=== PATIENT | female | born 1990 | race Hispanic/Latino ===

== ENCOUNTER 2017-03-22 14:03 | Inpatient (IN) | payer BC, MEDICAID ==
[2017-03-22 14:07] VITALS: BMI 23.8
[2017-03-22] MEDS ORDERED: Magnesium Sulfate 2 GM in Sodium Chloride 0.9% 100 ML IVPB ONE (14:12)
--- NOTE | 2017-03-22 14:17 | ED PDOC ---
Arrival/HPI - General Chief Complaint: Respiratory Distress Time Seen by Provider: 03/22/17 14:07 Historian: Patient - History of Present Illness Narrative History of Present Illness (Text): 03/22/17 14:13 A 26 year old female, whose past medical history includes asthma, presents to the emergency department complaining of asthma exacerbation and wheezing. Patient reports also experiencing mild cough and headache. Patient denies any fever or any other complaints at this time. PMD: Dr. Yumiko Suggs Past Medical History - Provider Review Nursing Documentation Reviewed: Yes - Infectious Disease Hx of Infectious Diseases: None - Tetanus Immunization Tetanus Immunization: Unknown - Cardiac Hx Cardiac Disorders: No - Pulmonary Hx Asthma: Yes (has home nebulizer machine) Hx Bronchitis: Yes Hx Pneumonia: Yes - Neurological Hx Neurological Disorder: No - HEENT Hx HEENT Disorder: No - Renal Hx Renal Disorder: No - Endocrine/Metabolic Hx Endocrine Disorders: No - Hematological/Oncological Hx Blood Disorders: No - Integumentary Hx Dermatological Disorder: No - Musculoskeletal/Rheumatological Hx Falls: No - Gastrointestinal Hx Gastrointestinal Disorders: No - Genitourinary/Gynecological Hx Genitourinary Disorders: No - Psychiatric Hx Depression: No Hx Emotional Abuse: No Hx Physical Abuse: No Hx Substance Use: No - Past Surgical History Past Surgical History: No Previous - Anesthesia Hx Anesthesia: No - Suicidal Assessment Feels Threatened In Home Enviroment: No Family/Social History - Physician Review Nursing Documentation Reviewed: Yes Family/Social History: No Known Family HX Smoking Status: Never Smoked Hx Alcohol Use: No Hx Substance Use: No Hx Substance Use Treatment: No Allergies/Home Meds Allergies/Adverse Reactions: Allergies No Known Allergies Allergy (Verified 03/22/17 14:12) Home Medications: Home Meds Medication Instructions Recorded Confirmed Albuterol Sulfate 3 ml IH Q12 PRN 03/23/17 03/23/17 Review of Systems - Physician Review All systems were reviewed & negative as marked: Yes - Review of Systems Constitutional: absent: Fevers Respiratory: Cough (mild), Wheezing Neurological: Headache Physical Exam Vital Signs Reviewed: Yes Vital Signs Temp Pulse Pulse Resp BP Pulse Ox 03/23/17 13:30 98 F 97 H 97 H 18 115/96 H 03/23/17 07:50 98 F 97 H 18 115/96 H 96 03/23/17 04:00 98.1 F 96 H 22 97/59 L 94 L 03/23/17 02:00 24 95 03/22/17 23:45 98.0 F 104 H 20 100/67 94 L 03/22/17 21:03 99 H 18 130/80 97 03/22/17 16:44 102 H 18 96 03/22/17 15:14 96 H 18 95 03/22/17 15:10 97 H 19 89 L 03/22/17 14:28 21 92 L 03/22/17 14:16 98.8 F 120 H 20 128/102 H 100 Appearance: Positive for: Well-Appearing Pain Distress: None Mental Status: Positive for: Alert and Oriented X 3 - Systems Exam Head: Present: Atraumatic, Normocephalic Pupils: Present: PERRL Extroacular Muscles: Present: EOMI Conjunctiva: Present: Normal Mouth: Present: Moist Mucous Membranes Neck: Present: Normal Range of Motion Respiratory/Chest: Present: Wheezes (diffused wheezing; patient speaking in 4-5 word sentences due to symptoms) Cardiovascular: Present: Regular Rate and Rhythm, Normal S1, S2. No: Murmurs Abdomen: Present: Normal Bowel Sounds. No: Tenderness, Distention, Peritoneal Signs Back: Present: Normal Inspection Upper Extremity: Present: Normal Inspection. No: Cyanosis, Edema Lower Extremity: Present: Normal Inspection. No: Edema Neurological: Present: GCS=15, CN II-XII Intact, Speech Normal Skin: Present: Warm, Dry, Normal Color. No: Rashes Psychiatric: Present: Alert, Oriented x 3, Normal Insight, Normal Concentration Medical Decision Making ED Course and Treatment: 03/22/17 14:15 Impression: 26 year old female with asthma exacerbation, wheezing, mild cough, and headache. Physical exam shows diffused wheezing and patient speaking in 4-5 word sentences due to symptoms. Plan: -- EKG -- Chest X-ray -- Labs -- Duoneb -- Magnesium Sulfate IV Fluids -- SOLU-Medrol -- Urinalysis -- Influenza A B test -- Reassess and disposition Prior Visits: Notes and results from previous visits were reviewed. Patient was last seen in the emergency department on 03/05/2017 for wheezing and difficulty breathing. Patient was admitted. Progress Notes: EKG: Ordered, reviewed, and independently interpreted the EKG. Rate : 115 BPM Rhythm : Sinus tachycardia Interpretation : No ST-segment elevations or depressions, no T-wave inversions, normal intervals. Comparison : No previous EKG for comparison. - Lab Interpretations Lab Results: 03/22/17 14:26 03/22/17 14:26 Lab Results 03/22/17 16:11: Urine Color Yellow, Urine Appearance Sl cloudy, Urine pH 6.0, Ur Specific [place] >= 1.030, Urine Protein Negative, Urine Glucose (UA) Negative, Urine Ketones Negative, Urine Blood Trace-intact H, Urine Nitrate Negative, Urine Bilirubin Negative, Urine Urobilinogen 0.2, Ur Leukocyte Esterase Moderate H, Urine RBC 1 - 3, Urine WBC 15 - 20, Ur Epithelial Cells 10 - 12, Urine Bacteria Mod, Urine HCG, Qual Negative 03/22/17 14:26: Procalcitonin 0.05 L 03/22/17 14:26: WBC 16.4 H, RBC 5.17, Hgb 14.5, Hct 45.4, MCV 87.8, MCH 28.0, MCHC 31.9, RDW 13.1, Plt Count 261, MPV 11.1 H, Gran % 56.3, Lymph % (Auto) 25.8 , [place] % (Auto) 7.7 H, Eos % (Auto) 9.7 H, Baso % (Auto) 0.5, Gran # 9.24 H, Lymph # (Auto) 4.2 H, [place] # (Auto) 1.3 H, Eos # (Auto) 1.6 H, Baso # (Auto) 0.08 03/22/17 14:26: Sodium 139, Potassium 4.5, Chloride 100, Carbon Dioxide 30, Anion Gap 14, BUN 12, Creatinine 0.7, Est GFR ( Amer) > 60, Est GFR (Non- Af Amer) > 60, Random Glucose 89, Calcium 9.0, Total Bilirubin 0.2, AST 30, ALT 41, Alkaline Phosphatase 71, Total Protein 6.5, Albumin 4.1, Globulin 2.4, Albumin/Globulin Ratio 1.7 03/22/17 14:26: PT 10.7, INR 0.94, APTT 25.4 - RAD Interpretation Radiology Orders: 03/22/17 14:12 CXR [CHEST PORTABLE] [RAD] Stat - Medication Orders Current Medication Orders: Discontinued Medications Acetaminophen (Tylenol 325mg Tab) 975 mg PO STAT STA Stop: 03/22/17 14:14 Last Admin: 03/22/17 14:26 Dose: 975 mg Acetaminophen (Tylenol 325mg Tab) 650 mg PO Q4H PRN PRN Reason: Fever >100.4 F Last Admin: 03/25/17 07:55 Dose: 650 mg [facility] Pain/Vitals Document 03/25/17 07:55 MJO (Rec: 03/25/17 07:55 MJO [id number]) Pain Reassessment Is This A Pain ReAssessment? No Sleep Is patient sleeping during reassessment? No Presence of Pain Presence of Pain Yes Pain Scale Used Pain Scale Used Numeric Location Left, Right or Bilateral Right Pain Location Body Site toothache Description Acute Intensity 6 Scale Used Numeric Pain Behavior Rubbing Site Facial Grimacing Alleviating Factors Medication Re-Assess: [facility] Pain/Vitals Document 03/25/17 08:55 MJO (Rec: 03/25/17 10:16 MJO [facility] [id number]) Pain Reassessment Is This A Pain ReAssessment? Yes Sleep Is patient sleeping during reassessment? No Presence of Pain Presence of Pain No Albuterol/Ipratropium (Duoneb 3 Mg/0.5 Mg (3 Ml) Ud) 3 ml IH Q15M CURTIS Stop: 03/22/17 14:46 Last Admin: 03/22/17 14:52 Dose: 3 ml Albuterol/Ipratropium (Duoneb 3 Mg/0.5 Mg (3 Ml) Ud) 3 ml IH STAT STA Stop: 03/22/17 17:04 Last Admin: 03/22/17 17:05 Dose: 3 ml Benzocaine/Menthol (Cepacol Sore Throat) 1 jere MT Q2H PRN PRN Reason: Sore Throat Last Admin: 03/23/17 17:56 Dose: 1 jere Guaifenesin/Dextromethorphan (Robitussin Dm) 5 ml PO Q4H PRN PRN Reason: Cough Last Admin: 03/23/17 21:03 Dose: 5 ml Guaifenesin/Dextromethorphan (Robitussin Dm) 5 ml PO QID CURTIS Last Admin: 03/25/17 10:50 Dose: 5 ml Magnesium Sulfate 2 gm/ Sodium (Chloride) 104 mls @ 102 mls/hr IVPB ONCE ONE Stop: 03/22/17 15:13 Last Admin: 03/22/17 14:46 Dose: 102 mls/hr eMAR Start Stop Document 03/22/17 14:46 SE (Rec: 03/22/17 14:46 SE [id number]) Intravenous Solution Start Date 03/22/17 Start Time 14:46 Levofloxacin/Dextrose (Levaquin 750mg) 750 mg in 150 mls @ 100 mls/hr IVPB STAT STA PRN Reason: Protocol Stop: 03/22/17 17:58 Last Admin: 03/22/17 16:38 Dose: 100 mls/hr eMAR Start Stop Document 03/22/17 16:38 SE (Rec: 03/22/17 16:39 SE [id number]) Intravenous Solution Start Date 03/22/17 Start Time 16:39 Levofloxacin/Dextrose (Levaquin 500mg) 500 mg in 100 mls @ 100 mls/hr IVPB DAILY CURTIS PRN Reason: Protocol Last Admin: 03/25/17 10:53 Dose: 100 mls/hr eMAR Start Stop Document 03/25/17 10:53 MJO (Rec: 03/25/17 10:54 MJO [facility] [id number]) Intravenous Solution Start Date 03/25/17 Start Time 10:54 End Date 03/25/17 End time 11:54 Total Infusion Time 60 Levalbuterol HCl (Xopenex) 0.63 mg IH [id number] PRN PRN Reason: Shortness of Breath Levalbuterol HCl (Xopenex) 1.25 mg IH [id number] PRN PRN Reason: Shortness of Breath Levalbuterol HCl (Xopenex) 0.63 mg IH [id number] CURTIS Last Admin: 03/25/17 07:33 Dose: 0.63 mg Methylprednisolone (Solu-Medrol) 125 mg IVP STAT STA Stop: 03/22/17 14:13 Last Admin: 03/22/17 14:26 Dose: 125 mg IVP Administration Document 03/22/17 14:26 SE (Rec: 03/22/17 14:26 SE [id number]) Charges for Administration # of IVP Administrations 1 Methylprednisolone (Solu-Medrol) 40 mg IVP Q12 CURTIS Last Admin: 03/24/17 09:47 Dose: 40 mg IVP Administration Document 03/24/17 09:47 [facility] (Rec: 03/24/17 09:47 [id number]) Charges for Administration # of IVP Administrations 1 Methylprednisolone (Solu-Medrol) 40 mg IVP DAILY [facility] Last Admin: 03/25/17 10:50 Dose: 40 mg IVP Administration Document 03/25/17 10:50 MJO (Rec: 03/25/17 10:50 MJO [facility] [id number]) Charges for Administration # of IVP Administrations 1 Ondansetron HCl (Zofran Inj) 2 mg IVP Q6H PRN PRN Reason: Nausea/Vomiting Pantoprazole Sodium (Protonix Inj) 40 mg IVP Q12 [facility] Pantoprazole Sodium (Protonix Inj) 40 mg IVP DAILY [facility] Last Admin: 03/24/17 09:47 Dose: 40 mg IVP Administration Document 03/24/17 09:47 [facility] [place] (Rec: 03/24/17 09:47 [id number]) Charges for Administration # of IVP Administrations 1 Pantoprazole Sodium (Protonix Ec Tab) 40 mg PO ACB [facility] Last Admin: 03/25/17 07:56 Dose: 40 mg Pneumococcal Polyvalent Vaccine (Pneumovax 23 Vaccine) 0.5 ml IM .ONCE ONE Stop: 03/23/17 13:41 - Scribe Statement The provider has reviewed the documentation as recorded by the Viraj Hernandez Provider Scribe Attestation: All medical record entries made by the Viraj were at my direction and personally dictated by me. I have reviewed the chart and agree that the record accurately reflects my personal performance of the history, physical exam, medical decision making, and the department course for this patient. I have also personally directed, reviewed, and agree with the discharge instructions and disposition. Disposition/Present on Arrival - Present on Arrival Any Indicators Present on Arrival: No History of DVT/PE: No History of Uncontrolled Diabetes: No Urinary Catheter: No History Surgical Site Infection Following: None - Disposition Have Diagnosis and Disposition been Completed?: Yes Diagnosis: Asthma Disposition: HOSPITALIZED Disposition Time: 03:00 Condition: STABLE
[2017-03-22] MEDS ORDERED: Albuterol-Ipratrop 3 mg / 0.5 (3 ml) UD ONE (14:19)
[2017-03-22] MEDS: Albuterol-Ipratrop 3 mg / 0.5 (3 ml) UD IH SCH ×3 (14:22→14:52)
[2017-03-22 14:37] LABS: BASO # 0.08 K/mm3 (0.0-2.0); BASO % 0.5 % (0.0-3.0); EOS # 1.6 (0.0-0.7); EOS % 9.7 % (1.5-5.0); GRAN # 9.24 (1.4-6.5); GRAN % 56.3 % (50.0-68.0); HEMOGLOBIN 14.5 g/dL (12.0-16.0); LYMPH # 4.2 (1.2-3.4); LYMPH % 25.8 % (22.0-35.0); MEAN CELL VOLUME 87.8 fl (80.0-105.0); MEAN CORPUSCULAR HGB CONC 31.9 g/dl (31.0-37.0); MEAN PLATELET VOLUME 11.1 fl (7.0-11.0); MONO # 1.3 (0.1-0.6); MONO % 7.7 % (1.0-6.0); RBC 5.17 10^6/uL (3.5-6.1); RED CELL DISTRIBUTION WIDTH 13.1 % (11.5-14.5); WHITE BLOOD COUNT 16.4 10^3/ul (4.5-11.0)
[2017-03-22 14:50] LABS: ALB/GLOB RATIO 1.7 (1.1-1.8); ALBUMIN 4.1 g/dL (3.0-4.8); ALT/SGPT 41 U/L (7-56); AST/SGOT 30 U/L (14-36); BLOOD UREA NITROGEN 12 mg/dL (7-21); GFR AFRICAN-AMERICAN > 60; GFR NON-AFRICAN AMERICAN > 60
[2017-03-22 14:58] LABS: INR 0.94 (0.93-1.08); PARTIAL THROMBOPLASTIN TIME 25.4 Seconds (25.1-36.5); PROTHROMBIN TIME 10.7 SECONDS (9.4-12.5)
[2017-03-22 16:19] LABS: URINE BILIRUBIN NEGATIVE (NEGATIVE); URINE BLOOD TRACE-INTACT (NEGATIVE); URINE GLUCOSE (UA) NEGATIVE (NEGATIVE); URINE LEUKOCYTE ESTERASE MODERATE Leu/uL (NEGATIVE); URINE NITRATE NEGATIVE (NEGATIVE); URINE PROTEIN NEGATIVE mg/dL (<30 mg/dL); URINE UROBILINOGEN 0.2 E.U./dL (<1 E.U./dL)
[2017-03-22 16:22] LABS: URINE APPEARANCE SL CLOUDY (CLEAR); URINE COLOR YELLOW (YELLOW)
[2017-03-22 16:28] LABS: HCG,QUALITATIVE URINE NEGATIVE (NEGATIVE); URINE BACTERIA MOD (NEG); URINE WBC 15 - 20 /hpf (0-6)
[2017-03-22] MEDS ORDERED: levoFLOXacin 750 mg in D5W 750 MG/150 ML BAG IVPB STA (16:29)
[2017-03-22] MEDS ORDERED: Albuterol-Ipratrop 3 mg / 0.5 (3 ml) UD IH STA (17:03)
[2017-03-22] MEDS ORDERED: Levalbuterol 0.63 MG/3 ML Inhal Soln UD IH PRN (17:58)
--- NOTE | 2017-03-22 18:15 | RAD ---
HISTORY: Asthma. COMPARISON: 03/05/2015 FINDINGS: LUNGS: Right lower lobe infiltrate a new finding compared to the prior study. PLEURA: No significant pleural effusion identified, no pneumothorax apparent. CARDIOVASCULAR: Normal. OSSEOUS STRUCTURES: No significant abnormalities. VISUALIZED UPPER ABDOMEN: Normal. OTHER FINDINGS: None. IMPRESSION: Right lower lobe infiltrate suspicious for acute pneumonia.
--- NOTE | 2017-03-22 18:37 | CP.PCM.HP ---
<Lizandro Mccloud - Last Filed: 03/23/17 04:14> History of Present Illness - History of Present Illness History of Present Illness: Chief Complaint: Chest tightness and wheezing HPI: Patient is a 26 year old female with a past medical history of asthma ( once intubated), and drug abuse who presents to [facility] ED with on 03/22/17 with complaints of unresolved wheezing and chest tightness which began on Tuesday morning. Patient states the night prior she was running around getting things ready for her son's green party then woke up Tuesday morning with severe chest tightness which prompted her [place] [facility] [place]. Patient states she received treatment for one day, felt better and signed out AMA on Tuesday. States she was feeling well until this morning when her chest tightness and wheezing developed once again. Patient endorses nausea and an episode of vomiting which occurred in ED after being administered duonebs. Also admits to headache. Patient denies abdominal pain, body aches, fevers, chills, recent sick contacts, recent viral infection. PMD: Dr. Randle [employer] Field Technician: Dr. Oleary Family history: denies Social history: denies tobacco, illicit drug, or alcohol use Allergies: denies Medications: non-compliant with nebulizer prescribed by Dr. Randle Present on Admission - Present on Admission Any Indicators Present on Admission: No Review of Systems - Constitutional Constitutional: absent: Chills, Fever, Headache - EENT Eyes: absent: Blurred Vision, Change in Vision Ears: absent: Dizziness Nose/Mouth/Throat: absent: Nasal Congestion - Cardiovascular Cardiovascular: Dyspnea, Palpitations. absent: Chest Pain - Respiratory Respiratory: Cough, Dyspnea, Excessive Mucous Production. absent: Chest Congestion - Gastrointestinal Gastrointestinal: absent: Diarrhea, Nausea, Vomiting - Genitourinary Genitourinary: absent: Difficulty Urinating, Dysuria - Musculoskeletal Musculoskeletal: absent: Back Pain, Neck Pain, Numbness, Tingling - Neurological Neurological: Headaches. absent: Dizziness, Numbness - Psychiatric Psychiatric: absent: Anxiety - Endocrine Endocrine: absent: Fatigue, Palpitations Past Patient History - Infectious Disease Hx of Infectious Diseases: None - Tetanus Immunizations Tetanus Immunization: Unknown - Past Social History Smoking Status: Never Smoked - CARDIAC Hx Cardiac Disorders: No - PULMONARY Hx Asthma: Yes (has home nebulizer machine) Hx Bronchitis: Yes Hx Pneumonia: Yes - NEUROLOGICAL Hx Neurological Disorder: No - HEENT Hx HEENT Problems: No - RENAL Hx Chronic Kidney Disease: No - ENDOCRINE/METABOLIC Hx Endocrine Disorders: No - HEMATOLOGICAL/ONCOLOGICAL Hx Blood Disorders: No - INTEGUMENTARY Hx Dermatological Problems: No - MUSCULOSKELETAL/RHEUMATOLOGICAL Hx Falls: No - GASTROINTESTINAL Hx Gastrointestinal Disorders: No - GENITOURINARY/GYNECOLOGICAL Hx Genitourinary Disorders: No - PSYCHIATRIC Hx Depression: No Hx Emotional Abuse: No Hx Physical Abuse: No Hx Substance Use: No - SURGICAL HISTORY Hx Surgeries: No - ANESTHESIA Hx Anesthesia: No Meds Allergies/Adverse Reactions: Allergies Allergy/AdvReac Type Severity Reaction Status Date / Time No Known Allergies Allergy Verified 03/22/17 14:12 Physical Exam - Constitutional Appears: Non-toxic, No Acute Distress - Head Exam Head Exam: ATRAUMATIC, NORMAL INSPECTION, NORMOCEPHALIC - Eye Exam Eye Exam: EOMI, Normal appearance - ENT Exam ENT Exam: Mucous Membranes Moist, Normal Exam - Neck Exam Neck exam: Positive for: Normal Inspection - Respiratory Exam Respiratory Exam: Wheezes. absent: Accessory Muscle Use, Clear to Auscultation Bilateral, Rales, Rhonchi, Respiratory Distress, Stridor, NORMAL BREATHING PATTERN - Cardiovascular Exam Cardiovascular Exam: REGULAR RHYTHM, +S1, +S2 - GI/Abdominal Exam GI & Abdominal Exam: Normal Bowel Sounds, Soft - Extremities Exam Extremities exam: Positive for: normal inspection - Neurological Exam Neurological exam: Alert, CN II-XII Intact, Oriented x3 - Psychiatric Exam Psychiatric exam: Normal Affect, Normal Mood - Skin Skin Exam: Intact, Warm Additional comments: excoriations, bruising diffusely through body Results - Vital Signs Recent Vital Signs: Last Vital Signs Temp 98.8 F 03/22/17 14:16 Pulse 102 H 03/22/17 16:44 Resp 18 03/22/17 16:44 BP 128/102 H 03/22/17 14:16 Pulse Ox 96 03/22/17 16:44 - Labs Result Diagrams: 03/22/17 14:26 03/22/17 14:26 Labs: Laboratory Results - last 24 hr 03/22/17 03/22/17 03/22/17 14:26 14:26 14:26 WBC 16.4 H RBC 5.17 Hgb 14.5 Hct 45.4 MCV 87.8 MCH 28.0 MCHC 31.9 RDW 13.1 Plt Count 261 MPV 11.1 H Gran % 56.3 Lymph % (Auto) 25.8 [place] % (Auto) 7.7 H Eos % (Auto) 9.7 H Baso % (Auto) 0.5 Gran # 9.24 H Lymph # (Auto) 4.2 H [place] # (Auto) 1.3 H Eos # (Auto) 1.6 H Baso # (Auto) 0.08 PT 10.7 INR 0.94 APTT 25.4 Sodium 139 Potassium 4.5 Chloride 100 Carbon Dioxide 30 Anion Gap 14 BUN 12 Creatinine 0.7 Est GFR ( Amer) > 60 Est GFR (Non-Af Amer) > 60 Random Glucose 89 Calcium 9.0 Total Bilirubin 0.2 AST 30 ALT 41 Alkaline Phosphatase 71 Total Protein 6.5 Albumin 4.1 Globulin 2.4 Albumin/Globulin Ratio 1.7 Urine Color Urine Appearance Urine pH Ur Specific [place] Urine Protein Urine Glucose (UA) Urine Ketones Urine Blood Urine Nitrate Urine Bilirubin Urine Urobilinogen Ur Leukocyte Esterase Urine RBC Urine WBC Ur Epithelial Cells Urine Bacteria Urine HCG, Qual 03/22/17 16:11 WBC RBC Hgb Hct MCV MCH MCHC RDW Plt Count MPV Gran % Lymph % (Auto) [place] % (Auto) Eos % (Auto) Baso % (Auto) Gran # Lymph # (Auto) [place] # (Auto) Eos # (Auto) Baso # (Auto) PT INR APTT Sodium Potassium Chloride Carbon Dioxide Anion Gap BUN Creatinine Est GFR ( Amer) Est GFR (Non-Af Amer) Random Glucose Calcium Total Bilirubin AST ALT Alkaline Phosphatase Total Protein Albumin Globulin Albumin/Globulin Ratio Urine Color Yellow Urine Appearance Sl cloudy Urine pH 6.0 Ur Specific [place] >= 1.030 Urine Protein Negative Urine Glucose (UA) Negative Urine Ketones Negative Urine Blood Trace-intact H Urine Nitrate Negative Urine Bilirubin Negative Urine Urobilinogen 0.2 Ur Leukocyte Esterase Moderate H Urine RBC 1 - 3 Urine WBC 15 - 20 Ur Epithelial Cells 10 - 12 Urine Bacteria Mod Urine HCG, Qual Negative Assessment & Plan - Assessment and Plan (Free Text) Assessment: Patient is a 26 year old female with a past medical history of asthma (once intubated), and drug abuse who presents to [facility] ED with on 03/22/17 with complaints of unresolved wheezing and chest tightness which began on Tuesday morning. Plan: Asthma exacerbation -Procalcitonin ordered; results pending -Sputum, blood, and urine cultures ordered; results pending -Follow up with CBC, BMP, ABG -Influenza AB ordered; patient refused -Will start xopenex instead of duonebs due to tachycardia -Continue Methylprednisolone -Pulse ox continuous -Heart healthy diet -Bedrest -Vital signs q6h -Zofran for nausea/vomiting Leukocytosis -Most likely secondary to steroid use when [place] [facility] vs possible UTI vs possible pneumonia -Urinalysis reveals positive leukocyte esterase, positive WBC however positive epithelial cells which is a sign for contamination; will monitor CBC and if leukocytosis does not resolve will order clean catch UA -CXR might show possible right sided infiltrates, will await official read -Continue levaquin Drug abuse history -Urine drug tox ordered -Discussed tobacco and illicit drug cessation with patient GI/DVT prophylaxis: Protonix, SCDs <Aristeo Martin - Last Filed: 03/23/17 06:52> Results - Vital Signs Recent Vital Signs: Last Vital Signs Temp 98.1 F 03/23/17 04:00 Pulse 96 H 03/23/17 04:00 Resp 22 03/23/17 04:00 BP 97/59 L 03/23/17 04:00 Pulse Ox 94 L 03/23/17 04:00 - Labs Result Diagrams: 03/23/17 04:30 03/23/17 04:30 Labs: Laboratory Results - last 24 hr 03/22/17 03/23/17 03/23/17 19:58 04:30 04:30 WBC 7.3 D RBC 4.88 Hgb 13.4 Hct 41.3 MCV 84.6 D MCH 27.5 MCHC 32.4 RDW 12.8 Plt Count 226 MPV 11.1 H Gran % 88.4 H Lymph % (Auto) 5.5 L [place] % (Auto) 6.0 Eos % (Auto) 0.0 L Baso % (Auto) 0.1 Gran # 6.48 Lymph # (Auto) 0.4 L [place] # (Auto) 0.4 Eos # (Auto) 0.0 Baso # (Auto) 0.01 Sodium 136 Potassium 4.2 Chloride 102 Carbon Dioxide 23 Anion Gap 15 BUN 11 Creatinine 0.6 L Est GFR ( Amer) > 60 Est GFR (Non-Af Amer) > 60 Random Glucose 114 H Calcium 9.2 Urine Opiates Screen Positive H Urine Methadone Screen Negative Ur Barbiturates Screen Negative Ur Phencyclidine Scrn Negative Ur Amphetamines Screen Negative U Benzodiazepines Scrn Negative U Oth Cocaine Metabols Negative U Cannabinoids Screen Negative Attending/Attestation - Attestation I have personally seen and examined this patient.: Yes I have fully participated in the care of the patient.: Yes I have reviewed all pertinent clinical information: Yes Notes (Text): 03/22/17 26 year old female with past medical history of asthma and substance abuse who presents with asthma exacerbation. CXR also shows RLL pneumonia. Continue with duonebs, iv steroids and iv antibiotics. +UA. UCx pending. Continue with levaquin for now. Patient was counselled on risks of continued substance abuse. Leukocytosis noted possibly secondary to reactive vs due to recent steroids vs pneumonia. Will continue to monitor. Aristeo Martin MD Hospitalist.
[2017-03-22] MEDS ORDERED: Levalbuterol 1.25 MG/3 ML Inhal Soln UD IH PRN (18:45)
[2017-03-22 20:56] LABS: BARBITURATES, UR NEGATIVE (NEGATIVE); BENZODIAZEPINES, UR NEGATIVE (NEGATIVE); OPIATES, UR POSITIVE (NEGATIVE); PHENCYCLIDINE, UR NEGATIVE (NEGATIVE)
[2017-03-22] MEDS: MethylPREDNISolone 40 mg Vial IVP SCH (22:42)
[2017-03-22] MEDS: Levalbuterol 0.63 MG/3 ML Inhal Soln UD IH SCH (22:46)
[2017-03-23] MEDS: Levalbuterol 0.63 MG/3 ML Inhal Soln UD IH SCH ×4 (02:01→21:05)
[2017-03-23 05:40] LABS: BASO # 0.01 K/mm3 (0.0-2.0); BASO % 0.1 % (0.0-3.0); GRAN # 6.48 (1.4-6.5); GRAN % 88.4 % (50.0-68.0); HEMOGLOBIN 13.4 g/dL (12.0-16.0); LYMPH # 0.4 (1.2-3.4); LYMPH % 5.5 % (22.0-35.0); MEAN CELL VOLUME 84.6 fl (80.0-105.0); MEAN CORPUSCULAR HEMOGLOBIN 27.5 pg (25.0-35.0); MEAN CORPUSCULAR HGB CONC 32.4 g/dl (31.0-37.0); MEAN PLATELET VOLUME 11.1 fl (7.0-11.0); MONO # 0.4 (0.1-0.6); RBC 4.88 10^6/uL (3.5-6.1); RED CELL DISTRIBUTION WIDTH 12.8 % (11.5-14.5); WHITE BLOOD COUNT 7.3 10^3/ul (4.5-11.0)
[2017-03-23 06:21] LABS: BLOOD UREA NITROGEN 11 mg/dL (7-21); CALCIUM 9.2 mg/dL (8.4-10.5); GFR AFRICAN-AMERICAN > 60; GFR NON-AFRICAN AMERICAN > 60
--- NOTE | 2017-03-23 08:36 | CARD ---
APPROVED REPORT EKG Measurement Heart [id number] <Conclusion> Sinus tachycardia Nonspecific ST abnormality [id number]
[2017-03-23] MEDS: MethylPREDNISolone 40 mg Vial IVP SCH ×2 (11:08→21:02)
[2017-03-23] MEDS: levoFLOXacin 500 mg in D5W 500 MG/100 ML BAG IVPB SCH (11:08)
[2017-03-23] MEDS: Benzocaine/Menthol (Cepacol) Lozenge MT PRN ×2 (11:57→17:56)
[2017-03-23] MEDS ORDERED: Influenza Vaccine 60 mcg/0.5 mL SYR (4YR UP) IM ONE (13:40)
[2017-03-23] MEDS ORDERED: Pneumococcal 23-Valent Vaccine IM ONE (13:40)
[2017-03-23] MEDS: guaiFENesin DM 100 mg-10 mg/5 ml UD PO PRN ×2 (15:07→21:03)
--- NOTE | 2017-03-23 15:10 | CP.PCM.PN ---
<Zeke Cha - Last Filed: 03/23/17 20:31> Subjective - Date & Time of Evaluation Date of Evaluation: 03/23/17 Time of Evaluation: 15:06 - Subjective Subjective: Medicine Progress Note: Patient seen and assessed at bedside in ED holding. No acute events overnight noted by patient or nursing staff. Patient reports that she still has "tightness " in regards to her breathing status with associated wheezing but otherwise has no further complaints at this time including fever, chills, headache, chest pain , palpitations, SOB, sputum, hemoptysis, abdominal pain, N/V/D/C, urinary symptoms, skin changes or any numbness/tingling/weakness of any extremity. Objective - Vital Signs/Intake and Output Vital Signs (last 24 hours): Temp Pulse Resp BP Pulse Ox 98 F 97 H 18 115/96 H 96 03/23/17 13:30 03/23/17 13:30 03/23/17 13:30 03/23/17 13:30 03/23/17 07:50 - Medications Medications: Current Medications Acetaminophen (Tylenol 325mg Tab) 650 mg PO Q4H PRN PRN Reason: Fever >100.4 F Benzocaine/Menthol (Cepacol Sore Throat) 1 jere MT Q2H PRN PRN Reason: Sore Throat Last Admin: 03/23/17 11:57 Dose: 1 jere Guaifenesin/Dextromethorphan (Robitussin Dm) 5 ml PO Q4H PRN PRN Reason: Cough Levofloxacin/Dextrose (Levaquin 500mg) 500 mg in 100 mls @ 100 mls/hr IVPB DAILY [facility] PRN Reason: Protocol Last Admin: 03/23/17 11:08 Dose: 100 mls/hr Levalbuterol HCl (Xopenex) 1.25 mg IH [id number] PRN PRN Reason: Shortness of Breath Levalbuterol HCl (Xopenex) 0.63 mg IH [id number] [facility] Last Admin: 03/23/17 14:01 Dose: Not Given Methylprednisolone (Solu-Medrol) 40 mg IVP Q12 [facility] Last Admin: 03/23/17 11:08 Dose: 40 mg Ondansetron HCl (Zofran Inj) 2 mg IVP Q6H PRN PRN Reason: Nausea/Vomiting Pantoprazole Sodium (Protonix Inj) 40 mg IVP DAILY [facility] Last Admin: 03/23/17 11:08 Dose: 40 mg - Labs Labs: 03/23/17 04:30 03/23/17 04:30 PT 10.7 SECONDS (9.4-12.5) 03/22/17 14:26 INR 0.94 (0.93-1.08) 03/22/17 14:26 APTT 25.4 Seconds (25.1-36.5) 03/22/17 14:26 - Constitutional Appears: Non-toxic, No Acute Distress - Head Exam Head Exam: ATRAUMATIC, NORMAL INSPECTION, NORMOCEPHALIC - Eye Exam Eye Exam: EOMI, Normal appearance, PERRL - ENT Exam ENT Exam: Mucous Membranes Moist, Normal Exam - Neck Exam Neck Exam: Full ROM, Normal Inspection. absent: Lymphadenopathy - Respiratory Exam Respiratory Exam: Rhonchi (Trace; RLL), Wheezes (Scattered, end expiratory), NORMAL BREATHING PATTERN. absent: Accessory Muscle Use, Chest Wall Tenderness, Decreased Breath Sounds, Clear to Ausculation Bilateral, Prolonged Expiratory Phase, Rales, Respiratory Distress, Stridor - Cardiovascular Exam Cardiovascular Exam: REGULAR RHYTHM, RRR, +S1, +S2. absent: Tachycardia - GI/Abdominal Exam GI & Abdominal Exam: Soft, Normal Bowel Sounds. absent: Tenderness - Extremities Exam Extremities Exam: Full ROM, Normal Capillary Refill, Normal Inspection. absent : Calf Tenderness, Joint Swelling, Pedal Edema, Tenderness - Back Exam Back Exam: NORMAL INSPECTION - Neurological Exam Neurological Exam: Alert, Awake, CN II-XII Intact, Normal Gait, Oriented x3 - Psychiatric Exam Psychiatric exam: Normal Affect, Normal Mood - Skin Skin Exam: Dry, Intact, Normal Color, Warm Assessment and Plan - Assessment and Plan (Free Text) Assessment: 26 year old female with a past medical history significant for asthma (history of intubation once in past), and polysubstance abuse who presents with complaints of unresolved wheezing and chest tightness which began on Tuesday morning. Patient was found to have a RLL infiltrate suspicious for pneumonia on chest x-ray and to have a leukocytosis on admission. Patient was started on Levaquin, Solu-Medrol and Xopenex treatments. Her leukocytosis has since resolved and she notes improvement in her breathing since the initiation of treatment. Plan: 1. Asthma Exacerbation -ABG pending -Xopenex 0.63mg IH Q6H and 1.25mg IH Q4H PRN -Solu-Medrol 40mg IVP Q12H -Zofran PRN for N/V -Continuous pulse ox 2. RLL Pneumonia -Chest X-Ray showing RLL infiltrate suspicious for pneumonia -Noted to have tachycardia but currently afebrile and without leukocytosis ( resolved since admission) or tachypnea -Influenza serology and sputum cultures pending -Levaquin 500mg IVPB QD -Tylenol PRN for fever -Cepacol and Robitussin PRN 3. History of Polysubstance Abuse -UDS positive for opiates -Cessation counseling provided GI Prophylaxis: Protonix DVT Prophylaxis: SCD's Patient seen and case discussed with attending, Dr. Martin. <Aristeo Martin - Last Filed: 03/24/17 07:42> Objective - Vital Signs/Intake and Output Vital Signs (last 24 hours): Temp Pulse Resp BP Pulse Ox 98.7 F 82 20 106/79 94 L 03/24/17 07:40 03/24/17 07:40 03/24/17 07:40 03/24/17 07:40 03/24/17 07:40 Intake and Output: 03/24/17 03/24/17 06:59 18:59 Intake Total 640 Balance 640 - Medications Medications: Current Medications Acetaminophen (Tylenol 325mg Tab) 650 mg PO Q4H PRN PRN Reason: Fever >100.4 F Benzocaine/Menthol (Cepacol Sore Throat) 1 jere MT Q2H PRN PRN Reason: Sore Throat Last Admin: 03/23/17 17:56 Dose: 1 jere Guaifenesin/Dextromethorphan (Robitussin Dm) 5 ml PO Q4H PRN PRN Reason: Cough Last Admin: 03/23/17 21:03 Dose: 5 ml Levofloxacin/Dextrose (Levaquin 500mg) 500 mg in 100 mls @ 100 mls/hr IVPB DAILY [facility] PRN Reason: Protocol Last Admin: 03/23/17 11:08 Dose: 100 mls/hr Levalbuterol HCl (Xopenex) 1.25 mg IH [id number] PRN PRN Reason: Shortness of Breath Levalbuterol HCl (Xopenex) 0.63 mg IH [id number] [facility] Last Admin: 03/24/17 03:15 Dose: 0.63 mg Methylprednisolone (Solu-Medrol) 40 mg IVP Q12 [facility] Last Admin: 03/23/17 21:02 Dose: 40 mg Ondansetron HCl (Zofran Inj) 2 mg IVP Q6H PRN PRN Reason: Nausea/Vomiting Pantoprazole Sodium (Protonix Inj) 40 mg IVP DAILY [facility] Last Admin: 03/23/17 11:08 Dose: 40 mg - Labs Labs: 03/23/17 04:30 03/23/17 04:30 PT 10.7 SECONDS (9.4-12.5) 03/22/17 14:26 INR 0.94 (0.93-1.08) 03/22/17 14:26 APTT 25.4 Seconds (25.1-36.5) 03/22/17 14:26 Attending/Attestation - Attestation I have personally seen and examined this patient.: Yes I have fully participated in the care of the patient.: Yes I have reviewed all pertinent clinical information, including history, physical exam and plan: Yes Notes (Text): 03/23/17 26 year old female with past medical history of asthma and substance abuse who presented with asthma exacerbation and RLL pneumonia. Continue with duonebs, iv steroids and iv antibiotics. Patient still has wheezing this morning. +UA. UCx pending. Continue with levaquin for now. Patient was counselled on risks of continued substance abuse. Leukocytosis has improved. Aristeo Martin MD Hospitalist.
[2017-03-24] MEDS: Levalbuterol 0.63 MG/3 ML Inhal Soln UD IH SCH ×4 (03:15→20:19)
[2017-03-24 07:51] LABS: GRAN # 6.79 (1.4-6.5); GRAN % 82.3 % (50.0-68.0); HEMOGLOBIN 13.2 g/dL (12.0-16.0); LYMPH # 0.6 (1.2-3.4); LYMPH % 6.7 % (22.0-35.0); MEAN CELL VOLUME 84.8 fl (80.0-105.0); MEAN CORPUSCULAR HEMOGLOBIN 27.4 pg (25.0-35.0); MEAN CORPUSCULAR HGB CONC 32.4 g/dl (31.0-37.0); MEAN PLATELET VOLUME 11.4 fl (7.0-11.0); MONO # 0.9 (0.1-0.6); RBC 4.81 10^6/uL (3.5-6.1); RED CELL DISTRIBUTION WIDTH 13.3 % (11.5-14.5); WHITE BLOOD COUNT 8.3 10^3/ul (4.5-11.0)
[2017-03-24 08:07] LABS: BLOOD UREA NITROGEN 13 mg/dL (7-21); CALCIUM 9.3 mg/dL (8.4-10.5); GFR AFRICAN-AMERICAN > 60; GFR NON-AFRICAN AMERICAN > 60
[2017-03-24] MEDS: levoFLOXacin 500 mg in D5W 500 MG/100 ML BAG IVPB SCH (09:46)
[2017-03-24] MEDS: MethylPREDNISolone 40 mg Vial IVP SCH (09:47)
[2017-03-24] MEDS: guaiFENesin DM 100 mg-10 mg/5 ml UD PO SCH ×4 (09:47→21:06)
--- NOTE | 2017-03-24 10:20 | CP.PCM.PN ---
<Wendy Chatterjee - Last Filed: 03/24/17 10:16> Subjective - Date & Time of Evaluation Date of Evaluation: 03/24/17 Time of Evaluation: 10:18 - Subjective Subjective: PGY-[address] Martin Pt breathing better, but cough has been preventing her from sleeping. Yellow phlegm is hard to produced. No other acute complaints Objective - Vital Signs/Intake and Output Vital Signs (last 24 hours): Temp Pulse Resp BP Pulse Ox 98.7 F 82 20 106/79 94 L 03/24/17 07:40 03/24/17 07:40 03/24/17 07:40 03/24/17 07:40 03/24/17 07:40 Intake and Output: 03/24/17 03/24/17 06:59 18:59 Intake Total 640 Balance 640 - Medications Medications: Current Medications Acetaminophen (Tylenol 325mg Tab) 650 mg PO Q4H PRN PRN Reason: Fever >100.4 F Benzocaine/Menthol (Cepacol Sore Throat) 1 jere MT Q2H PRN PRN Reason: Sore Throat Last Admin: 03/23/17 17:56 Dose: 1 jere Guaifenesin/Dextromethorphan (Robitussin Dm) 5 ml PO QID [facility] Last Admin: 03/24/17 09:47 Dose: 5 ml Levofloxacin/Dextrose (Levaquin 500mg) 500 mg in 100 mls @ 100 mls/hr IVPB DAILY [facility] PRN Reason: Protocol Last Admin: 03/24/17 09:46 Dose: 100 mls/hr Levalbuterol HCl (Xopenex) 1.25 mg IH [id number] PRN PRN Reason: Shortness of Breath Levalbuterol HCl (Xopenex) 0.63 mg IH [id number] [facility] Last Admin: 03/24/17 08:17 Dose: 0.63 mg Methylprednisolone (Solu-Medrol) 40 mg IVP Q12 [facility] Last Admin: 03/24/17 09:47 Dose: 40 mg Ondansetron HCl (Zofran Inj) 2 mg IVP Q6H PRN PRN Reason: Nausea/Vomiting Pantoprazole Sodium (Protonix Inj) 40 mg IVP DAILY [facility] Last Admin: 03/24/17 09:47 Dose: 40 mg - Labs Labs: 03/24/17 07:30 03/24/17 07:30 PT 10.7 SECONDS (9.4-12.5) 03/22/17 14:26 INR 0.94 (0.93-1.08) 03/22/17 14:26 APTT 25.4 Seconds (25.1-36.5) 03/22/17 14:26 - Constitutional Appears: No Acute Distress - Head Exam Head Exam: ATRAUMATIC, NORMAL INSPECTION, NORMOCEPHALIC - Eye Exam Eye Exam: EOMI, Normal appearance, PERRL. absent: Scleral icterus Pupil Exam: NORMAL ACCOMODATION - ENT Exam ENT Exam: Mucous Membranes Moist - Neck Exam Additional comments: supple - Respiratory Exam Respiratory Exam: Decreased Breath Sounds (All lung field), Clear to Ausculation Bilateral, Wheezes (end expiratory), NORMAL BREATHING PATTERN. absent: Rales, Rhonchi - Cardiovascular Exam Cardiovascular Exam: REGULAR RHYTHM, +S1, +S2. absent: Murmur - GI/Abdominal Exam GI & Abdominal Exam: Soft, Normal Bowel Sounds. absent: Tenderness - Extremities Exam Extremities Exam: absent: Calf Tenderness, Pedal Edema - Neurological Exam Neurological Exam: Alert, Awake, Oriented x3 - Psychiatric Exam Psychiatric exam: Normal Affect, Normal Mood - Skin Skin Exam: Dry, Warm Assessment and Plan - Assessment and Plan (Free Text) Plan: 26 year old female with a past medical history significant for asthma (history of intubation once in past), polysubstance abuse, and recent hospital stay at [facility] for 1 night left AMA, presents with complaints of unresolved wheezing and chest tightness which began on Tuesday morning. Patient was found to have a RLL infiltrate suspicious for pneumonia on chest x-ray and to have a leukocytosis 16.4 on admission. Patient was started on Levaquin, Solu-Medrol and Xopenex treatments. Her leukocytosis has since resolved and she notes improvement in her breathing since the initiation of treatment. 100.3 mild temperature elevation today and persistent coughs. 1. Asthma Exacerbation -Xopenex 0.63mg IH Q6H and 1.25mg IH Q4H PRN -Solu-Medrol 40mg IVP daily -Zofran PRN for N/V -Continuous pulse ox - Scheduled Robitussin DM Q1D 2. RLL Pneumonia -Chest X-Ray showing RLL infiltrate suspicious for pneumonia - Procalcitonin 0.05 -Influenza serology and sputum cultures pending - blood culture neg x 1 day -Levaquin 500mg IVPB QD -Tylenol PRN for fever -Cepacol and Robitussin PRN 3. History of Polysubstance Abuse -UDS positive for opiates -Cessation counseling provided GI Prophylaxis: Protonix DVT Prophylaxis: SCD's Patient seen and case discussed with attending, Dr. Martin. <Aristeo Martin - Last Filed: 03/24/17 17:29> Objective - Vital Signs/Intake and Output Vital Signs (last 24 hours): Temp Pulse Resp BP Pulse Ox 98.7 F 82 20 106/79 94 L 03/24/17 07:40 03/24/17 07:40 03/24/17 07:40 03/24/17 07:40 03/24/17 07:40 Intake and Output: 03/24/17 03/24/17 06:59 18:59 Intake Total 640 Balance 640 - Medications Medications: Current Medications Acetaminophen (Tylenol 325mg Tab) 650 mg PO Q4H PRN PRN Reason: Fever >100.4 F Benzocaine/Menthol (Cepacol Sore Throat) 1 jere MT Q2H PRN PRN Reason: Sore Throat Last Admin: 03/23/17 17:56 Dose: 1 jere Guaifenesin/Dextromethorphan (Robitussin Dm) 5 ml PO QID [facility] Last Admin: 03/24/17 15:22 Dose: 5 ml Levofloxacin/Dextrose (Levaquin 500mg) 500 mg in 100 mls @ 100 mls/hr IVPB DAILY [facility] PRN Reason: Protocol Last Admin: 03/24/17 09:46 Dose: 100 mls/hr Levalbuterol HCl (Xopenex) 1.25 mg IH [id number] PRN PRN Reason: Shortness of Breath Levalbuterol HCl (Xopenex) 0.63 mg IH [id number] [facility] Last Admin: 03/24/17 15:00 Dose: 0.63 mg Methylprednisolone (Solu-Medrol) 40 mg IVP DAILY [facility] Ondansetron HCl (Zofran Inj) 2 mg IVP Q6H PRN PRN Reason: Nausea/Vomiting Pantoprazole Sodium (Protonix Ec Tab) 40 mg PO ACB [facility] - Labs Labs: 03/24/17 07:30 03/24/17 07:30 PT 10.7 SECONDS (9.4-12.5) 03/22/17 14:26 INR 0.94 (0.93-1.08) 03/22/17 14:26 APTT 25.4 Seconds (25.1-36.5) 03/22/17 14:26 Attending/Attestation - Attestation I have personally seen and examined this patient.: Yes I have fully participated in the care of the patient.: Yes I have reviewed all pertinent clinical information, including history, physical exam and plan: Yes Notes (Text): 03/24/17 17:22 26 year old female with past medical history of asthma and substance abuse who presented with asthma exacerbation and RLL pneumonia. Continue with duonebs, iv steroids and iv antibiotics. Symptoms are improving so we will begin to taper her steroids. +UA. UCx pending. Continue with levaquin for now. Patient was counselled on risks of continued substance abuse. Leukocytosis has improved. D/c planning possibly tomorrow if symptoms continue to improve. Aristeo Martin MD Hospitalist.
[2017-03-25] MEDS: Levalbuterol 0.63 MG/3 ML Inhal Soln UD IH SCH ×2 (02:36→07:33)
[2017-03-25 07:04] LABS: EOS % 0.1 % (1.5-5.0); GRAN # 4.71 (1.4-6.5); GRAN % 65.5 % (50.0-68.0); HEMOGLOBIN 14.1 g/dL (12.0-16.0); LYMPH # 1.4 (1.2-3.4); MEAN CELL VOLUME 85.6 fl (80.0-105.0); MEAN CORPUSCULAR HEMOGLOBIN 27.1 pg (25.0-35.0); MEAN CORPUSCULAR HGB CONC 31.7 g/dl (31.0-37.0); MEAN PLATELET VOLUME 11.5 fl (7.0-11.0); MONO # 1.1 (0.1-0.6); MONO % 15.4 % (1.0-6.0); RBC 5.2 10^6/uL (3.5-6.1); RED CELL DISTRIBUTION WIDTH 13.5 % (11.5-14.5); WHITE BLOOD COUNT 7.2 10^3/ul (4.5-11.0)
[2017-03-25] MEDS ORDERED: Pantoprazole 40 mg EC Tab PO SCH (07:30)
[2017-03-25 07:35] LABS: BLOOD UREA NITROGEN 14 mg/dL (7-21); CALCIUM 8.9 mg/dL (8.4-10.5); GFR AFRICAN-AMERICAN > 60; GFR NON-AFRICAN AMERICAN > 60
[2017-03-25 08:11] VITALS: BP 123/88; PULSE 64; RESP 16; TEMP 98.4; O2SAT 95
[2017-03-25] MEDS ORDERED: MethylPREDNISolone 40 mg Vial IVP SCH (10:00)
[2017-03-25] MEDS: guaiFENesin DM 100 mg-10 mg/5 ml UD PO SCH (10:50)
[2017-03-25] MEDS: levoFLOXacin 500 mg in D5W 500 MG/100 ML BAG IVPB SCH (10:53)
--- NOTE | 2017-03-25 19:51 | CP.PCM.DIS ---
<Zeke Cha - Last Filed: 03/25/17 19:47> Provider - Provider Date of Admission: 03/22/17 17:09 Attending physician: Aristeo Martin MD Primary care physician: Yumiko Suggs MD Time Spent in preparation of Discharge (in minutes): 39 Hospital Course - Lab Results Lab Results: Micro Results 03/22/17 18:25 Blood Blood Culture - Preliminary NO GROWTH AFTER 3 DAYS 03/22/17 18:10 Blood Blood Culture - Preliminary NO GROWTH AFTER 3 DAYS 03/22/17 19:58 Urine,Clean Catch Urine Culture - Preliminary Gram Positive Cocci Most Recent Lab Values WBC 7.2 10^3/ul (4.5-11.0) 03/25/17 06:45 RBC 5.20 10^6/uL (3.5-6.1) 03/25/17 06:45 Hgb 14.1 g/dL (12.0-16.0) 03/25/17 06:45 Hct 44.5 % (36.0-48.0) 03/25/17 06:45 MCV 85.6 fl (80.0-105.0) 03/25/17 06:45 MCH 27.1 pg (25.0-35.0) 03/25/17 06:45 MCHC 31.7 g/dl (31.0-37.0) 03/25/17 06:45 RDW 13.5 % (11.5-14.5) 03/25/17 06:45 Plt Count 226 10^3/uL (120.0-450.0) 03/25/17 06:45 MPV 11.5 fl (7.0-11.0) H 03/25/17 06:45 Gran % 65.5 % (50.0-68.0) 03/25/17 06:45 Lymph % (Auto) 19.0 % (22.0-35.0) L 03/25/17 06:45 [place] % (Auto) 15.4 % (1.0-6.0) H 03/25/17 06:45 Eos % (Auto) 0.1 % (1.5-5.0) L 03/25/17 06:45 Baso % (Auto) 0.0 % (0.0-3.0) 03/25/17 06:45 Gran # 4.71 (1.4-6.5) 03/25/17 06:45 Lymph # (Auto) 1.4 (1.2-3.4) 03/25/17 06:45 [place] # (Auto) 1.1 (0.1-0.6) H 03/25/17 06:45 Eos # (Auto) 0.0 (0.0-0.7) 03/25/17 06:45 Baso # (Auto) 0.00 K/mm3 (0.0-2.0) 03/25/17 06:45 PT 10.7 SECONDS (9.4-12.5) 03/22/17 14:26 INR 0.94 (0.93-1.08) 03/22/17 14:26 APTT 25.4 Seconds (25.1-36.5) 03/22/17 14:26 Sodium 142 mmol/L (132-148) 03/25/17 06:45 Potassium 3.9 mmol/L (3.6-5.0) 03/25/17 06:45 Chloride 105 mmol/L (98-107) 03/25/17 06:45 Carbon Dioxide 27 mmol/L (21-33) 03/25/17 06:45 Anion Gap 14 (10-20) 03/25/17 06:45 BUN 14 mg/dL (7-21) 03/25/17 06:45 Creatinine 0.7 mg/dl (0.7-1.2) 03/25/17 06:45 Est GFR ( Amer) > 60 03/25/17 06:45 Est GFR (Non-Af Amer) > 60 03/25/17 06:45 Random Glucose 83 mg/dL (70-110) 03/25/17 06:45 Calcium 8.9 mg/dL (8.4-10.5) 03/25/17 06:45 Total Bilirubin 0.2 mg/dL (0.2-1.3) 03/22/17 14:26 AST 30 U/L (14-36) 03/22/17 14:26 ALT 41 U/L (7-56) 03/22/17 14:26 Alkaline Phosphatase 71 U/L (38-126) 03/22/17 14:26 Total Protein 6.5 g/dL (5.8-8.3) 03/22/17 14:26 Albumin 4.1 g/dL (3.0-4.8) 03/22/17 14:26 Globulin 2.4 gm/dL 03/22/17 14: Albumin/Globulin Ratio 1.7 (1.1-1.8) 03/22/17 14:26 Procalcitonin 0.05 NG/ML (0.19-0.49) L 03/22/17 14:26 Urine Color Yellow (YELLOW) 03/22/17 16:11 Urine Appearance Sl cloudy (CLEAR) 03/22/17 16:11 Urine pH 6.0 (4.7-8.0) 03/22/17 16:11 Ur Specific [place] >= 1.030 (1.005-1.035) 03/22/17 16:11 Urine Protein Negative mg/dL (<30 mg/dL) 03/22/17 16:11 Urine Glucose (UA) Negative mg/dL (NEGATIVE) 03/22/17 16:11 Urine Ketones Negative mg/dL (NEGATIVE) 03/22/17 16:11 Urine Blood Trace-intact (NEGATIVE) H 03/22/17 16:11 Urine Nitrate Negative (NEGATIVE) 03/22/17 16:11 Urine Bilirubin Negative (NEGATIVE) 03/22/17 16:11 Urine Urobilinogen 0.2 E.U./dL (<1 E.U./dL) 03/22/17 16:11 Ur Leukocyte Esterase Moderate [place]/uL (NEGATIVE) H 03/22/17 16:11 Urine RBC 1 - 3 /hpf (0-2) 03/22/17 16:11 Urine WBC 15 - 20 /hpf (0-6) 03/22/17 16:11 Ur Epithelial Cells 10 - 12 /hpf (0-5) 03/22/17 16:11 Urine Bacteria Mod (NEG) 03/22/17 16:11 Urine HCG, Qual Negative (NEGATIVE) 03/22/17 16:11 Urine Opiates Screen Positive (NEGATIVE) H 03/22/17 19:58 Urine Methadone Screen Negative (NEGATIVE) 03/22/17 19:58 Ur Barbiturates Screen Negative (NEGATIVE) 03/22/17 19:58 Ur Phencyclidine Scrn Negative (NEGATIVE) 02/13/18 19:58 Ur Amphetamines Screen Negative (NEGATIVE) 03/22/17 19:58 U Benzodiazepines Scrn Negative (NEGATIVE) 03/22/17 19:58 U Oth Cocaine Metabols Negative (NEGATIVE) 03/22/17 19:58 U Cannabinoids Screen Negative (NEGATIVE) 03/22/17 19:58 - Hospital Course Hospital Course: 26 year old female with a past medical history significant for asthma (history of intubation once in past), and polysubstance abuse who presented with complaints of unresolved wheezing and chest tightness and diagnosed with asthma exacerbation. She was started on Xopenex(tachycardia), IV Solu-medrol, PRN cepacol, and PRN Robitussin. Patient was found to have a RLL infiltrate suspicious for pneumonia on chest x-ray and to have a leukocytosis. Patient was started on Levaquin. Her leukocytosis resolved and had noted improvement in her breathing after initiation of treatment. Once HDS and with lungs clear to auscultation, patient was discharged home on 03/25/17 with prescriptions for a medrol dose pack, seven day course of levaquin and instructions to follow up with her primary care doctor. - Date & Time of H&P Date of H&P: 03/22/17 Time of H&P: 18:25 Discharge Exam - Head Exam Head Exam: ATRAUMATIC, NORMAL INSPECTION, NORMOCEPHALIC - Eye Exam Eye Exam: EOMI, Normal appearance, PERRL - ENT Exam ENT Exam: Mucous Membranes Moist - Neck Exam Neck exam: Full Rom - Respiratory Exam Respiratory Exam: Clear to PA & Lateral, NORMAL BREATHING PATTERN, UNREMARKABLE - Cardiovascular Exam Cardiovascular Exam: REGULAR RHYTHM - GI/Abdominal Exam GI & Abdominal Exam: Normal Bowel Sounds, Unremarkable - Extremities Exam Extremities exam: normal capillary refill, normal inspection, pedal pulses present - Back Exam Back exam: NORMAL INSPECTION - Neurological Exam Neurological exam: Alert, CN II-XII Intact, Normal Gait, Oriented x3, Reflexes Normal - Psychiatric Exam Psychiatric exam: Normal Affect, Normal Mood - Skin Skin Exam: Dry, Intact, Normal Color, Warm Discharge Plan - Discharge Medications Prescriptions: Albuterol HFA [Ventolin HFA 90 mcg/actuation (8 g)] 1 puff IH Q4H PRN #1 inhaler PRN Reason: Wheezing levoFLOXacin [Levaquin] 500 mg PO DAILY #7 tab Methylprednisolone [Medrol Dose Pack (21 tabs)] 4 mg PO DAILY #21 mg - Follow Up Plan Condition: GOOD Disposition: HOME/ ROUTINE Instructions: Asthma, Adult (DC), Pneumonia, Adult (DC), How to Use Your Metered Dose Inhaler (Adults), Influenza Virus Vaccine (Inactivated), Pneumococcal Polysaccharide Vaccine (23-Valent), Flu Vaccine, Asthma (DC), Asthma (GEN) Additional Instructions: Please follow up with your primary care doctor within one week of discharge Please take all medications as prescribed If your symptoms should worsen or persist, please seek emergency medical attention Referrals: Yumiko Suggs MD [Primary Care Provider] - <Aristeo aMrtin - Last Filed: 03/26/17 12:41> Provider - Provider Date of Admission: 03/22/17 17:09 Attending physician: Aristeo Martin MD Primary care physician: Yumiko Suggs MD Hospital Course - Lab Results Lab Results: Micro Results 03/22/17 19:58 Urine,Clean Catch Urine Culture - Final Enterococcus Faecalis 03/22/17 18:25 Blood Blood Culture - Preliminary NO GROWTH AFTER 3 DAYS 03/22/17 18:10 Blood Blood Culture - Preliminary NO GROWTH AFTER 3 DAYS Most Recent Lab Values WBC 7.2 10^3/ul (4.5-11.0) 03/25/17 06:45 RBC 5.20 10^6/uL (3.5-6.1) 03/25/17 06:45 Hgb 14.1 g/dL (12.0-16.0) 03/25/17 06:45 Hct 44.5 % (36.0-48.0) 03/25/17 06:45 MCV 85.6 fl (80.0-105.0) 03/25/17 06:45 MCH 27.1 pg (25.0-35.0) 03/25/17 06:45 MCHC 31.7 g/dl (31.0-37.0) 03/25/17 06:45 RDW 13.5 % (11.5-14.5) 03/25/17 06:45 Plt Count 226 10^3/uL (120.0-450.0) 03/25/17 06:45 MPV 11.5 fl (7.0-11.0) H 03/25/17 06:45 Gran % 65.5 % (50.0-68.0) 03/25/17 06:45 Lymph % (Auto) 19.0 % (22.0-35.0) L 03/25/17 06:45 [place] % (Auto) 15.4 % (1.0-6.0) H 03/25/17 06:45 Eos % (Auto) 0.1 % (1.5-5.0) L 03/25/17 06:45 Baso % (Auto) 0.0 % (0.0-3.0) 03/25/17 06:45 Gran # 4.71 (1.4-6.5) 03/25/17 06:45 Lymph # (Auto) 1.4 (1.2-3.4) 03/25/17 06:45 [place] # (Auto) 1.1 (0.1-0.6) H 03/25/17 06:45 Eos # (Auto) 0.0 (0.0-0.7) 03/25/17 06:45 Baso # (Auto) 0.00 K/mm3 (0.0-2.0) 03/25/17 06:45 PT 10.7 SECONDS (9.4-12.5) 03/22/17 14:26 INR 0.94 (0.93-1.08) 03/22/17 14:26 APTT 25.4 Seconds (25.1-36.5) 03/22/17 14:26 Sodium 142 mmol/L (132-148) 03/25/17 06:45 Potassium 3.9 mmol/L (3.6-5.0) 03/25/17 06:45 Chloride 105 mmol/L (98-107) 03/25/17 06:45 Carbon Dioxide 27 mmol/L (21-33) 03/25/17 06:45 Anion Gap 14 (10-20) 03/25/17 06:45 BUN 14 mg/dL (7-21) 03/25/17 06:45 Creatinine 0.7 mg/dl (0.7-1.2) 03/25/17 06:45 Est GFR ( Amer) > 60 03/25/17 06:45 Est GFR (Non-Af Amer) > 60 03/25/17 06:45 Random Glucose 83 mg/dL (70-110) 03/25/17 06:45 Calcium 8.9 mg/dL (8.4-10.5) 03/25/17 06:45 Total Bilirubin 0.2 mg/dL (0.2-1.3) 03/22/17 14:26 AST 30 U/L (14-36) 03/22/17 14:26 ALT 41 U/L (7-56) 03/22/17 14:26 Alkaline Phosphatase 71 U/L (38-126) 03/22/17 14:26 Total Protein 6.5 g/dL (5.8-8.3) 03/22/17 14:26 Albumin 4.1 g/dL (3.0-4.8) 03/22/17 14:26 Globulin 2.4 gm/dL 03/22/17 14:26 Albumin/Globulin Ratio 1.7 (1.1-1.8) 03/22/17 14:26 Procalcitonin 0.05 NG/ML (0.19-0.49) L 03/22/17 14:26 Urine Color Yellow (YELLOW) 03/22/17 16:11 Urine Appearance Sl cloudy (CLEAR) 03/22/17 16:11 Urine pH 6.0 (4.7-8.0) 03/22/17 16:11 Ur Specific [place] >= 1.030 (1.005-1.035) 03/22/17 16:11 Urine Protein Negative mg/dL (<30 mg/dL) 03/22/17 16:11 Urine Glucose (UA) Negative mg/dL (NEGATIVE) 03/22/17 16:11 Urine Ketones Negative mg/dL (NEGATIVE) 03/22/17 16:11 Urine Blood Trace-intact (NEGATIVE) H 03/22/17 16:11 Urine Nitrate Negative (NEGATIVE) 03/22/17 16:11 Urine Bilirubin Negative (NEGATIVE) 03/22/17 16:11 Urine Urobilinogen 0.2 E.U./dL (<1 E.U./dL) 03/22/17 16:11 Ur Leukocyte Esterase Moderate Sulma/uL (NEGATIVE) H 03/22/17 16:11 Urine RBC 1 - 3 /hpf (0-2) 03/22/17 16:11 Urine WBC 15 - 20 /hpf (0-6) 03/22/17 16:11 Ur Epithelial Cells 10 - 12 /hpf (0-5) 03/22/17 16:11 Urine Bacteria Mod (NEG) 03/22/17 16:11 Urine HCG, Qual Negative (NEGATIVE) 03/22/17 16:11 Urine Opiates Screen Positive (NEGATIVE) H 03/22/17 19:58 Urine Methadone Screen Negative (NEGATIVE) 03/22/17 19:58 Ur Barbiturates Screen Negative (NEGATIVE) 03/22/17 19:58 Ur Phencyclidine Scrn Negative (NEGATIVE) 03/22/17 19:58 Ur Amphetamines Screen Negative (NEGATIVE) 03/22/17 19:58 U Benzodiazepines Scrn Negative (NEGATIVE) 03/22/17 19:58 U Oth Cocaine Metabols Negative (NEGATIVE) 03/22/17 19:58 U Cannabinoids Screen Negative (NEGATIVE) 03/22/17 19:58 Attending/Attestation - Attestation I have personally seen and examined this patient.: Yes I have fully participated in the care of the patient.: Yes I have reviewed all pertinent clinical information, including history, physical exam and plan: Yes Notes (Text): 03/26/17 12:25 26 year old female with past medical history of asthma and substance abuse who presented with asthma exacerbation and RLL pneumonia. Symptoms improved with tapering iv steroids, duonebs and iv antibiotics. She was also on antibiotics for possible UTI. Patient was counselled on risks of continued substance abuse. Leukocytosis has improved. Overall her symptoms have improved. She is discharged home on po antibiotics and tapering steroids. Aristeo Martin MD Hospitalist.
== END 2017-03-25 12:57 | disposition home or self-care (01) | DRG 588 ==
LOC: ED 14:03 → ERH 17:09 → 5RSO 03-23 15:38 → 5RNO 03-24 20:06
PROVIDERS: ADMIT Internal Medicine; ATTEND Internal Medicine
DX: J45.901 Unspecified asthma with (acute) exacerbation (principal); J18.9 Pneumonia, unspecified organism; F11.10 Opioid abuse, uncomplicated; N39.0 Urinary tract infection, site not specified

== ENCOUNTER 2017-05-21 20:09 | Inpatient (IN) | payer MEDICAID, OTHER ==
[2017-05-21 20:12] VITALS: BMI 23.0
[2017-05-21] MEDS ORDERED: Levalbuterol 1.25 MG/3 ML Inhal Soln UD IH STA ×3 (20:14→20:22)
[2017-05-21] MEDS ORDERED: Levalbuterol 1.25 MG/3 ML Inhal Soln UD ONE (20:18)
[2017-05-21] MEDS ORDERED: Magnesium Sulfate 2 GM in Sodium Chloride 0.9% 100 ML IVPB ONE (21:11)
[2017-05-21 21:54] LABS: BASO # 0.07 K/mm3 (0.0-2.0); BASO % 0.4 % (0.0-3.0); EOS # 3.7 (0.0-0.7); EOS % 18.6 % (1.5-5.0); GRAN # 10.78 (1.4-6.5); GRAN % 53.9 % (50.0-68.0); LYMPH # 4.4 (1.2-3.4); LYMPH % 21.8 % (22.0-35.0); MEAN CELL VOLUME 83.5 fl (80.0-105.0); MEAN CORPUSCULAR HEMOGLOBIN 27.3 pg (25.0-35.0); MEAN CORPUSCULAR HGB CONC 32.7 g/dl (31.0-37.0); MEAN PLATELET VOLUME 11.7 fl (7.0-11.0); MONO # 1.1 (0.1-0.6); MONO % 5.3 % (1.0-6.0); RBC 6.23 10^6/uL (3.5-6.1); RED CELL DISTRIBUTION WIDTH 12.9 % (11.5-14.5)
[2017-05-21 22:02] LABS: ALB/GLOB RATIO 1.3 (1.1-1.8); ALBUMIN 4.8 g/dL (3.0-4.8); ALT/SGPT 31 U/L (7-56); AST/SGOT 36 U/L (14-36); BLOOD UREA NITROGEN 10 mg/dL (7-21); CALCIUM 9.9 mg/dL (8.4-10.5); GFR AFRICAN-AMERICAN > 60; GFR NON-AFRICAN AMERICAN > 60
[2017-05-21 22:18] LABS: INR 1.1 (0.93-1.08); PARTIAL THROMBOPLASTIN TIME 31.1 Seconds (25.1-36.5); PROTHROMBIN TIME 12.6 SECONDS (9.4-12.5)
--- NOTE | 2017-05-21 22:27 | ED PDOC ---
Arrival/HPI - General Chief Complaint: Respiratory Distress Time Seen by Provider: 05/21/17 20:14 Historian: Patient - History of Present Illness Narrative History of Present Illness (Text): 05/21/17 22:24 26yo female Asthmatic bib EMS for wheezing, SOB, nonproductive cough that started this evening. States she used her inhaler without relieve. She was admitted her in March for same complaint. She is not steroid dependent and never intubated. Denies fever, chills, sick contact, any other complaint. Past Medical History - Provider Review Nursing Documentation Reviewed: Yes - Infectious Disease Hx of Infectious Diseases: None - Tetanus Immunization Tetanus Immunization: Unknown - Cardiac Hx Cardiac Disorders: No - Pulmonary Hx Asthma: Yes (has home nebulizer machine) Hx Bronchitis: Yes Hx Pneumonia: Yes - Neurological Hx Neurological Disorder: No - HEENT Hx HEENT Disorder: No - Renal Hx Renal Disorder: No - Endocrine/Metabolic Hx Endocrine Disorders: No - Hematological/Oncological Hx Blood Disorders: No - Integumentary Hx Dermatological Disorder: No - Musculoskeletal/Rheumatological Hx Falls: No - Gastrointestinal Hx Gastrointestinal Disorders: No - Genitourinary/Gynecological Hx Genitourinary Disorders: No - Psychiatric Hx Depression: No Hx Emotional Abuse: No Hx Physical Abuse: No Hx Substance Use: No - Past Surgical History Past Surgical History: No Previous - Anesthesia Hx Anesthesia: No - Suicidal Assessment Feels Threatened In Home Enviroment: No Family/Social History - Physician Review Nursing Documentation Reviewed: Yes Family/Social History: Unknown Family HX Smoking Status: Never Smoked Hx Alcohol Use: No Hx Substance Use: No Hx Substance Use Treatment: No Allergies/Home Meds Allergies/Adverse Reactions: Allergies No Known Allergies Allergy (Verified 05/21/17 20:14) Home Medications: Home Meds Medication Instructions Recorded Confirmed Albuterol Sulfate 3 ml IH Q12 PRN 03/23/17 05/21/17 Review of Systems - Physician Review All systems were reviewed & negative as marked: Yes - Review of Systems Constitutional: Normal Eyes: Normal ENT: Normal Respiratory: SOB, Cough, Wheezing. absent: Sputum Cardiovascular: Normal Gastrointestinal: Normal Genitourinary Female: Normal Musculoskeletal: Normal Skin: Normal Neurological: Normal Endocrine: Normal Hemo/Lymphatic: Normal Psychiatric: Normal Physical Exam Vital Signs Reviewed: Yes Vital Signs Pulse Resp BP Pulse Ox 05/21/17 22:26 21 05/21/17 22:25 109 H 18 125/73 95 Temperature: Afebrile Blood Pressure: Normal Pulse: Regular Respiratory Rate: Normal Appearance: Positive for: Well-Appearing, Non-Toxic, Comfortable Pain Distress: None Mental Status: Positive for: Alert and Oriented X 3 - Systems Exam Head: Present: Atraumatic, Normocephalic Pupils: Present: PERRL Extroacular Muscles: Present: EOMI Conjunctiva: Present: Normal Mouth: Present: Moist Mucous Membranes Neck: Present: Normal Range of Motion Respiratory/Chest: Present: Good Air Exchange, Accessory Muscle Use, Wheezes ( Diffuse expiratory wheeze). No: Respiratory Distress, Decreased Breath Sounds, Rales, Retracting, Rhonchi, Tachypneic Cardiovascular: Present: Regular Rate and Rhythm, Normal S1, S2. No: Murmurs Abdomen: No: Tenderness, Distention, Peritoneal Signs Back: Present: Normal Inspection Upper Extremity: Present: Normal Inspection. No: Cyanosis, Edema Lower Extremity: Present: Normal Inspection. No: Edema Neurological: Present: GCS=15, CN II-XII Intact, Speech Normal Skin: Present: Warm, Dry, Normal Color. No: Rashes Psychiatric: Present: Alert, Oriented x 3, Normal Insight, Normal Concentration Medical Decision Making ED Course and Treatment: 05/22/17 00:08 Pt present to ED for stated history. She was seen immediately she arrived in ED. She was in moderate respiratory distress on presentation. Solu medrol, Duoneb and Xopenex was given. On re evaluation she continued to wheeze and mag sulfate was given. Pt also complained of migraine headache, which is her typical headache and was given Morphine. On second re evaluation pt continued to wheeze and complain of chest tightness. CXR - RLL infiltrate and costophrenic angle blunting. Lab show leukocystotis with shift. PT notes that she has not been on steroid at home Blood culture was added and Rocephin /Zithromax was added. case was DW Dr. Junior and pt was admitted for PNU and Status asthmatics. - Lab Interpretations Lab Results: 05/21/17 21:30 05/21/17 21:30 Lab Results 05/21/17 21:30: PT 12.6 H, INR 1.10 H, APTT 31.1 05/21/17 21:30: Sodium 144, Potassium 4.7, Chloride 102, Carbon Dioxide 29, Anion Gap 18, BUN 10, Creatinine 0.7, Est GFR ( Amer) > 60, Est GFR (Non- Af Amer) > 60, Random Glucose 95, Calcium 9.9, Total Bilirubin 0.4, AST 36, ALT 31, Alkaline Phosphatase 81, Total Protein 8.4 H, Albumin 4.8, Globulin 3.6, Albumin/Globulin Ratio 1.3 05/21/17 21:30: WBC 20.0 H D, RBC 6.23 H, Hgb 17.0 H D, Hct 52.0 H, MCV 83.5, MCH 27.3, MCHC 32.7, RDW 12.9, Plt Count 378, MPV 11.7 H, Gran % 53.9, Lymph % ( Auto) 21.8 L, [place] % (Auto) 5.3, Eos % (Auto) 18.6 H, Baso % (Auto) 0.4, Gran # 10.78 H, Lymph # (Auto) 4.4 H, [place] # (Auto) 1.1 H, Eos # (Auto) 3.7 H, Baso # ( Auto) 0.07 - RAD Interpretation Radiology Orders: 05/21/17 21:55 CHEST PORTABLE [RAD] Stat - Medication Orders Current Medication Orders: Albuterol/Ipratropium (Duoneb 3 Mg/0.5 Mg (3 Ml) Ud) 3 ml IH Q2H PRN PRN Reason: Shortness of Breath Albuterol/Ipratropium (Duoneb 3 Mg/0.5 Mg (3 Ml) Ud) 3 ml IH [id number] CURTIS Methylprednisolone (Solu-Medrol) 40 mg IVP Q12 CURTIS Pantoprazole Sodium (Protonix Ec Tab) 40 mg PO 0600 CURTIS Discontinued Medications Magnesium Sulfate 2 gm/ Sodium (Chloride) 104 mls @ 102 mls/hr IVPB ONCE ONE Stop: 05/21/17 22:12 Last Admin: 05/21/17 21:37 Dose: 102 mls/hr eMAR Start Stop Document 05/21/17 21:37 IT (Rec: 05/21/17 21:38 IT [facility] [id number]) Intravenous Solution Start Date 05/21/17 Start Time 21:37 End Date 05/21/17 Ceftriaxone Sodium (Rocephin 1 Gram Ivpb) 1 gm in 100 mls @ 200 mls/hr IVPB STAT STA PRN Reason: Protocol Stop: 05/22/17 00:25 Azithromycin (Zithromax 500mg In Ns) 500 mg in 250 mls @ 167 mls/hr IVPB STAT STA PRN Reason: Protocol Stop: 05/22/17 01:27 Levalbuterol HCl (Xopenex) 1.25 mg IH STAT STA Stop: 05/21/17 20:15 Last Admin: 05/21/17 20:38 Dose: 1.25 mg Levalbuterol HCl (Xopenex) 1.25 mg IH STAT STA Stop: 05/21/17 20:16 Last Admin: 05/21/17 20:38 Dose: 1.25 mg Levalbuterol HCl (Xopenex) 1.25 mg IH STAT STA Stop: 05/21/17 20:23 Last Admin: 05/21/17 20:47 Dose: 1.25 mg Methylprednisolone (Solu-Medrol) 125 mg IVP STAT STA Stop: 05/21/17 20:15 Last Admin: 05/21/17 20:38 Dose: 125 mg IVP Administration Document 05/21/17 20:38 IT (Rec: 05/21/17 20:38 IT [facility] [id number] Charges for Administration # of IVP Administrations 1 Morphine Sulfate (Morphine) 2 mg IVP STAT STA Stop: 05/21/17 20:33 Last Admin: 05/21/17 20:39 Dose: 2 mg MAR Pain Assessment Document 05/21/17 20:39 IT (Rec: 05/21/17 20:39 IT [facility] [id number]) Pain Reassessment Is this a pain reassessment? No Sleep Is patient sleeping during reassessment? No Presence of Pain Presence of Pain Yes Pain Scale Used Pain Scale Used Numeric Location Left, Right or Bilateral Bilateral Pain Location Body Echocardiography Radiology Technologist IVP Administration Document 05/21/17 20:39 IT (Rec: 05/21/17 20:39 IT [facility] [id number]) Charges for Administration # of IVP Administrations 1 Disposition/Present on Arrival - Present on Arrival Any Indicators Present on Arrival: No History of DVT/PE: No History of Uncontrolled Diabetes: No Urinary Catheter: No History of Decub. Ulcer: No History Surgical Site Infection Following: None - Disposition Have Diagnosis and Disposition been Completed?: Yes Diagnosis: Dyspnea, Asthma exacerbation, Pneumonia Disposition: HOSPITALIZED Disposition Time: 23:55 Patient Plan: Admission Patient Problems: Current Active Problems Problem Status Onset Asthma exacerbation Acute Dyspnea Acute Pneumonia Acute Condition: FAIR
[2017-05-21] MEDS ORDERED: cefTRIAXone 1 gm 1 GM/100 ML BAG IVPB STA (23:56)
[2017-05-21] MEDS ORDERED: Azithromycin 500MG/NS 250ml 500 MG/250 ML BAG IVPB STA (23:58)
[2017-05-22] MEDS ORDERED: Albuterol-Ipratrop 3 mg / 0.5 (3 ml) UD IH PRN (00:11)
--- NOTE | 2017-05-22 01:44 | CP.PCM.HP ---
History of Present Illness - History of Present Illness History of Present Illness: Medicine H/P: Dr. Zachary Junior Chief Complaint: Shortness of breath HPI: 26 year old female with past medical history significant for asthma and drug abuse presents with complaints of wheezing, shortness of breath for 2 days. Patient states that it started yesterday evening, she used her nebulizer and rescue inhaler. Then this morning it worsened, she used her rescue inhaler again, but it did not help. Patient came to the ED and received 3 rounds of duonebs, 1 dose of steroids, and felt better but is still wheezing. Patient denies any recent steroid use. Patient further denies sick contacts, fevers and chills, nausea or vomiting or diarrhea and denies any chest pain. Of note, patient has been here several times for her shortness of breath, most recently in March, at which time she was given Levaquin, tapering dose of steroids, and nebulizing treatments. Patient has been intubated once in the past for her asthma, many years ago. Review of Systems: 12 point ROS obtained and negative except as per HPI Surgical History: Denies Medical History: Asthma, drug abuse Allergies: NKDA Social History: ?Smoked? Heroin in the past; Never injected; Denies tobacco, alcohol Home meds: Nebulizer, albuterol Family History: Patient denies PMD: Dr. Randle Pulmonology: Dr. Oleary Present on Admission - Present on Admission Any Indicators Present on Admission: No Past Patient History - Infectious Disease Hx of Infectious Diseases: None - Tetanus Immunizations Tetanus Immunization: Unknown - Past Social History Smoking Status: Never Smoked - CARDIAC Hx Cardiac Disorders: No - PULMONARY Hx Asthma: Yes (has home nebulizer machine) Hx Bronchitis: Yes Hx Pneumonia: Yes - NEUROLOGICAL Hx Neurological Disorder: No - HEENT Hx HEENT Problems: No - RENAL Hx Chronic Kidney Disease: No - ENDOCRINE/METABOLIC Hx Endocrine Disorders: No - HEMATOLOGICAL/ONCOLOGICAL Hx Blood Disorders: No - INTEGUMENTARY Hx Dermatological Problems: No - MUSCULOSKELETAL/RHEUMATOLOGICAL Hx Falls: No - GASTROINTESTINAL Hx Gastrointestinal Disorders: No - GENITOURINARY/GYNECOLOGICAL Hx Genitourinary Disorders: No - PSYCHIATRIC Hx Depression: No Hx Emotional Abuse: No Hx Physical Abuse: No Hx Substance Use: No - SURGICAL HISTORY Hx Surgeries: No - ANESTHESIA Hx Anesthesia: No Meds Allergies/Adverse Reactions: Allergies Allergy/AdvReac Type Severity Reaction Status Date / Time No Known Allergies Allergy Verified 05/21/17 20:14 Physical Exam - Constitutional Appears: Well - Head Exam Head Exam: ATRAUMATIC, NORMAL INSPECTION, NORMOCEPHALIC - Eye Exam Eye Exam: EOMI, Normal appearance, PERRL Pupil Exam: NORMAL ACCOMODATION, PERRL - ENT Exam ENT Exam: Mucous Membranes Moist, Normal Exam - Neck Exam Neck exam: Positive for: Normal Inspection - Respiratory Exam Respiratory Exam: NORMAL BREATHING PATTERN Additional comments: Diffuse wheezes in anterior and posterior lung bustos No rales, no accessory muscle use - Cardiovascular Exam Cardiovascular Exam: REGULAR RHYTHM - GI/Abdominal Exam GI & Abdominal Exam: Normal Bowel Sounds, Soft. absent: Tenderness - Extremities Exam Extremities exam: Positive for: normal inspection - Back Exam Back exam: NORMAL INSPECTION - Neurological Exam Neurological exam: Alert, CN II-XII Intact, Normal Gait, Oriented x3, Reflexes Normal - Psychiatric Exam Psychiatric exam: Normal Affect, Normal Mood - Skin Skin Exam: Dry, Intact, Normal Color, Warm Results - Vital Signs Recent Vital Signs: Last Vital Signs Temp Pulse 109 H 05/21/17 22:25 Resp 21 05/21/17 22:26 BP 125/73 05/21/17 22:25 Pulse Ox 95 05/21/17 22:25 - Labs Result Diagrams: 05/21/17 21:30 05/21/17 21:30 Labs: Laboratory Results - last 24 hr 05/22/17 00:30 Influenza Typ A,B (EIA) Negative for flu a/b Assessment & Plan - Assessment and Plan (Free Text) Assessment: 26 year old female with a pertinent medical history of asthma admitted for asthma exacerbation. She has been here several times in the past, improves with duonebs and steroids. Chest XR appears negative to me but will await official read (right lower lobe may have shadowing). Patient is satting below 90% on room air but is denying nasal cannula. Patient refused ABG as well. Patient has a white count and denies recent steroid use. No other signs of sepsis right now. Influenza AB negative. Looks like a picture of strict asthma exacerbation at present without pneumonia, but will await formal chest XR report , blood cultures, sputum cultures. One dose of rocephin and azithro each given in ED. Plan: Asthma exacerbation - Admit to med/surg; nasal cannula 2L or non-breather; Pulse ox continuous, Vital signs q6h - Procalcitonin, Sputum and Blood cultures, ABG - Xopenex (tachycardia) PRN and CURTIS - Continue Solumedrol Leukocytosis likely 2/2 Steroid Use VS Infection - Continue rocephin and azithro - F/u cultures, procalcitonin History of Polysubstance Abuse - Urine drug screen - Discussed opiate cessation and smoking cessation with the patient GI/DVT prophylaxis: Protonix, SCDs Pending labs: Procalcitonin, sputum and blood cultures, ABG (patient refused), urine drug screen Diet: Heart Healthy
[2017-05-22] MEDS ORDERED: Albuterol-Ipratrop 3 mg / 0.5 (3 ml) UD IH SCH (02:00)
[2017-05-22] MEDS ORDERED: Levalbuterol 1.25 MG/3 ML Inhal Soln UD IH PRN (02:11)
[2017-05-22] MEDS ORDERED: Pantoprazole 40 mg EC Tab PO SCH (06:00)
[2017-05-22 07:09] LABS: BASO # 0.01 K/mm3 (0.0-2.0); BASO % 0.1 % (0.0-3.0); EOS % 0.1 % (1.5-5.0); GRAN # 7.63 (1.4-6.5); GRAN % 84.4 % (50.0-68.0); HEMOGLOBIN 14.8 g/dL (12.0-16.0); LYMPH # 1.3 (1.2-3.4); LYMPH % 13.9 % (22.0-35.0); MEAN CELL VOLUME 81.4 fl (80.0-105.0); MEAN CORPUSCULAR HEMOGLOBIN 26.7 pg (25.0-35.0); MEAN CORPUSCULAR HGB CONC 32.8 g/dl (31.0-37.0); MEAN PLATELET VOLUME 11.1 fl (7.0-11.0); MONO # 0.1 (0.1-0.6); MONO % 1.5 % (1.0-6.0); RBC 5.54 10^6/uL (3.5-6.1); RED CELL DISTRIBUTION WIDTH 12.6 % (11.5-14.5); WHITE BLOOD COUNT 9.1 10^3/ul (4.5-11.0)
[2017-05-22 07:23] LABS: ALB/GLOB RATIO 1.4 (1.1-1.8); ALBUMIN 4.3 g/dL (3.0-4.8); ALT/SGPT 36 U/L (7-56); AST/SGOT 29 U/L (14-36); BLOOD UREA NITROGEN 9 mg/dL (7-21); CALCIUM 9.6 mg/dL (8.4-10.5); GFR AFRICAN-AMERICAN > 60; GFR NON-AFRICAN AMERICAN > 60
[2017-05-22] MEDS: Levalbuterol 1.25 MG/3 ML Inhal Soln UD IH SCH ×3 (07:53→20:45)
[2017-05-22] MEDS: MethylPREDNISolone 40 mg Vial IVP SCH ×2 (09:34→21:19)
[2017-05-22] MEDS: cefTRIAXone 1 gm 1 GM/100 ML BAG IVPB SCH (09:34)
[2017-05-22] MEDS: Azithromycin 500MG/NS 250ml 500 MG/250 ML BAG IVPB SCH (09:35)
--- NOTE | 2017-05-22 11:45 | RAD ---
HISTORY: SOB COMPARISON: 03/22/2017 FINDINGS: LUNGS: No active pulmonary disease. PLEURA: No significant pleural effusion identified, no pneumothorax apparent. CARDIOVASCULAR: Normal. OSSEOUS STRUCTURES: No significant abnormalities. VISUALIZED UPPER ABDOMEN: Normal. OTHER FINDINGS: None. IMPRESSION: No active disease.
[2017-05-23] MEDS: Levalbuterol 1.25 MG/3 ML Inhal Soln UD IH SCH ×2 (07:55→13:40)
[2017-05-23] MEDS: MethylPREDNISolone 40 mg Vial IVP SCH (09:07)
[2017-05-23] MEDS: Azithromycin 500MG/NS 250ml 500 MG/250 ML BAG IVPB SCH (09:07)
[2017-05-23] MEDS: cefTRIAXone 1 gm 1 GM/100 ML BAG IVPB SCH (09:08)
[2017-05-23 09:20] VITALS: BP 98/58; PULSE 70; RESP 18; TEMP 98.3; O2SAT 100
--- NOTE | 2017-05-23 10:45 | CP.PCM.DIS ---
<Kevin Ortiz - Last Filed: 05/23/17 11:44> Provider - Provider Date of Admission: 05/21/17 23:59 Attending physician: Nikolay Miranda MD Time Spent in preparation of Discharge (in minutes): 45 Diagnosis - Discharge Diagnosis (1) Asthma exacerbation Status: Acute (2) Tobacco abuse Status: Chronic Priority: Medium Hospital Course - Lab Results Lab Results: Micro Results 05/22/17 00:30 Blood-Venous Blood Culture - Preliminary NO GROWTH AFTER 24 HOURS 05/22/17 00:05 Blood-Venous Blood Culture - Preliminary NO GROWTH AFTER 24 HOURS Most Recent Lab Values WBC 9.1 10^3/ul (4.5-11.0) D 05/22/17 06:45 RBC 5.54 10^6/uL (3.5-6.1) 05/22/17 06:45 Hgb 14.8 g/dL (12.0-16.0) D 05/22/17 06:45 Hct 45.1 % (36.0-48.0) 05/22/17 06:45 MCV 81.4 fl (80.0-105.0) 05/22/17 06:45 MCH 26.7 pg (25.0-35.0) 05/22/17 06:45 MCHC 32.8 g/dl (31.0-37.0) 05/22/17 06:45 RDW 12.6 % (11.5-14.5) 05/22/17 06:45 Plt Count 320 10^3/uL (120.0-450.0) 05/22/17 06:45 MPV 11.1 fl (7.0-11.0) H 05/22/17 06:45 Gran % 84.4 % (50.0-68.0) H 05/22/17 06:45 Lymph % (Auto) 13.9 % (22.0-35.0) L 05/22/17 06:45 [place] % (Auto) 1.5 % (1.0-6.0) 05/22/17 06:45 Eos % (Auto) 0.1 % (1.5-5.0) L 05/22/17 06:45 Baso % (Auto) 0.1 % (0.0-3.0) 05/22/17 06:45 Gran # 7.63 (1.4-6.5) H 05/22/17 06:45 Lymph # (Auto) 1.3 (1.2-3.4) 05/22/17 06:45 [place] # (Auto) 0.1 (0.1-0.6) 05/22/17 06:45 Eos # (Auto) 0.0 (0.0-0.7) 05/22/17 06:45 Baso # (Auto) 0.01 K/mm3 (0.0-2.0) 05/22/17 06:45 PT 12.6 SECONDS (9.4-12.5) H 05/21/17 21:30 INR 1.10 (0.93-1.08) H 05/21/17 21:30 APTT 31.1 Seconds (25.1-36.5) 05/21/17 21:30 Sodium 140 mmol/L (132-148) 05/22/17 06:45 Potassium 5.0 mmol/L (3.6-5.0) 05/22/17 06:45 Chloride 103 mmol/L (98-107) 05/22/17 06:45 Carbon Dioxide 25 mmol/L (21-33) 05/22/17 06:45 Anion Gap 17 (10-20) 05/22/17 06:45 BUN 9 mg/dL (7-21) 05/22/17 06:45 Creatinine 0.6 mg/dl (0.7-1.2) L 05/22/17 06:45 Est GFR ( Amer) > 60 05/22/17 06:45 Est GFR (Non-Af Amer) > 60 05/22/17 06:45 Random Glucose 131 mg/dL (70-110) H 05/22/17 06:45 Calcium 9.6 mg/dL (8.4-10.5) 05/22/17 06:45 Total Bilirubin 0.2 mg/dL (0.2-1.3) 05/22/17 06:45 AST 29 U/L (14-36) 05/22/17 06:45 ALT 36 U/L (7-56) 05/22/17 06:45 Alkaline Phosphatase 65 U/L (38-126) 05/22/17 06:45 Total Protein 7.4 g/dL (5.8-8.3) 05/22/17 06:45 Albumin 4.3 g/dL (3.0-4.8) 05/22/17 06:45 Globulin 3.1 gm/dL 05/22/17 06:45 Albumin/Globulin Ratio 1.4 (1.1-1.8) 05/22/17 06:45 Procalcitonin < 0.05 NG/ML (0.19-0.49) L 05/22/17 06:45 Influenza Typ A,B (EIA) Negative for flu a/b (NEGATIVE) 05/22/17 00:30 - Hospital Course Hospital Course: Patient is a 26 year old female with a pertinent medical history of asthma who was admitted for evaluation and treatment of shortness or breath and productive cough. With the use of physical examinations, lab work, and imaging the patient was diagnosed with and treated for asthma exacerbation likely secondary to tobacco use. During their hospital stay the patient underwent a chest xray which was reviewed, appreciated, and utilized in the management of the patients clinical course. The chest xray revealed no active disease. Patient was treated with nebulizers, IV steroids, antibiotics amongst other empiric/therapeutic medications. At this time the patient is medically stable for discharge. Patient understands and appreciates discharge plan. Patient instructed to follow up with primary care physicians and referrals within three to five days from discharge. Furthermore, the patient is instructed to take medications as prescribed and to return to emergency room for evaluation of intractable headache, fever, chills, dizziness, chest pain, shortness of breath, abdominal pain, nausea, vomiting, diarrhea, constipation, and urinary symptoms. This is a brief summary of the patients hospital course. Please see patient chart for full details. Discharge Exam - Head Exam Head Exam: ATRAUMATIC, NORMAL INSPECTION, NORMOCEPHALIC - Additional Findings Additional findings: - Constitutional Appears: Well - Head Exam Head Exam: ATRAUMATIC, NORMAL INSPECTION, NORMOCEPHALIC - Eye Exam Eye Exam: EOMI, Normal appearance, PERRL Pupil Exam: NORMAL ACCOMODATION, PERRL - ENT Exam ENT Exam: Mucous Membranes Moist, Normal Exam - Neck Exam Neck exam: Positive for: Normal Inspection - Respiratory Exam Respiratory Exam: NORMAL BREATHING PATTERN Additional comments: expiratory wheezes bilaterally No rales, no accessory muscle use - Cardiovascular Exam Cardiovascular Exam: REGULAR RHYTHM - GI/Abdominal Exam GI & Abdominal Exam: Normal Bowel Sounds, Soft. absent: Tenderness - Extremities Exam Extremities exam: Positive for: normal inspection - Back Exam Back exam: NORMAL INSPECTION - Neurological Exam Neurological exam: Alert, CN II-XII Intact, Normal Gait, Oriented x3, Reflexes Normal - Psychiatric Exam Psychiatric exam: Normal Affect, Normal Mood - Skin Skin Exam: Dry, Intact, Normal Color, Warm Discharge Plan - Discharge Medications Prescriptions: Albuterol HFA [Ventolin HFA 90 mcg/actuation (8 g)] 1 puff IH Q4H PRN #1 inhaler PRN Reason: Wheezing Albuterol Sulfate 3 ml IH Q12 PRN #1 vial.neb PRN Reason: Shortness Of Breath Azithromycin [Zithromax] 1 gm PO DAILY #1 packet Fluticasone/Salmeterol 100/50 [Advair Diskus 100/50] 1 dsk IH Q12H #1 inhaler Prednisone 5 mg PO DAILY 4 Days tab.ds.pk - Follow Up Plan Condition: GOOD Disposition: HOME/ ROUTINE Patient education suggested?: Yes Instructions: Asthma, Adult (DC), Pneumonia, Adult (DC) Additional Instructions: Patient Instructions: Take medications as prescribed. Continue albuterol HFA, nebulizer treatments, prednisone, advair diskus, and azithromycin Follow up with PMD and referrals within three to five days from discharge. Return to the emergency room for evaluation of intractable headache, fever, chills, dizziness, chest pain, shortness of breath, abdominal pain, nausea, vomiting, diarrhea, constipation, and urinary symptoms. <Nikolay Miranda - Last Filed: 05/23/17 16:46> Provider - Provider Date of Admission: 05/21/17 23:59 Attending physician: Nikolay Miranda MD Hospital Course - Lab Results Lab Results: Micro Results 05/22/17 00:30 Blood-Venous Blood Culture - Preliminary NO GROWTH AFTER 24 HOURS 05/22/17 00:05 Blood-Venous Blood Culture - Preliminary NO GROWTH AFTER 24 HOURS Most Recent Lab Values WBC 9.1 10^3/ul (4.5-11.0) D 05/22/17 06:45 RBC 5.54 10^6/uL (3.5-6.1) 05/22/17 06:45 Hgb 14.8 g/dL (12.0-16.0) D 05/22/17 06:45 Hct 45.1 % (36.0-48.0) 05/22/17 06:45 MCV 81.4 fl (80.0-105.0) 05/22/17 06:45 MCH 26.7 pg (25.0-35.0) 05/22/17 06:45 MCHC 32.8 g/dl (31.0-37.0) 05/22/17 06:45 RDW 12.6 % (11.5-14.5) 05/22/17 06:45 Plt Count 320 10^3/uL (120.0-450.0) 05/22/17 06:45 MPV 11.1 fl (7.0-11.0) H 05/22/17 06:45 Gran % 84.4 % (50.0-68.0) H 05/22/17 06:45 Lymph % (Auto) 13.9 % (22.0-35.0) L 05/22/17 06:45 [place] % (Auto) 1.5 % (1.0-6.0) 05/22/17 06:45 Eos % (Auto) 0.1 % (1.5-5.0) L 05/22/17 06:45 Baso % (Auto) 0.1 % (0.0-3.0) 05/22/17 06:45 Gran # 7.63 (1.4-6.5) H 05/22/17 06:45 Lymph # (Auto) 1.3 (1.2-3.4) 05/22/17 06:45 [place] # (Auto) 0.1 (0.1-0.6) 05/22/17 06:45 Eos # (Auto) 0.0 (0.0-0.7) 05/22/17 06:45 Baso # (Auto) 0.01 K/mm3 (0.0-2.0) 05/22/17 06:45 PT 12.6 SECONDS (9.4-12.5) H 05/21/17 21:30 INR 1.10 (0.93-1.08) H 05/21/17 21:30 APTT 31.1 Seconds (25.1-36.5) 05/21/17 21:30 Sodium 140 mmol/L (132-148) 05/22/17 06:45 Potassium 5.0 mmol/L (3.6-5.0) 05/22/17 06:45 Chloride 103 mmol/L (98-107) 05/22/17 06:45 Carbon Dioxide 25 mmol/L (21-33) 05/22/17 06:45 Anion Gap 17 (10-20) 05/22/17 06:45 BUN 9 mg/dL (7-21) 05/22/17 06:45 Creatinine 0.6 mg/dl (0.7-1.2) L 05/22/17 06:45 Est GFR ( Amer) > 60 05/22/17 06:45 Est GFR (Non-Af Amer) > 60 05/22/17 06:45 Random Glucose 131 mg/dL (70-110) H 05/22/17 06:45 Calcium 9.6 mg/dL (8.4-10.5) 05/22/17 06:45 Total Bilirubin 0.2 mg/dL (0.2-1.3) 05/22/17 06:45 AST 29 U/L (14-36) 05/22/17 06:45 ALT 36 U/L (7-56) 05/22/17 06:45 Alkaline Phosphatase 65 U/L (38-126) 05/22/17 06:45 Total Protein 7.4 g/dL (5.8-8.3) 05/22/17 06:45 Albumin 4.3 g/dL (3.0-4.8) 05/22/17 06:45 Globulin 3.1 gm/dL 05/22/17 06:45 Albumin/Globulin Ratio 1.4 (1.1-1.8) 05/22/17 06:45 Procalcitonin < 0.05 NG/ML (0.19-0.49) L 05/22/17 06:45 Influenza Typ A,B (EIA) Negative for flu a/b (NEGATIVE) 05/22/17 00:30 Attending/Attestation - Attestation I have personally seen and examined this patient.: Yes I have fully participated in the care of the patient.: Yes I have reviewed all pertinent clinical information, including history, physical exam and plan: Yes Notes (Text): 05/23/17 16:44 attending note; Patient seen and examined with resident. Patient is a 26-year-old female admitted with acute asthma exacerbation. Treated with DuoNeb, IV Solu-Medrol. Currently with significantly improved respiratory status. Not on oxygen. Ambulating fine. No hypoxia noted. Active smoking; smoking cessation is strongly advised. Patient is to follow-up with Dr. Mamta arguelles for further outpatient treatment. Patient will be discharged home with close follow-up with PMD and pulmonary.
== END 2017-05-23 13:46 | disposition home or self-care (01) | DRG 203 ==
LOC: ED 20:09 → ERH 23:59 → 3RNO 05-22 01:42
PROVIDERS: ADMIT Internal Medicine; ATTEND Internal Medicine
DX: J45.901 Unspecified asthma with (acute) exacerbation (principal); F17.200 Nicotine dependence, unspecified, uncomplicated; D72.829 Elevated white blood cell count, unspecified; F19.11 Other psychoactive substance abuse, in remission

== ENCOUNTER 2017-08-28 04:32 | Emergency (ER) | payer MEDICAID, OTHER ==
[2017-08-28 04:35] VITALS: BMI 21.9
[2017-08-28] MEDS ORDERED: Magnesium 2 gm/50 ml NS 2 GM/50 ML BAG IVPB ONE (04:43)
[2017-08-28] MEDS ORDERED: Albuterol 0.083% Inhal Sol (2.5 mg/3 mL) UD INH STA (04:43)
--- NOTE | 2017-08-28 04:48 | ED PDOC ---
Arrival/HPI - General Chief Complaint: Respiratory Distress Time Seen by Provider: 08/28/17 04:36 Historian: Patient - History of Present Illness Narrative History of Present Illness (Text): 08/28/17 04:45 27 year old female, whose past medical history includes asthma not on chronic steroids (Gets steroids by doctor when needed), presents to the emergency department complaining of trouble breathing tonight. Patient states she woke up from a bad dream which sparked her asthma. Patient denies any fever, chills, chest pain, abdominal pain, nausea, vomiting, diarrhea, urinary symptoms, back pain, neck pain, headache, dizziness, or any other complaints. Time/Duration: Prior to Arrival Symptom Onset: Sudden Symptom Course: Unchanged Activities at Onset: Light, Sleeping Context: Home Past Medical History - Provider Review Nursing Documentation Reviewed: Yes - Infectious Disease Hx of Infectious Diseases: None - Tetanus Immunization Tetanus Immunization: Unknown - Cardiac Hx Cardiac Disorders: No - Pulmonary Hx Asthma: Yes (has home nebulizer machine) Hx Bronchitis: Yes Hx Pneumonia: Yes - Neurological Hx Neurological Disorder: No - HEENT Hx HEENT Disorder: No - Renal Hx Renal Disorder: No - Endocrine/Metabolic Hx Endocrine Disorders: No - Hematological/Oncological Hx Blood Disorders: No - Integumentary Hx Dermatological Disorder: No - Musculoskeletal/Rheumatological Hx Falls: No - Gastrointestinal Hx Gastrointestinal Disorders: No - Genitourinary/Gynecological Hx Genitourinary Disorders: No - Psychiatric Hx Depression: No Hx Emotional Abuse: No Hx Physical Abuse: No Hx Substance Use: No - Past Surgical History Past Surgical History: No Previous - Anesthesia Hx Anesthesia: No - Suicidal Assessment Feels Threatened In Home Enviroment: No Family/Social History - Physician Review Nursing Documentation Reviewed: Yes Family/Social History: No Known Family HX Smoking Status: Never Smoked Hx Alcohol Use: No Hx Substance Use: No Hx Substance Use Treatment: No Allergies/Home Meds Allergies/Adverse Reactions: Allergies No Known Allergies Allergy (Verified 05/21/17 20:14) Review of Systems - Physician Review All systems were reviewed & negative as marked: Yes - Review of Systems Constitutional: absent: Fevers, Other (Chills) Respiratory: SOB Cardiovascular: absent: Chest Pain Gastrointestinal: absent: Abdominal Pain, Diarrhea, Nausea, Vomiting Genitourinary Female: absent: Dysuria, Frequency, Hematuria Musculoskeletal: absent: Back Pain, Neck Pain Neurological: absent: Headache, Dizziness Physical Exam Vital Signs Reviewed: Yes Vital Signs Temp Pulse Resp BP Pulse Ox 08/28/17 04:32 98.2 F 120 H 28 H 140/84 96 Temperature: Afebrile Blood Pressure: Normal Pulse: Tachycardic Respiratory Rate: Tachypneic Appearance: Positive for: Well-Appearing, Non-Toxic, Comfortable Pain Distress: None Mental Status: Positive for: Alert and Oriented X 3 - Systems Exam Head: Present: Atraumatic, Normocephalic Pupils: Present: PERRL Extroacular Muscles: Present: EOMI Conjunctiva: Present: Normal Mouth: Present: Moist Mucous Membranes Neck: Present: Normal Range of Motion Respiratory/Chest: Present: Wheezes (both lung bustos anteriorly and posteriorly ). No: Respiratory Distress, Accessory Muscle Use Cardiovascular: Present: Regular Rate and Rhythm, Normal S1, S2. No: Murmurs Abdomen: No: Tenderness, Distention, Peritoneal Signs Back: Present: Normal Inspection Upper Extremity: Present: Normal Inspection. No: Cyanosis, Edema Lower Extremity: Present: Normal Inspection. No: Edema Neurological: Present: GCS=15, CN II-XII Intact, Speech Normal Skin: Present: Warm, Dry, Normal Color. No: Rashes Psychiatric: Present: Alert, Oriented x 3, Normal Insight, Normal Concentration Medical Decision Making ED Course and Treatment: 08/28/17 04:38 Impression: 27 year old female presents complaining of shortness of breath after waking up from a bad dream which triggered her asthma. Plan: -- Labs -- Albuterol, Magnesium Sulfate -- Urinalysis -- EKG -- Reassess and disposition Prior Visits: Notes and results from previous visits were reviewed. On 05/21/17 presents complaining of wheezing, shortness of breath, and nonproductive cough that began this evening. Patient was admitted. Progress Notes: EKG shows Sinus Tachycardia at 107 BPM. Interpreted by me. 08/28/17 06:20 CXR without infiltrates - Lab Interpretations Lab Results: 08/28/17 04:37 08/28/17 04:37 Lab Results 08/28/17 04:37: Sodium 147, Potassium 4.4, Chloride 103, Carbon Dioxide 32, Anion Gap 17, BUN 9, Creatinine 0.6 L, Est GFR ( Amer) > 60, Est GFR (Non -Af Amer) > 60, Random Glucose 82, Calcium 9.0, Total Bilirubin 0.2, AST 35, ALT 26, Alkaline Phosphatase 59, Total Protein 7.3, Albumin 4.5, Globulin 2.9, Albumin/Globulin Ratio 1.5 08/28/17 04:37: PT 12.3, INR 1.08 08/28/17 04:37: WBC 15.4 H D, RBC 5.61, Hgb 15.1, Hct 47.2, MCV 84.1, MCH 26.9, MCHC 32.0, RDW 14.4, Plt Count 291, MPV 11.8 H, Gran % 41.9 L, Lymph % (Auto) 38.2 H, [place] % (Auto) 4.2, Eos % (Auto) 15.2 H, Baso % (Auto) 0.5, Gran # 6.46, Lymph # (Auto) 5.9 H, [place] # (Auto) 0.7 H, Eos # (Auto) 2.3 H, Baso # (Auto) 0.07 I have reviewed the lab results: Yes - RAD Interpretation Radiology Orders: 08/28/17 04:43 CHEST PORTABLE [RAD] Stat - Medication Orders Current Medication Orders: Azithromycin (Zithromax 500mg In Ns) 500 mg in 250 mls @ 167 mls/hr IVPB STAT STA PRN Reason: Protocol Stop: 08/28/17 06:36 Last Admin: 08/28/17 06:18 Dose: 167 mls/hr eMAR Start Stop Document 08/28/17 06:18 AD (Rec: 08/28/17 06:18 AD [id number]) Intravenous Solution Start Date 08/28/17 Start Time 06:18 Discontinued Medications Acetaminophen (Tylenol 325mg Tab) 975 mg PO STAT STA Stop: 08/28/17 05:55 Last Admin: 08/28/17 06:11 Dose: 975 mg MAR Pain/Vitals Document 08/28/17 06:11 AD (Rec: 08/28/17 06:12 AD VENICE) Pain Reassessment Is This A Pain ReAssessment? No Presence of Pain Presence of Pain Yes Location Left, Right or Bilateral Left Pain Location Body Site Arm Albuterol Sulfate (Albuterol 0.083% Inhal Filomena (2.5 Mg/3 Ml) Ud) 2.5 mg INH STAT STA Stop: 08/28/17 04:44 Last Admin: 08/28/17 04:43 Dose: 2.5 mg Magnesium 2 gm/50 ml NS (Magnesium Sulfate 2 Gm/50 Ml Ns) 2 gm in 50 mls @ 50 mls/hr IVPB ONCE ONE Stop: 08/28/17 05:42 Last Admin: 08/28/17 04:56 Dose: 50 mls/hr eMAR Start Stop Document 08/28/17 04:56 AD (Rec: 08/28/17 04:56 AD [id number]) Intravenous Solution Start Date 08/28/17 Start Time 04:56 Ceftriaxone Sodium (Rocephin 1 Gram Ivpb) 1 gm in 100 mls @ 200 mls/hr IVPB STAT STA PRN Reason: Protocol Stop: 08/28/17 05:36 Last Admin: 08/28/17 05:29 Dose: 200 mls/hr eMAR Start Stop Document 08/28/17 05:29 AD (Rec: 08/28/17 05:30 AD [id number]) Intravenous Solution Start Date 08/28/17 Start Time 05:30 - Scribe Statement The provider has reviewed the documentation as recorded by the Viraj Pimentel Provider Scribe Attestation: All medical record entries made by the Demaribtamy were at my direction and personally dictated by me. I have reviewed the chart and agree that the record accurately reflects my personal performance of the history, physical exam, medical decision making, and the department course for this patient. I have also personally directed, reviewed, and agree with the discharge instructions and disposition. Disposition/Present on Arrival - Present on Arrival Any Indicators Present on Arrival: No History of DVT/PE: No History of Uncontrolled Diabetes: No Urinary Catheter: No History of Decub. Ulcer: No History Surgical Site Infection Following: None - Disposition Have Diagnosis and Disposition been Completed?: Yes Diagnosis: Asthma exacerbation Disposition: HOME/ ROUTINE Disposition Time: 06:21 Patient Plan: Discharge Condition: GOOD Discharge Instructions (ExitCare): Asthma, Adult (DC) Forms: [email or web address] ([place])
[2017-08-28 05:01] LABS: ALB/GLOB RATIO 1.5 (1.1-1.8)
[2017-08-28 05:02] LABS: ALBUMIN 4.5 g/dL (3.0-4.8); ALT/SGPT 26 U/L (7-56); AST/SGOT 35 U/L (14-36); BLOOD UREA NITROGEN 9 mg/dL (7-21); GFR AFRICAN-AMERICAN > 60; GFR NON-AFRICAN AMERICAN > 60
[2017-08-28] MEDS ORDERED: Azithromycin 500MG/NS 250ml 500 MG/250 ML BAG IVPB STA (05:07)
[2017-08-28] MEDS ORDERED: cefTRIAXone 1 gm 1 GM/100 ML BAG IVPB STA (05:07)
[2017-08-28 05:08] LABS: GRAN % 41.9 % (50.0-68.0); HEMOGLOBIN 15.1 g/dL (12.0-16.0); LYMPH % 38.2 % (22.0-35.0); MEAN CELL VOLUME 84.1 fl (80.0-105.0); MEAN CORPUSCULAR HEMOGLOBIN 26.9 pg (25.0-35.0); MEAN PLATELET VOLUME 11.8 fl (7.0-11.0); MONO % 4.2 % (1.0-6.0); RBC 5.61 10^6/uL (3.5-6.1); RED CELL DISTRIBUTION WIDTH 14.4 % (11.5-14.5); WHITE BLOOD COUNT 15.4 10^3/ul (4.5-11.0)
[2017-08-28 05:09] LABS: BASO # 0.07 K/mm3 (0.0-2.0); BASO % 0.5 % (0.0-3.0); EOS # 2.3 (0.0-0.7); EOS % 15.2 % (1.5-5.0); GRAN # 6.46 (1.4-6.5); LYMPH # 5.9 (1.2-3.4); MONO # 0.7 (0.1-0.6)
[2017-08-28 05:22] LABS: INR 1.08 (0.93-1.08); PROTHROMBIN TIME 12.3 SECONDS (9.4-12.5)
[2017-08-28 06:49] VITALS: RESP 18
[2017-08-28 08:05] VITALS: BP 112/65; PULSE 18; TEMP 98.7; O2SAT 95
--- NOTE | 2017-08-28 09:29 | RAD ---
Date of service: 08/28/2017 HISTORY: wheeze COMPARISON: 05/21/2017. FINDINGS: LUNGS: The lungs are well inflated and clear. PLEURA: No significant pleural effusion identified, no pneumothorax apparent. CARDIOVASCULAR: Normal. OSSEOUS STRUCTURES: No significant abnormalities. VISUALIZED UPPER ABDOMEN: Normal. OTHER FINDINGS: None. IMPRESSION: No active pulmonary disease.
--- NOTE | 2017-08-28 12:23 | CARD ---
APPROVED REPORT Date of service: 08/28/2017 EKG Measurement Heart [id number] <Conclusion> Sinus tachycardia Possible Left atrial enlargement Nonspecific ST and T wave abnormality Abnormal ECG
== END 2017-08-28 08:21 | disposition home or self-care (01) ==
LOC: ED 04:32
DX: J45.901 Unspecified asthma with (acute) exacerbation (principal)
CPT/HCPCS: 71045; 80053; 85025; 85610; 93005; 96365; 96366; 99285; J0456; J0696; J3475

== ENCOUNTER 2017-10-03 02:16 | Observation (INO) | payer MEDICAID, OTHER ==
[2017-10-03 02:16] VITALS: BMI 21.9
--- NOTE | 2017-10-03 02:19 | ED PDOC ---
Arrival/HPI - General Time Seen by Provider: 10/03/17 02:18 Historian: Patient, EMS - History of Present Illness Narrative History of Present Illness (Text): 10/03/17 02:18 Nadia King is a 27 year old female, whose past history includes asthma and substance abuse, who presents to the Emergency department brought in by EMS for shortness of breath. Patient states she has been experiencing shortness of breath and wheezing since yesterday, which worsened tonight 1 hour prior to arrival. Patient states she took multiple nebulizer treatments at home with no significant relief and notified EMS. Patient received 1 Duoneb treatment and Solu-medrol 125 mg en route to the Emergency room. Patient denies any fever, chills, chest pain, nausea, vomiting, diarrhea, urinary symptoms, back pain, neck pain, headache, dizziness, or any other complaints. Symptom Onset: Gradual Symptom Course: Worsening Activities at Onset: Light Context: Home Past Medical History - Provider Review Nursing Documentation Reviewed: Yes - Infectious Disease Hx of Infectious Diseases: None - Tetanus Immunization Tetanus Immunization: Unknown - Cardiac Hx Cardiac Disorders: No - Pulmonary Hx Asthma: Yes (has home nebulizer machine) Hx Bronchitis: Yes Hx Pneumonia: Yes - Neurological Hx Neurological Disorder: No - HEENT Hx HEENT Disorder: No - Renal Hx Renal Disorder: No - Endocrine/Metabolic Hx Endocrine Disorders: No - Hematological/Oncological Hx Blood Disorders: No - Integumentary Hx Dermatological Disorder: No - Musculoskeletal/Rheumatological Hx Falls: No - Gastrointestinal Hx Gastrointestinal Disorders: No - Genitourinary/Gynecological Hx Genitourinary Disorders: No - Psychiatric Hx Depression: No Hx Emotional Abuse: No Hx Physical Abuse: No Hx Substance Use: No - Past Surgical History Past Surgical History: No Previous - Anesthesia Hx Anesthesia: No - Suicidal Assessment Feels Threatened In Home Enviroment: No Family/Social History - Physician Review Nursing Documentation Reviewed: Yes Family/Social History: Unknown Family HX Smoking Status: Never Smoked Hx Alcohol Use: No Hx Substance Use: No Hx Substance Use Treatment: No Allergies/Home Meds Allergies/Adverse Reactions: Allergies No Known Allergies Allergy (Verified 05/21/17 20:14) Review of Systems - Physician Review All systems were reviewed & negative as marked: Yes - Review of Systems Constitutional: Normal. absent: Fevers Eyes: Normal ENT: Normal Respiratory: SOB, Wheezing Cardiovascular: Normal. absent: Chest Pain Gastrointestinal: Normal. absent: Abdominal Pain, Diarrhea, Nausea, Vomiting Genitourinary Female: Normal Musculoskeletal: Normal Skin: Normal Neurological: Normal Endocrine: Normal Hemo/Lymphatic: Normal Psychiatric: Normal Physical Exam Vital Signs Reviewed: Yes Vital Signs Temp Pulse Resp BP Pulse Ox 10/03/17 02:31 98.1 F 106 H 26 H 120/84 97 Temperature: Afebrile Blood Pressure: Normal Pulse: Tachycardic Respiratory Rate: Normal Appearance: Positive for: Well-Appearing, Non-Toxic, Comfortable Pain Distress: None Mental Status: Positive for: Alert and Oriented X 3 - Systems Exam Head: Present: Atraumatic, Normocephalic Pupils: Present: PERRL Extroacular Muscles: Present: EOMI Conjunctiva: Present: Normal Mouth: Present: Moist Mucous Membranes Neck: Present: Normal Range of Motion Respiratory/Chest: Present: Wheezes. No: Respiratory Distress, Accessory Muscle Use Cardiovascular: Present: Regular Rate and Rhythm, Normal S1, S2. No: Murmurs Abdomen: No: Tenderness, Distention, Peritoneal Signs Back: Present: Normal Inspection Upper Extremity: Present: Normal Inspection. No: Cyanosis, Edema Lower Extremity: Present: Normal Inspection. No: Edema Neurological: Present: GCS=15, CN II-XII Intact, Speech Normal Skin: Present: Warm, Dry, Normal Color. No: Rashes Psychiatric: Present: Alert, Oriented x 3, Normal Insight, Normal Concentration Medical Decision Making ED Course and Treatment: 10/03/17 02:18 Impression: 27 year old female complaining of shortness of breath and wheezing since yesterday. Plan: -- Labs -- Chest X-ray -- Duoneb -- Magnesium Sulfate -- Reassess and disposition Prior Visits: Notes and results from previous visits were reviewed. On 08/28/2017, pt was seen in the Emergency department for shortness of breath. Pt was d/c home. Progress Notes: Reviewed EKG, sinus tachycardia at 105 bpm. Non-specific ST/T wave changes. 10/03/17 03:51 Case discussed with biomedical engineer adult basic education manager, who is aware and agrees with plan. 10/03/17 03:[address] Dumont, who is aware and agrees with plan. Accepts pt in to hospitalist service. Pt will go to Telemetry observation status asthmaticus. - Lab Interpretations Lab Results: 10/03/17 02:35 10/03/17 02:35 Lab Results 10/03/17 02:35: WBC 12.1 H D, RBC 5.17, Hgb 14.2, Hct 43.4, MCV 83.9, MCH 27.5, MCHC 32.7, RDW 13.1, Plt Count 221, MPV 11.5 H 10/03/17 02:35: Sodium 143, Potassium 4.4, Chloride 103, Carbon Dioxide 29, Anion Gap 15, BUN 7, Creatinine 0.6 L, Est GFR ( Amer) > 60, Est GFR (Non -Af Amer) > 60, Random Glucose 85, Calcium 8.2 L, Total Bilirubin 0.2, AST 119 H D, ALT 63 H, Alkaline Phosphatase 56, Total Protein 6.2, Albumin 3.6, Globulin 2.6, Albumin/Globulin Ratio 1.4 I have reviewed the lab results: Yes - RAD Interpretation Radiology Orders: 10/03/17 02:24 CHEST PORTABLE [RAD] Stat - EKG Interpretation Interpreted by ED Physician: Yes Type: 12 lead EKG - Medication Orders Current Medication Orders: Discontinued Medications Albuterol/Ipratropium (Duoneb 3 Mg/0.5 Mg (3 Ml) Ud) 3 ml IH ONCE STA Stop: 10/03/17 02:26 Last Admin: 10/03/17 02:36 Dose: 3 ml Albuterol/Ipratropium (Duoneb 3 Mg/0.5 Mg (3 Ml) Ud) 3 ml IH ONCE STA Stop: 10/03/17 03:08 Albuterol/Ipratropium (Duoneb 3 Mg/0.5 Mg (3 Ml) Ud) 3 ml IH ONCE STA Stop: 10/03/17 03:39 Magnesium Sulfate (Magnesium Sulfate 2 Gm/50 Ml Water) 2 gm in 50 mls @ 50 mls/ hr IVPB ONCE ONE Stop: 10/03/17 03:24 Last Admin: 10/03/17 02:59 Dose: 50 mls/hr eMAR Start Stop Document 10/03/17 02:59 NAVEEN (Rec: 10/03/17 03:00 NAVEEN [facility] [id number]) Intravenous Solution Start Date 10/03/17 Start Time 02:59 - Scribe Statement The provider has reviewed the documentation as recorded by the Viraj Cantu Provider Scribe Attestation: All medical record entries made by the Scribe were at my direction and personally dictated by me. I have reviewed the chart and agree that the record accurately reflects my personal performance of the history, physical exam, medical decision making, and the department course for this patient. I have also personally directed, reviewed, and agree with the discharge instructions and disposition. Disposition/Present on Arrival - Present on Arrival Any Indicators Present on Arrival: No History of DVT/PE: No History of Uncontrolled Diabetes: No Urinary Catheter: No History of Decub. Ulcer: No History Surgical Site Infection Following: None - Disposition Have Diagnosis and Disposition been Completed?: Yes Diagnosis: Asthma exacerbation, Status asthmaticus Disposition: HOSPITALIZED Disposition Time: 03:55 Patient Problems: Current Active Problems Problem Status Onset Asthma exacerbation Acute Status asthmaticus Acute Condition: STABLE
[2017-10-03] MEDS ORDERED: Albuterol-Ipratrop 3 mg / 0.5 (3 ml) UD ONE (02:21)
[2017-10-03] MEDS ORDERED: Albuterol-Ipratrop 3 mg / 0.5 (3 ml) UD IH STA ×3 (02:25→03:38)
[2017-10-03] MEDS ORDERED: Magnesium Sulfate 2 gm/50 ml 2 GM/50 ML BAG IVPB ONE (02:25)
[2017-10-03 02:45] LABS: HEMOGLOBIN 14.2 g/dL (12.0-16.0); MEAN CELL VOLUME 83.9 fl (80.0-105.0); MEAN CORPUSCULAR HEMOGLOBIN 27.5 pg (25.0-35.0); MEAN CORPUSCULAR HGB CONC 32.7 g/dl (31.0-37.0); MEAN PLATELET VOLUME 11.5 fl (7.0-11.0); RBC 5.17 10^6/uL (3.5-6.1); RED CELL DISTRIBUTION WIDTH 13.1 % (11.5-14.5)
[2017-10-03 02:46] LABS: WHITE BLOOD COUNT 12.1 10^3/ul (4.5-11.0)
[2017-10-03 02:54] LABS: ALB/GLOB RATIO 1.4 (1.1-1.8); ALBUMIN 3.6 g/dL (3.0-4.8); ALT/SGPT 63 U/L (7-56); AST/SGOT 119 U/L (14-36); BLOOD UREA NITROGEN 7 mg/dL (7-21); CALCIUM 8.2 mg/dL (8.4-10.5); GFR NON-AFRICAN AMERICAN > 60
--- NOTE | 2017-10-03 04:36 | CP.PCM.HP ---
<Nevin Watson - Last Filed: 10/03/17 05:35> History of Present Illness - History of Present Illness History of Present Illness: PGY-1 History and Physical for Dr. Dumont's service CC: chest tightness, could not breathe HPI: Patient is a 27 yo female with PMH of asthma presents to hospital for evaluation of shortness of breath associated with chest tightness. Patient states the shortness of breath and tightness started earlier on 10-02 but became progressively worse that at 1:30 (10/03) she decided to come to the hospital. Patient states she got up to go to the bathroom at 1:30 am when it became increasingly difficult her to catch her breath. Patient states she took ventolin her home medication but offered relief lasting a few seconds. Patient states she has had a prior episode recently for which she came to [facility] for similar symptoms. Before she came to hospital, patient stated that she was short of breath with productive cough (yellow phlegm) had an episode of diaphoresis and palpitations which both have resolved now. Patient states she normally has the duoneb medication at home however she has run out of it since she has not been to her primary medical doctor. Patient states that she has these symptoms 1-2x per week. Patient states that the symptoms may happen at morning or night and there never is a pattern to it that she has noted. Patient denies fevers, chills, chest pain, n/v, constipation, diarrhea, headaches, lightheadedness, dizziness, dysuria, and abdominal pain. PMH- asthma, IVDA PSH- Denies FH- Denies Allergies- Denies Social- Denies current tobacco, etoh, and drug use (prior IVDA) Code- Full Code PMD- Does not remember Review of Systems Pertinent Positives: sob, productive cough, diaphoresis, palpitations Pertinent Negatives: fever, chills, cp, n/v, constipation or diarrhea, dysuria, headaches, dizziness, lightheadedness Present on Admission - Present on Admission Any Indicators Present on Admission: No Review of Systems - Constitutional Constitutional: absent: Chills, Fever, Headache, Night Sweats - EENT Ears: absent: Dizziness - Cardiovascular Cardiovascular: Diaphoresis, Dyspnea, Palpitations. absent: Chest Pain, Edema, Lightheadedness - Respiratory Respiratory: Cough, Dyspnea. absent: Hemoptysis - Gastrointestinal Gastrointestinal: absent: Constipation, Diarrhea, Hematochezia, Nausea, Vomiting - Genitourinary Genitourinary: absent: Change in Urinary Stream, Difficulty Urinating, Dysuria - Musculoskeletal Musculoskeletal: absent: Back Pain, Myalgias, Numbness, Tingling - Neurological Neurological: absent: Dizziness, Numbness, Headaches, Tingling Past Patient History - Infectious Disease Hx of Infectious Diseases: None - Tetanus Immunizations Tetanus Immunization: Unknown - Past Social History Smoking Status: Never Smoked - CARDIAC Hx Cardiac Disorders: No - PULMONARY Hx Asthma: Yes (has home nebulizer machine) Hx Bronchitis: Yes Hx Pneumonia: Yes - NEUROLOGICAL Hx Neurological Disorder: No - HEENT Hx HEENT Problems: No - RENAL Hx Chronic Kidney Disease: No - ENDOCRINE/METABOLIC Hx Endocrine Disorders: No - HEMATOLOGICAL/ONCOLOGICAL Hx Blood Disorders: No - INTEGUMENTARY Hx Dermatological Problems: No - MUSCULOSKELETAL/RHEUMATOLOGICAL Hx Falls: No - GASTROINTESTINAL Hx Gastrointestinal Disorders: No - GENITOURINARY/GYNECOLOGICAL Hx Genitourinary Disorders: No - PSYCHIATRIC Hx Depression: No Hx Emotional Abuse: No Hx Physical Abuse: No Hx Substance Use: No - SURGICAL HISTORY Hx Surgeries: No - ANESTHESIA Hx Anesthesia: No Meds Allergies/Adverse Reactions: Allergies Allergy/AdvReac Type Severity Reaction Status Date / Time No Known Allergies Allergy Verified 05/21/17 20:14 Physical Exam - Constitutional Appears: Non-toxic, No Acute Distress - Head Exam Head Exam: NORMAL INSPECTION, NORMOCEPHALIC - Eye Exam Eye Exam: EOMI, Normal appearance. absent: Nystagmus, Scleral icterus - ENT Exam ENT Exam: Mucous Membranes Moist, Normal Exam - Respiratory Exam Respiratory Exam: Wheezes. absent: Accessory Muscle Use, Rales, Rhonchi Additional comments: b/l inspiratory and expiratory wheezes; expiratory>inspiratory upper lung>lower lung wheezing face mask with duo nebs - Cardiovascular Exam Cardiovascular Exam: REGULAR RHYTHM, +S1, +S2. absent: Tachycardia - GI/Abdominal Exam GI & Abdominal Exam: Normal Bowel Sounds, Soft. absent: Distended, Firm, Guarding, Tenderness - Extremities Exam Extremities exam: Positive for: normal inspection. Negative for: calf tenderness, pedal edema - Back Exam Back exam: NORMAL INSPECTION. absent: CVA tenderness (L), CVA tenderness (R) - Neurological Exam Neurological exam: Alert, Oriented x3 - Psychiatric Exam Psychiatric exam: Normal Affect, Normal Mood - Skin Skin Exam: Intact, Normal Color Results - Vital Signs Recent Vital Signs: Last Vital Signs Temp 98.1 F 10/03/17 02:31 Pulse 95 H 10/03/17 04:20 Resp 22 10/03/17 04:20 BP 119/77 10/03/17 04:20 Pulse Ox 96 10/03/17 04:20 - Labs Result Diagrams: 10/03/17 02:35 10/03/17 02:35 Assessment & Plan - Assessment and Plan (Free Text) Assessment: Acute Exacerbation of Asthma Duonebs 3ml IH [id number] Brovana 15mc IH [id number] Budesonide 0.5mg IH [id number] Solu-medrol 40mg IVP q8h ABG pending Leukocytosis Less likely due to infectious source; more likely 2/2 inhaled steroid use Procal pending Blood Cultures pending Transaminitis AST 119, ALT 63; Patient denies EToH use Hep panel pending HIV panel pending Continue to monitor Hx of IVDA UDS pending PPX GI ppx: Protonix 40mg po daily DVT ppx: Heparin 5000 units sc q8h <Sunshine Dumont - Last Filed: 10/03/17 05:59> Results - Vital Signs Recent Vital Signs: Last Vital Signs Temp 98.1 F 10/03/17 02:31 Pulse 97 H 10/03/17 05:53 Resp 22 10/03/17 05:20 BP 115/72 10/03/17 05:04 Pulse Ox 96 10/03/17 05:04 - Labs Result Diagrams: 10/03/17 02:35 10/03/17 02:35 Attending/Attestation - Attestation I have personally seen and examined this patient.: Yes I have fully participated in the care of the patient.: Yes I have reviewed all pertinent clinical information: Yes Notes (Text): 10/03/17 05:54 Patient was seen when she was in bed # 4 in the ER. Agree with history , physical examination, assessment and plan. Patient is stable ,has no acute symptoms now.Has still wheezing on auscultation. This 27 year old white woman with history of asthma,IVDA, is being admitted for exacerbation of asthma, will give IV steroid, nebulizer treatment,GI/DVT prophylaxis.
[2017-10-03] MEDS ORDERED: Albuterol-Ipratrop 3 mg / 0.5 (3 ml) UD IH PRN (04:48)
[2017-10-03] MEDS: MethylPREDNISolone 40 mg Vial IVP SCH ×3 (06:05→21:39)
[2017-10-03] MEDS: Albuterol-Ipratrop 3 mg / 0.5 (3 ml) UD IH SCH ×5 (06:25→19:55)
[2017-10-03] MEDS: Arformoterol 15 mcg/2 ml Inh Sol IH SCH ×2 (07:56→19:55)
[2017-10-03] MEDS: Budesonide 0.5 mg/2 ml Inhal Susp UD IH SCH ×2 (07:56→19:56)
--- NOTE | 2017-10-03 08:45 | CARD ---
APPROVED REPORT Date of service: 10/03/2017 EKG Measurement Heart [id number] <Conclusion> Sinus tachycardia RVCD Nonspecific ST abnormality Prolonged QTc
[2017-10-03] MEDS ORDERED: Fluticasone-Salmeterol 250-50mcg Diskus IH SCH (10:00)
--- NOTE | 2017-10-03 10:07 | RAD ---
Date of service: 10/03/2017 HISTORY: sob COMPARISON: 08/28/2017 FINDINGS: LUNGS: No active pulmonary disease. PLEURA: No significant pleural effusion identified, no pneumothorax apparent. CARDIOVASCULAR: Normal. OSSEOUS STRUCTURES: No significant abnormalities. VISUALIZED UPPER ABDOMEN: Normal. OTHER FINDINGS: None. IMPRESSION: No active disease.
[2017-10-03] MEDS ORDERED: Pantoprazole 40 mg EC Tab PO SCH (22:00)
[2017-10-04] MEDS: MethylPREDNISolone 40 mg Vial IVP SCH (05:53)
[2017-10-04 06:23] VITALS: BP 129/77; RESP 20; TEMP 97.8; O2SAT 96
[2017-10-04] MEDS: Budesonide 0.5 mg/2 ml Inhal Susp UD IH SCH (08:06)
[2017-10-04] MEDS: Albuterol-Ipratrop 3 mg / 0.5 (3 ml) UD IH SCH ×2 (08:06→11:03)
[2017-10-04] MEDS: Arformoterol 15 mcg/2 ml Inh Sol IH SCH (08:06)
[2017-10-04 11:20] VITALS: PULSE 102
--- NOTE | 2017-10-04 14:16 | CP.PCM.DIS ---
Provider - Provider Date of Admission: 10/03/17 03:56 Attending physician: Aristeo Martin MD Time Spent in preparation of Discharge (in minutes): 100 Hospital Course - Lab Results Lab Results: Most Recent Lab Values WBC 12.1 10^3/ul (4.5-11.0) H D 10/03/17 02:35 RBC 5.17 10^6/uL (3.5-6.1) 10/03/17 02:35 Hgb 14.2 g/dL (12.0-16.0) 10/03/17 02:35 Hct 43.4 % (36.0-48.0) 10/03/17 02:35 MCV 83.9 fl (80.0-105.0) 10/03/17 02:35 MCH 27.5 pg (25.0-35.0) 10/03/17 02:35 MCHC 32.7 g/dl (31.0-37.0) 10/03/17 02:35 RDW 13.1 % (11.5-14.5) 10/03/17 02:35 Plt Count 221 10^3/uL (120.0-450.0) 10/03/17 02:35 MPV 11.5 fl (7.0-11.0) H 10/03/17 02:35 Sodium 143 mmol/L (132-148) 10/03/17 02:35 Potassium 4.4 mmol/L (3.6-5.0) 10/03/17 02:35 Chloride 103 mmol/L (98-107) 10/03/17 02:35 Carbon Dioxide 29 mmol/L (21-33) 10/03/17 02:35 Anion Gap 15 (10-20) 10/03/17 02:35 BUN 7 mg/dL (7-21) 10/03/17 02:35 Creatinine 0.6 mg/dl (0.7-1.2) L 10/03/17 02:35 Est GFR ( Amer) > 60 10/03/17 02:35 Est GFR (Non-Af Amer) > 60 10/03/17 02:35 Random Glucose 85 mg/dL (70-110) 10/03/17 02:35 Calcium 8.2 mg/dL (8.4-10.5) L 10/03/17 02:35 Total Bilirubin 0.2 mg/dL (0.2-1.3) 10/03/17 02:35 AST 119 U/L (14-36) H D 10/03/17 02:35 ALT 63 U/L (7-56) H 10/03/17 02:35 Alkaline Phosphatase 56 U/L (38-126) 10/03/17 02:35 Total Protein 6.2 g/dL (5.8-8.3) 10/03/17 02:35 Albumin 3.6 g/dL (3.0-4.8) 10/03/17 02:35 Globulin 2.6 gm/dL 10/03/17 02:35 Albumin/Globulin Ratio 1.4 (1.1-1.8) 10/03/17 02:35 - Hospital Course Hospital Course: 27F with a past medical history of asthma, presented to [facility] emergency room on 10/03/17 after experiencing difficulty breathing and wheezing and was admitted for an acute asthma exacerbation. Patient states these symptoms occur 1-2 times per week. Patient states she took multiple nebulizer treatments at home with no significant relief and notified EMS. Patient received 1 Duoneb treatment and Solu-medrol 125 mg en route to the Emergency room. In the ED, EKG showed sinus tachycardia which the patient states occurs when she receives breathing treatments. Chest x-ray showed no active disease process. Patient was admitted to telemetry. She received duoneb treatments, Brovana, Budesonide, and Solumedrol. Labs were often delayed because patient refused blood draws per nurse and phlembotomist. On 10/04, patient complained of a headache and was given motrin which provided symptomatic relief. She was given protonix and SCDs for GI and DVT prophylaxis, respectively. Her breathing continued to improve during this admission. Patient tolerated her diet and was ambulating without difficulty. On 10/04/17, patient decided she would like to leave against medical advice. The risks, including but not limited to, permanent disability, worsening of known or unknown conditions, and were discussed with the patient. Patient verbalized and understood the risks of leaving against medical advice. Upon leaving, she was given prescriptions for a prednisone taper, albuterol, Qvar Redihaler, and protonix. This is a brief summary of the patient's hospital course. For a detailed course , please refer to medical records. Patient left against medical advice during this admission. - Date & Time of H&P Date of H&P: 10/03/17 Time of H&P: 04:30 Discharge Exam - Head Exam Head Exam: NORMAL INSPECTION, NORMOCEPHALIC - Eye Exam Eye Exam: EOMI, PERRL - ENT Exam ENT Exam: Mucous Membranes Moist - Respiratory Exam Respiratory Exam: NORMAL BREATHING PATTERN, UNREMARKABLE. absent: Accessory Muscle Use, Wheezes, Respiratory Distress - Cardiovascular Exam Cardiovascular Exam: REGULAR RHYTHM, +S1, +S2. absent: Systolic Murmur - GI/Abdominal Exam GI & Abdominal Exam: Normal Bowel Sounds, Soft. absent: Tenderness - Neurological Exam Neurological exam: Alert, Oriented x3 - Psychiatric Exam Psychiatric exam: Normal Affect, Normal Mood - Skin Skin Exam: Dry, Intact, Warm Discharge Plan - Follow Up Plan Condition: STABLE Disposition: AGAINST MEDICAL ADVICE Additional Instructions: Patient left against medical advice. The risks, including but not limited to, permanent disability, worsening of known or unknown medical conditions, and were discussed. Patient verbalized understanding of these risks. Patient advised to follow up with PMD as soon as possible or return to the ED at any time for further care. Prescriptions for Steroid taper, Albuterol, Qvar Redihaler and Protonix were provided.
== END 2017-10-04 11:25 | disposition left against medical advice (07) ==
LOC: ED 02:16 → ERH 03:56 → 2RSO 05:15
PROVIDERS: ADMIT Internal Medicine; ATTEND Internal Medicine
DX: J45.901 Unspecified asthma with (acute) exacerbation (principal); D72.829 Elevated white blood cell count, unspecified; Z87.01 Personal history of pneumonia (recurrent)
CPT/HCPCS: 71045; 80053; 85027; 93005; 94640; 94760; 99285; G0378; J2920

== ENCOUNTER 2017-11-16 02:17 | Observation (INO) | payer MEDICAID, OTHER ==
[2017-11-16 02:19] VITALS: BMI 20.6
[2017-11-16] MEDS: Albuterol-Ipratrop 3 mg / 0.5 (3 ml) UD IH SCH ×8 (02:20→23:55)
--- NOTE | 2017-11-16 02:27 | ED PDOC ---
Arrival/HPI - General Time Seen by Provider: 11/16/17 02:19 Historian: Patient - History of Present Illness Narrative History of Present Illness (Text): 11/16/17 02:24 27 year old female, whose past history includes asthma and substance abuse, presents to the Emergency department brought in by EMS with trouble breathing. Patient does not take steroidal medication regularly, and only receives them from physician and in the emergency department. Patient shows and informs of wheezing. Patient denies any fevers, chills, headache, dizziness, chest pain, abdominal pain, nausea, vomiting, diarrhea, back pain, neck pain, urinary/bowel changes, or any other complaint. Time/Duration: Prior to Arrival Context: Home Past Medical History - Provider Review Nursing Documentation Reviewed: Yes - Infectious Disease Hx of Infectious Diseases: None - Tetanus Immunization Tetanus Immunization: Unknown - Cardiac Hx Cardiac Disorders: No - Pulmonary Hx Asthma: Yes (has home nebulizer machine) Hx Bronchitis: Yes Hx Pneumonia: Yes - Neurological Hx Neurological Disorder: No - HEENT Hx HEENT Disorder: No - Renal Hx Renal Disorder: No - Endocrine/Metabolic Hx Endocrine Disorders: No - Hematological/Oncological Hx Blood Disorders: No - Integumentary Hx Dermatological Disorder: No - Musculoskeletal/Rheumatological Hx Falls: No - Gastrointestinal Hx Gastrointestinal Disorders: No - Genitourinary/Gynecological Hx Genitourinary Disorders: No - Psychiatric Hx Depression: No Hx Emotional Abuse: No Hx Physical Abuse: No Hx Substance Use: No - Past Surgical History Past Surgical History: No Previous - Anesthesia Hx Anesthesia: No - Suicidal Assessment Feels Threatened In Home Enviroment: No Family/Social History - Physician Review Nursing Documentation Reviewed: Yes Family/Social History: No Known Family HX Smoking Status: Never Smoked Hx Alcohol Use: No Hx Substance Use: No Hx Substance Use Treatment: No Allergies/Home Meds Allergies/Adverse Reactions: Allergies No Known Allergies Allergy (Verified 05/21/17 20:14) Review of Systems - Physician Review All systems were reviewed & negative as marked: Yes - Review of Systems Constitutional: absent: Fevers, Night Sweats Respiratory: SOB, Wheezing Cardiovascular: absent: Chest Pain Gastrointestinal: absent: Abdominal Pain, Diarrhea, Nausea, Vomiting Genitourinary Female: absent: Urine Output Changes Musculoskeletal: absent: Back Pain, Neck Pain Neurological: absent: Headache, Dizziness Physical Exam Vital Signs Reviewed: Yes Temperature: Afebrile Blood Pressure: Normal Pulse: Tachycardic Respiratory Rate: Normal Appearance: Positive for: Well-Appearing, Non-Toxic, Comfortable Pain Distress: None Mental Status: Positive for: Alert and Oriented X 3 - Systems Exam Head: Present: Atraumatic, Normocephalic Pupils: Present: PERRL Extroacular Muscles: Present: EOMI Conjunctiva: Present: Normal Mouth: Present: Moist Mucous Membranes Neck: Present: Normal Range of Motion Respiratory/Chest: Present: Wheezes Cardiovascular: Present: Regular Rate and Rhythm, Normal S1, S2. No: Murmurs Abdomen: No: Tenderness, Distention, Peritoneal Signs Back: Present: Normal Inspection Upper Extremity: Present: Normal Inspection. No: Cyanosis, Edema Lower Extremity: Present: Normal Inspection. No: Edema Neurological: Present: GCS=15, CN II-XII Intact, Speech Normal Skin: Present: Warm, Dry, Normal Color. No: Rashes Psychiatric: Present: Alert, Oriented x 3, Normal Insight, Normal Concentration Medical Decision Making ED Course and Treatment: 11/16/17 02:28 Impression: 27 year old female presents with asthma exacerbation. Plan: -- EKG -- Duoneb -- Solumedrol -- Labs -- Reassess and disposition Prior Visits: Notes and results from previous visits were reviewed. case d/w medical technologist microbiology and dr mustafa Progress Notes: 11/16/17 05:51 - EKG Interpretation EKG Interpretation (Text): 11/16/17 05:51 ndr rate 99 nssts changes - Scribe Statement The provider has reviewed the documentation as recorded by the Demaribtamy Arroyo Provider Scribe Attestation: All medical record entries made by the Scribe were at my direction and personally dictated by me. I have reviewed the chart and agree that the record accurately reflects my personal performance of the history, physical exam, med ica decision making, and the department course for this patient. I have also personally directed, reviewed, and agree with the discharge instructions and disposition. Disposition/Present on Arrival - Present on Arrival Any Indicators Present on Arrival: No History of DVT/PE: No History of Uncontrolled Diabetes: No Urinary Catheter: No History Surgical Site Infection Following: None - Disposition Have Diagnosis and Disposition been Completed?: Yes Diagnosis: Asthma Disposition: HOSPITALIZED Disposition Time: 04:30 Condition: FAIR
[2017-11-16 02:48] LABS: BASO # 0.08 K/mm3 (0.0-2.0); BASO % 0.5 % (0.0-3.0); EOS # 3.2 (0.0-0.7); EOS % 20.5 % (1.5-5.0); GRAN % 51.6 % (50.0-68.0); HEMOGLOBIN 15.2 g/dL (12.0-16.0); LYMPH # 3.7 (1.2-3.4); LYMPH % 23.5 % (22.0-35.0); MEAN CELL VOLUME 84.5 fl (80.0-105.0); MEAN CORPUSCULAR HEMOGLOBIN 27.7 pg (25.0-35.0); MEAN CORPUSCULAR HGB CONC 32.8 g/dl (31.0-37.0); MEAN PLATELET VOLUME 11.4 fl (7.0-11.0); MONO # 0.6 (0.1-0.6); MONO % 3.9 % (1.0-6.0); PLATELET COUNT 244 10^3/uL (120.0-450.0); RBC 5.49 10^6/uL (3.5-6.1); RED CELL DISTRIBUTION WIDTH 13.1 % (11.5-14.5); WHITE BLOOD COUNT 15.5 10^3/ul (4.5-11.0)
[2017-11-16 02:49] LABS: ALB/GLOB RATIO 1.3 (1.1-1.8); ALBUMIN 4.2 g/dL (3.0-4.8); ALT/SGPT 26 U/L (7-56); AST/SGOT 34 U/L (14-36); BLOOD UREA NITROGEN 9 mg/dL (7-21); CALCIUM 9.5 mg/dL (8.4-10.5); GFR NON-AFRICAN AMERICAN > 60
[2017-11-16 03:00] LABS: TROPONIN I < 0.01 ng/mL
[2017-11-16] MEDS ORDERED: Magnesium Sulfate 2 gm/50 ml 2 GM/50 ML BAG IVPB ONE (03:20)
--- NOTE | 2017-11-16 04:22 | CP.PCM.HP ---
History of Present Illness - History of Present Illness History of Present Illness: Antoni Rivera, PGY-1 History and Physical for Hospitalist Service CC: SOB HPI: 27 year old female, whose past medical history includes asthma and substance abuse, presents to the Emergency department brought in by EMS with trouble akin armstrong. Patient last completed a course of steroids a week ago upon discharge from this hospital, and only receives them from physician and in the emergency department. Patient describes wheezing and reports running out of home nebulizers. Patient reports yellow sputum production with an associated cough. Patient was intuabted once in the past for an asthma exacerbation. Patient utilizes her inhaler daily. Patient reports improvement since patient received magnesium, steroids and duoneb treatments in ED. Patient denies any fevers, chills, headache, dizziness, chest pain, abdominal pain, nausea, vomiting, diarrhea, back pain, neck pain, urinary/bowel changes, or any other complaint. PMH- asthma (home nebulizer, once intubated), IVDA (unknown last use) OBGYN - once before with one child born vaginally, recent LMP 4 days ago PSH- Denies FH- Denies Allergies- Denies Social- Denies current tobacco, etoh, and drug use (prior IVDA) Code- Full Code PMD- Dr. Randle Present on Admission - Present on Admission Any Indicators Present on Admission: No Review of Systems - Review of Systems Review of Systems: 12 point ROS completed and negative except as described in HPI. Past Patient History - Infectious Disease Hx of Infectious Diseases: None - Tetanus Immunizations Tetanus Immunization: Unknown - Past Social History Smoking Status: Never Smoked - CARDIAC Hx Cardiac Disorders: No - PULMONARY Hx Asthma: Yes (has home nebulizer machine) Hx Bronchitis: Yes Hx Pneumonia: Yes - NEUROLOGICAL Hx Neurological Disorder: No - HEENT Hx HEENT Problems: No - RENAL Hx Chronic Kidney Disease: No - ENDOCRINE/METABOLIC Hx Endocrine Disorders: No - HEMATOLOGICAL/ONCOLOGICAL Hx Blood Disorders: No - INTEGUMENTARY Hx Dermatological Problems: No - MUSCULOSKELETAL/RHEUMATOLOGICAL Hx Falls: No - GASTROINTESTINAL Hx Gastrointestinal Disorders: No - GENITOURINARY/GYNECOLOGICAL Hx Genitourinary Disorders: No - PSYCHIATRIC Hx Depression: No Hx Emotional Abuse: No Hx Physical Abuse: No Hx Substance Use: No - SURGICAL HISTORY Hx Surgeries: No - ANESTHESIA Hx Anesthesia: No Meds Allergies/Adverse Reactions: Allergies Allergy/AdvReac Type Severity Reaction Status Date / Time No Known Allergies Allergy Verified 05/21/17 20:14 Physical Exam - Constitutional Appears: Non-toxic, No Acute Distress - Head Exam Head Exam: ATRAUMATIC, NORMOCEPHALIC - Eye Exam Eye Exam: EOMI, PERRL Pupil Exam: NORMAL ACCOMODATION - ENT Exam ENT Exam: Mucous Membranes Moist - Neck Exam Neck exam: Positive for: Normal Inspection - Respiratory Exam Respiratory Exam: Accessory Muscle Use, Wheezes (throughout all lung bustos). absent: Chest Wall Tenderness, Decreased Breath Sounds, Clear to Auscultation Bilateral, Respiratory Distress - Cardiovascular Exam Cardiovascular Exam: RRR, +S1, +S2 - GI/Abdominal Exam GI & Abdominal Exam: Normal Bowel Sounds, Soft. absent: Distended, Tenderness - Extremities Exam Extremities exam: Positive for: normal inspection. Negative for: calf tenderness - Neurological Exam Neurological exam: Alert, CN II-XII Intact, Normal Gait, Oriented x3 - Psychiatric Exam Psychiatric exam: Normal Affect, Normal Mood - Skin Skin Exam: Dry, Intact Results - Vital Signs Recent Vital Signs: Last Vital Signs Temp 97.9 F 11/16/17 02:22 Pulse 99 H 11/16/17 03:42 Resp 22 11/16/17 03:42 BP 107/61 11/16/17 03:42 Pulse Ox 96 11/16/17 03:42 - Labs Result Diagrams: 11/16/17 02:25 11/16/17 02:25 Labs: Laboratory Results - last 24 hr 11/16/17 11/16/17 02:25 02:25 WBC 15.5 H D RBC 5.49 Hgb 15.2 Hct 46.4 MCV 84.5 MCH 27.7 MCHC 32.8 RDW 13.1 Plt Count 244 MPV 11.4 H Gran % 51.6 Lymph % (Auto) 23.5 [place] % (Auto) 3.9 Eos % (Auto) 20.5 H Baso % (Auto) 0.5 Gran # 8.00 H Lymph # (Auto) 3.7 H Elmore # (Auto) 0.6 Eos # (Auto) 3.2 H Baso # (Auto) 0.08 Sodium 140 Potassium 4.7 Chloride 101 Carbon Dioxide 32 Anion Gap 12 BUN 9 Creatinine 0.7 Est GFR ( Amer) > 60 Est GFR (Non-Af Amer) > 60 Random Glucose 96 Calcium 9.5 Magnesium 2.0 Total Bilirubin 0.4 AST 34 ALT 26 Alkaline Phosphatase 65 Lactate Dehydrogenase 559 Total Creatine Kinase 140 Troponin I < 0.01 Total Protein 7.4 Albumin 4.2 Globulin 3.2 Albumin/Globulin Ratio 1.3 Assessment & Plan - Assessment and Plan (Free Text) Assessment: Assessment: 27 F with PMHx of asthma who presents with symptoms of asthma exacerbation. Asthma Exacerbation URI vs atypical PNA f/u CXR results Received Mg 2 gm, duonebs x3, Solu-medrol 125 mg in ED Telemetry monitoring Duonebs q4 scheduled and q2 PRN Budesonide 0.5mg IH [id number] Solu-medrol 40mg IVP q8h Patient refused ABG Leukocytosis, SIRS vs Sepsis viral vs bacterial source, patient reports subjective symptoms of cold with yellow sputum production - last steroid use was a week ago so less likely as source of leukocytosis Procal pending Blood Cultures pending Emperic Azithromycin and Ceftriaxone Hx of IVDA UA and UDS pending GI ppx: Protonix 40mg po daily DVT ppx: SCDs Patient seen, case reviewed, and plan discussed with Dr. Chung. Antoni Rivera, PGY-1
[2017-11-16 05:17] LABS: LYMPHOCYTE 27 % (22.0-35.0); NEUTROPHIL 46 % (50.0-70.0)
[2017-11-16 05:18] LABS: BASOPHIL 1 % (0.0-1.0); EOSINOPHIL 23 % (0.0-3.0); MONOCYTE 3 % (1.0-6.0); PLATELET ESTIMATE NORMAL (NORMAL)
[2017-11-16] MEDS ORDERED: Albuterol-Ipratrop 3 mg / 0.5 (3 ml) UD IH PRN (05:18)
[2017-11-16] MEDS: Pantoprazole 40 mg EC Tab PO SCH (06:11)
[2017-11-16] MEDS: Budesonide 0.5 mg/2 ml Inhal Susp UD IH SCH ×2 (07:56→20:50)
[2017-11-16] MEDS: MethylPREDNISolone 40 mg Vial IVP SCH ×2 (08:01→18:44)
--- NOTE | 2017-11-16 09:19 | CARD ---
APPROVED REPORT Date of service: 11/16/2017 EKG Measurement Heart [id number] <Conclusion> Normal sinus rhythm ST & T Changes. Correlate Clinically.
--- NOTE | 2017-11-16 09:26 | RAD ---
Date of service: 11/16/2017 HISTORY: sputum production in setting of asthma exacerbatio COMPARISON: 10/03/2017 FINDINGS: LUNGS: No active pulmonary disease. PLEURA: No significant pleural effusion identified, no pneumothorax apparent. CARDIOVASCULAR: Normal. OSSEOUS STRUCTURES: No significant abnormalities. VISUALIZED UPPER ABDOMEN: Normal. OTHER FINDINGS: None. IMPRESSION: No active disease.
[2017-11-16] MEDS ORDERED: MethylPREDNISolone 40 mg Vial IVP SCH (10:00)
[2017-11-16] MEDS: cefTRIAXone 1 gm 1 GM/100 ML BAG IVPB SCH (10:30)
[2017-11-16] MEDS: Azithromycin 500MG/NS 250ml 500 MG/250 ML BAG IVPB SCH (10:32)
[2017-11-17] MEDS: Albuterol-Ipratrop 3 mg / 0.5 (3 ml) UD IH SCH ×2 (04:45→09:35)
[2017-11-17] MEDS: Pantoprazole 40 mg EC Tab PO SCH (05:22)
[2017-11-17 06:20] VITALS: O2SAT 99
[2017-11-17] MEDS: MethylPREDNISolone 40 mg Vial IVP SCH (08:15)
[2017-11-17] MEDS: Budesonide 0.5 mg/2 ml Inhal Susp UD IH SCH (09:35)
[2017-11-17] MEDS: cefTRIAXone 1 gm 1 GM/100 ML BAG IVPB SCH (09:38)
[2017-11-17] MEDS: Azithromycin 500MG/NS 250ml 500 MG/250 ML BAG IVPB SCH (09:39)
[2017-11-17 12:39] VITALS: BP 122/74; PULSE 111; RESP 22; TEMP 98
--- NOTE | 2017-11-17 14:01 | CP.PCM.DIS ---
<Nevin Watson - Last Filed: 11/17/17 13:57> Provider - Provider Date of Admission: 11/16/17 04:45 Attending physician: Aristeo Martin MD Primary care physician: Yumiko Suggs MD Time Spent in preparation of Discharge (in minutes): 45 Hospital Course - Lab Results Lab Results: Micro Results 11/16/17 02:25 Blood-Venous Blood Culture - Preliminary NO GROWTH AFTER 24 HOURS 11/16/17 02:05 Blood-Venous Blood Culture - Preliminary NO GROWTH AFTER 24 HOURS Most Recent Lab Values WBC 15.5 10^3/ul (4.5-11.0) H D 11/16/17 02:25 RBC 5.49 10^6/uL (3.5-6.1) 11/16/17 02:25 Hgb 15.2 g/dL (12.0-16.0) 11/16/17 02:25 Hct 46.4 % (36.0-48.0) 11/16/17 02:25 MCV 84.5 fl (80.0-105.0) 11/16/17 02:25 MCH 27.7 pg (25.0-35.0) 11/16/17 02:25 MCHC 32.8 g/dl (31.0-37.0) 11/16/17 02:25 RDW 13.1 % (11.5-14.5) 11/16/17 02:25 Plt Count 244 10^3/uL (120.0-450.0) 11/16/17 02:25 MPV 11.4 fl (7.0-11.0) H 11/16/17 02:25 Gran % 51.6 % (50.0-68.0) 11/16/17 02:25 Lymph % (Auto) 23.5 % (22.0-35.0) 11/16/17 02:25 Oliver % (Auto) 3.9 % (1.0-6.0) 11/16/17 02:25 Eos % (Auto) 20.5 % (1.5-5.0) H 11/16/17 02:25 Baso % (Auto) 0.5 % (0.0-3.0) 11/16/17 02:25 Gran # 8.00 (1.4-6.5) H 11/16/17 02:25 Lymph # (Auto) 3.7 (1.2-3.4) H 11/16/17 02:25 Oliver # (Auto) 0.6 (0.1-0.6) 11/16/17 02:25 Eos # (Auto) 3.2 (0.0-0.7) H 11/16/17 02:25 Baso # (Auto) 0.08 K/mm3 (0.0-2.0) 11/16/17 02:25 Neutrophils % (Manual) 46 % (50.0-70.0) L 11/16/17 02:25 Band Neutrophils % [facility] Service 11/16/17 02:25 Lymphocytes % (Manual) 27 % (22.0-35.0) 11/16/17 02:25 Monocytes % (Manual) 3 % (1.0-6.0) 11/16/17 02:25 Eosinophils % (Manual) 23 % (0.0-3.0) H 11/16/17 02:25 Basophils % (Manual) 1 % (0.0-1.0) 11/16/17 02:25 Platelet Evaluation Normal (NORMAL) 11/16/17 02:25 Sodium 140 mmol/L (132-148) 11/16/17 02:25 Potassium 4.7 mmol/L (3.6-5.0) 11/16/17 02:25 Chloride 101 mmol/L (98-107) 11/16/17 02:25 Carbon Dioxide 32 mmol/L (21-33) 11/16/17 02:25 Anion Gap 12 (10-20) 11/16/17 02:25 BUN 9 mg/dL (7-21) 11/16/17 02:25 Creatinine 0.7 mg/dl (0.7-1.2) 11/16/17 02:25 Est GFR ( Amer) > 60 11/16/17 02:25 Est GFR (Non-Af Amer) > 60 11/16/17 02:25 Random Glucose 96 mg/dL (70-110) 11/16/17 02:25 Calcium 9.5 mg/dL (8.4-10.5) 11/16/17 02:25 Magnesium 2.0 mg/dL (1.7-2.2) 11/16/17 02:25 Total Bilirubin 0.4 mg/dL (0.2-1.3) 11/16/17 02:25 AST 34 U/L (14-36) 11/16/17 02:25 ALT 26 U/L (7-56) 11/16/17 02:25 Alkaline Phosphatase 65 U/L (38-126) 11/16/17 02:25 Lactate Dehydrogenase 559 U/L (333-699) 11/16/17 02:25 Total Creatine Kinase 140 U/L (35-230) 11/16/17 02:25 Troponin I < 0.01 ng/mL 11/16/17 02:25 Total Protein 7.4 g/dL (5.8-8.3) 11/16/17 02:25 Albumin 4.2 g/dL (3.0-4.8) 11/16/17 02:25 Globulin 3.2 gm/dL 11/16/17 02:25 Albumin/Globulin Ratio 1.3 (1.1-1.8) 11/16/17 02:25 Procalcitonin < 0.05 NG/ML (0.19-0.49) L 11/16/17 02:30 Beta HCG, Quant < 2.39 mIU/mL (0-6.15) 11/16/17 02:25 - Hospital Course Hospital Course: Upon admission: 27 year old female, whose past medical history includes asthma and substance abuse, presents to the Emergency department brought in by EMS with trouble breathing. Patient last completed a course of steroids a week ago upon discharge from this hospital, and only receives them from physician and in the emergency department. Patient describes wheezing and reports running out of home ne bulizers. Patient reports yellow sputum production with an associated cough. Patient was intubated once in the past for an asthma exacerbation. Patient utilizes her inhaler daily. Patient reports improvement since patient received magnesium, steroids and duoneb treatments in ED.Patient denies any fevers, chills, headache, dizziness, chest pain, abdominal pain, nausea, vomiting, diarrhea, back pain, neck pain, urinary/bowel changes, or any other complaint. Hospital Course: 27 year old admitted for asthma exacerbation. She was given magnesium, duonebs x3, solu-medrol, Azithromycin, and Ceftriaxone in the ED. CXR was obtained which showed no active disease. Blood cultures were obtained, preliminary report resulted no growth. UA, UDS, and ABG ordered but patient refused. Leukocytosis was noted, but likely secondary to recent use of Medrol dose pack completed one week prior to admission. Patients symptoms improved and she was medically stable for discharge. Patient does not have butadiene converter operator at this time, but is planning to find one once her insurance goes through. Discharge plan: Patient is stable for discharge to home as per Dr. Martin. She was counseled to return to the emergency department if symptoms return or worsen. Patient is to follow up with primary medical doctor, Dr. Suggs, within 3-5 days of discharge. Patient is to follow up with butadiene converter operator upon insurance approval. Patient is to start prednisone 20mg and continue for 5 days total taking one per day. Patient also to be discharge with Ventolin HFA as prescribed and to be used as needed. Counseled patient on importance of follow up with PMD and pulmonology for management of asthma. Reviewed all medications with patient, and she understands instructions. Patient understands and agrees with discharge plan. Disclaimer: Written above is a synopsis of patients current hospital admission. For full admission refer to EMR. Discharge Exam - Head Exam Head Exam: ATRAUMATIC, NORMAL INSPECTION, NORMOCEPHALIC - Eye Exam Eye Exam: EOMI, Normal appearance. absent: Nystagmus, Scleral icterus - Respiratory Exam Respiratory Exam: NORMAL BREATHING PATTERN. absent: Rales, Rhonchi, Wheezes - Cardiovascular Exam Cardiovascular Exam: REGULAR RHYTHM, +S1, +S2 - GI/Abdominal Exam GI & Abdominal Exam: Normal Bowel Sounds, Soft. absent: Distended, Firm, Guarding, Tenderness - Neurological Exam Neurological exam: Alert, Normal Gait, Oriented x3 - Psychiatric Exam Psychiatric exam: Normal Affect, Normal Mood - Skin Skin Exam: Dry, Intact, Normal Color Discharge Plan - Discharge Medications Prescriptions: Albuterol HFA [Ventolin HFA 90 mcg/actuation (8 g)] 2 puff IH [id number] #2 puff Prednisone [Deltasone] 20 mg PO DAILY #5 tablet - Follow Up Plan Condition: FAIR Disposition: HOME/ ROUTINE Instructions: Avoiding Asthma Triggers, Rescue vs Controller Inhalers, Asthma (DC), Asthma (GEN) Additional Instructions: 1. Patient is stable for discharge to home as per Dr. Martin 2. Patient is to follow up with primary medical doctor, Dr. Suggs, within 3-5 of discharge for continued asthma medication. Patient states she will followup with her insurance to set up later visit with butadiene converter operator as she currently has no insurance. 3. Patient is to continue taking the following medications as needed: Alubterol HFA 2 puffs as needed and Prednisone 20mg once by mouth daily for the next 5 days. 4. Patient is educated to return to the hospital if symptoms worsen or recur. 5. Patient understands the plan as above and agrees. Referrals: Yumiko Suggs MD [Primary Care Provider] - <Aristeo Martin - Last Filed: 11/17/17 14:35> Provider - Provider Date of Admission: 11/16/17 04:45 Attending physician: Aristeo Martin MD Primary care physician: Yumiko Suggs MD Hospital Course - Lab Results Lab Results: Micro Results 11/16/17 02:25 Blood-Venous Blood Culture - Preliminary NO GROWTH AFTER 24 HOURS 11/16/17 02:05 Blood-Venous Blood Culture - Preliminary NO GROWTH AFTER 24 HOURS Most Recent Lab Values WBC 15.5 10^3/ul (4.5-11.0) H D 11/16/17 02:25 RBC 5.49 10^6/uL (3.5-6.1) 11/16/17 02:25 Hgb 15.2 g/dL (12.0-16.0) 11/16/17 02:25 Hct 46.4 % (36.0-48.0) 11/16/17 02:25 MCV 84.5 fl (80.0-105.0) 11/16/17 02:25 MCH 27.7 pg (25.0-35.0) 11/16/17 02:25 MCHC 32.8 g/dl (31.0-37.0) 11/16/17 02:25 RDW 13.1 % (11.5-14.5) 11/16/17 02:25 Plt Count 244 10^3/uL (120.0-450.0) 11/16/17 02:25 MPV 11.4 fl (7.0-11.0) H 11/16/17 02:25 Gran % 51.6 % (50.0-68.0) 11/16/17 02:25 Lymph % (Auto) 23.5 % (22.0-35.0) 11/16/17 02:25 Oliver % (Auto) 3.9 % (1.0-6.0) 11/16/17 02:25 Eos % (Auto) 20.5 % (1.5-5.0) H 11/16/17 02:25 Baso % (Auto) 0.5 % (0.0-3.0) 11/16/17 02:25 Gran # 8.00 (1.4-6.5) H 11/16/17 02:25 Lymph # (Auto) 3.7 (1.2-3.4) H 11/16/17 02:25 Oliver # (Auto) 0.6 (0.1-0.6) 11/16/17 02:25 Eos # (Auto) 3.2 (0.0-0.7) H 11/16/17 02:25 Baso # (Auto) 0.08 K/mm3 (0.0-2.0) 11/16/17 02:25 Neutrophils % (Manual) 46 % (50.0-70.0) L 11/16/17 02:25 Band Neutrophils % [facility] Service 11/16/17 02:25 Lymphocytes % (Manual) 27 % (22.0-35.0) 11/16/17 02:25 Monocytes % (Manual) 3 % (1.0-6.0) 11/16/17 02:25 Eosinophils % (Manual) 23 % (0.0-3.0) H 11/16/17 02:25 Basophils % (Manual) 1 % (0.0-1.0) 11/16/17 02:25 Platelet Evaluation Normal (NORMAL) 11/16/17 02:25 Sodium 140 mmol/L (132-148) 11/16/17 02:25 Potassium 4.7 mmol/L (3.6-5.0) 11/16/17 02:25 Chloride 101 mmol/L (98-107) 11/16/17 02:25 Carbon Dioxide 32 mmol/L (21-33) 11/16/17 02:25 Anion Gap 12 (10-20) 11/16/17 02:25 BUN 9 mg/dL (7-21) 11/16/17 02:25 Creatinine 0.7 mg/dl (0.7-1.2) 11/16/17 02:25 Est GFR ( Amer) > 60 11/16/17 02:25 Est GFR (Non-Af Amer) > 60 11/16/17 02:25 Random Glucose 96 mg/dL (70-110) 11/16/17 02:25 Calcium 9.5 mg/dL (8.4-10.5) 11/16/17 02:25 Magnesium 2.0 mg/dL (1.7-2.2) 11/16/17 02:25 Total Bilirubin 0.4 mg/dL (0.2-1.3) 11/16/17 02:25 AST 34 U/L (14-36) 11/16/17 02:25 ALT 26 U/L (7-56) 11/16/17 02:25 Alkaline Phosphatase 65 U/L (38-126) 11/16/17 02:25 Lactate Dehydrogenase 559 U/L (333-699) 11/16/17 02:25 Total Creatine Kinase 140 U/L (35-230) 11/16/17 02:25 Troponin I < 0.01 ng/mL 11/16/17 02:25 Total Protein 7.4 g/dL (5.8-8.3) 11/16/17 02:25 Albumin 4.2 g/dL (3.0-4.8) 11/16/17 02:25 Globulin 3.2 gm/dL 11/16/17 02:25 Albumin/Globulin Ratio 1.3 (1.1-1.8) 11/16/17 02:25 Procalcitonin < 0.05 NG/ML (0.19-0.49) L 11/16/17 02:30 Beta HCG, Quant < 2.39 mIU/mL (0-6.15) 11/16/17 02:25 Attending/Attestation - Attestation I have personally seen and examined this patient.: Yes I have fully participated in the care of the patient.: Yes I have reviewed all pertinent clinical information, including history, physical exam and plan: Yes Notes (Text): 11/17/17 14:32 27 year old female with past medical history of asthma who presented with shortness of breath secondary to asthma exacerbation. She was started on iv steroids and duonebs with improvement of symptoms. She had leukocytosis, likely reactive. CXR was negative. Patient refused repeat labs. Refused UA or drug screen. Overall her symptoms improved the following day. She is discharged home to follow up with her pmd. Discharged on po steroids and ventolin. Aristeo Martin MD Hospitalist.
== END 2017-11-17 14:06 | disposition home or self-care (01) ==
LOC: ED 02:17 → ERH 04:45 → 2RSO 06:44
PROVIDERS: ADMIT Hospitalist; ATTEND Internal Medicine
DX: J45.901 Unspecified asthma with (acute) exacerbation (principal); D72.829 Elevated white blood cell count, unspecified; F19.10 Other psychoactive substance abuse, uncomplicated; Z87.01 Personal history of pneumonia (recurrent)

== ENCOUNTER 2017-12-04 21:59 | Inpatient (IN) | payer MEDICAID, OTHER ==
[2017-12-04 22:00] VITALS: BMI 20.6
--- NOTE | 2017-12-04 22:05 | ED PDOC ---
Arrival/HPI - General Chief Complaint: Respiratory Distress Time Seen by Provider: 12/04/17 22:02 Historian: Patient, EMS - Critical Care Critical Care Minutes: 30 minutes - History of Present Illness Narrative History of Present Illness (Text): 12/04/17 22:05 27 y/o F w/ pmhx of asthma and previous intubations presents to the emergency department by EMS for severe wheezing. Patient reports associated intermittent fever, persistent non-productive cough and chills. Patient reports to taking several nebulizers and inhaler treatments with no improvement. Patient notes she is unsure of any recent exposure to sick contact. Per EMS, patient was administered 2 grams of magnesium, 2 combo treatments and 125 mg solumedrol prior to arrival in the ER. Patient denies any chest pain, diarrhea, nausea, vomiting, urinary symptoms, back pain, neck pain, headache, dizziness, or any other complaints. Time/Duration: Prior to Arrival Symptom Onset: Sudden Symptom Course: Unchanged Activities at Onset: Light Context: Home Past Medical History - Provider Review Nursing Documentation Reviewed: Yes - Travel History Have you recently traveled outside [place] w/in the past 3 mons?: No - Infectious Disease Hx of Infectious Diseases: None - Tetanus Immunization Tetanus Immunization: Unknown - Cardiac Hx Cardiac Disorders: No - Pulmonary Hx Asthma: Yes (has home nebulizer machine) Hx Bronchitis: Yes Hx Pneumonia: Yes - Neurological Hx Neurological Disorder: No - HEENT Hx HEENT Disorder: No - Renal Hx Renal Disorder: No - Endocrine/Metabolic Hx Endocrine Disorders: No - Hematological/Oncological Hx Blood Disorders: No - Integumentary Hx Dermatological Disorder: No - Musculoskeletal/Rheumatological Hx Falls: No - Gastrointestinal Hx Gastrointestinal Disorders: No - Genitourinary/Gynecological Hx Genitourinary Disorders: No - Psychiatric Hx Depression: No Hx Emotional Abuse: No Hx Physical Abuse: No Hx Substance Use: No - Past Surgical History Past Surgical History: No Previous - Surgical History Hx Cardiac Catheterization: No Hx Coronary Stent: No - Anesthesia Hx Anesthesia: No - Suicidal Assessment Feels Threatened In Home Enviroment: No Family/Social History - Physician Review Nursing Documentation Reviewed: Yes Family/Social History: Unknown Family HX Smoking Status: Never Smoked Hx Alcohol Use: No Hx Substance Use: No Hx Substance Use Treatment: No Allergies/Home Meds Allergies/Adverse Reactions: Allergies No Known Allergies Allergy (Verified 12/04/17 22:04) Review of Systems - Physician Review All systems were reviewed & negative as marked: Yes - Review of Systems Constitutional: Fevers, Night Sweats Respiratory: SOB, Cough, Wheezing Cardiovascular: absent: Chest Pain Gastrointestinal: absent: Diarrhea, Nausea, Vomiting Genitourinary Female: absent: Urine Output Changes Musculoskeletal: absent: Back Pain, Neck Pain Neurological: absent: Headache, Dizziness Physical Exam Vital Signs Reviewed: Yes Vital Signs Temp Pulse Resp BP Pulse Ox 12/04/17 22:04 97.5 F L 113 H 30 H 140/86 100 Temperature: Hypothermic Blood Pressure: Hypertensive Pulse: Tachycardic Respiratory Rate: Normal Appearance: Positive for: Well-Appearing, Non-Toxic, Comfortable Pain Distress: None Mental Status: Positive for: Alert and Oriented X 3 - Systems Exam Head: Present: Atraumatic, Normocephalic Pupils: Present: PERRL Extroacular Muscles: Present: EOMI Conjunctiva: Present: Normal Mouth: Present: Moist Mucous Membranes Neck: Present: Normal Range of Motion Respiratory/Chest: Present: Respiratory Distress, Accessory Muscle Use, Wheezes (+expiratory wheezing bilaterally ), Rhonchi (+ronchi at bases bilaterally ), Tachypneic Cardiovascular: Present: Regular Rate and Rhythm, Normal S1, S2. No: Murmurs Abdomen: No: Tenderness, Distention, Peritoneal Signs Back: Present: Normal Inspection Upper Extremity: Present: Normal Inspection. No: Cyanosis, Edema Lower Extremity: Present: Normal Inspection. No: Edema Neurological: Present: GCS=15, CN II-XII Intact, Speech Normal Skin: Present: Warm, Dry, Normal Color. No: Rashes Psychiatric: Present: Alert, Oriented x 3, Normal Insight, Normal Concentration Medical Decision Making ED Course and Treatment: 12/04/17 22:05 Impression 27 y/o F presenting with severe wheezing. Differential Diagnoses Include But Are Not Limited To: asthma exacerbation bronchitis Plan -- VBG -- Labs -- CBC -- Chest X-ray -- Influenza type A andB A B test -- Duoneb -- Toradol -- Reglan -- IV fluids -- Blood Culture -- Urinalysis --Reassess & disposition Progress Notes 12/04/17 23:00 VBG shows respiratory acidosism, hypercapnia up to 90. 12/04/17 23:[address] Junior(rehabilitation engineer) who will come to see patient in emergency room and agrees with emergency department management plan to start patient on bipap. 12/04/17 23:07 Patient is refusing bipap, noting she did not tolerate it in the past. Patient amenable to ABG. She is admitted to telemetry. - Scribe Statement The provider has reviewed the documentation as recorded by the Demaribtamy Rivera All medical record entries made by the Scribe were at my direction and personally dictated by me. I have reviewed the chart and agree that the record accurately reflects my personal performance of the history, physical exam, medical decision making, and the department course for this patient. I have also personally directed, reviewed, and agree with the discharge instructions and disposition. Disposition/Present on Arrival - Present on Arrival Any Indicators Present on Arrival: No History of DVT/PE: No History of Uncontrolled Diabetes: No Urinary Catheter: No History Surgical Site Infection Following: None - Disposition Have Diagnosis and Disposition been Completed?: Yes Diagnosis: Asthma exacerbation Disposition: HOSPITALIZED Disposition Time: 11:00 Patient Plan: Admission Condition: FAIR
[2017-12-04] MEDS ORDERED: Albuterol-Ipratrop 3 mg / 0.5 (3 ml) UD ONE (22:15)
[2017-12-04] MEDS ORDERED: Albuterol-Ipratrop 3 mg / 0.5 (3 ml) UD IH STA (22:32)
[2017-12-04] MEDS ORDERED: Sodium Chloride 0.9% 1,000 ML IV STA (22:33)
[2017-12-04 22:47] LABS: VENOUS BLOOD GAS BASE EXCESS -0.2 mmol/L (0.0-2.0); VENOUS BLOOD GAS PO2 39 mm/Hg (30-55)
[2017-12-04 22:51] LABS: BASO # 0.13 K/mm3 (0.0-2.0); BASO % 0.8 % (0.0-3.0); EOS # 2.4 (0.0-0.7); EOS % 14.3 % (1.5-5.0); GRAN # 6.93 (1.4-6.5); GRAN % 40.7 % (50.0-68.0); HEMOGLOBIN 14.9 g/dL (12.0-16.0); LYMPH # 6.6 (1.2-3.4); LYMPH % 39.2 % (22.0-35.0); MEAN CELL VOLUME 86.3 fl (80.0-105.0); MEAN CORPUSCULAR HGB CONC 32.4 g/dl (31.0-37.0); MEAN PLATELET VOLUME 11.2 fl (7.0-11.0); MONO # 0.8 (0.1-0.6); RBC 5.33 10^6/uL (3.5-6.1); RED CELL DISTRIBUTION WIDTH 13.3 % (11.5-14.5); VENOUS BLOOD PH 7.15 (7.32-7.43)
[2017-12-04] MEDS ORDERED: Magnesium Sulfate 1 gm in D5W 1 GM/100 ML BAG IVPB ONE (23:00)
[2017-12-04 23:06] LABS: ALB/GLOB RATIO 1.3 (1.1-1.8); ALBUMIN 4.2 g/dL (3.0-4.8); ALT/SGPT 29 U/L (7-56); AST/SGOT 36 U/L (14-36); BLOOD UREA NITROGEN 12 mg/dL (7-21); CALCIUM 9.1 mg/dL (8.4-10.5); GFR NON-AFRICAN AMERICAN > 60
--- NOTE | 2017-12-05 00:17 | CP.PCM.HP ---
History of Present Illness - History of Present Illness History of Present Illness: Harry Ortiz DO PGY1 Internal Medicine Sc[facility]bler - Hospital H&P CC: Shortness of Breath/ Chest tightness 27F w/ PMH asthma, substance abuse presented to [facility] on 12/04 by EMS w/ CC of shortness of breath and chest tightness by EMS. Of note patient has had multiple admissions/ visits to ED for asthma exacerbation. She reports productive cough w/ yellow sputum non bloody over the past week. She reports morning of admission she started having worsening tightness and cough. Denies being around anyone who smokes, personally denies smoking, denies seasonal allergies, denies any change in environment. She reports that her symptoms occur >2 days/ week and prior to admission she kept using her inhaler in 10 minute intervals w/ no benefit. As per EMS she was given 2gm mg, 2 duoneb treatments, and 125mg IV steroid. Leading up to her admission she did report intermittent subjective fevers; Denies sore throat. Remainder of 12 system ROS is negative at this time. PMD: Yumiko Suggs PMH: as above PSH: Denies FH: Denies Allergies: Denies Code: Full CODE FDLMP: 2 weeks ago Home RX: Ventolin Present on Admission - Present on Admission Any Indicators Present on Admission: No Review of Systems - Review of Systems All systems: reviewed and no additional remarkable complaints except Review of Systems: as per HPI Past Patient History - Infectious Disease Hx of Infectious Diseases: None - Tetanus Immunizations Tetanus Immunization: Unknown - Past Social History Smoking Status: Never Smoked - CARDIAC Hx Cardiac Disorders: No - PULMONARY Hx Asthma: Yes (has home nebulizer machine) Hx Bronchitis: Yes Hx Pneumonia: Yes - NEUROLOGICAL Hx Neurological Disorder: No - HEENT Hx HEENT Problems: No - RENAL Hx Chronic Kidney Disease: No - ENDOCRINE/METABOLIC Hx Endocrine Disorders: No - HEMATOLOGICAL/ONCOLOGICAL Hx Blood Disorders: No - INTEGUMENTARY Hx Dermatological Problems: No - MUSCULOSKELETAL/RHEUMATOLOGICAL Hx Falls: No - GASTROINTESTINAL Hx Gastrointestinal Disorders: No - GENITOURINARY/GYNECOLOGICAL Hx Genitourinary Disorders: No - PSYCHIATRIC Hx Depression: No Hx Emotional Abuse: No Hx Physical Abuse: No Hx Substance Use: No - SURGICAL HISTORY Hx Cardiac Catheterization: No Hx Coronary Stent: No - ANESTHESIA Hx Anesthesia: No Meds Allergies/Adverse Reactions: Allergies Allergy/AdvReac Type Severity Reaction Status Date / Time No Known Allergies Allergy Verified 12/04/17 22:04 Physical Exam - Constitutional Appears: Well, Non-toxic, No Acute Distress - Head Exam Head Exam: ATRAUMATIC, NORMAL INSPECTION, NORMOCEPHALIC - Eye Exam Eye Exam: EOMI, Normal appearance, PERRL. absent: Scleral icterus - ENT Exam ENT Exam: Mucous Membranes Moist, Normal Exam - Respiratory Exam Respiratory Exam: Prolonged Expiratory Phase, Wheezes - Cardiovascular Exam Cardiovascular Exam: +S1, +S2 - GI/Abdominal Exam GI & Abdominal Exam: Normal Bowel Sounds, Soft. absent: Tenderness - Back Exam Back exam: absent: CVA tenderness (L), CVA tenderness (R) - Neurological Exam Neurological exam: Alert, CN II-XII Intact, Oriented x3 - Psychiatric Exam Psychiatric exam: Normal Affect, Normal Mood - Skin Skin Exam: Dry, Intact, Warm Results - Vital Signs Recent Vital Signs: Last Vital Signs Temp 97.5 F L 12/04/17 22:04 Pulse 108 H 12/04/17 22:32 Resp 23 12/04/17 22:32 BP 123/77 12/04/17 22:32 Pulse Ox 100 12/04/17 22:32 - Labs Result Diagrams: 12/04/17 22:05 12/04/17 22:05 Labs: Laboratory Results - last 24 hr 12/04/17 12/04/17 12/04/17 22:05 22:05 22:05 WBC 17.0 H RBC 5.33 Hgb 14.9 Hct 46.0 MCV 86.3 MCH 28.0 MCHC 32.4 RDW 13.3 Plt Count 322 MPV 11.2 H Gran % 40.7 L Lymph % (Auto) 39.2 H Sebastian % (Auto) 5.0 Eos % (Auto) 14.3 H Baso % (Auto) 0.8 Gran # 6.93 H Lymph # (Auto) 6.6 H Sebastian # (Auto) 0.8 H Eos # (Auto) 2.4 H Baso # (Auto) 0.13 pO2 39 VBG pH 7.15 L* VBG pCO2 90.0 H* VBG HCO3 31.4 H VBG Total CO2 34.2 H VBG O2 Sat (Calc) 68.7 H VBG Base Excess -0.2 L VBG Potassium 4.3 Sodium 138.0 139 Chloride 102.0 101 Glucose 103 Lactate 0.9 FiO2 21.0 Potassium 4.4 Carbon Dioxide 30 Anion Gap 12 BUN 12 Creatinine 0.7 Est GFR ( Amer) > 60 Est GFR (Non-Af Amer) > 60 Random Glucose 105 Calcium 9.1 Magnesium 4.1 H Total Bilirubin 0.4 AST 36 ALT 29 Alkaline Phosphatase 72 Total Protein 7.5 Albumin 4.2 Globulin 3.3 Albumin/Globulin Ratio 1.3 Venous Blood Potassium 4.3 Assessment & Plan - Assessment and Plan (Free Text) Assessment: 27F w/ PMH asthma, substance abuse presented to [facility] on 12/04 by EMS w/ CC of shortness of breath and chest tightness by EMS. Patient is to be admitted for management of acute asthma exacerbation. Plan: Asthma exacerbation: Most likely 2/2 URI Patient reports she has been unable to secure insurance hence she has been unable to follow up with her PCP or a solvent plant operator regarding her asthma. She may benefit from a pulmonary consult inpatient. Patient exhibited good clinical response in ED to breathing treatments and magnesium. 45/252/20.7/7.27 F/u AM ABG Duonebs Q4 CURTIS; Q2 PRN Azithromycin 250 QD Rocephin 1gm QD Solumedrol 40 Q8 Peak Flow Pre/Post treatment as well as Q shift - assess improvement of respiratory function Hx Substance Abuse Follow up UDS DVT PPX: SCD Patient was seen, examined, discussed w/ atending Dr. Eugenio Junior; Harry Ortiz DO PGY1 - Date & Time Date: 12/05/17 Time: 05:42
[2017-12-05] MEDS ORDERED: Azithromycin 500MG/NS 250ml 500 MG/250 ML BAG IVPB ONE (00:26)
[2017-12-05] MEDS ORDERED: Albuterol 0.042% Inhal Sol (1.25 mg/3 mL) UD IH PRN (00:33)
[2017-12-05 01:36] LABS: ARTERIAL BLOOD GAS HCO3 20.7 mmol/L (21-28); ARTERIAL BLOOD GAS O2 SAT 100.2 % (95-98); ARTERIAL BLOOD GAS PCO2 45 mm/Hg (35-45); ARTERIAL BLOOD GAS PH 7.27 (7.35-7.45); ARTERIAL BLOOD GAS TCO2 22.1 mmol.L (22-28)
[2017-12-05] MEDS ORDERED: Levalbuterol 0.63 MG/3 ML Inhal Soln UD IH SCH (02:00)
[2017-12-05 03:19] VITALS: O2SAT 99
[2017-12-05 03:41] VITALS: RESP 20
[2017-12-05] MEDS: MethylPREDNISolone 40 mg Vial IVP SCH ×2 (06:24→14:01)
[2017-12-05 07:25] LABS: BASO # 0.01 K/mm3 (0.0-2.0); BASO % 0.1 % (0.0-3.0); EOS # 0.1 (0.0-0.7); EOS % 0.6 % (1.5-5.0); GRAN # 6.74 (1.4-6.5); GRAN % 86.7 % (50.0-68.0); HEMOGLOBIN 13.5 g/dL (12.0-16.0); LYMPH # 0.9 (1.2-3.4); LYMPH % 11.8 % (22.0-35.0); MEAN CELL VOLUME 85.4 fl (80.0-105.0); MEAN CORPUSCULAR HEMOGLOBIN 27.1 pg (25.0-35.0); MEAN CORPUSCULAR HGB CONC 31.7 g/dl (31.0-37.0); MEAN PLATELET VOLUME 11.3 fl (7.0-11.0); MONO # 0.1 (0.1-0.6); MONO % 0.8 % (1.0-6.0); RBC 4.99 10^6/uL (3.5-6.1); RED CELL DISTRIBUTION WIDTH 13.3 % (11.5-14.5); WHITE BLOOD COUNT 7.8 10^3/uL (4.5-11.0)
[2017-12-05] MEDS: Albuterol 0.042% Inhal Sol (1.25 mg/3 mL) UD IH SCH ×3 (08:01→15:49)
[2017-12-05 09:25] LABS: BLOOD UREA NITROGEN 10 mg/dL (7-21); GFR NON-AFRICAN AMERICAN > 60
[2017-12-05 09:26] LABS: ALB/GLOB RATIO 1.3 (1.1-1.8); ALBUMIN 3.9 g/dL (3.0-4.8); CALCIUM 8.9 mg/dL (8.4-10.5)
--- NOTE | 2017-12-05 09:26 | RAD ---
Date of service: 12/04/2017 HISTORY: sob COMPARISON: 11/16/2017 FINDINGS: LUNGS: No active pulmonary disease. PLEURA: No significant pleural effusion identified, no pneumothorax apparent. CARDIOVASCULAR: No aortic atherosclerotic calcification present. Normal cardiac size. No pulmonary vascular congestion. OSSEOUS STRUCTURES: No significant abnormalities. VISUALIZED UPPER ABDOMEN: Normal. OTHER FINDINGS: None. IMPRESSION: No active disease.
[2017-12-05 09:27] LABS: ALT/SGPT 24 U/L (7-56); AST/SGOT 27 U/L (14-36)
[2017-12-05] MEDS ORDERED: cefTRIAXone 1 gm 1 GM/100 ML BAG IVPB SCH (10:00)
--- NOTE | 2017-12-05 12:30 | CP.PCM.CON ---
History of Present Illness - History of Present Illness History of Present Illness: CC: Asthma 27F with hx of asthma and substance abuse admitted 12/04 with shortness of breath being tx for asthma exacerbation. No fevers, remote URi symptoms overall feeling better today. No cig use. She report having asthma as a child then it went away. It has returned over the past few years. She was seeing [facility] however due to insurance changes, she not longer has outpt pulm follow up. She is on ventolin inh which she uses 4-6 times per day. She does not identify any triggers other than weather changes. No allergies. No pets at home. Remainder of 12 system ROS is negative at this time. PMH: asthma PSH: none FH: denies Allergies: NKDA Home RX: Ventolin Past Patient History - Infectious Disease Hx of Infectious Diseases: None - Tetanus Immunizations Tetanus Immunization: Unknown - Past Social History Smoking Status: Never Smoked - CARDIAC Hx Cardiac Disorders: No - PULMONARY Hx Asthma: Yes (has home nebulizer machine) Hx Bronchitis: Yes Hx Pneumonia: Yes - NEUROLOGICAL Hx Neurological Disorder: No - HEENT Hx HEENT Problems: No - RENAL Hx Chronic Kidney Disease: No - ENDOCRINE/METABOLIC Hx Endocrine Disorders: No - HEMATOLOGICAL/ONCOLOGICAL Hx Blood Disorders: No - INTEGUMENTARY Hx Dermatological Problems: No - MUSCULOSKELETAL/RHEUMATOLOGICAL Hx Falls: No - GASTROINTESTINAL Hx Gastrointestinal Disorders: No - GENITOURINARY/GYNECOLOGICAL Hx Genitourinary Disorders: No - PSYCHIATRIC Hx Depression: No Hx Emotional Abuse: No Hx Physical Abuse: No Hx Substance Use: No - SURGICAL HISTORY Hx Cardiac Catheterization: No Hx Coronary Stent: No - ANESTHESIA Hx Anesthesia: No Meds Allergies/Adverse Reactions: Allergies Allergy/AdvReac Type Severity Reaction Status Date / Time No Known Allergies Allergy Verified 12/04/17 22:04 - Medications Medications: Current Medications Albuterol Sulfate (Albuterol 0.042% Inhal Filomena (1.25mg/3ml) Ud) 1.25 mg IH Q2H PRN PRN Reason: Shortness of Breath Albuterol Sulfate (Albuterol 0.042% Inhal Filomena (1.25mg/3ml) Ud) 1.25 mg IH [id number] [facility] Last Admin: 12/05/17 11:24 Dose: 1.25 mg Azithromycin 250 mg/ Sodium (Chloride) 250 mls @ 167 mls/hr IVPB DAILY [facility]; Protocol Ceftriaxone Sodium (Rocephin 1 Gram Ivpb) 1 gm in 100 mls @ 100 mls/hr IVPB DAILY [facility]; Protocol Last Admin: 12/05/17 11:07 Dose: 100 mls/hr Methylprednisolone (Solu-Medrol) 40 mg IVP Q8 [facility] Last Admin: 12/05/17 06:24 Dose: 40 mg Physical Exam - Constitutional Appears: Well - Head Exam Head Exam: ATRAUMATIC, NORMAL INSPECTION, NORMOCEPHALIC - Eye Exam Eye Exam: EOMI, Normal appearance, PERRL Pupil Exam: NORMAL ACCOMODATION, PERRL - Neck Exam Neck exam: Positive for: Normal Inspection - Respiratory Exam Respiratory Exam: Wheezes. absent: Accessory Muscle Use, Chest Wall Tenderness, Respiratory Distress, Stridor - Cardiovascular Exam Cardiovascular Exam: REGULAR RHYTHM - GI/Abdominal Exam GI & Abdominal Exam: Normal Bowel Sounds, Soft. absent: Tenderness - Extremities Exam Extremities exam: Positive for: normal inspection Results - Vital Signs Recent Vital Signs: Last Vital Signs Temp 97.1 F L 12/05/17 06:00 Pulse 85 12/05/17 06:00 Resp 20 12/05/17 06:00 BP 106/61 12/05/17 06:00 Pulse Ox 99 12/05/17 06:00 - Labs Result Diagrams: 12/05/17 07:00 12/05/17 07:00 Labs: Laboratory Results - last 24 hr 12/04/17 12/04/17 12/04/17 22:05 22:05 22:05 WBC 17.0 H RBC 5.33 Hgb 14.9 Hct 46.0 MCV 86.3 MCH 28.0 MCHC 32.4 RDW 13.3 Plt Count 322 MPV 11.2 H Gran % 40.7 L Lymph % (Auto) 39.2 H Dixie % (Auto) 5.0 Eos % (Auto) 14.3 H Baso % (Auto) 0.8 Gran # 6.93 H Lymph # (Auto) 6.6 H Dixie # (Auto) 0.8 H Eos # (Auto) 2.4 H Baso # (Auto) 0.13 pCO2 pO2 39 HCO3 ABG pH ABG Total CO2 ABG O2 Saturation ABG Base Excess ABG Potassium VBG pH 7.15 L* VBG pCO2 90.0 H* VBG HCO3 31.4 H VBG Total CO2 34.2 H VBG O2 Sat (Calc) 68.7 H VBG Base Excess -0.2 L VBG Potassium 4.3 Sodium 138.0 139 Chloride 102.0 101 Glucose 103 Lactate 0.9 FiO2 21.0 Potassium 4.4 Carbon Dioxide 30 Anion Gap 12 BUN 12 Creatinine 0.7 Est GFR ( Amer) > 60 Est GFR (Non-Af Amer) > 60 Random Glucose 105 Calcium 9.1 Phosphorus Magnesium 4.1 H Total Bilirubin 0.4 AST 36 ALT 29 Alkaline Phosphatase 72 Troponin I Total Protein 7.5 Albumin 4.2 Globulin 3.3 Albumin/Globulin Ratio 1.3 Arterial Blood Potassium Venous Blood Potassium 4.3 12/04/17 12/05/17 12/05/17 22:05 01:29 07:00 WBC 7.8 D RBC 4.99 Hgb 13.5 Hct 42.6 MCV 85.4 MCH 27.1 MCHC 31.7 RDW 13.3 Plt Count 243 MPV 11.3 H Gran % 86.7 H Lymph % (Auto) 11.8 L Dixie % (Auto) 0.8 L Eos % (Auto) 0.6 L Baso % (Auto) 0.1 Gran # 6.74 H Lymph # (Auto) 0.9 L Dixie # (Auto) 0.1 Eos # (Auto) 0.1 Baso # (Auto) 0.01 pCO2 45 pO2 252.0 H HCO3 20.7 L ABG pH 7.27 L ABG Total CO2 22.1 ABG O2 Saturation 100.2 H ABG Base Excess -6.2 L ABG Potassium 3.6 VBG pH VBG pCO2 VBG HCO3 VBG Total CO2 VBG O2 Sat (Calc) VBG Base Excess VBG Potassium Sodium 137.0 Chloride 109.0 H Glucose 134 H Lactate 1.0 FiO2 40.0 Potassium Carbon Dioxide Anion Gap BUN Creatinine Est GFR ( Amer) Est GFR (Non-Af Amer) Random Glucose Calcium Phosphorus Magnesium Total Bilirubin AST ALT Alkaline Phosphatase Troponin I 0.01 Total Protein Albumin Globulin Albumin/Globulin Ratio Arterial Blood Potassium 3.6 Venous Blood Potassium 12/05/17 07:00 WBC RBC Hgb Hct MCV MCH MCHC RDW Plt Count MPV Gran % Lymph % (Auto) Dixie % (Auto) Eos % (Auto) Baso % (Auto) Gran # Lymph # (Auto) Dixie # (Auto) Eos # (Auto) Baso # (Auto) pCO2 pO2 HCO3 ABG pH ABG Total CO2 ABG O2 Saturation ABG Base Excess ABG Potassium VBG pH VBG pCO2 VBG HCO3 VBG Total CO2 VBG O2 Sat (Calc) VBG Base Excess VBG Potassium Sodium 137 Chloride 106 Glucose Lactate FiO2 Potassium 5.1 H Carbon Dioxide 24 Anion Gap 12 BUN 10 Creatinine 0.6 L Est GFR ( Amer) > 60 Est GFR (Non-Af Amer) > 60 Random Glucose 130 H Calcium 8.9 Phosphorus 4.2 Magnesium 2.4 H Total Bilirubin 0.4 AST 27 ALT 24 Alkaline Phosphatase 63 Troponin I Total Protein 6.9 Albumin 3.9 Globulin 3.0 Albumin/Globulin Ratio 1.3 Arterial Blood Potassium Venous Blood Potassium Assessment & Plan - Assessment and Plan (Free Text) Assessment: 27F with hx of Asthma and illicit substance abuse here with asthma exasc. She is improving symptomatically and only slightly wheezing. F/u Flu swab Add Symbicort Albuterol PRN q 6 hours change steroids to pred 40 daily, will need a taper upon discharge as follows 40 daily x 2 days then 30mg daily x 2 days then 20mg daily x 2 days then 10mg daily x 2 days then 5 mg daily x 2 days then STOP She should have a ventolin inhaler upon discharge for rescue use Outpatient followup with medical/pulm clinic Outpatient will need PFTs Chidi Junior MD Pulm [facility]
[2017-12-05] MEDS ORDERED: Azithromycin 250 MG in Sodium Chloride 0.9% 250 ML IVPB SCH (13:00)
[2017-12-05 17:58] VITALS: BP 122/77; TEMP 98.5
--- NOTE | 2017-12-05 18:12 | CARD ---
APPROVED REPORT Date of service: 12/05/2017 EKG Measurement Heart [id number] ID [id number] <Conclusion> Sinus rhythm with short ID with premature atrial complexes Borderline normal ECG
[2017-12-05 19:31] VITALS: PULSE 122
--- NOTE | 2017-12-05 19:31 | CP.PCM.PN ---
<Amadeo Mcguire - Last Filed: 12/05/17 19:28> Subjective - Date & Time of Evaluation Date of Evaluation: 12/05/17 Time of Evaluation: 19:00 - Subjective Subjective: Amadeo Mcguire DO, PGY-1 Hospitalist Progress Note for Dr. Posey Patient is seen and was briefly examined at bedside. She is upset at this time and desires to sign out AMA. She was found in the patient restroom smoking marijuana with her boyfriend. She states she has not received good care here and would like to sign out at this time. Objective - Vital Signs/Intake and Output Vital Signs (last 24 hours): Temp Pulse Resp BP Pulse Ox 98.5 F 104 H 20 122/77 99 12/05/17 17:52 12/05/17 17:52 12/05/17 17:52 12/05/17 17:52 12/05/17 06:00 - Medications Medications: Current Medications Albuterol Sulfate (Albuterol 0.042% Inhal Filomena (1.25mg/3ml) Ud) 1.25 mg IH Q2H PRN PRN Reason: Shortness of Breath Albuterol Sulfate (Albuterol 0.042% Inhal Filomena (1.25mg/3ml) Ud) 1.25 mg IH [id number] [facility] Last Admin: 12/05/17 15:49 Dose: 1.25 mg Azithromycin 250 mg/ Sodium (Chloride) 250 mls @ 167 mls/hr IVPB DAILY [facility]; Protocol Last Admin: 12/05/17 14:00 Dose: 167 mls/hr Ceftriaxone Sodium (Rocephin 1 Gram Ivpb) 1 gm in 100 mls @ 100 mls/hr IVPB DAILY [facility]; Protocol Last Admin: 12/05/17 11:07 Dose: 100 mls/hr Methylprednisolone (Solu-Medrol) 40 mg IVP Q8 [facility] Last Admin: 12/05/17 14:01 Dose: 40 mg - Labs Labs: 12/05/17 07:00 12/05/17 07:00 Assessment and Plan - Assessment and Plan (Free Text) Assessment: 27 yo F admitted for treatment of acute asthma exacerbation is now signing out AMA. Plan: Will give rx for prednisone taper, albuterol inhaler, and spiriva. AMA paperwork was filled out. Risks of leaving AMA were discussed at length with patient including risks of worsened asthma, worsening CV function, even including . Patient verbalized understanding and signed out AMA. Situation was discussed with my attending Dr. Posey. Treatment plan and prescriptions were discussed with him. Amadeo Mcguire DO IM Resident PGY-1 <Raiza Posey - Last Filed: 12/08/17 16:09> Objective - Vital Signs/Intake and Output Vital Signs (last 24 hours): Temp Pulse Resp BP Pulse Ox 98.5 F 122 H 20 122/77 99 12/05/17 17:52 12/05/17 18:00 12/05/17 17:52 12/05/17 17:52 12/05/17 06:00 - Labs Labs: 12/05/17 07:00 12/05/17 07:00 Attending/Attestation - Attestation I have personally seen and examined this patient.: Yes I have fully participated in the care of the patient.: Yes I have reviewed all pertinent clinical information, including history, physical exam and plan: Yes
--- NOTE | 2017-12-07 14:02 | PQF ---
PROVIDER RESPONSE TEXT: Patient has Mild persistent Asthama REVIEWER QUERY TEXT: Asthma Specificity and Type Asthma is documented in the Medical Record. Please specify the type and severity of asthma and indic ate if this is associated with exacerbation or status asthmaticus. Such as: -- Mild intermittent -- Mild persistent -- Moderate persistent -- Severe persistent -- Exercise induced bronchospasm -- Cough variant asthma -- Other, please specify The patient's Clinical Indicators include: Please see below. Thank you. Query created by: Anne-Marie Love on 12/07/2017 1:42 PM Electronically signed by: Raiza Posey MD 12/07/2017 1:58 PM
== END 2017-12-05 23:15 | disposition left against medical advice (07) | DRG 203 ==
LOC: ED 21:59 → ERH 12-05 00:04 → 2RSO 12-05 03:13
PROVIDERS: ADMIT Hospitalist; ATTEND Internal Medicine
DX: J45.31 Mild persistent asthma with (acute) exacerbation (principal); F12.90 Cannabis use, unspecified, uncomplicated; Z87.01 Personal history of pneumonia (recurrent); R40.2412 Glasgow coma scale score 13-15, at arrival to emergency department

== ENCOUNTER 2017-12-17 01:12 | Observation (INO) | payer MEDICAID, OTHER ==
[2017-12-17 01:16] VITALS: BMI 21.0
[2017-12-17] MEDS ORDERED: Albuterol-Ipratrop 3 mg / 0.5 (3 ml) UD IH STA ×3 (01:17→03:05)
--- NOTE | 2017-12-17 01:17 | ED PDOC ---
Arrival/HPI - General Time Seen by Provider: 12/17/17 01:13 Historian: Patient - History of Present Illness Narrative History of Present Illness (Text): 12/17/17 01:16 Nadia King is a 27 year old female, whose past history includes asthma, anxiety, and substance abuse, who presents to the Emergency department complaining of shortness of breath. Patient states she has been experiencing shortness of breath and wheezing tonight, consistent with previous episodes of asthma. Patient also reports a subjective fever and productive cough today. Patient denies any fever, chills, chest pain, nausea, vomiting, diarrhea, urinary symptoms, back pain, neck pain, headache, dizziness, or any other complaints. Symptom Onset: Gradual Symptom Course: Unchanged Activities at Onset: Light Context: Home Past Medical History - Provider Review Nursing Documentation Reviewed: Yes - Infectious Disease Hx of Infectious Diseases: None - Tetanus Immunization Tetanus Immunization: Unknown - Cardiac Hx Cardiac Disorders: No - Pulmonary Hx Asthma: Yes (has home nebulizer machine) Hx Bronchitis: Yes Hx Pneumonia: Yes - Neurological Hx Neurological Disorder: No - HEENT Hx HEENT Disorder: No - Renal Hx Renal Disorder: No - Endocrine/Metabolic Hx Endocrine Disorders: No - Hematological/Oncological Hx Blood Disorders: No - Integumentary Hx Dermatological Disorder: No - Musculoskeletal/Rheumatological Hx Falls: No - Gastrointestinal Hx Gastrointestinal Disorders: No - Genitourinary/Gynecological Hx Genitourinary Disorders: No - Psychiatric Hx Depression: No Hx Emotional Abuse: No Hx Physical Abuse: No Hx Substance Use: No - Past Surgical History Past Surgical History: No Previous - Surgical History Hx Cardiac Catheterization: No Hx Coronary Stent: No - Anesthesia Hx Anesthesia: No - Suicidal Assessment Feels Threatened In Home Enviroment: No Family/Social History - Physician Review Nursing Documentation Reviewed: Yes Family/Social History: Unknown Family HX Smoking Status: Never Smoked Hx Alcohol Use: No Hx Substance Use: No Hx Substance Use Treatment: No Allergies/Home Meds Allergies/Adverse Reactions: Allergies No Known Allergies Allergy (Verified 12/17/17 01:16) Review of Systems - Physician Review All systems were reviewed & negative as marked: Yes - Review of Systems Constitutional: Fevers Eyes: Normal ENT: Normal Respiratory: SOB, Cough, Sputum, Wheezing Cardiovascular: Normal. absent: Chest Pain Gastrointestinal: Normal. absent: Abdominal Pain, Diarrhea, Nausea, Vomiting Genitourinary Female: Normal. absent: Dysuria, Frequency, Hematuria, Urine Output Changes Musculoskeletal: Normal. absent: Back Pain, Neck Pain Skin: Normal. absent: Rash Neurological: Normal. absent: Headache, Dizziness Endocrine: Normal Hemo/Lymphatic: Normal Psychiatric: Normal Physical Exam Vital Signs Reviewed: Yes Temperature: Afebrile Blood Pressure: Normal Pulse: Regular Respiratory Rate: Normal Appearance: Positive for: Well-Appearing, Non-Toxic, Comfortable Pain Distress: None Mental Status: Positive for: Alert and Oriented X 3 - Systems Exam Head: Present: Atraumatic, Normocephalic Pupils: Present: PERRL Extroacular Muscles: Present: EOMI Conjunctiva: Present: Normal Mouth: Present: Moist Mucous Membranes Neck: Present: Normal Range of Motion Respiratory/Chest: Present: Wheezes (Wheezing bilaterally). No: Respiratory Distress, Accessory Muscle Use Cardiovascular: Present: Regular Rate and Rhythm, Normal S1, S2. No: Murmurs Abdomen: No: Tenderness, Distention, Peritoneal Signs Back: Present: Normal Inspection Upper Extremity: Present: Normal Inspection. No: Cyanosis, Edema Lower Extremity: Present: Normal Inspection. No: Edema Neurological: Present: GCS=15, CN II-XII Intact, Speech Normal Skin: Present: Warm, Dry, Normal Color. No: Rashes Psychiatric: Present: Alert, Oriented x 3, Normal Insight, Normal Concentration Medical Decision Making ED Course and Treatment: 12/17/17 01:17 Impression: 27 year old female complaining of shortness of breath, wheezing, and productive cough. Plan: -- EKG -- Chest X-ray -- Labs, cardiac enzymes -- Duoneb -- Solu-medrol -- Reassess and disposition Prior Visits: Notes and results from previous visits were reviewed. Progress Notes: Reviewed EKG, sinus tachycardia at 109 bpm. Non-specific ST/T wave changes. 12/17/17 03:01 Chest X-ray reviewed, shows no acute processes. 12/17/17 03:10 Case discussed with medical coding auditor social economist, who is aware and agrees with plan. 12/17/17 03:[address] Flores, who is aware and agrees with plan. Accepts pt in to hospitalist service. Pt will go to Telemetry observation for status asthmaticus. - Lab Interpretations I have reviewed the lab results: Yes - RAD Interpretation Bunk Assembler: ED Physician - EKG Interpretation Interpreted by ED Physician: Yes Type: 12 lead EKG - Scribe Statement The provider has reviewed the documentation as recorded by the Viraj Cantu Provider Scribe Attestation: All medical record entries made by the Scribe were at my direction and personally dictated by me. I have reviewed the chart and agree that the record accurately reflects my personal performance of the history, physical exam, medical decision making, and the department course for this patient. I have also personally directed, reviewed, and agree with the discharge instructions and disposition. Disposition/Present on Arrival - Present on Arrival Any Indicators Present on Arrival: No History of DVT/PE: No History of Uncontrolled Diabetes: No Urinary Catheter: No History of Decub. Ulcer: No History Surgical Site Infection Following: None - Disposition Have Diagnosis and Disposition been Completed?: Yes Diagnosis: Status asthmaticus Disposition: HOSPITALIZED Disposition Time: 03:10 Patient Plan: Observation Condition: STABLE
[2017-12-17 01:48] LABS: HEMOGLOBIN 13.9 g/dL (12.0-16.0); MEAN CELL VOLUME 88.6 fl (80.0-105.0); MEAN CORPUSCULAR HEMOGLOBIN 27.9 pg (25.0-35.0); MEAN CORPUSCULAR HGB CONC 31.4 g/dl (31.0-37.0); MEAN PLATELET VOLUME 10.4 fl (7.0-11.0); RBC 4.99 10^6/uL (3.5-6.1); RED CELL DISTRIBUTION WIDTH 14.4 % (11.5-14.5); WHITE BLOOD COUNT 19.6 10^3/uL (4.5-11.0)
[2017-12-17 01:55] LABS: TROPONIN I < 0.01 ng/mL
[2017-12-17 01:59] LABS: ALB/GLOB RATIO 1.5 (1.1-1.8); ALBUMIN 4.2 g/dL (3.0-4.8); ALT/SGPT 35 U/L (7-56); AST/SGOT 38 U/L (14-36); BLOOD UREA NITROGEN 16 mg/dL (7-21); CALCIUM 8.9 mg/dL (8.4-10.5); GFR NON-AFRICAN AMERICAN > 60
[2017-12-17] MEDS ORDERED: cefTRIAXone 1 gm 1 GM/100 ML BAG IV STA (03:09)
[2017-12-17] MEDS ORDERED: Azithromycin 500MG/NS 250ml 500 MG/250 ML BAG IV STA (03:09)
--- NOTE | 2017-12-17 03:29 | CP.PCM.HP ---
<Amadeo Mcguire - Last Filed: 12/17/17 04:04> History of Present Illness - History of Present Illness History of Present Illness: Amadeo Mcguire DO, PGY-1 Hospitalist Admission History and Physical for Dr. Flores CC: shortness of breath HPI: Ms. King is a 27 year old female with PMH of asthma presenting to ED with shortness of breath worsening since this AM. She states that she was inside all night and for most of the morning before she went out to drive somewhere. At that time and while driving she began to feel more short of breath and had worsening chest tightness. She has also had a productive cough since yesterday that has worsened since. She denies recent travel or sick contacts. She recently signed out AMA from a prior hospitalization about a week ago. She was given medrol dose pack and ventolin inhaler refills prior to leaving. She states that she finished the medrol dose pack about 3 days ago. Currently, she complains of a EM but denies fever/chills, blurred vision, CP, abdominal pain/nausea/vomiting. PMD: none Past Medical Hx: asthma Past Surgical Hx: none Allergies: NKA Home medications: ventolin inhaler PRN, symbicort IH daily Family Hx: reviewed, non-contributory Social Hx: reports occassional cigarette smoking. Also admits to smoking ma rijuana occasionally but denies she has smoked it since last hospitalization. Denies alcohol use Pharmacy: [facility] [place] pharmacy Present on Admission - Present on Admission Any Indicators Present on Admission: No History of DVT/PE: No History of Uncontrolled Diabetes: No Urinary Catheter: No Decubitus Ulcer Present: No Review of Systems - Constitutional Constitutional: absent: Chills, Fever - EENT Eyes: absent: Blurred Vision Nose/Mouth/Throat: Nasal Congestion - Cardiovascular Cardiovascular: Dyspnea. absent: Chest Pain, Chest Pain with Activity, Irregular Heart Rhythm, Palpitations - Respiratory Respiratory: Cough, Dyspnea, Dyspnea on Exertion, Wheezing, Pain with Coughing - Gastrointestinal Gastrointestinal: absent: Abdominal Pain, Nausea, Vomiting - Genitourinary Genitourinary: absent: Change in Urinary Stream, Difficulty Urinating - Neurological Neurological: Headaches Past Patient History - Infectious Disease Hx of Infectious Diseases: None - Tetanus Immunizations Tetanus Immunization: Unknown - Past Social History Smoking Status: Never Smoked - CARDIAC Hx Cardiac Disorders: No - PULMONARY Hx Asthma: Yes (has home nebulizer machine) Hx Bronchitis: Yes Hx Pneumonia: Yes - NEUROLOGICAL Hx Neurological Disorder: No - HEENT Hx HEENT Problems: No - RENAL Hx Chronic Kidney Disease: No - ENDOCRINE/METABOLIC Hx Endocrine Disorders: No - HEMATOLOGICAL/ONCOLOGICAL Hx Blood Disorders: No - INTEGUMENTARY Hx Dermatological Problems: No - MUSCULOSKELETAL/RHEUMATOLOGICAL Hx Falls: No - GASTROINTESTINAL Hx Gastrointestinal Disorders: No - GENITOURINARY/GYNECOLOGICAL Hx Genitourinary Disorders: No - PSYCHIATRIC Hx Depression: No Hx Emotional Abuse: No Hx Physical Abuse: No Hx Substance Use: No - SURGICAL HISTORY Hx Cardiac Catheterization: No Hx Coronary Stent: No - ANESTHESIA Hx Anesthesia: No Meds Allergies/Adverse Reactions: Allergies Allergy/AdvReac Type Severity Reaction Status Date / Time No Known Allergies Allergy Verified 12/17/17 01:16 Physical Exam - Constitutional Appears: Non-toxic, No Acute Distress - Head Exam Head Exam: ATRAUMATIC, NORMOCEPHALIC - Eye Exam Eye Exam: EOMI, Normal appearance, PERRL - ENT Exam ENT Exam: Mucous Membranes Moist - Neck Exam Neck exam: Positive for: Full Rom, Normal Inspection - Respiratory Exam Respiratory Exam: Accessory Muscle Use, Decreased Breath Sounds (decreased breath sounds b/l), Wheezes (end expiratory wheezes b/l). absent: Chest Wall Tenderness, Rhonchi, Respiratory Distress - Cardiovascular Exam Cardiovascular Exam: Tachycardia, REGULAR RHYTHM, +S1, +S2. absent: Diastolic murmur, Gallop, Rubs, Systolic Murmur - GI/Abdominal Exam GI & Abdominal Exam: Normal Bowel Sounds, Soft. absent: Guarding, Tenderness - Extremities Exam Extremities exam: Positive for: normal inspection. Negative for: pedal edema - Back Exam Back exam: NORMAL INSPECTION - Neurological Exam Neurological exam: Alert, Oriented x3 - Psychiatric Exam Psychiatric exam: Anxious Results - Vital Signs Recent Vital Signs: Last Vital Signs Temp Pulse 110 H 12/17/17 01:23 Resp 20 12/17/17 01:30 BP 142/97 H 12/17/17 01:23 Pulse Ox 99 12/17/17 01:23 - Labs Result Diagrams: 12/17/17 01:23 12/17/17 01:23 Labs: Laboratory Results - last 24 hr 12/17/17 12/17/17 12/17/17 01:23 01:23 01:40 WBC 19.6 H RBC 4.99 Hgb 13.9 Hct 44.2 MCV 88.6 D MCH 27.9 MCHC 31.4 RDW 14.4 Plt Count 325 MPV 10.4 Sodium 140 Potassium 4.8 Chloride 104 Carbon Dioxide 30 Anion Gap 12 BUN 16 Creatinine 0.8 Est GFR ( Amer) > 60 Est GFR (Non-Af Amer) > 60 Random Glucose 86 Calcium 8.9 Total Bilirubin 0.4 AST 38 H D ALT 35 Alkaline Phosphatase 65 Lactate Dehydrogenase 633 Total Creatine Kinase 161 Troponin I < 0.01 Total Protein 7.1 Albumin 4.2 Globulin 2.9 Albumin/Globulin Ratio 1.5 Beta HCG, Quant < 2.39 Assessment & Plan - Assessment and Plan (Free Text) Assessment: 27 yo F with PMH of asthma is admitted for management of acute asthma exacerbation. Plan: 1. Shortness of breath Likely 2/2 acute asthma exacerbation Likely from cold exposure as patient was inside all day and the SOB began when she went outside to drive Patient has been tachycardic in low 100s since admission so will give xo penex/atrovent q6h lisa and q2h PRN for SOB Solmedrol 40 mg IVP q12h Zithromax 250 daily 2. Leukocytosis May be 2/2 recent steroid use vs occult infectious process Will repeat CBC with differential in AM Will get procal, UA 3. Hx tobacco/substance abuse Patient reports only occasionally smoking cigarettes and marijuana She denies having smoked prior to admission F/u urine drug screen result DVT/GI PPX: SCD, protonix Full Code Regular diet Monitor on telemetry Case and plan reviewed and discussed with my attending Dr. Mark Mcguire DO IM Resident PGY-1 <Stephen Flores - Last Filed: 12/17/17 06:37> Results - Vital Signs Recent Vital Signs: Last Vital Signs Temp Pulse 90 12/17/17 06:22 Resp 18 12/17/17 06:22 BP 110/78 12/17/17 06:22 Pulse Ox 98 12/17/17 06:22 - Labs Result Diagrams: 12/17/17 05:40 12/17/17 01:23 Labs: Laboratory Results - last 24 hr 12/17/17 12/17/17 12/17/17 01:23 01:23 01:40 WBC 19.6 H RBC 4.99 Hgb 13.9 Hct 44.2 MCV 88.6 D MCH 27.9 MCHC 31.4 RDW 14.4 Plt Count 325 MPV 10.4 Gran % Lymph % (Auto) Eddy % (Auto) Eos % (Auto) Baso % (Auto) Gran # Lymph # (Auto) Eddy # (Auto) Eos # (Auto) Baso # (Auto) Sodium 140 Potassium 4.8 Chloride 104 Carbon Dioxide 30 Anion Gap 12 BUN 16 Creatinine 0.8 Est GFR ( Amer) > 60 Est GFR (Non-Af Amer) > 60 Random Glucose 86 Calcium 8.9 Total Bilirubin 0.4 AST 38 H D ALT 35 Alkaline Phosphatase 65 Lactate Dehydrogenase 633 Total Creatine Kinase 161 Troponin I < 0.01 Total Protein 7.1 Albumin 4.2 Globulin 2.9 Albumin/Globulin Ratio 1.5 Beta HCG, Quant < 2.39 12/17/17 05:40 WBC 16.8 H RBC 4.83 Hgb 13.3 Hct 43.1 MCV 89.2 MCH 27.5 MCHC 30.9 L RDW 14.2 Plt Count 265 MPV 10.2 Gran % 91.9 H Lymph % (Auto) 5.8 L Eddy % (Auto) 0.5 L Eos % (Auto) 1.6 Baso % (Auto) 0.2 Gran # 15.44 H Lymph # (Auto) 1.0 L Eddy # (Auto) 0.1 Eos # (Auto) 0.3 Baso # (Auto) 0.03 Sodium Potassium Chloride Carbon Dioxide Anion Gap BUN Creatinine Est GFR ( Amer) Est GFR (Non-Af Amer) Random Glucose Calcium Total Bilirubin AST ALT Alkaline Phosphatase Lactate Dehydrogenase Total Creatine Kinase Troponin I Total Protein Albumin Globulin Albumin/Globulin Ratio Beta HCG, Quant Attending/Attestation - Attestation I have personally seen and examined this patient.: Yes I have fully participated in the care of the patient.: Yes I have reviewed all pertinent clinical information: Yes Notes (Text): 27 y/o F with PMH of moderate - severe asthma presented with worsening SOB for the past few days, with productive cough of yellow sputum that started yesterday. Denies any fever, chills or urinary symptoms. Pt has multiple admissions for asthma exacerbations and recently signed out AMA. P/E: + mod expiratory wheezing diffusely CXR: no active infectious process, as read by me. WBC of 19 start pt on albuterol neb RTC start solumedrol 40 q12 send procalcitonin and UDOA start pt on z allie pt was counseled on tobacco use cessation. 12/17/17 06:31
[2017-12-17] MEDS ORDERED: Levalbuterol 0.63 MG/3 ML Inhal Soln UD IH PRN (03:45)
[2017-12-17] MEDS ORDERED: Ipratropium 0.02% Inhal Soln (0.5 mg/2.5 ml) UD IH PRN (03:45)
[2017-12-17] MEDS: Ipratropium 0.02% Inhal Soln (0.5 mg/2.5 ml) UD IH SCH ×2 (05:44→08:27)
[2017-12-17] MEDS: Levalbuterol 0.63 MG/3 ML Inhal Soln UD IH SCH ×2 (05:44→08:27)
[2017-12-17] MEDS ORDERED: Pantoprazole 40 mg EC Tab PO SCH (06:00)
[2017-12-17 06:10] LABS: BASO # 0.03 K/mm3 (0.0-2.0); BASO % 0.2 % (0.0-3.0); EOS # 0.3 (0.0-0.7); EOS % 1.6 % (1.5-5.0); GRAN # 15.44 (1.4-6.5); GRAN % 91.9 % (50.0-68.0); HEMOGLOBIN 13.3 g/dL (12.0-16.0); LYMPH % 5.8 % (22.0-35.0); MEAN CELL VOLUME 89.2 fl (80.0-105.0); MEAN CORPUSCULAR HEMOGLOBIN 27.5 pg (25.0-35.0); MEAN CORPUSCULAR HGB CONC 30.9 g/dl (31.0-37.0); MEAN PLATELET VOLUME 10.2 fl (7.0-11.0); MONO # 0.1 (0.1-0.6); MONO % 0.5 % (1.0-6.0); PLATELET COUNT 265 10^3/uL (120.0-450.0); RBC 4.83 10^6/uL (3.5-6.1); RED CELL DISTRIBUTION WIDTH 14.2 % (11.5-14.5); WHITE BLOOD COUNT 16.8 10^3/uL (4.5-11.0)
[2017-12-17 06:42] LABS: ALB/GLOB RATIO 1.5 (1.1-1.8); ALBUMIN 4.1 g/dL (3.0-4.8); ALT/SGPT 31 U/L (7-56); AST/SGOT 31 U/L (14-36); BLOOD UREA NITROGEN 16 mg/dL (7-21); GFR NON-AFRICAN AMERICAN > 60
--- NOTE | 2017-12-17 08:46 | CARD ---
APPROVED REPORT Date of service: 12/17/2017 EKG Measurement Heart [id number] <Conclusion> Sinus tachycardia Nonspecific ST abnormality Abnormal ECG
[2017-12-17 09:30] LABS: LYMPHOCYTE 5 % (22.0-35.0); NEUTROPHIL 92 % (50.0-70.0)
[2017-12-17 09:31] LABS: EOSINOPHIL 1 % (0.0-3.0); MONOCYTE 2 % (1.0-6.0)
[2017-12-17] MEDS ORDERED: MethylPREDNISolone 40 mg Vial IVP SCH (10:00)
--- NOTE | 2017-12-17 10:20 | RAD ---
Date of service: 12/17/2017 HISTORY: sob COMPARISON: 12/04/2017 FINDINGS: LUNGS: The lungs are well inflated and clear. PLEURA: No pleural effusions or pneumothorax. CARDIOVASCULAR: The heart is normal in size. No aortic atherosclerotic calcification present. OSSEOUS STRUCTURES: Within normal limits for the patient's age. VISUALIZED UPPER ABDOMEN: Normal. OTHER FINDINGS: None. IMPRESSION: No active pulmonary disease.
[2017-12-17 18:28] VITALS: BP 123/81; PULSE 105; RESP 17; TEMP 98.7; O2SAT 96
--- NOTE | 2017-12-18 12:17 | CP.PCM.DIS ---
<Asad Pa - Last Filed: 12/18/17 12:14> Provider - Provider Date of Admission: 12/17/17 03:11 Attending physician: Shirley Ortiz DO Time Spent in preparation of Discharge (in minutes): 40 Diagnosis - Discharge Diagnosis (1) Asthma exacerbation Status: Acute Hospital Course - Lab Results Lab Results: Most Recent Lab Values WBC 16.8 10^3/uL (4.5-11.0) H 12/17/17 05:40 RBC 4.83 10^6/uL (3.5-6.1) 12/17/17 05:40 Hgb 13.3 g/dL (12.0-16.0) 12/17/17 05:40 Hct 43.1 % (36.0-48.0) 12/17/17 05:40 MCV 89.2 fl (80.0-105.0) 12/17/17 05:40 MCH 27.5 pg (25.0-35.0) 12/17/17 05:40 MCHC 30.9 g/dl (31.0-37.0) L 12/17/17 05:40 RDW 14.2 % (11.5-14.5) 12/17/17 05:40 Plt Count 265 10^3/uL (120.0-450.0) 12/17/17 05:40 MPV 10.2 fl (7.0-11.0) 12/17/17 05:40 Gran % 91.9 % (50.0-68.0) H 12/17/17 05:40 Lymph % (Auto) 5.8 % (22.0-35.0) L 12/17/17 05:40 [place] % (Auto) 0.5 % (1.0-6.0) L 12/17/17 05:40 Eos % (Auto) 1.6 % (1.5-5.0) 12/17/17 05:40 Baso % (Auto) 0.2 % (0.0-3.0) 12/17/17 05:40 Gran # 15.44 (1.4-6.5) H 12/17/17 05:40 Lymph # (Auto) 1.0 (1.2-3.4) L 12/17/17 05:40 [place] # (Auto) 0.1 (0.1-0.6) 12/17/17 05:40 Eos # (Auto) 0.3 (0.0-0.7) 12/17/17 05:40 Baso # (Auto) 0.03 K/mm3 (0.0-2.0) 12/17/17 05:40 Neutrophils % (Manual) 92 % (50.0-70.0) H 12/17/17 05:40 Lymphocytes % (Manual) 5 % (22.0-35.0) L 12/17/17 05:40 Monocytes % (Manual) 2 % (1.0-6.0) 12/17/17 05:40 Eosinophils % (Manual) 1 % (0.0-3.0) 12/17/17 05:40 Sodium 139 mmol/L (132-148) 12/17/17 05:40 Potassium 4.4 mmol/L (3.6-5.0) 12/17/17 05:40 Chloride 103 mmol/L (98-107) 12/17/17 05:40 Carbon Dioxide 28 mmol/L (21-33) 12/17/17 05:40 Anion Gap 13 (10-20) 12/17/17 05:40 BUN 16 mg/dL (7-21) 12/17/17 05:40 Creatinine 0.7 mg/dl (0.7-1.2) 12/17/17 05:40 Est GFR ( Amer) > 60 12/17/17 05:40 Est GFR (Non-Af Amer) > 60 12/17/17 05:40 Random Glucose 150 mg/dL (70-110) H 12/17/17 05:40 Calcium 9.0 mg/dL (8.4-10.5) 12/17/17 05:40 Phosphorus 4.2 mg/dL (2.5-4.5) 12/17/17 05:40 Magnesium 2.0 mg/dL (1.7-2.2) 12/17/17 05:40 Total Bilirubin 0.2 mg/dL (0.2-1.3) 12/17/17 05:40 AST 31 U/L (14-36) 12/17/17 05:40 ALT 31 U/L (7-56) 12/17/17 05:40 Alkaline Phosphatase 60 U/L (38-126) 12/17/17 05:40 Lactate Dehydrogenase 633 U/L (333-699) 12/17/17 01:23 Total Creatine Kinase 161 U/L (35-230) 12/17/17 01:23 Troponin I < 0.01 ng/mL 12/17/17 01:23 Total Protein 6.9 g/dL (5.8-8.3) 12/17/17 05:40 Albumin 4.1 g/dL (3.0-4.8) 12/17/17 05:40 Globulin 2.8 gm/dL 12/17/17 05:40 Albumin/Globulin Ratio 1.5 (1.1-1.8) 12/17/17 05:40 Procalcitonin < 0.05 NG/ML (0.19-0.49) L 12/17/17 05:40 Beta HCG, Quant < 2.39 mIU/mL (0-6.15) 12/17/17 01:40 - Hospital Course Hospital Course: 27 year old female with past medical history of uncontrolled asthma secondary to non-compliance with medication and continued tobacco/marijuana usage who presented to [facility] [place] ED complaining of shortness of breath. Patient indicated she had been having worsening symptoms for the week prior to presentation. Patient reported she had been using her Ventolin inhaler more frequently. She reported previous admission for similar symptoms of shortness of breath and exacerbation of her asthma. She was given steroids for which she completed and refills of her medications. Patient reported having insurance issues not allowing her to have appropriate follow up. Patient was given duoneb treatments and IV steroids in ED. Patient reported improved symptoms during interview in ED. Patient was brought up to the general medical floor for continued IV steroids and scheduled breathing treatments. Later in the evening patient indicated that she wanted to sign out against medical advice. Patient was explained the risks of signing out against medical advice as well as the benefits of staying in the hospital. Patient was not given prescriptions upon signing out. She was instructed to return to nearest emergency department if her symptoms return. - Date & Time of H&P Date of H&P: 12/17/17 Discharge Exam - Head Exam Head Exam: ATRAUMATIC, NORMOCEPHALIC - Eye Exam Eye Exam: EOMI, PERRL - ENT Exam ENT Exam: Mucous Membranes Moist - Neck Exam Neck exam: Full Rom - Respiratory Exam Respiratory Exam: Decreased Breath Sounds, Wheezes (expiratory in all lung bustos ), NORMAL BREATHING PATTERN. absent: Rales - Cardiovascular Exam Cardiovascular Exam: REGULAR RHYTHM, +S1, +S2 - GI/Abdominal Exam GI & Abdominal Exam: Normal Bowel Sounds, Soft. absent: Tenderness - Extremities Exam Extremities exam: full ROM, normal inspection - Neurological Exam Neurological exam: Alert, CN II-XII Intact, Normal Gait, Oriented x3 - Psychiatric Exam Psychiatric exam: Normal Affect, Normal Mood - Skin Skin Exam: Dry, Intact Discharge Plan - Follow Up Plan Condition: STABLE Disposition: AGAINST MEDICAL ADVICE <Aristeo Martin - Last Filed: 12/18/17 16:43> Provider - Provider Date of Admission: 12/17/17 03:11 Attending physician: Shirley Ortiz DO Hospital Course - Lab Results Lab Results: Most Recent Lab Values WBC 16.8 10^3/uL (4.5-11.0) H 12/17/17 05:40 RBC 4.83 10^6/uL (3.5-6.1) 12/17/17 05:40 Hgb 13.3 g/dL (12.0-16.0) 12/17/17 05:40 Hct 43.1 % (36.0-48.0) 12/17/17 05:40 MCV 89.2 fl (80.0-105.0) 12/17/17 05:40 MCH 27.5 pg (25.0-35.0) 12/17/17 05:40 MCHC 30.9 g/dl (31.0-37.0) L 12/17/17 05:40 RDW 14.2 % (11.5-14.5) 12/17/17 05:40 Plt Count 265 10^3/uL (120.0-450.0) 12/17/17 05:40 MPV 10.2 fl (7.0-11.0) 12/17/17 05:40 Gran % 91.9 % (50.0-68.0) H 12/17/17 05:40 Lymph % (Auto) 5.8 % (22.0-35.0) L 12/17/17 05:40 [place] % (Auto) 0.5 % (1.0-6.0) L 12/17/17 05:40 Eos % (Auto) 1.6 % (1.5-5.0) 12/17/17 05:40 Baso % (Auto) 0.2 % (0.0-3.0) 12/17/17 05:40 Gran # 15.44 (1.4-6.5) H 12/17/17 05:40 Lymph # (Auto) 1.0 (1.2-3.4) L 12/17/17 05:40 [place] # (Auto) 0.1 (0.1-0.6) 12/17/17 05:40 Eos # (Auto) 0.3 (0.0-0.7) 12/17/17 05:40 Baso # (Auto) 0.03 K/mm3 (0.0-2.0) 12/17/17 05:40 Neutrophils % (Manual) 92 % (50.0-70.0) H 12/17/17 05:40 Lymphocytes % (Manual) 5 % (22.0-35.0) L 12/17/17 05:40 Monocytes % (Manual) 2 % (1.0-6.0) 12/17/17 05:40 Eosinophils % (Manual) 1 % (0.0-3.0) 12/17/17 05:40 Sodium 139 mmol/L (132-148) 12/17/17 05:40 Potassium 4.4 mmol/L (3.6-5.0) 12/17/17 05:40 Chloride 103 mmol/L (98-107) 12/17/17 05:40 Carbon Dioxide 28 mmol/L (21-33) 12/17/17 05:40 Anion Gap 13 (10-20) 12/17/17 05:40 BUN 16 mg/dL (7-21) 12/17/17 05:40 Creatinine 0.7 mg/dl (0.7-1.2) 12/17/17 05:40 Est GFR ( Amer) > 60 12/17/17 05:40 Est GFR (Non-Af Amer) > 60 12/17/17 05:40 Random Glucose 150 mg/dL (70-110) H 12/17/17 05:40 Calcium 9.0 mg/dL (8.4-10.5) 12/17/17 05:40 Phosphorus 4.2 mg/dL (2.5-4.5) 12/17/17 05:40 Magnesium 2.0 mg/dL (1.7-2.2) 12/17/17 05:40 Total Bilirubin 0.2 mg/dL (0.2-1.3) 12/17/17 05:40 AST 31 U/L (14-36) 12/17/17 05:40 ALT 31 U/L (7-56) 12/17/17 05:40 Alkaline Phosphatase 60 U/L (38-126) 12/17/17 05:40 Lactate Dehydrogenase 633 U/L (333-699) 12/17/17 01:23 Total Creatine Kinase 161 U/L (35-230) 12/17/17 01:23 Troponin I < 0.01 ng/mL 12/17/17 01:23 Total Protein 6.9 g/dL (5.8-8.3) 12/17/17 05:40 Albumin 4.1 g/dL (3.0-4.8) 12/17/17 05:40 Globulin 2.8 gm/dL 12/17/17 05:40 Albumin/Globulin Ratio 1.5 (1.1-1.8) 12/17/17 05:40 Procalcitonin < 0.05 NG/ML (0.19-0.49) L 12/17/17 05:40 Beta HCG, Quant < 2.39 mIU/mL (0-6.15) 12/17/17 01:40 Attending/Attestation - Attestation I have personally seen and examined this patient.: Yes I have fully participated in the care of the patient.: Yes I have reviewed all pertinent clinical information, including history, physical exam and plan: Yes Notes (Text): 12/18/17 16:43 patient left AMA overnight
== END 2017-12-17 20:33 | disposition left against medical advice (07) ==
LOC: ED 01:12 → ERH 03:11 → 2RSO 09:25
PROVIDERS: ADMIT Hospitalist; ATTEND Hospitalist
DX: J45.901 Unspecified asthma with (acute) exacerbation (principal); Z91.14 Patient's other noncompliance with medication regimen; F17.210 Nicotine dependence, cigarettes, uncomplicated; F12.90 Cannabis use, unspecified, uncomplicated
CPT/HCPCS: 71045; 80053; 82550; 83615; 83735; 84100; 84145; 84484; 84702; 85025; 85027; 93005; 96374; 96375; 96376; 99284; G0378; J0456; J0696; J2920; J2930

== ENCOUNTER 2017-12-25 03:14 | Observation (INO) | payer MEDICAID, OTHER ==
--- NOTE | 2017-12-25 03:26 | ED PDOC ---
Arrival/HPI - General Chief Complaint: Shortness Of Breath Time Seen by Provider: 12/25/17 03:16 Historian: Patient, EMS - History of Present Illness Narrative History of Present Illness (Text): 12/25/17 03:25 Nadia King is a 27 year old female, whose past history includes asthma, anxiety, and substance abuse, who presents to the Emergency department complaining of shortness of breath. Patient states she has been experiencing progressively worsening shortness of breath and wheezing tonight, consistent with previous episodes of asthma. Patient also reports associated chills, cough, and 1 episode of vomiting today. Patient was given Duoneb, Solu-medrol, and Magnsium Sulfate en route to the hospital. Patient denies any chest pain, nausea, diarrhea, urinary symptoms, back pain, neck pain, headache, dizziness, or any other complaints. Symptom Onset: Gradual Symptom Course: Unchanged Activities at Onset: Light Context: Home Past Medical History - Provider Review Nursing Documentation Reviewed: Yes - Infectious Disease Hx of Infectious Diseases: None - Tetanus Immunization Tetanus Immunization: Unknown - Cardiac Hx Cardiac Disorders: No - Pulmonary Hx Asthma: Yes (has home nebulizer machine) Hx Bronchitis: Yes Hx Pneumonia: Yes - Neurological Hx Neurological Disorder: No - HEENT Hx HEENT Disorder: No - Renal Hx Renal Disorder: No - Endocrine/Metabolic Hx Endocrine Disorders: No - Hematological/Oncological Hx Blood Disorders: No - Integumentary Hx Dermatological Disorder: No - Musculoskeletal/Rheumatological Hx Falls: No - Gastrointestinal Hx Gastrointestinal Disorders: No - Genitourinary/Gynecological Hx Genitourinary Disorders: No - Psychiatric Hx Depression: No Hx Emotional Abuse: No Hx Physical Abuse: No Hx Substance Use: No - Past Surgical History Past Surgical History: No Previous - Surgical History Hx Cardiac Catheterization: No Hx Coronary Stent: No - Anesthesia Hx Anesthesia: No - Suicidal Assessment Feels Threatened In Home Enviroment: No Family/Social History - Physician Review Nursing Documentation Reviewed: Yes Family/Social History: Unknown Family HX Smoking Status: Former Smoker Hx Alcohol Use: No Hx Substance Use: No Hx Substance Use Treatment: No Allergies/Home Meds Allergies/Adverse Reactions: Allergies No Known Allergies Allergy (Verified 12/17/17 01:16) Review of Systems - Physician Review All systems were reviewed & negative as marked: Yes - Review of Systems Constitutional: Fevers Eyes: Normal ENT: Normal Respiratory: SOB, Cough, Wheezing Cardiovascular: Normal. absent: Chest Pain Gastrointestinal: Vomiting Genitourinary Female: Normal. absent: Dysuria, Frequency, Hematuria, Urine Output Changes Musculoskeletal: Normal. absent: Back Pain, Neck Pain Skin: Normal. absent: Rash Neurological: Normal. absent: Headache, Dizziness Endocrine: Normal Hemo/Lymphatic: Normal Psychiatric: Normal Physical Exam Vital Signs Reviewed: Yes Temperature: Afebrile Blood Pressure: Normal Pulse: Tachycardic Respiratory Rate: Normal Appearance: Positive for: Well-Appearing, Non-Toxic, Comfortable Pain Distress: None Mental Status: Positive for: Alert and Oriented X 3 - Systems Exam Head: Present: Atraumatic, Normocephalic Pupils: Present: PERRL Extroacular Muscles: Present: EOMI Conjunctiva: Present: Normal Mouth: Present: Moist Mucous Membranes Neck: Present: Normal Range of Motion Respiratory/Chest: Present: Wheezes (Wheezing bilaterally). No: Respiratory Distress, Accessory Muscle Use Cardiovascular: Present: Regular Rate and Rhythm, Normal S1, S2. No: Murmurs Abdomen: No: Tenderness, Distention, Peritoneal Signs Back: Present: Normal Inspection Upper Extremity: Present: Normal Inspection. No: Cyanosis, Edema Lower Extremity: Present: Normal Inspection. No: Edema Neurological: Present: GCS=15, CN II-XII Intact, Speech Normal Skin: Present: Warm, Dry, Normal Color. No: Rashes Psychiatric: Present: Alert, Oriented x 3, Normal Insight, Normal Concentration Medical Decision Making ED Course and Treatment: 12/25/17 03:25 Impression: 27 year old female complaining of shortness of breath, wheezing, chills, and cough. Plan: -- EKG -- CXR -- Labs, cardiac enzymes -- Duoneb -- Reassess and disposition Prior Visits: Notes and results from previous visits were reviewed. Progress Notes: Reviewed EKG, sinus tachycardia at 121 bpm. Non-specific ST/T wave changes. 12/25/17 04:39 CXR reviewed, shows no acute processes. 12/25/17 04:40 Case discussed with biomedical engineering aide ethnographic materials conservator, who is aware and agrees with plan. 12/25/17 04:[address] Dumont, who is aware and agrees with plan. Accepts pt in to hospitalist service. Pt will go to [facility] observation for asthma exacerbation. - Lab Interpretations I have reviewed the lab results: Yes - RAD Interpretation Photo Finisher: ED Physician - EKG Interpretation Interpreted by ED Physician: Yes Type: 12 lead EKG - Scribe Statement The provider has reviewed the documentation as recorded by the Demaribtamy Cantu All medical record entries made by the Demaribe were at my direction and personally dictated by me. I have reviewed the chart and agree that the record accurately reflects my personal performance of the history, physical exam, medical decision making, and the department course for this patient. I have also personally directed, reviewed, and agree with the discharge instructions and disposition. Disposition/Present on Arrival - Present on Arrival Any Indicators Present on Arrival: No History of DVT/PE: No History of Uncontrolled Diabetes: No Urinary Catheter: No History of Decub. Ulcer: No History Surgical Site Infection Following: None - Disposition Have Diagnosis and Disposition been Completed?: Yes Diagnosis: Status asthmaticus Disposition: HOSPITALIZED Disposition Time: 04:46 Patient Plan: Observation Patient Problems: Current Active Problems Problem Status Onset Status asthmaticus Acute Condition: STABLE
[2017-12-25] MEDS ORDERED: Albuterol-Ipratrop 3 mg / 0.5 (3 ml) UD IH STA ×2 (03:27→04:11)
[2017-12-25 04:07] LABS: HEMOGLOBIN 15.1 g/dL (12.0-16.0); MEAN CELL VOLUME 87.2 fl (80.0-105.0); MEAN CORPUSCULAR HEMOGLOBIN 28.1 pg (25.0-35.0); MEAN CORPUSCULAR HGB CONC 32.2 g/dl (31.0-37.0); MEAN PLATELET VOLUME 10.9 fl (7.0-11.0); RBC 5.38 10^6/uL (3.5-6.1); RED CELL DISTRIBUTION WIDTH 13.4 % (11.5-14.5); WHITE BLOOD COUNT 13.7 10^3/uL (4.5-11.0)
[2017-12-25 04:08] LABS: ALB/GLOB RATIO 1.4 (1.1-1.8); ALBUMIN 4.2 g/dL (3.0-4.8); ALT/SGPT 50 U/L (7-56); AST/SGOT 68 U/L (14-36); BLOOD UREA NITROGEN 14 mg/dL (7-21); GFR NON-AFRICAN AMERICAN > 60
[2017-12-25 04:11] LABS: INR 1.09; PARTIAL THROMBOPLASTIN TIME 24.6 Seconds (25.1-36.5); PROTHROMBIN TIME 12.4 SECONDS (9.4-12.5)
[2017-12-25 04:17] LABS: TROPONIN I < 0.01 ng/mL
[2017-12-25] MEDS ORDERED: Levalbuterol 0.63 MG/3 ML Inhal Soln UD IH PRN (04:56)
[2017-12-25] MEDS ORDERED: Ipratropium 0.02% Inhal Soln (0.5 mg/2.5 ml) UD IH PRN (04:57)
--- NOTE | 2017-12-25 05:01 | CP.PCM.HP ---
History of Present Illness - History of Present Illness History of Present Illness: Amadeo Mcguire DO, PGY-1 Hospitalist Admission History and Physical for Dr. Dumont CC: shortness of breath HPI: Ms. King is a 27 year old female with PMH of asthma presenting to ED with shortness of breath worsening since this AM. She was discharged from the hospital less than a week ago and has signed out AMA twice for similar complaints. Today, she states that she feels enough short of breath to want to stay inpatient this time. The shortness of breath has been worsened by the cold weather and recent snow. She has also had a productive cough since yesterday that has worsened since. She again denies recent sick contacts or travel. She complains of intermittent chest tightness with cough productive of yellow sputum but denies fever/chills, nausea/vomiting/abdominal pain, EM, or blurred vision. PMD: none Past Medical Hx: asthma Past Surgical Hx: none Allergies: NKA Home medications: ventolin inhaler PRN, symbicort IH daily Family Hx: reviewed, non-contributory Social Hx: reports she has not smoked cigarettes or mairjuana since prior visit but has in the past. Denies alcohol or other illicit drug use. Pharmacy: [facility] [place] [facility] Present on Admission - Present on Admission Any Indicators Present on Admission: No History of DVT/PE: No History of Uncontrolled Diabetes: No Urinary Catheter: No Decubitus Ulcer Present: No Review of Systems - Constitutional Constitutional: absent: Chills, Fever - EENT Eyes: absent: Blurred Vision, Itchy Eyes Nose/Mouth/Throat: Nasal Congestion, Nasal Discharge, Post Nasal Drip, Sinus Pain - Cardiovascular Cardiovascular: Chest Pain, Dyspnea, Rapid Heart Rate. absent: Chest Pain with Activity, Diaphoresis, Edema, Palpitations - Respiratory Respiratory: Cough, Dyspnea, Wheezing, Chest Congestion, Pain with Coughing. absent: Hemoptysis - Gastrointestinal Gastrointestinal: absent: Abdominal Pain, Nausea, Vomiting - Genitourinary Genitourinary: absent: Change in Urinary Stream, Difficulty Urinating - Neurological Neurological: absent: Confusion, Headaches, Loss of Vision, Syncope Past Patient History - Infectious Disease Hx of Infectious Diseases: None - Tetanus Immunizations Tetanus Immunization: Unknown - Past Social History Smoking Status: Former Smoker - CARDIAC Hx Cardiac Disorders: No - PULMONARY Hx Asthma: Yes (has home nebulizer machine) Hx Bronchitis: Yes Hx Pneumonia: Yes - NEUROLOGICAL Hx Neurological Disorder: No - HEENT Hx HEENT Problems: No - RENAL Hx Chronic Kidney Disease: No - ENDOCRINE/METABOLIC Hx Endocrine Disorders: No - HEMATOLOGICAL/ONCOLOGICAL Hx Blood Disorders: No - INTEGUMENTARY Hx Dermatological Problems: No - MUSCULOSKELETAL/RHEUMATOLOGICAL Hx Falls: No - GASTROINTESTINAL Hx Gastrointestinal Disorders: No - GENITOURINARY/GYNECOLOGICAL Hx Genitourinary Disorders: No - PSYCHIATRIC Hx Depression: No Hx Emotional Abuse: No Hx Physical Abuse: No Hx Substance Use: No - SURGICAL HISTORY Hx Cardiac Catheterization: No Hx Coronary Stent: No - ANESTHESIA Hx Anesthesia: No Meds Allergies/Adverse Reactions: Allergies Allergy/AdvReac Type Severity Reaction Status Date / Time No Known Allergies Allergy Verified 12/17/17 01:16 Physical Exam - Constitutional Appears: Unkempt, Agitated - Head Exam Head Exam: ATRAUMATIC, NORMOCEPHALIC - Eye Exam Eye Exam: EOMI, Normal appearance, PERRL - ENT Exam ENT Exam: Mucous Membranes Moist - Neck Exam Neck exam: Positive for: Full Rom, Normal Inspection - Respiratory Exam Respiratory Exam: Accessory Muscle Use, Decreased Breath Sounds (decreased air movement and breath sounds b/l), Prolonged Expiratory Phase, Wheezes (significant end expiratory wheezes b/l). absent: Chest Wall Tenderness, Rales, Rhonchi - Cardiovascular Exam Cardiovascular Exam: REGULAR RHYTHM, RRR, +S1, +S2. absent: Diastolic murmur, Gallop, Rubs, Systolic Murmur - GI/Abdominal Exam GI & Abdominal Exam: Normal Bowel Sounds, Soft. absent: Guarding, Tenderness - Extremities Exam Extremities exam: Positive for: normal inspection. Negative for: pedal edema - Back Exam Back exam: FULL ROM, NORMAL INSPECTION - Neurological Exam Neurological exam: Alert, Oriented x3 - Psychiatric Exam Psychiatric exam: Normal Affect, Normal Mood - Skin Skin Exam: Dry, Intact, Warm Results - Vital Signs Recent Vital Signs: Last Vital Signs Temp 97.5 F L 12/25/17 03:41 Pulse 108 H 12/25/17 04:54 Resp 18 12/25/17 04:54 BP 115/65 12/25/17 04:05 Pulse Ox 97 12/25/17 04:54 - Labs Result Diagrams: 12/25/17 03:39 12/25/17 03:39 Labs: Laboratory Results - last 24 hr 12/25/17 12/25/17 12/25/17 03:39 03:39 03:39 WBC 13.7 H RBC 5.38 Hgb 15.1 Hct 46.9 MCV 87.2 MCH 28.1 MCHC 32.2 RDW 13.4 Plt Count 272 MPV 10.9 PT 12.4 INR 1.09 APTT 24.6 L Sodium 138 Potassium 4.4 Chloride 99 Carbon Dioxide 27 Anion Gap 16 BUN 14 Creatinine 0.8 Est GFR ( Amer) > 60 Est GFR (Non-Af Amer) > 60 Random Glucose 166 H Calcium 9.0 Total Bilirubin 0.4 AST 68 H D ALT 50 Alkaline Phosphatase 65 Lactate Dehydrogenase 726 H Total Creatine Kinase 159 Troponin I < 0.01 Total Protein 7.2 Albumin 4.2 Globulin 3.1 Albumin/Globulin Ratio 1.4 Beta HCG, Quant 12/25/17 03:39 WBC RBC Hgb Hct MCV MCH MCHC RDW Plt Count MPV PT INR APTT Sodium Potassium Chloride Carbon Dioxide Anion Gap BUN Creatinine Est GFR ( Amer) Est GFR (Non-Af Amer) Random Glucose Calcium Total Bilirubin AST ALT Alkaline Phosphatase Lactate Dehydrogenase Total Creatine Kinase Troponin I Total Protein Albumin Globulin Albumin/Globulin Ratio Beta HCG, Quant < 2.39 Assessment & Plan - Assessment and Plan (Free Text) Assessment: 27 yo F with PMH of asthma is admitted for management of acute asthma exacerbation. Plan: 1. Shortness of breath Likely 2/2 acute asthma exacerbation, hx of non-compliance, hx of tobacco and substance abuse Patient has been tachycardic in low 100s since admission so will give xopenex/atrovent q4h lisa and q2h PRN for SOB Solmedrol 40 mg IVP q12h Zithromax 250 daily 2. Leukocytosis May be reactionary from asthma exacerbation Will repeat CBC with differential in AM Procal last admission was negative Will get UA, UDS 3. Hx tobacco/substance abuse Patient reports only occasionally smoking cigarettes and marijuana She denies having smoked tobacco or marijuana since her last admission F/u urine drug screen result DVT/GI PPX: SCD, protonix Full Code Regular diet Monitor on telemetry Case and plan reviewed and discussed with my attending Dr. Julia Mcguire, DO IM Resident PGY-1
[2017-12-25] MEDS: Ipratropium 0.02% Inhal Soln (0.5 mg/2.5 ml) UD IH SCH ×4 (05:14→15:17)
[2017-12-25] MEDS: Levalbuterol 0.63 MG/3 ML Inhal Soln UD IH SCH ×5 (05:35→20:37)
--- NOTE | 2017-12-25 08:37 | RAD ---
HISTORY: sob COMPARISON: Chest x-ray performed 12/17/17 TECHNIQUE: Chest, one view. FINDINGS: LUNGS: No focal consolidation. Please note that chest x-ray has limited sensitivity for the detection of pulmonary masses. PLEURA: No significant pleural effusion identified. No definite pneumothorax . CARDIOVASCULAR: Heart size appears within normal limits. No significant atherosclerotic calcification present. OSSEOUS STRUCTURES: No acute osseous abnormality identified. VISUALIZED UPPER ABDOMEN: Unremarkable. OTHER FINDINGS: None. IMPRESSION: No focal consolidation.
--- NOTE | 2017-12-25 08:45 | CARD ---
APPROVED REPORT Date of service: 12/25/2017 EKG Measurement Heart [id number] <Conclusion> Sinus tachycardia Nonspecific ST abnormality Abnormal ECG
[2017-12-25] MEDS: Azithromycin 250 MG in Sodium Chloride 0.9% 250 ML IVPB SCH (09:56)
[2017-12-25] MEDS: Pantoprazole 40 mg EC Tab PO SCH (10:19)
[2017-12-25] MEDS: MethylPREDNISolone 40 mg Vial IVP SCH ×2 (10:19→21:01)
[2017-12-25 11:46] VITALS: BMI 21.3
[2017-12-26] MEDS: Levalbuterol 0.63 MG/3 ML Inhal Soln UD IH SCH ×3 (00:08→11:47)
[2017-12-26] MEDS: Ipratropium 0.02% Inhal Soln (0.5 mg/2.5 ml) UD IH SCH ×3 (00:08→11:46)
[2017-12-26 00:12] VITALS: RESP 16; O2SAT 98
[2017-12-26] MEDS: Pantoprazole 40 mg EC Tab PO SCH (05:56)
[2017-12-26 06:11] VITALS: BP 100/58; TEMP 98.4
[2017-12-26] MEDS: Azithromycin 250 MG in Sodium Chloride 0.9% 250 ML IVPB SCH (09:31)
[2017-12-26] MEDS: MethylPREDNISolone 40 mg Vial IVP SCH (11:32)
--- NOTE | 2017-12-26 12:53 | CP.PCM.DIS ---
Provider - Provider Date of Admission: 12/25/17 04:44 Attending physician: Shirley Ortiz DO Primary care physician: WILLIAN Oleary Time Spent in preparation of Discharge (in minutes): 40 Hospital Course - Lab Results Lab Results: Most Recent Lab Values WBC 13.7 10^3/uL (4.5-11.0) H 12/25/17 03:39 RBC 5.38 10^6/uL (3.5-6.1) 12/25/17 03:39 Hgb 15.1 g/dL (12.0-16.0) 12/25/17 03:39 Hct 46.9 % (36.0-48.0) 12/25/17 03:39 MCV 87.2 fl (80.0-105.0) 12/25/17 03:39 MCH 28.1 pg (25.0-35.0) 12/25/17 03:39 MCHC 32.2 g/dl (31.0-37.0) 12/25/17 03:39 RDW 13.4 % (11.5-14.5) 12/25/17 03:39 Plt Count 272 10^3/uL (120.0-450.0) 12/25/17 03:39 MPV 10.9 fl (7.0-11.0) 12/25/17 03:39 PT 12.4 SECONDS (9.4-12.5) 12/25/17 03:39 INR 1.09 12/25/17 03:39 APTT 24.6 Seconds (25.1-36.5) L 12/25/17 03:39 Sodium 138 mmol/L (132-148) 12/25/17 03:39 Potassium 4.4 mmol/L (3.6-5.0) 12/25/17 03:39 Chloride 99 mmol/L (98-107) 12/25/17 03:39 Carbon Dioxide 27 mmol/L (21-33) 12/25/17 03:39 Anion Gap 16 (10-20) 12/25/17 03:39 BUN 14 mg/dL (7-21) 12/25/17 03:39 Creatinine 0.8 mg/dl (0.7-1.2) 12/25/17 03:39 Est GFR ( Amer) > 60 12/25/17 03:39 Est GFR (Non-Af Amer) > 60 12/25/17 03:39 Random Glucose 166 mg/dL (70-110) H 12/25/17 03:39 Calcium 9.0 mg/dL (8.4-10.5) 12/25/17 03:39 Phosphorus 7.1 mg/dL (2.5-4.5) H 12/25/17 04:00 Magnesium 3.6 mg/dL (1.7-2.2) H 12/25/17 04:00 Total Bilirubin 0.4 mg/dL (0.2-1.3) 12/25/17 03:39 AST 68 U/L (14-36) H D 12/25/17 03:39 ALT 50 U/L (7-56) 12/25/17 03:39 Alkaline Phosphatase 65 U/L (38-126) 12/25/17 03:39 Lactate Dehydrogenase 726 U/L (333-699) H 12/25/17 03:39 Total Creatine Kinase 159 U/L (35-230) 12/25/17 03:39 Troponin I < 0.01 ng/mL 12/25/17 03:39 Total Protein 7.2 g/dL (5.8-8.3) 12/25/17 03:39 Albumin 4.2 g/dL (3.0-4.8) 12/25/17 03:39 Globulin 3.1 gm/dL 12/25/17 03:39 Albumin/Globulin Ratio 1.4 (1.1-1.8) 12/25/17 03:39 Beta HCG, Quant < 2.39 mIU/mL (0-6.15) 12/25/17 03:39 - Hospital Course Hospital Course: Antoni Rivera, PGY-1 Discharge Summary for Hospitalist Service 27 F with past medical history of multiple visits for moderate persistent asthma who presented with shortness of breath and 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 Patient received solu-medrol, zithromax, Mg-sulfate, xopenex and ipratropium to control clinical symptoms in ED. Patient continued to receive Solumedrol 40 IVP q12 as well as Zithromax 250 mg daily. Patient had sinus tachycardia so Xopenex was utilized initially. Tachycardia later resolved. Patient was admitted with leukocytosis but patient refused repeat lab work, urinalysis and Urine drug screen. However, it was likely secondary to reaction to asthma exacerbation. Patient has history of heroin and tobacco use but denies current use. No UDS results available as patient refused. Patient educated on need for cessation. Upon evaluation this morning, patient's wheezing, cough and sputum production has improved, so patient will be sent home with Albuterol and Pulmicort inhalers, Singulair for prevention, Prednisone taper to combat residual inflammation, as well as continuing Zithromax for a few more days. Patient hemodynamically stable, and agrees to be compliant with medications, inhalers and directions upon discharge. Patient aware of need to follow up in health clinic while she has insurance issues until she can return to her PCP Dr. 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 Patient seen, case reviewed and plan approved by Dr. Cervantes. Discharge Exam - Head Exam Head Exam: ATRAUMATIC, NORMOCEPHALIC - Additional Findings Additional findings: - Constitutional Appears: Unkempt, No acute distress - Head Exam Head Exam: ATRAUMATIC, NORMOCEPHALIC - Eye Exam Eye Exam: EOMI, Normal appearance, PERRL - ENT Exam ENT Exam: Mucous Membranes Moist - Neck Exam Neck exam: Positive for: Full Rom, Normal Inspection - Respiratory Exam Respiratory Exam: Decreased Breath Sounds (decreased air movement and breath sounds b/l), Prolonged Expiratory Phase, Wheezes (mild end expiratory wheezes b/l). absent: Chest Wall Tenderness, Rales, Rhonchi, Accessory Muscle Use, - Cardiovascular Exam Cardiovascular Exam: REGULAR RHYTHM, RRR, +S1, +S2. absent: Diastolic murmur, Gallop, Rubs, Systolic Murmur - GI/Abdominal Exam GI & Abdominal Exam: Normal Bowel Sounds, Soft. absent: Guarding, Tenderness - Extremities Exam Extremities exam: Positive for: normal inspection. Negative for: pedal edema - Back Exam Back exam: FULL ROM, NORMAL INSPECTION - Neurological Exam Neurological exam: Alert, Oriented x3 - Psychiatric Exam Psychiatric exam: Normal Affect, Normal Mood - Skin Skin Exam: Dry, Intact, Warm Discharge Plan - Discharge Medications Prescriptions: Albuterol HFA [Ventolin HFA 90 mcg/actuation (8 g)] 2 puff IH [id number] #2 puff Azithromycin [Z-Adrian] 250 mg PO DAILY #4 tab Budesonide/Formoterol Fumarate [Symbicort 80-4.5 Mcg Inhaler] 1 aer IH DAILY 14 Days #1 aer Montelukast Sodium [Singulair] 10 mg PO DAILY #30 tablet predniSONE [predniSONE Tab] See Taper PO DAILY #11 tab - Follow Up Plan Condition: STABLE Disposition: HOME/ ROUTINE Instructions: Asthma, Adult (DC), Asthma (DC), Asthma (GEN) Additional Instructions: Please take your Singulair tablets as directed in order to prevent future asthma attacks. Please take your Ventolin and Pulmicort inhalers as directed and needed. Please take your Azithromycin antibiotic tablets for the next few days as prescribed. Please take your Prednisone steroid taper as directed over the next 11 days. Please follow up here at [facility] [place] in the [facility] for your appointment on 01/12 at 3:30 pm. Please arrive by 3 pm for paperwork. Please follow up with Dr. Oleary for proper long-term control of your asthma. Should symptoms reoccur or worsen, please return to nearest emergency department. Referrals: Surinder Oleary MD [Staff Provider] - Melanie Temple MD [Medical Doctor] -
[2017-12-27 00:23] VITALS: PULSE 65
== END 2017-12-26 17:49 | disposition home or self-care (01) ==
LOC: ED 03:14 → ERH 04:44 → 2RSO 06:31
PROVIDERS: ADMIT Internal Medicine; ATTEND Hospitalist
DX: J45.42 Moderate persistent asthma with status asthmaticus (principal); D72.829 Elevated white blood cell count, unspecified; Z87.891 Personal history of nicotine dependence; Z87.01 Personal history of pneumonia (recurrent)
CPT/HCPCS: 71045; 80053; 82550; 83615; 83735; 84100; 84484; 84702; 85027; 85610; 85730; 93005; 94640; 94760; 96365; 96366; 96375; 96376; 99285; G0378; J0456; J2920

== ENCOUNTER 2018-01-09 19:58 | Observation (INO) | payer MEDICAID, OTHER ==
[2018-01-09] MEDS ORDERED: Albuterol-Ipratrop 3 mg / 0.5 (3 ml) UD ONE (20:09)
[2018-01-09] MEDS ORDERED: Magnesium Sulfate 2 gm/50 ml 2 GM/50 ML BAG IVPB ONE (20:30)
[2018-01-09] MEDS: Albuterol-Ipratrop 3 mg / 0.5 (3 ml) UD IH SCH ×3 (20:31→21:02)
[2018-01-09 20:56] LABS: HEMOGLOBIN 15.3 g/dL (12.0-16.0); MEAN CELL VOLUME 86.4 fl (80.0-105.0); MEAN CORPUSCULAR HEMOGLOBIN 28.1 pg (25.0-35.0); MEAN CORPUSCULAR HGB CONC 32.5 g/dl (31.0-37.0); MEAN PLATELET VOLUME 11.2 fl (7.0-11.0); RBC 5.45 10^6/uL (3.5-6.1); RED CELL DISTRIBUTION WIDTH 13.6 % (11.5-14.5); WHITE BLOOD COUNT 17.1 10^3/uL (4.5-11.0)
[2018-01-09 21:37] LABS: BLOOD UREA NITROGEN 10 mg/dL (7-21); GFR NON-AFRICAN AMERICAN > 60
[2018-01-09 21:38] LABS: ALB/GLOB RATIO 1.4 (1.1-1.8); ALBUMIN 3.7 g/dL (3.0-4.8); ALT/SGPT 32 U/L (7-56); AST/SGOT 30 U/L (14-36)
[2018-01-09 21:46] LABS: TROPONIN I < 0.01 ng/mL
--- NOTE | 2018-01-09 22:27 | ED PDOC ---
Arrival/HPI <Silva,Chalino - Last Filed: 01/10/18 01:02> - General Historian: Patient - History of Present Illness Narrative History of Present Illness (Text): 01/09/18 22:33 27 y/o female with PMH of asthma, anxiety, and substance abuse presents to the ED c/o SOB x 15 minutes. Patient states that over the last few days her asthma has been acting up but today she had an acute onset of severe SOB, similar to past asthma attacks. Pt is taking her home medications as prescribed and has been using her nebulizers multiple times a day with only mild relief, last dose this morning. History of multiple admissions for asthma in the past, most recent 2 weeks ago, and has been intubated once two years ago. Denies drug or alcohol use, fevers, chills, chest pain, cough, abdominal pain, N/V, back pain, vision changes, headache, dizziness, or any other associated symptoms. <Jenny Forbes - Last Filed: 01/10/18 02:04> - General Chief Complaint: Shortness Of Breath Time Seen by Provider: 01/09/18 20:10 Past Medical History - Provider Review Nursing Documentation Reviewed: Yes - Infectious Disease Hx of Infectious Diseases: None - Tetanus Immunization Tetanus Immunization: Unknown - Cardiac Hx Cardiac Disorders: No - Pulmonary Hx Asthma: Yes (has home nebulizer machine) Hx Bronchitis: Yes Hx Pneumonia: Yes - Neurological Hx Neurological Disorder: No - HEENT Hx HEENT Disorder: No - Renal Hx Renal Disorder: No - Endocrine/Metabolic Hx Endocrine Disorders: No - Hematological/Oncological Hx Blood Disorders: No - Integumentary Hx Dermatological Disorder: No - Musculoskeletal/Rheumatological Hx Falls: No - Gastrointestinal Hx Gastrointestinal Disorders: No - Genitourinary/Gynecological Hx Genitourinary Disorders: No - Psychiatric Hx Anxiety: Yes Hx Depression: No Hx Emotional Abuse: No Hx Physical Abuse: No Hx Substance Use: No - Past Surgical History Past Surgical History: No Previous - Surgical History Hx Cardiac Catheterization: No Hx Coronary Stent: No - Anesthesia Hx Anesthesia: No - Suicidal Assessment Feels Threatened In Home Enviroment: No <Jenny Forbes - Last Filed: 01/10/18 02:04> Family/Social History - Physician Review Nursing Documentation Reviewed: Yes Family/Social History: No Known Family HX Smoking Status: Never Smoked Hx Alcohol Use: No Hx Substance Use: No Hx Substance Use Treatment: No <Bradley Forbesyssa - Last Filed: 01/10/18 02:04> Allergies/Home Meds <Silva,Chalino - Last Filed: 01/10/18 01:02> <Bradley Forbesyssa - Last Filed: 01/10/18 02:04> Allergies/Adverse Reactions: Allergies No Known Allergies Allergy (Verified 12/17/17 01:16) Review of Systems - Physician Review All systems were reviewed & negative as marked: Yes - Review of Systems Constitutional: Normal. absent: Fevers Eyes: Normal. absent: Vision Changes ENT: Normal. absent: Sore Throat, Sinus Congestion Respiratory: SOB, Wheezing. absent: Cough, Sputum Cardiovascular: Normal. absent: Chest Pain, Palpitations Gastrointestinal: Normal. absent: Abdominal Pain, Nausea, Vomiting Genitourinary Female: Normal Musculoskeletal: Normal. absent: Back Pain, Neck Pain Skin: Normal. absent: Rash Neurological: Normal. absent: Headache, Dizziness Endocrine: Normal Hemo/Lymphatic: Normal Psychiatric: Normal <LeidyJenny - Last Filed: 01/10/18 02:04> Physical Exam Vital Signs Temp Pulse Resp BP Pulse Ox 01/09/18 22:34 98.1 F 87 18 112/52 L 98 01/09/18 21:38 20 98 01/09/18 20:10 111 H 20 162/107 H 94 L <SilvaChalino - Last Filed: 01/10/18 01:02> Vital Signs Reviewed: Yes Vital Signs Pulse Resp BP Pulse Ox 01/09/18 20:10 111 H 20 162/107 H 94 L Temperature: Afebrile Blood Pressure: Hypertensive Pulse: Tachycardic Respiratory Rate: Normal Appearance: Positive for: Non-Toxic, Uncomfortable, Other (Visibly SOB; Respiratory Distress) Pain Distress: None Mental Status: Positive for: Alert and Oriented X 3 - Systems Exam Head: Present: Atraumatic, Normocephalic Pupils: Present: PERRL Extroacular Muscles: Present: EOMI Conjunctiva: Present: Normal Ears: Present: Normal, NORMAL TM Mouth: Present: Moist Mucous Membranes Pharnyx: Present: Normal Nose (External): Present: Atraumatic Nose (Internal): Present: Normal Inspection Neck: Present: Normal Range of Motion. No: MIDLINE TENDERNESS, Paraspinal Tenderness Respiratory/Chest: Present: Respiratory Distress, Accessory Muscle Use, Wheezes (diffuse expiratory wheezing bilaterally), Decreased Breath Sounds (diffuse bilaterally). No: Good Air Exchange Cardiovascular: Present: Regular Rate and Rhythm, Normal S1, S2, Peripheal Pulses Present. No: Murmurs Abdomen: Present: Normal Bowel Sounds. No: Tenderness, Distention, Peritoneal Signs Upper Extremity: Present: Normal Inspection, Normal ROM, NORMAL PULSES, Ca pillary Refill < 2s. No: Cyanosis, Edema Lower Extremity: Present: Normal Inspection, NORMAL PULSES, Normal ROM, Capillary Refill < 2 s. No: Edema Neurological: Present: GCS=15, CN II-XII Intact, Speech Normal, Motor Func Grossly Intact, Normal Sensory Function, Normal Cerebellar Funct Skin: Present: Warm, Dry, Normal Color. No: Rashes Lymphatic: No: Cervical Adenopathy Psychiatric: Present: Alert, Oriented x 3, Normal Insight, Normal Concentration, Normal Affect, Normal Mood <Jenny Forbes - Last Filed: 01/10/18 02:04> Medical Decision Making - Lab Interpretations Lab Results: 01/09/18 20:51 01/09/18 21:11 Lab Results 01/09/18 21:11: Sodium 139, Potassium 3.9, Chloride 105, Carbon Dioxide 27, Anion Gap 11, BUN 10, Creatinine 0.8, Est GFR ( Amer) > 60, Est GFR (Non- Af Amer) > 60, Random Glucose 86, Calcium 9.0, Phosphorus 6.2 H, Magnesium 2.9 H , Total Bilirubin 0.3, AST 30, ALT 32, Alkaline Phosphatase 85, Lactate De hydrogenase 504, Total Creatine Kinase 122, Troponin I < 0.01, Total Protein 6.4, Albumin 3.7, Globulin 2.6, Albumin/Globulin Ratio 1.4 01/09/18 20:51: WBC 17.1 H D, RBC 5.45, Hgb 15.3, Hct 47.1, MCV 86.4, MCH 28.1, MCHC 32.5, RDW 13.6, Plt Count 354, MPV 11.2 H - RAD Interpretation Radiology Orders: 01/09/18 20:31 CXR [CHEST PORTABLE] [RAD] Stat - Medication Orders Current Medication Orders: Albuterol/Ipratropium (Duoneb 3 Mg/0.5 Mg (3 Ml) Ud) 3 ml IH Q2H PRN PRN Reason: Shortness of Breath Albuterol/Ipratropium (Duoneb 3 Mg/0.5 Mg (3 Ml) Ud) 3 ml IH [id number] CURTIS Arformoterol Tartrate (Brovana) 15 mcg IH [id number] CURTIS Budesonide (Pulmicort Respules) 0.5 mg IH [id number] CURTIS Methylprednisolone (Solu-Medrol) 40 mg IVP Q12 CURTIS Montelukast Sodium (Singulair) 10 mg PO DAILY CURTIS Pantoprazole Sodium (Protonix Ec Tab) 40 mg PO 0600 COUNTS INCLUDE 234 BEDS AT THE [facility] Discontinued Medications Albuterol/Ipratropium (Duoneb 3 Mg/0.5 Mg (3 Ml) Ud) 3 ml IH Q15M CURTIS Stop: 01/09/18 21:01 Last Admin: 01/09/18 21:02 Dose: 3 ml Magnesium Sulfate (Magnesium Sulfate 2 Gm/50 Ml Water) 2 gm in 50 mls @ 50 mls/hr IVPB ONCE ONE Stop: 01/09/18 21:29 Last Admin: 01/09/18 20:36 Dose: 50 mls/hr eMAR Start Stop Document 01/09/18 20:36 (Rec: 01/09/18 22:25 [id number]) Intravenous Solution Start Date 01/09/18 Start Time 20:36 Methylprednisolone (Solu-Medrol) 125 mg IVP STAT STA Stop: 01/09/18 20:31 Last Admin: 01/09/18 20:11 Dose: 125 mg IVP Administration Document 01/09/18 20:11 (Rec: 01/09/18 22:23 [id number]) Charges for Administration # of IVP Administrations 1 <Chalino Ascencio - Last Filed: 01/10/18 01:02> ED Course and Treatment: Initial Plan: * CBC, CMP * Cardiac Iso * Mg, Phosphorus * EKG * CXR * POC urine preg Will give Solumedrol 125, Duoneb x 3, Magnesium Sulfate 2g per ED attending Dr. Ascencio. Patient placed on oxygen mask 2L 2130 --Patient refusing ABG at this time --Patient states she is unable to urinate for POC urine preg 2229 --EKG shows rate 87; NSR; prolonged QT; nonspecific ST changes --Patient reports that she feels significantly better, but is still having difficulty breathing. Breath sounds have minimally improved, however continued bilateral decreased breath sounds and expiratory wheezing. Will admit for observation and continued treatment. 2199 --Spoke with Dr. Dumont who accepts patient for admission to telemetry floor for observation with diagnosis of status asthmaticus. - Lab Interpretations Lab Results: 01/09/18 20:51 01/09/18 21:11 Lab Results 01/09/18 21:11: Sodium 139, Potassium 3.9, Chloride 105, Carbon Dioxide 27, Anion Gap 11, BUN 10, Creatinine 0.8, Est GFR ( Amer) > 60, Est GFR (Non- Af Amer) > 60, Random Glucose 86, Calcium 9.0, Phosphorus 6.2 H, Magnesium 2.9 H , Total Bilirubin 0.3, AST 30, ALT 32, Alkaline Phosphatase 85, Lactate Dehydrogenase 504, Total Creatine Kinase 122, Troponin I < 0.01, Total Protein 6.4, Albumin 3.7, Globulin 2.6, Albumin/Globulin Ratio 1.4 01/09/18 20:51: WBC 17.1 H D, RBC 5.45, Hgb 15.3, Hct 47.1, MCV 86.4, MCH 28.1, MCHC 32.5, RDW 13.6, Plt Count 354, MPV 11.2 H - RAD Interpretation Radiology Orders: 01/09/18 20:31 CXR [CHEST PORTABLE] [RAD] Stat - Medication Orders Current Medication Orders: Discontinued Medications Albuterol/Ipratropium (Duoneb 3 Mg/0.5 Mg (3 Ml) Ud) 3 ml IH Q15M CURTIS Stop: 01/09/18 21:01 Magnesium Sulfate (Magnesium Sulfate 2 Gm/50 Ml Water) 2 gm in 50 mls @ 50 mls/hr IVPB ONCE ONE Stop: 01/09/18 21:29 Methylprednisolone (Solu-Medrol) 125 mg IVP STAT STA Stop: 01/09/18 20:31 <Jenny Forbes - Last Filed: 01/10/18 02:04> - PA / STAFF EDITOR / Resident Statement ELENITA has reviewed & agrees with the documentation as recorded. ELENITA has examined the patient and agrees with the treatment plan. <Chalino Ascencio - Last Filed: 01/10/18 01:02> Disposition/Present on Arrival <Chalino Ascencio - Last Filed: 01/10/18 01:02> - Present on Arrival Any Indicators Present on Arrival: No History of DVT/PE: No History of Uncontrolled Diabetes: No Urinary Catheter: No History of Decub. Ulcer: No History Surgical Site Infection Following: None - Disposition Have Diagnosis and Disposition been Completed?: Yes Disposition Time: 22:00 Patient Plan: Admission <Jenny Forbes - Last Filed: 01/10/18 02:04> - Disposition Diagnosis: Status asthmaticus Disposition: HOSPITALIZED Condition: STABLE
[2018-01-09] MEDS ORDERED: Albuterol-Ipratrop 3 mg / 0.5 (3 ml) UD IH PRN (22:43)
--- NOTE | 2018-01-09 22:57 | CP.PCM.HP ---
<Edwar Colin - Last Filed: 01/10/18 04:01> History of Present Illness - History of Present Illness History of Present Illness: Edwar Colin, PGY1 Hospital H&P This is a 27 year old female with PMH of asthma, former tobacco use and heroin use, and anxiety presenting to hospital for one day history of SOB. Patient states she was sitting in her car at 3pm today and began to feel SOB. She tried her home medications of symbicort and ventolin with minimal improvement. She was admitted for similar symptoms two weeks ago for one day hospital course. She currently doest not have PMD due to loss of insurance but previously saw Dr. Randle. She is scheduled for appointment at [facility] clinic on to establish care. She has multiple admissions for asthma exacerbation in past and has been intubated once two years ago. She states she is compliant with her home medications although she has history of medication non compliance. She has signed out AMA twice in past, as recently as last month. She currently denies CP, SOB, fevers, chills, nausea, vomiting, abdominal pain, urinary complaints, diarrhea, constipation, numbness, tingling, swelling, recent travel, sickness, trauma and lifestyle change. 12 point ROS noted here, otherwise unremarkable. PMD: none currently, previously Dr. Randle Pul: previously Dr. Oleary PMH: asthma, former tobacco use and heroin use, and anxiety SH: former smoker, denies drinking and recent drug use Sx: denies FH: HTN All: NKDA LMP: 1 week ago, denies irregular bleeding Meds: symbicort, ventolin Pharmacy: [facility] [place] pharmacy Present on Admission - Present on Admission Any Indicators Present on Admission: No Past Patient History - Infectious Disease Hx of Infectious Diseases: None - Tetanus Immunizations Tetanus Immunization: Unknown - Past Social History Smoking Status: Former Smoker - CARDIAC Hx Cardiac Disorders: No - PULMONARY Hx Asthma: Yes (has home nebulizer machine) Hx Bronchitis: Yes Hx Pneumonia: Yes - NEUROLOGICAL Hx Neurological Disorder: No - HEENT Hx HEENT Problems: No - RENAL Hx Chronic Kidney Disease: No - ENDOCRINE/METABOLIC Hx Endocrine Disorders: No - HEMATOLOGICAL/ONCOLOGICAL Hx Blood Disorders: No - INTEGUMENTARY Hx Dermatological Problems: No - MUSCULOSKELETAL/RHEUMATOLOGICAL Hx Falls: No - GASTROINTESTINAL Hx Gastrointestinal Disorders: No - GENITOURINARY/GYNECOLOGICAL Hx Genitourinary Disorders: No - PSYCHIATRIC Hx Anxiety: Yes Hx Depression: No Hx Emotional Abuse: No Hx Physical Abuse: No Hx Substance Use: No - SURGICAL HISTORY Hx Cardiac Catheterization: No Hx Coronary Stent: No - ANESTHESIA Hx Anesthesia: No Meds Allergies/Adverse Reactions: Allergies Allergy/AdvReac Type Severity Reaction Status Date / Time No Known Allergies Allergy Verified 12/17/17 01:16 Physical Exam - Constitutional Appears: No Acute Distress - Head Exam Head Exam: ATRAUMATIC, NORMAL INSPECTION - Eye Exam Eye Exam: EOMI Pupil Exam: PERRL - ENT Exam ENT Exam: Mucous Membranes Moist - Respiratory Exam Respiratory Exam: NORMAL BREATHING PATTERN. absent: Accessory Muscle Use, Wheezes, Respiratory Distress Additional comments: expiratory wheezing B/L - Cardiovascular Exam Cardiovascular Exam: REGULAR RHYTHM, +S1, +S2 - GI/Abdominal Exam GI & Abdominal Exam: Normal Bowel Sounds, Soft. absent: Firm, Guarding, Tenderness - Extremities Exam Extremities exam: Positive for: normal inspection, pedal pulses present. Negative for: calf tenderness - Back Exam Back exam: NORMAL INSPECTION. absent: CVA tenderness (L), CVA tenderness (R) - Neurological Exam Neurological exam: Alert, Oriented x3 - Skin Skin Exam: Normal Color, Warm Results - Vital Signs Recent Vital Signs: Last Vital Signs Temp Pulse 111 H 01/09/18 20:10 Resp 20 01/09/18 20:10 BP 162/107 H 01/09/18 20:10 Pulse Ox 94 L 01/09/18 20:10 - Labs Result Diagrams: 01/09/18 20:51 01/09/18 21:11 Labs: Laboratory Results - last 24 hr 01/09/18 01/09/18 20:51 21:11 WBC 17.1 H D RBC 5.45 Hgb 15.3 Hct 47.1 MCV 86.4 MCH 28.1 MCHC 32.5 RDW 13.6 Plt Count 354 MPV 11.2 H Sodium 139 Potassium 3.9 Chloride 105 Carbon Dioxide 27 Anion Gap 11 BUN 10 Creatinine 0.8 Est GFR ( Amer) > 60 Est GFR (Non-Af Amer) > 60 Random Glucose 86 Calcium 9.0 Phosphorus 6.2 H Magnesium 2.9 H Total Bilirubin 0.3 AST 30 ALT 32 Alkaline Phosphatase 85 Lactate Dehydrogenase 504 Total Creatine Kinase 122 Troponin I < 0.01 Total Protein 6.4 Albumin 3.7 Globulin 2.6 Albumin/Globulin Ratio 1.4 Assessment & Plan - Assessment and Plan (Free Text) Assessment: This is a 27 year old female with PMH of asthma, former tobacco use and heroin use, and anxiety presenting to hospital for one day history of SOB. Plan: Acute asthma exacerbation -mild intermittant asthma -hx of medication noncompliance with hx of tobacco, marijuana and heroin use -ABG pending -Solumedrol 40 mg IVP q12 -singulair -pulmicort -duoneb prn and lisa -brovana -influenza is negative Leukocytosis -likely 2/2 steroid use -will f/u AM labs -unlikely infection etiology. Afebrile, CXR is negative (f/u official read) -U/A positive for leuk esterase, patient is asymptomatic -procalc pending Hx of tobacco, marijuana and heroin use -UDS pending -patient denies smoking, drug use in the last 3 months PPX with SCD, protonix Regular diet Patient seen and case discussed with attending, Dr. Dumont <Sunshine Dumont - Last Filed: 01/10/18 05:47> Results - Vital Signs Recent Vital Signs: Last Vital Signs Temp 98.0 F 01/10/18 00:01 Pulse 87 01/10/18 02:00 Resp 20 01/10/18 00:11 BP 122/86 01/10/18 00:01 Pulse Ox 97 01/10/18 00:01 - Labs Result Diagrams: 01/09/18 20:51 01/09/18 21:11 Labs: Laboratory Results - last 24 hr 01/09/18 01/09/18 01/09/18 20:51 21:11 21:11 WBC 17.1 H D RBC 5.45 Hgb 15.3 Hct 47.1 MCV 86.4 MCH 28.1 MCHC 32.5 RDW 13.6 Plt Count 354 MPV 11.2 H Sodium 139 Potassium 3.9 Chloride 105 Carbon Dioxide 27 Anion Gap 11 BUN 10 Creatinine 0.8 Est GFR ( Amer) > 60 Est GFR (Non-Af Amer) > 60 Random Glucose 86 Calcium 9.0 Phosphorus 6.2 H Magnesium 2.9 H Total Bilirubin 0.3 AST 30 ALT 32 Alkaline Phosphatase 85 Lactate Dehydrogenase 504 Total Creatine Kinase 122 Troponin I < 0.01 Total Protein 6.4 Albumin 3.7 Globulin 2.6 Albumin/Globulin Ratio 1.4 Beta HCG, Quant Alcohol, Quantitative < 10 Influenza Typ A,B (EIA) 01/09/18 01/09/18 21:11 23:07 WBC RBC Hgb Hct MCV MCH MCHC RDW Plt Count MPV Sodium Potassium Chloride Carbon Dioxide Anion Gap BUN Creatinine Est GFR ( Amer) Est GFR (Non-Af Amer) Random Glucose Calcium Phosphorus Magnesium Total Bilirubin AST ALT Alkaline Phosphatase Lactate Dehydrogenase Total Creatine Kinase Troponin I Total Protein Albumin Globulin Albumin/Globulin Ratio Beta HCG, Quant < 2.39 Alcohol, Quantitative Influenza Typ A,B (EIA) Negative for flu a/b Attending/Attestation - Attestation I have personally seen and examined this patient.: Yes I have fully participated in the care of the patient.: Yes I have reviewed all pertinent clinical information: Yes Notes (Text): 01/10/18 05:46 Patient was seen when she was in the ER in bed # 1. Agree with history, physical examination, assessment and plan.
[2018-01-10] MEDS: Albuterol-Ipratrop 3 mg / 0.5 (3 ml) UD IH SCH ×3 (02:11→13:45)
[2018-01-10 02:32] VITALS: BMI 21.0
[2018-01-10 02:37] VITALS: RESP 20
[2018-01-10 02:51] VITALS: TEMP 98
[2018-01-10] MEDS ORDERED: Pantoprazole 40 mg EC Tab PO SCH (06:00)
[2018-01-10 06:54] LABS: HEMOGLOBIN 14.3 g/dL (12.0-16.0); MEAN CELL VOLUME 85.9 fl (80.0-105.0); MEAN CORPUSCULAR HEMOGLOBIN 27.7 pg (25.0-35.0); MEAN CORPUSCULAR HGB CONC 32.2 g/dl (31.0-37.0); MEAN PLATELET VOLUME 10.9 fl (7.0-11.0); RBC 5.17 10^6/uL (3.5-6.1); RED CELL DISTRIBUTION WIDTH 13.2 % (11.5-14.5); WHITE BLOOD COUNT 6.6 10^3/uL (4.5-11.0)
[2018-01-10 07:08] VITALS: BP 103/73; PULSE 97; O2SAT 95
[2018-01-10 07:08] LABS: BLOOD UREA NITROGEN 10 mg/dL (7-21); CALCIUM 9.6 mg/dL (8.4-10.5); GFR NON-AFRICAN AMERICAN > 60
[2018-01-10] MEDS ORDERED: Sod Polystyrene Sulf 15 gm/60 ml Susp PO ONE (07:09)
[2018-01-10] MEDS ORDERED: Arformoterol 15 mcg/2 ml Inh Sol IH SCH (08:00)
[2018-01-10] MEDS ORDERED: Budesonide 0.5 mg/2 ml Inhal Susp UD IH SCH (08:00)
--- NOTE | 2018-01-10 09:01 | RAD ---
Date of service: 01/10/2018 HISTORY: SOB COMPARISON: 12/25/2017 FINDINGS: LUNGS: No active pulmonary disease. PLEURA: No significant pleural effusion identified, no pneumothorax apparent. CARDIOVASCULAR: No aortic atherosclerotic calcification present. Normal cardiac size. No pulmonary vascular congestion. OSSEOUS STRUCTURES: No significant abnormalities. VISUALIZED UPPER ABDOMEN: Normal. OTHER FINDINGS: None. IMPRESSION: No active disease.
[2018-01-10] MEDS ORDERED: MethylPREDNISolone 40 mg Vial IVP SCH (10:00)
--- NOTE | 2018-01-10 12:46 | CP.PCM.DIS ---
<Brock Lombardo - Last Filed: 01/10/18 12:43> Provider - Provider Date of Admission: 01/09/18 22:21 Attending physician: Aristeo Martin MD Primary care physician: No PCP Consults: 01/10/18 02:32 Transition In Care/Readmission Reduction Routine Comment: Physician Instructions: Reason For Exam: admission assessment Time Spent in preparation of Discharge (in minutes): 45 Diagnosis - Discharge Diagnosis (1) Status asthmaticus Status: Acute Priority: Medium (2) Asthma exacerbation Status: Acute Priority: Medium Hospital Course - Lab Results Lab Results: Most Recent Lab Values WBC 6.6 10^3/uL (4.5-11.0) D 01/10/18 06:00 RBC 5.17 10^6/uL (3.5-6.1) 01/10/18 06:00 Hgb 14.3 g/dL (12.0-16.0) 01/10/18 06:00 Hct 44.4 % (36.0-48.0) 01/10/18 06:00 MCV 85.9 fl (80.0-105.0) 01/10/18 06:00 MCH 27.7 pg (25.0-35.0) 01/10/18 06:00 MCHC 32.2 g/dl (31.0-37.0) 01/10/18 06:00 RDW 13.2 % (11.5-14.5) 01/10/18 06:00 Plt Count 283 10^3/uL (120.0-450.0) 01/10/18 06:00 MPV 10.9 fl (7.0-11.0) 01/10/18 06:00 Sodium 137 mmol/L (132-148) 01/10/18 06:00 Potassium 5.3 mmol/L (3.6-5.0) H 01/10/18 06:00 Chloride 103 mmol/L (98-107) 01/10/18 06:00 Carbon Dioxide 29 mmol/L (21-33) 01/10/18 06:00 Anion Gap 11 (10-20) 01/10/18 06:00 BUN 10 mg/dL (7-21) 01/10/18 06:00 Creatinine 0.6 mg/dl (0.7-1.2) L 01/10/18 06:00 Est GFR ( Amer) > 60 01/10/18 06:00 Est GFR (Non-Af Amer) > 60 01/10/18 06:00 Random Glucose 134 mg/dL (70-110) H 01/10/18 06:00 Calcium 9.6 mg/dL (8.4-10.5) 01/10/18 06:00 Phosphorus 6.2 mg/dL (2.5-4.5) H 01/09/18 21:11 Magnesium 2.9 mg/dL (1.7-2.2) H 01/09/18 21:11 Total Bilirubin 0.3 mg/dL (0.2-1.3) 01/09/18 21:11 AST 30 U/L (14-36) 01/09/18 21:11 ALT 32 U/L (7-56) 01/09/18 21:11 Alkaline Phosphatase 85 U/L (38-126) 01/09/18 21:11 Lactate Dehydrogenase 504 U/L (333-699) 01/09/18 21:11 Total Creatine Kinase 122 U/L (35-230) 01/09/18 21:11 Troponin I < 0.01 ng/mL 01/09/18 21:11 Total Protein 6.4 g/dL (5.8-8.3) 01/09/18 21:11 Albumin 3.7 g/dL (3.0-4.8) 01/09/18 21:11 Globulin 2.6 gm/dL 01/09/18 21:11 Albumin/Globulin Ratio 1.4 (1.1-1.8) 01/09/18 21:11 Beta HCG, Quant < 2.39 mIU/mL (0-6.15) 01/09/18 21:11 Alcohol, Quantitative < 10 mg/dL (0-10) 01/09/18 21:11 Influenza Typ A,B (EIA) Negative for flu a/b (NEGATIVE) 01/09/18 23:07 - Hospital Course Hospital Course: PGY1 Discharge Summary and Hospital Course for Dr. Cervantes This is a 27 year old female with PMH of asthma, former tobacco use, former heroin use, and anxiety presenting to hospital for one day history of SOB. Patient states she was sitting in her car at 3pm when she suddenly started to feel short of breath. Patient attempted to alleviate her symptoms by taking her home medications (symbicort and ventolin, however this yielded minimal improvement. Of note, Patient admitted for similar symptoms two weeks ago for one day hospital course. Patient currently does not have PMD due to loss of insurance but previously saw Dr. Randle. Patient is scheduled for appointment at [facility] on to establish care. Of note, Patient has multiple admissions for asthma exacerbation in past and has been intubated once two years ago. Patient has signed out AMA twice in past, as recently as last month. Patient subsequently admitted for asthma exacerbation. Please see chart for more details regarding this Patient's admission. Chest X-ray was obtained and revealed no acute disease. CBC revealed elevated WBC=17.1. Patient was treated with duonebs scheduled and as needed, solumedrol 40mg IVP Q12, brovana, pulmicort, singulair. Today 01/10/18 The patient requested to sign out AGAINST MEDICAL ADVICE. This action is against my medical advice to the patient and the decision was made with informed refusal. The patient was told that further workup is necessary and a full explanation of the rationale was given. The risks of leaving were explained to the patient and include but are not limited to increased morbidity and mortality, , and worsening of known or unknown conditions. Patient was AAOX3 and was able to make this informed decision and understood the clinical situation and my explanation of the risks of leaving. The patient voluntarily accepted these risks and signed an AMA form documenting our conversation. The patient was given the opportunity ask questions and reconsider. The patient was encouraged to return to emergency room at any time for further care. Patient was advised to follow-up with her primary care doctor as soon as possible. Patient seen and case discussed with Dr. Billy Lombardo PGY1 Discharge Exam - Eye Exam Eye Exam: EOMI, Normal appearance, PERRL Pupil Exam: NORMAL ACCOMODATION - ENT Exam ENT Exam: Mucous Membranes Moist - Respiratory Exam Respiratory Exam: Wheezes, Stridor. absent: Accessory Muscle Use, Prolonged Expiratory Phase, Rales, Rhonchi, Respiratory Distress - Cardiovascular Exam Cardiovascular Exam: REGULAR RHYTHM, +S1, +S2 - GI/Abdominal Exam GI & Abdominal Exam: Normal Bowel Sounds, Unremarkable. absent: Distended, Guarding, Rebound, Rigid - Extremities Exam Extremities exam: normal capillary refill, normal inspection, pedal pulses present - Back Exam Back exam: NORMAL INSPECTION - Neurological Exam Neurological exam: Alert, Normal Gait, Oriented x3 - Psychiatric Exam Psychiatric exam: Agitated, Normal Affect, Normal Mood - Skin Skin Exam: Dry, Intact, Normal Color, Warm Discharge Plan - Follow Up Plan Condition: GUARDED Disposition: AGAINST MEDICAL ADVICE Instructions: Asthma (DC), Asthma (GEN) <Bronson Cervantes - Last Filed: 01/12/18 15:55> Provider - Provider Date of Admission: 01/09/18 22:21 Attending physician: Aristeo Martin MD Consults: 01/10/18 02:32 Transition In Care/Readmission Reduction Routine Comment: Physician Instructions: Reason For Exam: admission assessment Hospital Course - Lab Results Lab Results: Most Recent Lab Values WBC 6.6 10^3/uL (4.5-11.0) D 01/10/18 06:00 RBC 5.17 10^6/uL (3.5-6.1) 01/10/18 06:00 Hgb 14.3 g/dL (12.0-16.0) 01/10/18 06:00 Hct 44.4 % (36.0-48.0) 01/10/18 06:00 MCV 85.9 fl (80.0-105.0) 01/10/18 06:00 MCH 27.7 pg (25.0-35.0) 01/10/18 06:00 MCHC 32.2 g/dl (31.0-37.0) 01/10/18 06:00 RDW 13.2 % (11.5-14.5) 01/10/18 06:00 Plt Count 283 10^3/uL (120.0-450.0) 01/10/18 06:00 MPV 10.9 fl (7.0-11.0) 01/10/18 06:00 Sodium 137 mmol/L (132-148) 01/10/18 06:00 Potassium 5.3 mmol/L (3.6-5.0) H 01/10/18 06:00 Chloride 103 mmol/L (98-107) 01/10/18 06:00 Carbon Dioxide 29 mmol/L (21-33) 01/10/18 06:00 Anion Gap 11 (10-20) 01/10/18 06:00 BUN 10 mg/dL (7-21) 01/10/18 06:00 Creatinine 0.6 mg/dl (0.7-1.2) L 01/10/18 06:00 Est GFR ( Amer) > 60 01/10/18 06:00 Est GFR (Non-Af Amer) > 60 01/10/18 06:00 Random Glucose 134 mg/dL (70-110) H 01/10/18 06:00 Calcium 9.6 mg/dL (8.4-10.5) 01/10/18 06:00 Phosphorus 6.2 mg/dL (2.5-4.5) H 01/09/18 21:11 Magnesium 2.9 mg/dL (1.7-2.2) H 01/09/18 21:11 Total Bilirubin 0.3 mg/dL (0.2-1.3) 01/09/18 21:11 AST 30 U/L (14-36) 01/09/18 21:11 ALT 32 U/L (7-56) 01/09/18 21:11 Alkaline Phosphatase 85 U/L (38-126) 01/09/18 21:11 Lactate Dehydrogenase 504 U/L (333-699) 01/09/18 21:11 Total Creatine Kinase 122 U/L (35-230) 01/09/18 21:11 Troponin I < 0.01 ng/mL 01/09/18 21:11 Total Protein 6.4 g/dL (5.8-8.3) 01/09/18 21:11 Albumin 3.7 g/dL (3.0-4.8) 01/09/18 21:11 Globulin 2.6 gm/dL 01/09/18 21:11 Albumin/Globulin Ratio 1.4 (1.1-1.8) 01/09/18 21:11 Procalcitonin < 0.05 NG/ML (0.19-0.49) L 01/10/18 06:00 Beta HCG, Quant < 2.39 mIU/mL (0-6.15) 01/09/18 21:11 Alcohol, Quantitative < 10 mg/dL (0-10) 01/09/18 21:11 Influenza Typ A,B (EIA) Negative for flu a/b (NEGATIVE) 01/09/18 23:07 Attending/Attestation - Attestation I have personally seen and examined this patient.: Yes I have fully participated in the care of the patient.: Yes I have reviewed all pertinent clinical information, including history, physical exam and plan: Yes Notes (Text): This is a 27 year old female with PMH of asthma, former tobacco use, former heroin use, and anxiety presenting to hospital for one day history of SOB. Patient states she was sitting in her car at 3pm when she suddenly started to feel short of breath. Patient attempted to alleviate her symptoms by taking her home medications (symbicort and ventolin, however this yielded minimal improvement. Of note, Patient admitted for similar symptoms two weeks ago for one day hospital course. Patient currently does not have PMD due to loss of insurance but previously saw Dr. Randle. Patient is scheduled for appointment at [facility] on to establish care. Of note, Patient has multiple admissions for asthma exacerbation in past and has been intubated once two years ago. Patient has signed out AMA twice in past, as recently as last month. Patient subsequently admitted for asthma exacerbation. Please see chart for more details regarding this Patient's admission. Chest X-ray was obtained and revealed no acute disease. CBC revealed elevated WBC=17.1. Patient was treated with duonebs scheduled and as needed, solumedrol 40mg IVP Q12, brovana, pulmicort, singulair. Today 01/10/18 The patient requested to sign out AGAINST MEDICAL ADVICE.
--- NOTE | 2018-01-10 18:49 | CARD ---
APPROVED REPORT Date of service: 01/10/2018 EKG Measurement Heart [id number] <Conclusion> Normal sinus rhythm Prolonged QT Abnormal ECG
--- NOTE | 2018-01-10 18:50 | CARD ---
APPROVED REPORT Date of service: 01/09/2018 EKG Measurement Heart [id number] <Conclusion> Sinus rhythm with short NV Possible Left atrial enlargement Nonspecific ST and T wave abnormality Prolonged QT Abnormal ECG
== END 2018-01-10 15:17 | disposition left against medical advice (07) ==
LOC: ED 19:58 → ERH 22:21 → 2RNO 23:52
PROVIDERS: ADMIT Internal Medicine; ATTEND Internal Medicine
DX: J45.901 Unspecified asthma with (acute) exacerbation (principal); F41.9 Anxiety disorder, unspecified; F11.90 Opioid use, unspecified, uncomplicated; Z87.891 Personal history of nicotine dependence; Z91.14 Patient's other noncompliance with medication regimen
CPT/HCPCS: 36415; 71045; 80048; 80053; 82550; 83615; 83735; 84100; 84145; 84484; 84702; 85027; 87804; 93005; 94640; 96374; 96375; 96376; 99285; G0378; G0480; J2920; J2930

== ENCOUNTER 2018-03-01 05:35 | Inpatient (IN) | payer MEDICAID, OTHER ==
[2018-03-01] MEDS: Albuterol-Ipratrop 3 mg / 0.5 (3 ml) UD IH SCH ×5 (07:41→19:59)
[2018-03-01 07:59] LABS: HEMOGLOBIN 15.7 g/dL (12.0-16.0); MEAN CELL VOLUME 88.3 fl (80.0-105.0); MEAN CORPUSCULAR HEMOGLOBIN 28.3 pg (25.0-35.0); MEAN PLATELET VOLUME 11.8 fl (7.0-11.0); PLATELET COUNT 347 10^3/uL (120.0-450.0); RBC 5.55 10^6/uL (3.5-6.1); RED CELL DISTRIBUTION WIDTH 12.8 % (11.5-14.5)
[2018-03-01 08:03] LABS: BLOOD UREA NITROGEN 12 mg/dL (7-21); GFR NON-AFRICAN AMERICAN > 60
[2018-03-01 08:04] LABS: WHITE BLOOD COUNT 29.2 10^3/uL (4.5-11.0)
[2018-03-01 08:05] LABS: CALCIUM 9.7 mg/dL (8.4-10.5)
[2018-03-01 08:06] LABS: ALB/GLOB RATIO 1.5 (1.1-1.8); ALBUMIN 4.7 g/dL (3.0-4.8); ALT/SGPT 31 U/L (7-56); AST/SGOT 44 U/L (14-36); BASOPHIL 2 % (0.0-1.0); EOSINOPHIL 16 % (0.0-3.0); LYMPHOCYTE 35 % (22.0-35.0); MONOCYTE 5 % (1.0-6.0); NEUTROPHIL 42 % (50.0-70.0)
[2018-03-01 08:10] LABS: ARTERIAL BLOOD GAS HCO3 26.5 mmol/L (21-28); ARTERIAL BLOOD GAS PCO2 71 mm/Hg (35-45); ARTERIAL BLOOD GAS PH 7.18 (7.35-7.45)
[2018-03-01 08:11] LABS: ARTERIAL BLOOD GAS FIO2 100 %; ARTERIAL BLOOD GAS O2 SAT 100.9 % (95-98); ARTERIAL BLOOD GAS TCO2 28.7 mmol.L (22-28)
[2018-03-01 08:13] LABS: ARTERIAL BLOOD GAS HCO3 25.5 mmol/L (21-28); ARTERIAL BLOOD GAS PCO2 61 mm/Hg (35-45); ARTERIAL BLOOD GAS PH 7.23 (7.35-7.45)
[2018-03-01 08:14] LABS: ARTERIAL BLOOD GAS FIO2 100 %; ARTERIAL BLOOD GAS O2 SAT 100.9 % (95-98); ARTERIAL BLOOD GAS TCO2 27.4 mmol.L (22-28)
[2018-03-01] MEDS ORDERED: Albuterol-Ipratrop 3 mg / 0.5 (3 ml) UD IH PRN (08:34)
--- NOTE | 2018-03-01 08:34 | CP.PCM.HP ---
<Gregory Wu - Last Filed: 03/01/18 13:25> History of Present Illness - History of Present Illness History of Present Illness: Gregory Wu, PGY1 History and Physical for Dr. Posey Patient is a 27 y/o F with PMHx Asthma, Anxiety, former tobacco and heroin use who presented to the [facility] [place] for shortness of breath. In the ED, vitals showed temp 98.7, HR 124, BP 113/72, RR 34. ABG was done in ED and she was placed on BiPAP. Patient says that she has been having worsening asthma exacerbations lately. Medical team was consulted for evaluation. Patient is AAOx3 and speaking in full sentences. She has frequent night time awakenings, almost every day. It was particularly bad overnight. She uses her ventolin inhaler almost 2-3 times an hour. The last time she took her prednisone tablet was 2 days ago. She has not taken her singulair and symbicort recently as it was not picked up from her pharmacy (spoke to patient's pharmacy). She endorses shortness of breath, which she says is improving since she came to ED. She denies cp, abdominal pain, nausea, vomiting, diarrhea, numbness/tingling in extremities, fever, chills. No sick contacts or recent travel history. Patient says that she was intubated in the past about 3-4 years ago in which she was brought to the ICU. She does not follow up with a primary care physician. Last time she was here, she followed up at [facility]. A full 12 point ROS was conducted and unremarkable except as stated above. PMD: none Pulm: previously Dr. Oleary Pharmacy: [facility] PMHx: Asthma, Anxiety, former tobacco and heroin use SHx: denies All: NKDA Meds: prednisone 20mg daily, singulair 10mg daily, symbicort 160/4.5 2 puffs BID, Ventalin 2 puffs q6h, duonebs q6 SocialHx: former smoker, denies drinking and recent drug use. 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 FHx: HTN in father. Present on Admission - Present on Admission Any Indicators Present on Admission: No Review of Systems - Review of Systems All systems: reviewed and no additional remarkable complaints except (as per HPI.) Past Patient History - Infectious Disease Hx of Infectious Diseases: None - Tetanus Immunizations Tetanus Immunization: Unknown - Past Social History Smoking Status: Former Smoker - CARDIAC Hx Cardiac Disorders: No - PULMONARY Hx Asthma: Yes (has home nebulizer machine) Hx Bronchitis: Yes Hx Pneumonia: Yes - NEUROLOGICAL Hx Neurological Disorder: No - HEENT Hx HEENT Problems: No - RENAL Hx Chronic Kidney Disease: No - ENDOCRINE/METABOLIC Hx Endocrine Disorders: No - HEMATOLOGICAL/ONCOLOGICAL Hx Blood Disorders: No - INTEGUMENTARY Hx Dermatological Problems: No - MUSCULOSKELETAL/RHEUMATOLOGICAL Hx Falls: No - GASTROINTESTINAL Hx Gastrointestinal Disorders: No - GENITOURINARY/GYNECOLOGICAL Hx Genitourinary Disorders: No - PSYCHIATRIC Hx Anxiety: Yes Hx Substance Use: No - SURGICAL HISTORY Hx Cardiac Catheterization: No Hx Coronary Stent: No - ANESTHESIA Hx Anesthesia: No Meds Home Medications: Home Medication List Medication Instructions Recorded Confirmed Type Hydroxyzine Pamoate [Vistaril] 25 mg PO Q8 PRN #9 capsule 03/03/18 Rx Mometasone/Formoterol [Dulera] 2 puff IH BID #2 inh 03/03/18 Rx RX: Albuterol HFA [Ventolin HFA 90 2 puff IH [id number] PRN #2 inh 03/03/18 Rx mcg/actuation (8 g)] RX: Montelukast Sodium [Singulair] 10 mg PO DAILY #30 tablet 03/03/18 Rx predniSONE [Prednisone] See Taper PO DAILY #2 tab 03/03/18 Rx Allergies/Adverse Reactions: Allergies Allergy/AdvReac Type Severity Reaction Status Date / Time No Known Allergies Allergy Verified 12/17/17 01:16 Physical Exam - Constitutional Appears: No Acute Distress - Head Exam Head Exam: ATRAUMATIC, NORMAL INSPECTION, NORMOCEPHALIC - Eye Exam Eye Exam: EOMI - ENT Exam ENT Exam: Mucous Membranes Moist - Neck Exam Neck exam: Positive for: Normal Inspection - Respiratory Exam Respiratory Exam: Wheezes (Diffuse wheezing bilateral on lung exam). absent: Accessory Muscle Use, Chest Wall Tenderness, Rales, Rhonchi - Cardiovascular Exam Cardiovascular Exam: Tachycardia, +S1, +S2 - GI/Abdominal Exam GI & Abdominal Exam: Normal Bowel Sounds, Soft. absent: Firm, Guarding, Rigid, Tenderness - Extremities Exam Extremities exam: Positive for: normal capillary refill, normal inspection, pedal pulses present. Negative for: calf tenderness, joint swelling, tenderness - Back Exam Back exam: NORMAL INSPECTION - Neurological Exam Neurological exam: Alert, Oriented x3 - Psychiatric Exam Psychiatric exam: Normal Affect, Normal Mood - Skin Skin Exam: Dry, Intact, Normal Color, Warm Results - Vital Signs Recent Vital Signs: Last Vital Signs Temp 98.7 F 03/01/18 06:53 Pulse 124 H 03/01/18 06:53 Resp 34 H 03/01/18 06:53 BP 113/72 03/01/18 06:53 Pulse Ox 100 03/01/18 06:53 - Labs Result Diagrams: 03/01/18 06:00 03/01/18 06:00 Labs: Laboratory Results - last 24 hr 03/01/18 03/01/18 03/01/18 05:45 06:00 06:00 WBC 29.2 H* D RBC 5.55 Hgb 15.7 Hct 49.0 H MCV 88.3 MCH 28.3 MCHC 32.0 RDW 12.8 Plt Count 347 MPV 11.8 H Neutrophils % (Manual) 42 L Lymphocytes % (Manual) 35 Monocytes % (Manual) 5 Eosinophils % (Manual) 16 H Basophils % (Manual) 2 H pCO2 71 H* pO2 590.0 H HCO3 26.5 ABG pH 7.18 L* ABG Total CO2 28.7 H ABG O2 Saturation 100.9 H ABG Base Excess -3.6 L ABG Potassium 4.2 Sodium 134.0 140 Chloride 104.0 102 Glucose 201 H Lactate 0.7 FiO2 100 Crit [facility] Blood Gas Notified Time 609 Potassium 4.9 Carbon Dioxide 28 Anion Gap 15 BUN 12 Creatinine 0.9 Est GFR ( Amer) > 60 Est GFR (Non-Af Amer) > 60 Random Glucose 225 H Calcium 9.7 Total Bilirubin 0.3 AST 44 H D ALT 31 Alkaline Phosphatase 71 Total Protein 7.8 Albumin 4.7 Globulin 3.1 Albumin/Globulin Ratio 1.5 Beta HCG, Quant Arterial Blood Potassium 4.2 03/01/18 03/01/18 06:00 06:45 WBC RBC Hgb Hct MCV MCH MCHC RDW Plt Count MPV Neutrophils % (Manual) Lymphocytes % (Manual) Monocytes % (Manual) Eosinophils % (Manual) Basophils % (Manual) pCO2 61 H pO2 532.0 H HCO3 25.5 ABG pH 7.23 L ABG Total CO2 27.4 ABG O2 Saturation 100.9 H ABG Base Excess -3.4 L ABG Potassium 3.9 Sodium 136.0 Chloride 105.0 Glucose 158 H Lactate 0.7 FiO2 100 Crit Value Called By Blood Gas Notified Time Potassium Carbon Dioxide Anion Gap BUN Creatinine Est GFR ( Amer) Est GFR (Non-Af Amer) Random Glucose Calcium Total Bilirubin AST ALT Alkaline Phosphatase Total Protein Albumin Globulin Albumin/Globulin Ratio Beta HCG, Quant < 2.39 Arterial Blood Potassium 3.9 Assessment & Plan - Assessment and Plan (Free Text) Assessment: Patient is a 27 y/o F with PMHx Asthma, Anxiety, former tobacco and heroin use who presented to the [facility] [place]01 for shortness of breath. Patient is admitted for severe asthma exacerbation. Plan: Severe Asthma Exacerbation - impending respiratory failure - ICU consulted for impending respiratory failure - ABG shows acute respiratory acidosis; minimal improvement with repeat ABG - methylprednisolone - duonebs q4h and q2 prn - Echo - Given solumedrol, Mag sulfate, duonebs in ED. Patient also refusing BiPAP. Leukocytosis - r/o PNA - CXR: no infiltrate, consolidation, or evidence of pneumonia. - wbc was 29; may be due to steroid use - azithro and ceftriaxone empiric antibiotic coverage - f/u blood cx and ucx - f/u procal level - Influenza negative Hyperglycemia 2/2 steroid use - glucose was 225 with no hx of DM - will monitor Diet: NPO DVT ppx: heparin sc GI ppx: PTX Dispo: Patient will be managed in the ICU. Will continue to follow patient. Case was discussed and reviewed with Attending Physician, Dr. Posey <Raiza Posey - Last Filed: 03/03/18 15:39> Results - Vital Signs Recent Vital Signs: Last Vital Signs Temp 98.0 F 03/03/18 06:00 Pulse 87 03/03/18 06:00 Resp 20 03/03/18 06:00 BP 103/70 03/03/18 06:00 Pulse Ox 93 L 03/03/18 06:00 - Labs Result Diagrams: 03/02/18 08:50 03/01/18 06:00 Attending/Attestation - Attestation I have personally seen and examined this patient.: Yes I have fully participated in the care of the patient.: Yes I have reviewed all pertinent clinical information: Yes Notes (Text): 03/03/18 15:32 Medical record note made by the resident after discussion with my direction and input after the patient was personally seen and examined by me. I have reviewed the chart and agree that the record accurately reflects by personal performance of the history, physical exam, data review, and medical decision-making, in the course for the patient. I have also personally directed the plan of care. 7 y/o F with PMHx Chronic/Persistent moderate Asthma, Anxiety, non compliance with medication and drug abuse is admitted with acute Hypercapnic Respiratory acidosis due to Asthma exacerbation. Patient is admitted to ICU Will continue Neb/Steroid and antibiotics. WBC is high, no evidence of Pneumonia on Chest X ray, will will follow up cul tures and Procalcitonin. Management plan was discussed in detail with patient. Education was provided. 03/03/18 15:36
[2018-03-01 09:03] LABS: ARTERIAL BLOOD GAS HCO3 25.5 mmol/L (21-28); ARTERIAL BLOOD GAS O2 SAT 99.6 % (95-98); ARTERIAL BLOOD GAS PCO2 53 mm/Hg (35-45); ARTERIAL BLOOD GAS PH 7.29 (7.35-7.45); ARTERIAL BLOOD GAS TCO2 27.1 mmol.L (22-28)
--- NOTE | 2018-03-01 09:42 | RAD ---
Date of service: 03/01/2018 HISTORY: pneumonia COMPARISON: 01/10/2018 FINDINGS: LUNGS: Bilateral hyperaeration-similar. No interval consolidation noted. PLEURA: No significant pleural effusion identified, no pneumothorax apparent. CARDIOVASCULAR: No aortic atherosclerotic calcification present. Normal cardiac size. No pulmonary vascular congestion. OSSEOUS STRUCTURES: No significant abnormalities. VISUALIZED UPPER ABDOMEN: Normal. OTHER FINDINGS: None. IMPRESSION: No active disease. Other findings as above. No interval pathology noted.
[2018-03-01] MEDS ORDERED: cefTRIAXone 1 gm 1 GM/100 ML BAG IVPB SCH (10:00)
--- NOTE | 2018-03-01 12:00 | CARD ---
APPROVED REPORT Date of service: 03/01/2018 EKG Measurement Heart [id number] <Conclusion> Sinus tachycardia Right atrial enlargement Nonspecific ST abnormality Abnormal ECG
[2018-03-01] MEDS: Azithromycin 500MG/NS 250ml 500 MG/250 ML BAG IVPB SCH (12:14)
[2018-03-01] MEDS: MethylPREDNISolone 40 mg Vial IVP SCH ×2 (13:38→21:21)
--- NOTE | 2018-03-01 16:55 | CARD ---
APPROVED REPORT Date of service: 03/01/2018 EXAM: Two-dimensional and M-mode echocardiogram with Doppler and color Doppler. INDICATION Dyspnea 2D DIMENSIONS Left Atrium (2D)2.8 (1.6-4.0cm)IVSd0.9 (0.7-1.1cm) LVDd4.2 (3.9-5.9cm)PWd0.9 (0.7-1.1cm) LVDs2.9 (2.5-4.0cm)FS (%) 31.8 % LVEF (%)60.3 (>50%) M-Mode DIMENSIONS Aortic Root3.20 (2.2-3.7cm)Aortic Cusp Exc.2.00 (1.5-2.0cm) Aortic Valve AoV Peak Kzkwkolo103.0cm/Elvin Peak GR.8mmHg Mitral Valve E/A ratio0.0 TDI E/Lateral E'0.0E/Medial E'0.0 Pulmonary Valve PV Peak Cikdscsh84.7cm/sPV Peak Grad.4mmHg LEFT VENTRICLE The left ventricle is normal size. There is normal left ventricular wall thickness. The left ventricular function is normal. The left ventricular ejection fraction is within the normal range. There is normal LV segmental wall motion. RIGHT VENTRICLE The right ventricle is normal size. There is normal right ventricular wall thickness. The right ventricular systolic function is normal. ATRIA The left atrium size is normal. The right atrium size is normal. AORTIC VALVE The aortic valve is not well visualized. No aortic regurgitation is present. There is no aortic valvular stenosis. MITRAL VALVE The mitral valve is not well visualized. There is no mitral valve regurgitation noted. There is no mitral valve stenosis. TRICUSPID VALVE The tricuspid valve is normal in structure. PULMONIC VALVE There is trace pulmonic valvular regurgitation. GREAT VESSELS The aortic root is normal in size. PERICARDIAL EFFUSION There is no pericardial effusion. <Conclusion> The left ventricle is normal size. There is normal left ventricular wall thickness. The left ventricular function is normal. The left ventricular ejection fraction is within the normal range. There is normal LV segmental wall motion.
--- NOTE | 2018-03-01 18:38 | CON ---
DATE: 03/01/2018 HISTORY OF PRESENT ILLNESS: This is a 27-year-old lady with history of severe asthma, several admissions to hospital for asthma exacerbation over the last year, noncompliant with inhaled corticosteroids at home, who presented with 3 days of increased shortness of breath and wheezing. The patient reports that she had similar symptoms before when she was diagnosed with asthma exacerbation. Of note, the patient reports almost nightly awakening due to wheezing and shortness of breath and need to use rescue inhaler/nebulizers to alleviate the shortness of breath. She also uses almost hourly rescue inhalers during the daytime and that has been going on for almost a month preceding to this admission to ER. She states that her asthma was poorly controlled over the last year as well. She denies fever, chills, sweats, nausea, vomiting, diarrhea, constipation. No chest pain. PAST MEDICAL HISTORY: Anxiety and asthma since childhood. SOCIAL HISTORY: The patient is ex-smoker, she quit about 2 years ago and used to smoke for 3 years prior to that. No alcohol or illicit drug abuse. FAMILY HISTORY: Noncontributory. MEDICATION AT HOME: Only rescue inhalers. REVIEW OF SYSTEMS: Review of 12-organ system other than mentioned in history of present illness is negative. ALLERGIES: NKDA. PHYSICAL EXAMINATION: VITAL SIGNS: Heart rate 124 (the patient just received DuoNeb), temperature 98.7, blood pressure 113/72, respiratory rate 20. Oxygen saturation 100% on 5 liters per minute. ENT: Head and neck atraumatic. LUNGS: Scattered diffuse wheezes bilaterally. HEART: Regular rate and rhythm. S1, S2 distant. ABDOMEN: Soft, nontender, nondistended. MUSCULOSKELETAL: No C/C/E. NEUROLOGIC: The patient moves all extremities spontaneously. SKIN: Moist. PSYCHIATRIC: The patient is alert, awake and oriented x3. She does not appear to be in respiratory distress. She does not have paradoxical breathing, abdominal breathing or accessory muscle use for breathing. LABORATORY DATA: WBC 29.2, eosinophil 16% (normal 0-3%), hemoglobin 15.7, platelet count 347. Sodium 140, potassium 4.9, chloride 102, carbon dioxide 28, BUN 12, creatinine 0.9, glucose 225, AST 44, ALT 31, total bilirubin 0.3. Beta hCG less than 2.39. Blood gas: 7.23 (up from 7.18), pCO2 of 61 (down from 71). Lactic acid 0.7. Chest x-ray, no active pulmonary disease, some hyperinflation, no distinct infiltrate. ASSESSMENT AND PLAN: This is a 27-year-old lady who presented with asthma exacerbation in the setting of severe asthma and inhaled corticosteroid noncompliance at home. At present time, we will proceed with IV steroids, bronchodilators. As the patient has significant leukocytosis and chest x-ray is not very sensitive to rule out community-acquired pneumonia, I will start the patient on ceftriaxone and azithromycin for now empirically and we will proceed with some general septic workup including blood culture and urine culture. However, if septic workup would be unrevealing and chest x-ray would not change tomorrow, I will stop antibiotics as well. The patient refused BiPAP, however, appears to be doing better clinically and her blood gas substantially improving. Despite her retaining CO2, she is not in respiratory distress, talks full sentences, able to provide all history, comfortable. I will get the patient to the ICU for further management and monitoring. I will have low threshold for intubation; however, we will try to avoid it as much as possible. We will continue with deep venous thrombosis, gastrointestinal prophylaxis. We will maintain euvolemia, euglycemia, normothermia and oxygen saturation more than 90%. I will get the echocardiogram to rule out cardiac origin of the patient's frequent asthma exacerbation. She will have to be seen by senior maintenance mechanic after discharge. We will also get influenza A and B serology ccm time 40 min. Lazarus Curry MD [facility]
--- NOTE | 2018-03-01 22:49 | CARD ---
APPROVED REPORT Date of service: 03/01/2018 EKG Measurement Heart [id number] <Conclusion> Sinus tachycardia Minor intraventricular conduction delay of RBBB type Nonspecific ST and T wave abnormality Abnormal ECG
[2018-03-02] MEDS: Albuterol-Ipratrop 3 mg / 0.5 (3 ml) UD IH SCH ×4 (04:38→13:43)
[2018-03-02] MEDS: Pantoprazole 40 mg EC Tab PO SCH (05:24)
[2018-03-02] MEDS: MethylPREDNISolone 40 mg Vial IVP SCH ×3 (05:24→17:28)
[2018-03-02 08:54] LABS: HEMOGLOBIN 14.3 g/dL (12.0-16.0); MEAN CELL VOLUME 85.2 fl (80.0-105.0); MEAN CORPUSCULAR HEMOGLOBIN 28.3 pg (25.0-35.0); MEAN CORPUSCULAR HGB CONC 33.2 g/dl (31.0-37.0); RBC 5.06 10^6/uL (3.5-6.1); RED CELL DISTRIBUTION WIDTH 12.8 % (11.5-14.5); WHITE BLOOD COUNT 15.5 10^3/uL (4.5-11.0)
[2018-03-02] MEDS: Azithromycin 500MG/NS 250ml 500 MG/250 ML BAG IVPB SCH (10:24)
[2018-03-02] MEDS ORDERED: MethylPREDNISolone 40 mg Vial ONE (10:25)
--- NOTE | 2018-03-02 12:25 | CP.CCUPN ---
<Edwar Colin - Last Filed: 03/02/18 12:19> CCU Subjective - Physician Review Subjective (Free Text): 03/02/18 12:19 Edwar Colin PGY1 Critical Care Progress Note Patient seen and examined this morning. No acute events overnight. Patient is resting comfortably, speaking in full sentences without restriction. Patient states she is eating and sleeping without complaint and denies CP, SOB, headaches, fevers, nausea, vomiting and urinary complaints. Transfer to remote tele today. CCU Objective - Vital Signs / Intake & Output Intake and Output (Last 8hrs): Intake & Output 03/01/18 03/02/18 03/02/18 22:59 06:59 14:59 Intake Total 600 Balance 600 Weight 122 lb Intake: IV 350 Left Hand 350 Oral 250 - Physical Exam Head: Positive for: Atraumatic, Normocephalic Pupils: Positive for: PERRL Extroacular Muscles: Positive for: EOMI Conjunctiva: Positive for: Normal Mouth: Positive for: Moist Mucous Membranes Pharnyx: Positive for: Normal Neck: Positive for: Normal Range of Motion Respiratory/Chest: Positive for: Clear to Auscultation, Good Air Exchange. Negative for: Respiratory Distress, Accessory Muscle Use, Wheezes, Rhonchi, Tachypneic Cardiovascular: Positive for: Regular Rate and Rhythm, Normal S1, S2 Abdomen: Positive for: Normal Bowel Sounds. Negative for: Tenderness, Rebound, Guarding Back: Positive for: Normal Inspection Upper Extremity: Positive for: Normal Inspection, NORMAL PULSES Lower Extremity: Positive for: Normal Inspection, NORMAL PULSES. Negative for: CALF TENDERNESS Neurological: Positive for: CN II-XII Intact Skin: Positive for: Warm, Dry Psychiatric: Positive for: Alert, Oriented x 3 - Medications Active Medications: Active Medications Generic Name Dose Route Start Last Admin Trade Name Freq PRN Reason Stop Dose Admin Acetaminophen 650 mg 03/01/18 12:58 03/01/18 13:35 Tylenol 325mg Tab PO 650 mg Q6H PRN Administration Headache Albuterol/Ipratropium 3 ml 03/01/18 08:34 Duoneb 3 Mg/0.5 Mg (3 Ml) Ud IH Q2H PRN Shortness of Breath Albuterol/Ipratropium 3 ml 03/02/18 14:00 Duoneb 3 Mg/0.5 Mg (3 Ml) Ud IH [id number] LISA Arformoterol Tartrate 15 mcg 03/02/18 20:00 Brovana IH [id number] LISA Budesonide 0.5 mg 03/02/18 20:00 Pulmicort Respules IH [id number] LISA Heparin Sodium (Porcine) 5,000 units 03/01/18 08:45 03/02/18 10:05 Heparin SC Not Given Q8H LISA Protocol Azithromycin 500 mg in 250 mls @ 167 mls/hr 03/01/18 10:00 03/02/18 10:24 Zithromax 500mg In Ns IVPB 167 mls/hr DAILY LISA Administration Protocol Ibuprofen 400 mg 03/01/18 15:15 03/01/18 17:42 Motrin Tab PO 400 mg Q6H PRN Administration Pain, moderate (4-7) Methylprednisolone 20 mg 03/02/18 08:59 03/02/18 10:23 Solu-Medrol IVP 20 mg Q8H LISA Administration Pantoprazole Sodium 40 mg 03/02/18 06:00 03/02/18 05:24 Protonix Ec Tab PO 40 mg 0600 LISA Administration - Patient Studies Lab Studies: Lab Studies 03/02/18 03/01/18 Range/Units 08:50 09:30 WBC 15.5 H D (4.5-11.0) 10^3/uL RBC 5.06 (3.5-6.1) 10^6/uL Hgb 14.3 (12.0-16.0) g/dL Hct 43.1 (36.0-48.0) % MCV 85.2 D (80.0-105.0) fl MCH 28.3 (25.0-35.0) pg MCHC 33.2 (31.0-37.0) g/dl RDW 12.8 (11.5-14.5) % Plt Count 220 (120.0-450.0) 10^3/uL MPV 11.0 (7.0-11.0) fl Procalcitonin < 0.05 L (0.19-0.49) NG/ML Laboratory Results - last 24 hr 03/01/18 03/02/18 09:30 08:50 WBC 15.5 H D RBC 5.06 Hgb 14.3 Hct 43.1 MCV 85.2 D MCH 28.3 MCHC 33.2 RDW 12.8 Plt Count 220 MPV 11.0 Procalcitonin < 0.05 L EKG/Cardiology Studies: Cardiology / EKG Studies 03/01/18 20:19 EKG [ELECTROCARDIOGRAM] Stat Comment: Reason For Exam: SOB Critical Care Progress Note - Nutrition Nutrition: Nutrition Category Date Time Status Regular Diet [DIET] Diets 03/02/18 Breakfast Ordered Assessment/Plan - Assessment and Plan (Free Text) Assessment: This is a 27 year old female with PMH of severe asthma, multiple admission for asthma exacerbation, medication non compliance, and history of one intubatino 4 years ago due to asthma presenting to the hospital for severe persistent asthma. Transfer to remote tele today. Patient refusing blood work. Plan: Neuro: -maintain normothermia -AAO x3, moving extremities spontaneously past midline Cardio: -maintain MAP>65 -will monitor vitals including HR and BP closely Lungs: Severe persistent asthma 2/2 medication non compliance -SaO2 >90% -supplementary O2 PRN -duonebs PRN/lisa -brovana, pulmicort -continue solumedrol IV 20 q8 -CXR yesterday shows no active disease Renal: -maintain euvolemia -avoid nephrotoxic agents, hypochloremia -replace electrolytes as needed -BUN/Cr WNL 12/0.9 -ABG yesterday showed primary respiratory acidosis with metabolic acidosis Heme: -Hg today is 14 WNL, will monitor -DVT ppx with heparin Endo: -maintain euglycemia, glucose elevated at 225 today ID: -WBC is 15.5 today from 29 yesterday, afebrile -urine culture, MRSA screen pending -day 2 zithromax -procalc is < 0.05 GI: -GI prophylaxis with protonix Patient seen and case discussed with attending, Dr. Curry <Lazarus Curry - Last Filed: 03/02/18 14:41> CCU Objective - Vital Signs / Intake & Output Intake and Output (Last 8hrs): Intake & Output 03/01/18 03/02/18 03/02/18 22:59 06:59 14:59 Intake Total 600 Balance 600 Weight 122 lb Intake: IV 350 Left Hand 350 Oral 250 - Medications Active Medications: Active Medications Generic Name Dose Route Start Last Admin Trade Name Freq PRN Reason Stop Dose Admin Acetaminophen 650 mg 03/01/18 12:58 03/01/18 13:35 Tylenol 325mg Tab PO 650 mg Q6H PRN Administration Headache Albuterol/Ipratropium 3 ml 03/01/18 08:34 Duoneb 3 Mg/0.5 Mg (3 Ml) Ud IH Q2H PRN Shortness of Breath Albuterol/Ipratropium 3 ml 03/02/18 14:00 03/02/18 13:43 Duoneb 3 Mg/0.5 Mg (3 Ml) Ud IH Not Given [id number] LISA Arformoterol Tartrate 15 mcg 03/02/18 20:00 Brovana IH [id number] LISA Budesonide 0.5 mg 03/02/18 20:00 Pulmicort Respules IH [id number] LISA Heparin Sodium (Porcine) 5,000 units 03/01/18 08:45 03/02/18 10:05 Heparin SC Not Given Q8H LISA Protocol Azithromycin 500 mg in 250 mls @ 167 mls/hr 03/01/18 10:00 03/02/18 10:24 Zithromax 500mg In Ns IVPB 167 mls/hr DAILY LISA Administration Protocol Ibuprofen 400 mg 03/01/18 15:15 03/01/18 17:42 Motrin Tab PO 400 mg Q6H PRN Administration Pain, moderate (4-7) Methylprednisolone 20 mg 03/02/18 08:59 03/02/18 10:23 Solu-Medrol IVP 20 mg Q8H LISA Administration Pantoprazole Sodium 40 mg 03/02/18 06:00 03/02/18 05:24 Protonix Ec Tab PO 40 mg 0600 LISA Administration - Patient Studies Lab Studies: Lab Studies 03/02/18 03/01/18 Range/Units 08:50 09:30 WBC 15.5 H D (4.5-11.0) 10^3/uL RBC 5.06 (3.5-6.1) 10^6/uL Hgb 14.3 (12.0-16.0) g/dL Hct 43.1 (36.0-48.0) % MCV 85.2 D (80.0-105.0) fl MCH 28.3 (25.0-35.0) pg MCHC 33.2 (31.0-37.0) g/dl RDW 12.8 (11.5-14.5) % Plt Count 220 (120.0-450.0) 10^3/uL MPV 11.0 (7.0-11.0) fl Procalcitonin < 0.05 L (0.19-0.49) NG/ML Laboratory Results - last 24 hr 03/01/18 03/02/18 09:30 08:50 WBC 15.5 H D RBC 5.06 Hgb 14.3 Hct 43.1 MCV 85.2 D MCH 28.3 MCHC 33.2 RDW 12.8 Plt Count 220 MPV 11.0 Procalcitonin < 0.05 L EKG/Cardiology Studies: Cardiology / EKG Studies 03/01/18 20:19 EKG [ELECTROCARDIOGRAM] Stat Comment: Reason For Exam: SOB Critical Care Progress Note - Nutrition Nutrition: Nutrition Category Date Time Status Regular Diet [DIET] Diets 03/02/18 Breakfast Ordered Attending/Attestation - Attestation I have personally seen and examined this patient.: Yes I have fully participated in the care of the patient.: Yes I have reviewed all pertinent clinical information: Yes Notes (Text): 03/02/18 14:30 27 yo female with severe persistent eosinophilic asthma was admitted for severe asthma exacerbation, however responded to continious nebs and steroid taper. started on pulmicort/brovana, johnnie/tracee weaned off. no wheezes, alert, awake and oriented x 3. uneventful night. refused ABG and urine drug screen. echo--unremarkable, BC- neg so far, ceftriaxone stopped. will peel off azithro (GAVIN trial) by tomorrow. dvt/gi prophylaxis when discharged home, needs to see pulm as an outpatient within a week, needs to have ICS/LABA on board and educated how to use inhaler device, peakflow and educated how to use it (it also has also insert/diary to record variation). infection prophyalxis with vaccination. ccm time 40 min
--- NOTE | 2018-03-02 16:03 | CP.PCM.PN ---
<Gregory Wu - Last Filed: 03/02/18 16:00> Subjective - Date & Time of Evaluation Date of Evaluation: 03/02/18 Time of Evaluation: 08:00 - Subjective Subjective: Gregory Wu PGY1 Medicine Progress Note for Dr. Posey Patient was seen and examined at bedside this morning. Vital signs are stable. Denies chest pain, abdominal pain, nausea, vomiting, fevers, chills, numbness and tingling. She says she feels much improved from yesterday. A full 12 point ROS was conducted and unremarkable except as stated above. Objective - Vital Signs/Intake and Output Vital Signs (last 24 hours): Temp Pulse Resp BP Pulse Ox 98.6 F 95 H 17 117/64 78 L 03/02/18 06:00 03/02/18 06:00 03/02/18 06:00 03/01/18 14:00 03/01/18 20:50 - Medications Medications: Current Medications Acetaminophen (Tylenol 325mg Tab) 650 mg PO Q6H PRN PRN Reason: Headache Last Admin: 03/01/18 13:35 Dose: 650 mg Albuterol/Ipratropium (Duoneb 3 Mg/0.5 Mg (3 Ml) Ud) 3 ml IH Q2H PRN PRN Reason: Shortness of Breath Albuterol/Ipratropium (Duoneb 3 Mg/0.5 Mg (3 Ml) Ud) 3 ml IH [id number] CURTIS Last Admin: 03/02/18 13:43 Dose: Not Given Arformoterol Tartrate (Brovana) 15 mcg IH [id number] [facility] Budesonide (Pulmicort Respules) 0.5 mg IH [id number] [facility] Heparin Sodium (Porcine) (Heparin) 5,000 units SC Q8H [facility]; Protocol Last Admin: 03/02/18 10:05 Dose: Not Given Azithromycin (Zithromax 500mg In Ns) 500 mg in 250 mls @ 167 mls/hr IVPB DAILY [facility]; Protocol Last Admin: 03/02/18 10:24 Dose: 167 mls/hr Ibuprofen (Motrin Tab) 400 mg PO Q6H PRN PRN Reason: Pain, moderate (4-7) Last Admin: 03/01/18 17:42 Dose: 400 mg Methylprednisolone (Solu-Medrol) 20 mg IVP Q8H [facility] Last Admin: 03/02/18 10:23 Dose: 20 mg Pantoprazole Sodium (Protonix Ec Tab) 40 mg PO 0600 [facility] Last Admin: 03/02/18 05:24 Dose: 40 mg - Labs Labs: 03/02/18 08:50 03/01/18 06:00 - Constitutional Appears: No Acute Distress - Head Exam Head Exam: ATRAUMATIC, NORMAL INSPECTION, NORMOCEPHALIC - Eye Exam Eye Exam: EOMI, Normal appearance Pupil Exam: NORMAL ACCOMODATION - ENT Exam ENT Exam: Mucous Membranes Moist - Neck Exam Neck Exam: Full ROM, Normal Inspection. absent: Lymphadenopathy - Respiratory Exam Respiratory Exam: Wheezes (bilateral lung bases wheezing ). absent: Chest Wall Tenderness, Rales, Rhonchi - Cardiovascular Exam Cardiovascular Exam: REGULAR RHYTHM, +S1, +S2 - GI/Abdominal Exam GI & Abdominal Exam: Soft, Normal Bowel Sounds. absent: Mass, Rebound - Extremities Exam Extremities Exam: Full ROM, Normal Capillary Refill, Normal Inspection. absent: Joint Swelling, Pedal Edema - Back Exam Back Exam: NORMAL INSPECTION - Neurological Exam Neurological Exam: Alert, Awake, CN II-XII Intact, Normal Gait, Oriented x3 - Psychiatric Exam Psychiatric exam: Normal Affect, Normal Mood - Skin Skin Exam: Dry, Intact, Normal Color, Warm Assessment and Plan - Assessment and Plan (Free Text) Assessment: Patient is a 27 y/o F with PMHx Asthma, Anxiety, former tobacco and heroin use who presented to the [facility] on 03/01 for shortness of breath. Patient is admitted for severe asthma exacerbation. Plan: Severe Asthma Exacerbation - improved - c/w duonebs q4h and q2 prn - methylprednisolone tapered down to 20mg q8 - ICU consulted. Recs appreciated - Improved respiratory acidosis - c/w duonebs q4h and q2 prn - Echo shows EF 60% with no abnormalities - Patient also has anxiety which worsens exacerbation; Psych consulted for anxiety and also poor insight in regards to her medical condition - Patient refuses BiPAP Leukocytosis likely due to steroid use - improved - wbc was 29; downtrend to 15.5 today - discontinued rocephin - c/w azithro - Influenza negative - Procal negative - CXR was negative for pneumonia Hyperglycemia 2/2 steroid use - monitor - no anion gap - glucose was 225 on admission with no hx of DM Diet: Regular diet DVT ppx: heparin sc GI ppx: PTX Dispo: Discussed with ICU team that patient may be transferred to the floor. She does not need telemetry. Case was discussed and reviewed with Attending Physician, Dr. Posey <Raiza Posey - Last Filed: 03/03/18 15:40> Objective - Vital Signs/Intake and Output Vital Signs (last 24 hours): Temp Pulse Resp BP Pulse Ox 98.0 F 87 20 103/70 93 L 03/03/18 06:00 03/03/18 06:00 03/03/18 06:00 03/03/18 06:00 03/03/18 06:00 Intake and Output: 03/03/18 03/03/18 06:59 18:59 Intake Total 0 Output Total 400 Balance -400 - Labs Labs: 03/02/18 08:50 03/01/18 06:00 Attending/Attestation - Attestation I have personally seen and examined this patient.: Yes I have fully participated in the care of the patient.: Yes I have reviewed all pertinent clinical information, including history, physical exam and plan: Yes Notes (Text): 03/03/18 15:40 Medical record note made by the resident after discussion with my direction and input after the patient was personally seen and examined by me. I have reviewed the chart and agree that the record accurately reflects by personal performance of the history, physical exam, data review, and medical decision-making, in the course for the patient. I have also personally directed the plan of care.
[2018-03-02] MEDS ORDERED: Arformoterol 15 mcg/2 ml Inh Sol IH SCH (20:00)
[2018-03-02] MEDS ORDERED: Budesonide 0.5 mg/2 ml Inhal Susp UD IH SCH (20:00)
[2018-03-03] MEDS: MethylPREDNISolone 40 mg Vial IVP SCH ×2 (00:09→09:23)
[2018-03-03] MEDS: Albuterol-Ipratrop 3 mg / 0.5 (3 ml) UD IH SCH ×2 (03:11→07:53)
[2018-03-03] MEDS ORDERED: Magnesium Hydroxide Susp 30 ml UD PO ONE (03:20)
[2018-03-03] MEDS: Pantoprazole 40 mg EC Tab PO SCH (05:55)
[2018-03-03 07:24] VITALS: BP 103/70; PULSE 87; RESP 20; TEMP 98; O2SAT 93
[2018-03-03] MEDS: Azithromycin 500MG/NS 250ml 500 MG/250 ML BAG IVPB SCH (09:31)
[2018-03-03] MEDS ORDERED: MethylPREDNISolone 40 mg Vial IVP SCH (12:30)
--- NOTE | 2018-03-03 13:51 | CP.PCM.DIS ---
<BryceGregory - Last Filed: 03/03/18 15:46> Provider - Provider Date of Admission: 03/01/18 06:55 Attending physician: Raiza Posey MD Consults: 03/01/18 08:34 Physiatry Consult Routine Comment: Consulting Provider: Lazarus Curry Consulting Physician: Lazarus Curry Reason for Consult: Severe asthma exacerbation 03/02/18 08:29 Consult [Physician Consult] Routine Comment: Consulting Provider: Becka Coreas Consulting Physician: Becka Coreas Reason for Consult: anxiety/depression, poor insight to medical condition Time Spent in preparation of Discharge (in minutes): 35 Hospital Course - Lab Results Lab Results: Micro Results 03/01/18 11:00 Naris MRSA Culture (Admit) - Final MRSA NOT DETECTED Most Recent Lab Values WBC 15.5 10^3/uL (4.5-11.0) H D 03/02/18 08:50 RBC 5.06 10^6/uL (3.5-6.1) 03/02/18 08:50 Hgb 14.3 g/dL (12.0-16.0) 03/02/18 08:50 Hct 43.1 % (36.0-48.0) 03/02/18 08:50 MCV 85.2 fl (80.0-105.0) D 03/02/18 08:50 MCH 28.3 pg (25.0-35.0) 03/02/18 08:50 MCHC 33.2 g/dl (31.0-37.0) 03/02/18 08:50 RDW 12.8 % (11.5-14.5) 03/02/18 08:50 Plt Count 220 10^3/uL (120.0-450.0) 03/02/18 08:50 MPV 11.0 fl (7.0-11.0) 03/02/18 08:50 Neutrophils % (Manual) 42 % (50.0-70.0) L 03/01/18 06:00 Lymphocytes % (Manual) 35 % (22.0-35.0) 03/01/18 06:00 Monocytes % (Manual) 5 % (1.0-6.0) 03/01/18 06:00 Eosinophils % (Manual) 16 % (0.0-3.0) H 03/01/18 06:00 Basophils % (Manual) 2 % (0.0-1.0) H 03/01/18 06:00 pCO2 53 mm/Hg (35-45) H 03/01/18 08:45 pO2 120.0 mm/Hg (80-100) H 03/01/18 08:45 HCO3 25.5 mmol/L (21-28) 03/01/18 08:45 ABG pH 7.29 (7.35-7.45) L 03/01/18 08:45 ABG Total CO2 27.1 mmol.L (22-28) 03/01/18 08:45 ABG O2 Saturation 99.6 % (95-98) H 03/01/18 08:45 ABG Base Excess -1.9 mmol/L (-2.0-3.0) 03/01/18 08:45 ABG Potassium 3.9 mmol/L (3.6-5.2) 03/01/18 08:45 Sodium 134.0 mmol/L (132-148) 03/01/18 08:45 Chloride 104.0 mmol/L (98-107) 03/01/18 08:45 Glucose 143 mg/dl (65-105) H 03/01/18 08:45 Lactate 1.3 mmol/L (0.7-2.1) 03/01/18 08:45 FiO2 40.0 % 03/01/18 08:45 Crit Value Called By Agustin 03/01/18 05:45 Blood Gas Notified Time 609 03/01/18 05:45 Sodium 140 mmol/L (132-148) 03/01/18 06:00 Potassium 4.9 mmol/L (3.6-5.0) 03/01/18 06:00 Chloride 102 mmol/L (98-107) 03/01/18 06:00 Carbon Dioxide 28 mmol/L (21-33) 03/01/18 06:00 Anion Gap 15 (10-20) 03/01/18 06:00 BUN 12 mg/dL (7-21) 03/01/18 06:00 Creatinine 0.9 mg/dl (0.7-1.2) 03/01/18 06:00 Est GFR ( Amer) > 60 03/01/18 06:00 Est GFR (Non-Af Amer) > 60 03/01/18 06:00 Random Glucose 225 mg/dL (70-110) H 03/01/18 06:00 Calcium 9.7 mg/dL (8.4-10.5) 03/01/18 06:00 Total Bilirubin 0.3 mg/dL (0.2-1.3) 03/01/18 06:00 AST 44 U/L (14-36) H D 03/01/18 06:00 ALT 31 U/L (7-56) 03/01/18 06:00 Alkaline Phosphatase 71 U/L (38-126) 03/01/18 06:00 Total Protein 7.8 g/dL (5.8-8.3) 03/01/18 06:00 Albumin 4.7 g/dL (3.0-4.8) 03/01/18 06:00 Globulin 3.1 gm/dL 03/01/18 06:00 Albumin/Globulin Ratio 1.5 (1.1-1.8) 03/01/18 06:00 Procalcitonin < 0.05 NG/ML (0.19-0.49) L 03/01/18 09:30 Beta HCG, Quant < 2.39 mIU/mL (0-6.15) 03/01/18 06:00 Arterial Blood Potassium 3.9 mmol/L (3.6-5.2) 03/01/18 08:45 Influenza Typ A,B (EIA) Negative for flu a/b (NEGATIVE) 03/01/18 09:45 - Hospital Course Hospital Course: Gregory Wu, PGY1 Discharge Summary for Dr. Posey Patient is a 27 y/o F with PMHx Asthma, Anxiety, former tobacco and heroin use who presented to the [facility] on 03/01 for shortness of breath. In the ED, patient was afebrile, tachycardic, and tachypnic. Patient was placed on BiPAP. ABG showed signs of respiratory acidosis. Medical team was consulted for evaluation. Patient was admitted for severe asthma exacerbation. Patient explained that she has frequent night time awakenings, almost every day and has to use her rescue inhaler multiple times a day. Patient is not compliant with her asthma medications. Given patient's respiratory acidosis, ICU was concerned for impending respiratory failure. Patient has history of being intubated in the past approximately 3 years ago. Patient refused BiPAP during her hospital course and used nasal cannula intermittently. Her respiratory status improved on repeat ABG. Patient was placed on nebulizers, steroids, and antibiotics during hospital course. She had leukocytosis however there was no suspicious source for pneumonia. Leukocytosis was likely secondary to steroid use. Clinically, patient's wheezing improved during hospital course. She is breathing comfortably on room air. Patient basically has severe persistent asthma. Upon reviewing all labs, vitals, and imaging patient is hemodynamically stable and safe for discharge. She completed her antibiotic course. She will follow up at the [facility] clinic as outpatient and make an appointment with Real Estate Investment Analyst upon discharge. She was also seen by Psychiatrist during her admission for her anxiety and given Vistaril as needed. Patient was educated on medication compliance upon her discharge; she verbalized understanding. Discharge Exam - Head Exam Head Exam: ATRAUMATIC, NORMAL INSPECTION, NORMOCEPHALIC - Eye Exam Eye Exam: Normal appearance - ENT Exam ENT Exam: Mucous Membranes Moist - Respiratory Exam Respiratory Exam: Clear to PA & Lateral, Wheezes (Mild wheezing at lung bases. Improved from admission. ). absent: Chest Wall Tenderness, Rales, Rhonchi - Cardiovascular Exam Cardiovascular Exam: RRR, +S1, +S2 - GI/Abdominal Exam GI & Abdominal Exam: Soft. absent: Distended, Firm, Guarding, Organomegaly, Rebound, Rigid, Tenderness - Extremities Exam Extremities exam: full ROM, normal capillary refill, normal inspection, pedal pulses present - Neurological Exam Neurological exam: Alert, CN II-XII Intact, Oriented x3 - Psychiatric Exam Psychiatric exam: Normal Affect, Normal Mood - Skin Skin Exam: Dry, Intact, Normal Color, Warm Discharge Plan - Discharge Medications Prescriptions: RX: Albuterol HFA [Ventolin HFA 90 mcg/actuation (8 g)] 2 puff IH [id number] PRN #2 inh PRN Reason: Shortness Of Breath Hydroxyzine Pamoate [Vistaril] 25 mg PO Q8 PRN #9 capsule PRN Reason: Anxiety Mometasone/Formoterol [Dulera] 2 puff IH BID #2 inh RX: Montelukast Sodium [Singulair] 10 mg PO DAILY #30 tablet predniSONE [Prednisone] See Taper PO DAILY #2 tab - Follow Up Plan Condition: GOOD Disposition: HOME/ ROUTINE Instructions: Asthma, Adult (DC), Anxiety, Adult (DC) Additional Instructions: 1. Please follow up with Dr. Temple at our [facility] on Tuesday, 03/06 at 1:30 pm. - Please obtain PFTs from Dr. Temple. Once you have PFTs, you can follow up with the Real Estate Investment Analyst (Dr. Curry) at the [facility] for evaluation. 2. You will be discharged home with: - Ventolin inhaler 2 puff every 6 hours as needed - Dulera inhaler 2 puff twice a day - Singular 10mg tablet daily - Prednisone taper: - 40 mg tablet for days 1-2 - 30 mg tablet for days 3-4 - 20 mg tablet for days 5-6 - 10 mg tablet for day 7 - 5 mg tablet for day 8 - Vistaril 25 mg tablet every 8 hours as needed for anxiety 3. Recommend you follow up with Psychiatrist as outpatient for anxiety. 4. Please return to the nearest Emergency Department if your symptoms worsen. <Raiza Posey - Last Filed: 03/03/18 17:10> Provider - Provider Date of Admission: 03/01/18 06:55 Attending physician: Raiza Posey MD Consults: 03/01/18 08:34 Physiatry Consult Routine Comment: Consulting Provider: Lazarus Curry Consulting Physician: Lazarus Curry Reason for Consult: Severe asthma exacerbation 03/02/18 08:29 Consult [Physician Consult] Routine Comment: Consulting Provider: Becka Coreas Consulting Physician: Becka Coreas Reason for Consult: anxiety/depression, poor insight to medical condition Hospital Course - Lab Results Lab Results: Micro Results 03/01/18 11:00 Naris MRSA Culture (Admit) - Final MRSA NOT DETECTED Most Recent Lab Values WBC 15.5 10^3/uL (4.5-11.0) H D 03/02/18 08:50 RBC 5.06 10^6/uL (3.5-6.1) 03/02/18 08:50 Hgb 14.3 g/dL (12.0-16.0) 03/02/18 08:50 Hct 43.1 % (36.0-48.0) 03/02/18 08:50 MCV 85.2 fl (80.0-105.0) D 03/02/18 08:50 MCH 28.3 pg (25.0-35.0) 03/02/18 08:50 MCHC 33.2 g/dl (31.0-37.0) 03/02/18 08:50 RDW 12.8 % (11.5-14.5) 03/02/18 08:50 Plt Count 220 10^3/uL (120.0-450.0) 03/02/18 08:50 MPV 11.0 fl (7.0-11.0) 03/02/18 08:50 Neutrophils % (Manual) 42 % (50.0-70.0) L 03/01/18 06:00 Lymphocytes % (Manual) 35 % (22.0-35.0) 03/01/18 06:00 Monocytes % (Manual) 5 % (1.0-6.0) 03/01/18 06:00 Eosinophils % (Manual) 16 % (0.0-3.0) H 03/01/18 06:00 Basophils % (Manual) 2 % (0.0-1.0) H 03/01/18 06:00 pCO2 53 mm/Hg (35-45) H 03/01/18 08:45 pO2 120.0 mm/Hg (80-100) H 03/01/18 08:45 HCO3 25.5 mmol/L (21-28) 03/01/18 08:45 ABG pH 7.29 (7.35-7.45) L 03/01/18 08:45 ABG Total CO2 27.1 mmol.L (22-28) 03/01/18 08:45 ABG O2 Saturation 99.6 % (95-98) H 03/01/18 08:45 ABG Base Excess -1.9 mmol/L (-2.0-3.0) 03/01/18 08:45 ABG Potassium 3.9 mmol/L (3.6-5.2) 03/01/18 08:45 Sodium 134.0 mmol/L (132-148) 03/01/18 08:45 Chloride 104.0 mmol/L (98-107) 03/01/18 08:45 Glucose 143 mg/dl (65-105) H 03/01/18 08:45 Lactate 1.3 mmol/L (0.7-2.1) 03/01/18 08:45 FiO2 40.0 % 03/01/18 08:45 Crit Value Called By Agustin 03/01/18 05:45 Blood Gas Notified Time 609 03/01/18 05:45 Sodium 140 mmol/L (132-148) 03/01/18 06:00 Potassium 4.9 mmol/L (3.6-5.0) 03/01/18 06:00 Chloride 102 mmol/L (98-107) 03/01/18 06:00 Carbon Dioxide 28 mmol/L (21-33) 03/01/18 06:00 Anion Gap 15 (10-20) 03/01/18 06:00 BUN 12 mg/dL (7-21) 03/01/18 06:00 Creatinine 0.9 mg/dl (0.7-1.2) 03/01/18 06:00 Est GFR ( Amer) > 60 03/01/18 06:00 Est GFR (Non-Af Amer) > 60 03/01/18 06:00 Random Glucose 225 mg/dL (70-110) H 03/01/18 06:00 Calcium 9.7 mg/dL (8.4-10.5) 03/01/18 06:00 Total Bilirubin 0.3 mg/dL (0.2-1.3) 03/01/18 06:00 AST 44 U/L (14-36) H D 03/01/18 06:00 ALT 31 U/L (7-56) 03/01/18 06:00 Alkaline Phosphatase 71 U/L (38-126) 03/01/18 06:00 Total Protein 7.8 g/dL (5.8-8.3) 03/01/18 06:00 Albumin 4.7 g/dL (3.0-4.8) 03/01/18 06:00 Globulin 3.1 gm/dL 03/01/18 06:00 Albumin/Globulin Ratio 1.5 (1.1-1.8) 03/01/18 06:00 Procalcitonin < 0.05 NG/ML (0.19-0.49) L 03/01/18 09:30 Beta HCG, Quant < 2.39 mIU/mL (0-6.15) 03/01/18 06:00 Arterial Blood Potassium 3.9 mmol/L (3.6-5.2) 03/01/18 08:45 Influenza Typ A,B (EIA) Negative for flu a/b (NEGATIVE) 03/01/18 09:45 Attending/Attestation - Attestation I have personally seen and examined this patient.: Yes I have fully participated in the care of the patient.: Yes I have reviewed all pertinent clinical information, including history, physical exam and plan: Yes Notes (Text): 03/03/18 17:07 Medical record note made by the resident after discussion with my direction and input after the patient was personally seen and examined by me. I have reviewed the chart and agree that the record accurately reflects by personal performance of the history, physical exam, data review, and medical decision-making, in the course for the patient. I have also personally directed the plan of care. 7 y/o F with PMHx Chronic/Persistent moderate Asthma, Anxiety, non compliance with medication and drug abuse was admitted with acute Hypercapnic Respiratory acidosis due to Asthma exacerbation. Patient was initially admitted to ICU and was treated with Neb/Steroid and antibiotics. Patient was later transfered to floor. Cough and dyspnea has improved. Patient is on room air. She will be discharged home on tapering dose of prednisone, albuterol ,Mometasone/Formoterol inhaler and Singular. Issue of compliance with medication and substance abuse was discussed in ese decker. Management plan was discussed in detail with patient. Education was provided. 03/03/18 17:09
--- NOTE | 2018-03-03 17:46 | PN ---
DATE: 03/03/2018 SUBJECTIVE: The patient seen and examined at bedside. She is comfortable. She talks full sentences. She is not in respiratory or otherwise distress. PHYSICAL EXAMINATION: VITAL SIGNS: Temperature 98, heart rate 87, blood pressure 103/70, respiratory rate 20, oxygen saturation 93% on room air. ENT: Head and neck atraumatic. LUNGS: Only 1 or 2 faint wheezes in the both bases. HEART: Regular rate and rhythm. S1, S2 normal. ABDOMEN: Soft, nontender, nondistended. MUSCULOSKELETAL: No C/C/E. NEURO: The patient moves all extremities spontaneously. SKIN: Moist. PSYCH: The patient is alert, awake and oriented x3. LABORATORY DATA: WBC 15.5, hemoglobin 14.3, platelet count 220. Sodium 140, potassium 4.9, chloride 102, carbon dioxide 28, BUN 12, creatinine 0.9, glucose 225. AST 44, ALT 31, total bilirubin 0.3. Procalcitonin less than 0.05. MEDICATIONS: DuoNeb every 6 hours (will be stopped), Brovana, Pulmicort, heparin subcu, Solu-Medrol 20 mg IV every 12 (tapered down to IV every 8), Protonix. ASSESSMENT: This 27-year-old lady with severe persistent eosinophilic asthma who presented with asthma exacerbation. At present time, the patient is clinically substantially improved. Her lung auscultation picture is improved as well. She is planned to be discharged home by primary team. She was instructed to make pulmonary follow-up appointment with pulmonary outpatient clinic. She was also instructed about importance of adherence to inhaled corticosteroids therapy. The patient will complete her steroid taper. She will also receive rescue inhalers. The patient indicated that she was educated and aware how to use inhalers. The patient will receive peak flow meter and was instructed to record daily variations of the peak air flow and present it to the clinic. Lazarus Curry MD [facility]
--- NOTE | 2018-03-03 18:32 | CON ---
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 Psychiatry consult is to rule out depression and anxiety as the patient has poor insight into her medical condition. I met with the patient at bedside and she is well oriented to month, year, location and circumstances. Regarding her psychiatric history, she does have a history of depression however, right now currently stable. Denies any major additional stressors. She also has anxiety which can affect her functioning and has use Klonopin in the past, however, she did not currently prescribed anything. She denies any current discomfort or pain and she looks pretty comfortable. The patient denies any hallucinations or delusions were not elicited. Thought process is logical, goal directed and consistent with repeat of questioning. Her insight and judgment condition is fair, however, regarding using her medications. LABORATORY DATA: Labs and vitals were reviewed. MEDICATIONS: The patient is on relevant psychiatric medications at this time. PSYCHIATRIC HISTORY: The patient denies any psychiatric hospitalizations, suicide attempts current outpatient treatment and medication trial she recalls Klonopin and Pepcid. SOCIAL HISTORY: She was born and raised in [place]. She is single. She lives with her father and her 2-year-old son who is currently in her father's care. The patient . The patient use to have history of opioid dependency. She used 5 bags daily, however, she stopped 2 years ago. She denies any recent drug use. Denies any issues with alcohol. IMPRESSION: Anxiety disorder and panic disorder, rule out generalized anxiety disorder, depression by history noncontributory at this time per patient. RECOMMENDATIONS: At this time, the provider will start on Vistaril p.r.n. for the patient due to the patient's history for shortness of breath and prior intubations and inconsistent complaints with her asthma medication. The patient would benefit from followup with an outpatient psychiatrist and to address her anxiety may be psychiatric medications or SSRI to prevent her anxiety episodes, however, her main issues at this time is medical problems and shortness of breath and anxiety is appear to be a major contributing factor her is poor compliance. The patient is not trying to killing herself. She appears to be having trouble taking medications as prescribed. I recommend the medical team again to spend a lot time counseling with her if needed have family meeting with her and her father to emphasize the importance of medication compliant. At this time, the patient has no indication or patient to signed involuntarily to psychiatric unit involuntarily and she is psychiatrically clear and disrespect and she only be taking as needed and she should be given psychiatric referral therapy or medication management to treat her anxiety condition. Psychiatry will follow at this time. Alfred Badillo MD
== END 2018-03-03 14:01 | disposition home or self-care (01) | DRG 141 ==
LOC: ED 05:35 → ERH 06:55 → CCU 10:25 → 3RNO 03-02 11:05
PROVIDERS: ADMIT Internal Medicine; ATTEND Internal Medicine
DX: J45.51 Severe persistent asthma with (acute) exacerbation (principal); E87.4 Mixed disorder of acid-base balance; F41.0 Panic disorder [episodic paroxysmal anxiety]; F41.9 Anxiety disorder, unspecified; R73.9 Hyperglycemia, unspecified; T38.0X5A Adverse effect of glucocorticoids and synthetic analogues, initial encounter; F11.21 Opioid dependence, in remission; Z87.891 Personal history of nicotine dependence; Z79.51 Long term (current) use of inhaled steroids; Z91.14 Patient's other noncompliance with medication regimen

== ENCOUNTER 2018-05-11 18:50 | Inpatient (IN) | payer MEDICAID, OTHER ==
[2018-05-11] MEDS ORDERED: Albuterol-Ipratrop 3 mg / 0.5 (3 ml) UD ONE (18:56)
[2018-05-11] MEDS ORDERED: Sodium Chloride 0.9% 1,000 ML IV STA (19:02)
--- NOTE | 2018-05-11 19:05 | ED PDOC ---
Arrival/HPI - General Chief Complaint: Shortness Of Breath Time Seen by Provider: 05/11/18 18:58 Historian: Patient - History of Present Illness Narrative History of Present Illness (Text): 05/11/18 19:02 27 y/o female, pmh including asthma, psychiatric history including anxiety/drug abuse?, nkda, biba for asthma. Limited HPI can be obtained as the patient is receiving oxygen and receiving nebulizer treatment, doesn't wanna talk to me and feels annoy when asking questions, uncooperative. Pt. has no chest pain or palpitation, no numbness or tingling, no night sweat, admits asthma started earlier today. Pt. has asthma attack today with sob, EMT stated that she was hypoxic 88%?, receive 1 duoneb/125mg solumedrol/2gm mgsulfate/1 dose of terbutaline. Past Medical History - Provider Review Nursing Documentation Reviewed: Yes - Infectious Disease Hx of Infectious Diseases: None - Tetanus Immunization Tetanus Immunization: Unknown - Cardiac Hx Cardiac Disorders: No - Pulmonary Hx Asthma: Yes (has home nebulizer machine) Hx Bronchitis: Yes Hx Pneumonia: Yes - Neurological Hx Neurological Disorder: No - HEENT Hx HEENT Disorder: No - Renal Hx Renal Disorder: No - Endocrine/Metabolic Hx Endocrine Disorders: No - Hematological/Oncological Hx Blood Disorders: No - Integumentary Hx Dermatological Disorder: No - Musculoskeletal/Rheumatological Hx Falls: No - Gastrointestinal Hx Gastrointestinal Disorders: No - Genitourinary/Gynecological Hx Genitourinary Disorders: No - Psychiatric Hx Anxiety: Yes Hx Substance Use: No - Past Surgical History Past Surgical History: No Previous - Surgical History Hx Cardiac Catheterization: No Hx Coronary Stent: No - Anesthesia Hx Anesthesia: No - Suicidal Assessment Feels Threatened In Home Enviroment: No Family/Social History - Physician Review Nursing Documentation Reviewed: Yes Family/Social History: Unknown Family HX Smoking Status: Former Smoker Hx Alcohol Use: No Hx Substance Use: No Hx Substance Use Treatment: No Allergies/Home Meds Allergies/Adverse Reactions: Allergies No Known Allergies Allergy (Verified 05/11/18 18:55) Review of Systems - Review of Systems Systems not reviewed;Unavailable: Uncooperative Respiratory: Cough, Wheezing Physical Exam Vital Signs Reviewed: Yes Vital Signs Temp Pulse Resp BP Pulse Ox 05/11/18 18:51 98.2 F 113 H 18 98/28 L 96 Temperature: Afebrile Blood Pressure: Hypotensive Pulse: Tachycardic Respiratory Rate: Normal Appearance: Positive for: Ill-Appearing, Unkept Pain Distress: None Mental Status: Positive for: Alert and Oriented X 3 - Systems Exam Head: Present: Atraumatic, Normocephalic Pupils: Present: PERRL Extroacular Muscles: Present: EOMI Conjunctiva: Present: Normal Mouth: Present: Moist Mucous Membranes, Normal Lips, Normal Tounge, Other (no pursing lip). No: Drooling, Trismus Pharnyx: No: ERYTHEMA, EXUDATE, TONSILS ENLARGED, Uvular Deviation, Strider, Soft Palate/Uvular Edema Nose (External): Present: Atraumatic. No: Abrasion, Contusion, Laceration, Lesions Nose (Internal): Present: Normal Inspection, No Active Bleeding, Other. No: Rhinorrhea, Septal Hematoma, Epistaxis Neck: Present: Normal Range of Motion Respiratory/Chest: Present: Wheezes (bilaterally), Decreased Breath Sounds, Rhonchi (bilaterally), Tachypneic. No: Respiratory Distress, Accessory Muscle Use, Rales, Retracting, Tender to Palpation Cardiovascular: Present: Regular Rate and Rhythm, Normal S1, S2, Other (no pedal edema). No: Murmurs Abdomen: No: Tenderness, Distention, Peritoneal Signs, Rebound, Guarding Back: Present: Normal Inspection Upper Extremity: Present: Normal Inspection. No: Cyanosis, Edema Lower Extremity: Present: Normal Inspection. No: Edema, CALF TENDERNESS, Umair's Sign Neurological: Present: GCS=15, CN II-XII Intact, Speech Normal Skin: Present: Warm, Dry, Normal Color. No: Rashes Psychiatric: Present: Alert, Oriented x 3, Normal Insight, Normal Concentration, Anxious Medical Decision Making ED Course and Treatment: 05/11/18 19:06 Pneumonia vs. asthma vs. hypoxemia -Labs -ekg -cxr -Nasal cannula oxygen -Will complete the other 2 duonebs -Pt. is very selective with the treatments/tests and radiology choices, refusing many of recommendations including arterial blood gas and possible intubation if she is not clinically improving, risks including hypoxic brain injury/respiratory failure/ explained and she understands, only request continuous nebulizer and ativan. -Dr. Broussard evaluated the patient on the bedside and recommend no intubation at this time. -hospital monitor -Observe and reassess 05/11/18 19:25 -VBG: Ph 7.05, HCO3 28.2, CO2 103, refused ABG, recommend arterial blood gas and possible intubation but the patient refused intubation with AOx4 and able to speak full sentences, risks including aspiration/disability/hypoxic brain injury/respiratory failure/pain/ explained and she understands. Pt. agreed to be admitted. -Since the patient refused arterial blood gas and intubation, BIPAP ordered, oxygen 96% on oxygen, pt. request to give her ativan as she feels anxious from treatment and need her ativan med. She agreed on the bipap with ativan given in the ER as this is the alternative for the intubation. -Dr. Broussard evaluated the patient on the bedside as well, he agreed with this patient's decision/ativan/bipap and agreed with BIPAP and closely monitoring without intubation. -This patient will be admitted to the ICU for closely monitoring for further observation with BIPAP. -ICU consulted with Dr. Dawson, will come to evaluate and admit the patient. -The patient refuses to the staffs to get the arterial blood gas and refused intubation to continue the care and wishes to keep on the BIPAP and supportive care which this is against my medical advice. Patient was necessary and a full explanation of the reasons why was given, and understood by the patient with alert and oriented x4. The risk of declining the standard medical care explained in laymans term and including but not limited respiratory distress/failure, hypoxemia, organ failures, brain injury, comatose, ischemia, cardiopulmonary and neurological disease, pain, worsening of condition, permanent disability and from an undiagnosed or untreated condition. The patient accepts these risks, able to repeat back and explain the risks and benefits, and is in my judgment is competent and capable of understanding the clinical situation and explanation of the risk of declining. Patient was given the opportunity to ask questions and change mind. The patient agreed on the BIPAP/anxiolytic/admission to ICU. 05/11/18 19:39 -Dr. Dawson evaluated the patient on the bedside, agreed to take the patient to the ICU, agreed no further intervention at this time, remain on BIPAP. -Case endorsed to the ICU attending DR. Dawson for continuous medical care and ICU monitor the patient for possible intubation and monitoring. 05/11/18 20:37 -Serum hcg is negative. -Lactic acid within normal limit -EKG: Sinus Tachycardia @ 133 BPM, no ST elevation or depression, no T wave inversion. -Chest xray ER wet read: no obvious consolidation, infiltrates?. Admission team started IV antibiotics. -Labs are non significant except wbc 25.4 (likely steroid and afebrile, likely stress induced), -Mg 3.7, likely from continuous mgsulfate in the past, normal bun/creatine -BNP within normal limit -Thyroid panel within normal limit -Pt. agreed to be admitted, still up and talking to me after ativan 1mg ordered, still refused abg/labs and other treatment choice including intubation. -BIPAP started for her as she declined the intubation as she is still making her own decision now. -Pt. admitted to the ICU as she needs closer monitoring including she might need intubation. - Critical Care Critical Care Minutes: 30 minutes Critical Care Time: Unstable Narrative Critical Care (Text): 05/11/18 19:50 hypoxic, respiratory distress, duoneb x 3, IV solumedrol 125mg/Mgsu IV given by the transport team as well, terbulatine given by the transport team as well, consult, ICU admission, bed side monitoring, BIPAP - RAD Interpretation Radiology Orders: 05/11/18 18:59 CHEST PORTABLE [RAD] Stat - PA / PHYSIOTHERAPY ASSISTANT / Resident Statement / has reviewed & agrees with the documentation as recorded. / has examined the patient and agrees with the treatment plan. Disposition/Present on Arrival - Present on Arrival Any Indicators Present on Arrival: No History of DVT/PE: No History of Uncontrolled Diabetes: No Urinary Catheter: No History of Decub. Ulcer: No History Surgical Site Infection Following: None - Disposition Have Diagnosis and Disposition been Completed?: Yes Diagnosis: Leukocytosis, Hypoxic, Asthma exacerbation, Noncompliance, Respiratory acidosis, Pneumonia Disposition: HOSPITALIZED Disposition Time: 19:57 Patient Plan: Admission, ICU Patient Problems: Current Active Problems Problem Status Onset Asthma exacerbation Acute Leukocytosis Acute Hypoxic Acute Noncompliance Acute Respiratory acidosis Acute Condition: GUARDED
[2018-05-11] MEDS ORDERED: Albuterol-Ipratrop 3 mg / 0.5 (3 ml) UD IH STA ×2 (19:09)
[2018-05-11 19:14] LABS: VENOUS BLOOD GAS BASE EXCESS -4.7 mmol/L (0.0-2.0); VENOUS BLOOD GAS PO2 77 mm/Hg (30-55); VENOUS BLOOD PH 7.05 (7.32-7.43)
[2018-05-11 19:19] LABS: BASO # 0.16 K/mm3 (0.0-2.0); BASO % 0.6 % (0.0-3.0); EOS # 4.5 (0.0-0.7); EOS % 17.9 % (1.5-5.0); LYMPH # 10.1 (1.2-3.4); LYMPH % 39.9 % (22.0-35.0); MEAN CELL VOLUME 88.2 fl (80.0-105.0); MEAN CORPUSCULAR HEMOGLOBIN 28.2 pg (25.0-35.0); MEAN PLATELET VOLUME 11.5 fl (7.0-11.0); MONO # 1.4 (0.1-0.6); MONO % 5.6 % (1.0-6.0); PLATELET COUNT 338 10^3/uL (120.0-450.0); RBC 5.32 10^6/uL (3.5-6.1); RED CELL DISTRIBUTION WIDTH 12.7 % (11.5-14.5)
[2018-05-11 19:21] LABS: WHITE BLOOD COUNT 25.2 10^3/uL (4.5-11.0)
[2018-05-11 19:29] LABS: ALB/GLOB RATIO 1.4 (1.1-1.8); ALBUMIN 4.2 g/dL (3.0-4.8); ALT/SGPT 29 U/L (7-56); AST/SGOT 38 U/L (14-36); BLOOD UREA NITROGEN 11 mg/dL (7-21); CALCIUM 8.8 mg/dL (8.4-10.5); GFR NON-AFRICAN AMERICAN > 60
[2018-05-11 19:36] LABS: EOSINOPHIL 23 % (0.0-3.0); LYMPHOCYTE 41 % (22.0-35.0); MONOCYTE 6 % (1.0-6.0); NEUTROPHIL 30 % (50.0-70.0); PLATELET ESTIMATE NORMAL (NORMAL)
[2018-05-11 19:37] LABS: B-TYPE NATRIURETIC PEPTIDE 107 pg/mL (0-450); LARGE PLATELETS PRESENT
[2018-05-11 19:43] LABS: FREE T4 1.48 ng/dL (0.78-2.19)
[2018-05-11] MEDS ORDERED: Budesonide 0.5 mg/2 ml Inhal Susp UD IH STA (19:44)
[2018-05-11] MEDS ORDERED: Levalbuterol 0.63 MG/3 ML Inhal Soln UD IH PRN (19:56)
[2018-05-11] MEDS ORDERED: Azithromycin 500MG/NS 250ml 500 MG/250 ML BAG IVPB STA (19:56)
[2018-05-11] MEDS ORDERED: Levalbuterol 1.25 MG/3 ML Inhal Soln UD IH SCH (20:00)
--- NOTE | 2018-05-11 20:17 | CP.PCM.HP ---
<HeydiAsad - Last Filed: 05/12/18 01:37> History of Present Illness - History of Present Illness History of Present Illness: Dr [facility] 27F pmhx of severe asthma presents with acute chest tightness since this afternoon. Reports a dry cough for the last month, feeling worsening and more frequent asthmatic episodes of shortness of breath and then today feeling extreme chest tightness. Pt reports taking her ventalin, brovana?(she is unsure of name) and nebuliser at home and only got minor relief for a transient period. Pt is unsure when she last had oral medications, however is aware shes supposed to be taking Singulair and prednisone. Pt has had multiple episodes like this before in the past, says this episode is similar in nature and quality. Pt reports losing her insurance recently and has not been following up with a PMD or [facility]. Pt has been intubated once 4 years ago. In ED pt was refusing BiPAP, pt desaturated, became sommulent and was intubated in ED prior to intubation ROS: Pos+ SOB, Chest tightness, medication/followup non-compliance, cough Neg- CP, FC, NV, bloody/dark sputum, cyanosis, syncope, dizziness, sick contacts, recent travel, new chemical exposure PMD: none Pulm: previously Dr. Oleary Pharmacy: [facility] [place] [facility] PMHx: Asthma, Anxiety, former tobacco and heroin use SHx: denies All: NKDA Meds: prednisone 20mg daily, singulair 10mg daily, symbicort 160/4.5 2 puffs BID, Ventalin 2 puffs q6h, duonebs q6 SocialHx: former smoker, denies drinking and recent drug use. 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 FHx: HTN in father. Present on Admission - Present on Admission Any Indicators Present on Admission: No Review of Systems - Review of Systems All systems: reviewed and no additional remarkable complaints except (as per HPI) Past Patient History - Infectious Disease Hx of Infectious Diseases: None - Tetanus Immunizations Tetanus Immunization: Unknown - Past Social History Smoking Status: Former Smoker - CARDIAC Hx Cardiac Disorders: No - PULMONARY Hx Asthma: Yes (has home nebulizer machine) Hx Bronchitis: Yes Hx Pneumonia: Yes - NEUROLOGICAL Hx Neurological Disorder: No - HEENT Hx HEENT Problems: No - RENAL Hx Chronic Kidney Disease: No - ENDOCRINE/METABOLIC Hx Endocrine Disorders: No - HEMATOLOGICAL/ONCOLOGICAL Hx Blood Disorders: No - INTEGUMENTARY Hx Dermatological Problems: No - MUSCULOSKELETAL/RHEUMATOLOGICAL Hx Falls: No - GASTROINTESTINAL Hx Gastrointestinal Disorders: No - GENITOURINARY/GYNECOLOGICAL Hx Genitourinary Disorders: No - PSYCHIATRIC Hx Anxiety: Yes Hx Substance Use: No - SURGICAL HISTORY Hx Cardiac Catheterization: No Hx Coronary Stent: No - ANESTHESIA Hx Anesthesia: No Meds Allergies/Adverse Reactions: Allergies Allergy/AdvReac Type Severity Reaction Status Date / Time No Known Allergies Allergy Verified 05/11/18 18:55 Physical Exam - Constitutional Appears: Non-toxic, In Acute Distress, Unkempt - Head Exam Head Exam: ATRAUMATIC, NORMAL INSPECTION - Eye Exam Eye Exam: EOMI, Normal appearance. absent: Conjunctival injection Pupil Exam: PERRL - ENT Exam ENT Exam: Mucous Membranes Moist - Neck Exam Neck exam: Negative for: Lymphadenopathy, Thyromegaly - Respiratory Exam Respiratory Exam: Wheezes, Respiratory Distress, Stridor. absent: Accessory Muscle Use, Chest Wall Tenderness, Rales, Rhonchi - Cardiovascular Exam Cardiovascular Exam: RRR, +S1, +S2 - GI/Abdominal Exam GI & Abdominal Exam: absent: Distended, Guarding, Tenderness - Extremities Exam Extremities exam: Positive for: normal capillary refill, normal inspection, pedal pulses present Additional comments: no cyanosis no clubbing - Neurological Exam Neurological exam: Alert, CN II-XII Intact, Oriented x3 - Psychiatric Exam Psychiatric exam: Normal Affect, Normal Mood - Skin Skin Exam: Dry, Normal Color, Warm Results - Vital Signs Recent Vital Signs: Last Vital Signs Temp 98.2 F 05/11/18 18:51 Pulse 130 H 05/11/18 19:21 Resp 22 05/11/18 19:21 BP 106/76 05/11/18 19:21 Pulse Ox 96 05/11/18 19:21 - Labs Result Diagrams: 05/11/18 19:05 05/11/18 19:05 Labs: Laboratory Results - last 24 hr 05/11/18 05/11/18 05/11/18 19:00 19:05 19:05 WBC 25.2 H* D RBC 5.32 Hgb 15.0 Hct 46.9 MCV 88.2 D MCH 28.2 MCHC 32.0 RDW 12.7 Plt Count 338 MPV 11.5 H Neut % (Auto) 36.0 L Lymph % (Auto) 39.9 H Hand % (Auto) 5.6 Eos % (Auto) 17.9 H Baso % (Auto) 0.6 Lymph # (Auto) 10.1 H Hand # (Auto) 1.4 H Eos # (Auto) 4.5 H Baso # (Auto) 0.16 Absolute Neuts (auto) 9.06 H Neutrophils % (Manual) 30 L Lymphocytes % (Manual) 41 H Monocytes % (Manual) 6 Eosinophils % (Manual) 23 H Platelet Evaluation Normal Large Platelets Present pO2 77 H VBG pH 7.05 L* VBG pCO2 103.0 H* VBG HCO3 28.5 H VBG Total CO2 31.7 H VBG O2 Sat (Calc) 93.9 H VBG Base Excess -4.7 L VBG Potassium 3.6 Sodium 137.0 141 Chloride 102.0 103 Glucose 208 H Lactate 1.3 FiO2 21.0 Crit Value Called To Rn Crit Value Called By Rs Blood Gas Notified Time 1911 Potassium 3.9 Carbon Dioxide 30 Anion Gap 12 BUN 11 Creatinine 0.8 Est GFR ( Amer) > 60 Est GFR (Non-Af Amer) > 60 Random Glucose 203 H Calcium 8.8 Magnesium 3.7 H Total Bilirubin 0.2 AST 38 H ALT 29 Alkaline Phosphatase 66 NT-Pro-B Natriuret Pep 107 Total Protein 7.2 Albumin 4.2 Globulin 3.1 Albumin/Globulin Ratio 1.4 Free T4 TSH 3rd Generation Beta HCG, Quant Venous Blood Potassium 3.6 05/11/18 05/11/18 19:05 19:24 WBC RBC Hgb Hct MCV MCH MCHC RDW Plt Count MPV Neut % (Auto) Lymph % (Auto) Hand % (Auto) Eos % (Auto) Baso % (Auto) Lymph # (Auto) Hand # (Auto) Eos # (Auto) Baso # (Auto) Absolute Neuts (auto) Neutrophils % (Manual) Lymphocytes % (Manual) Monocytes % (Manual) Eosinophils % (Manual) Platelet Evaluation Large Platelets pO2 VBG pH VBG pCO2 VBG HCO3 VBG Total CO2 VBG O2 Sat (Calc) VBG Base Excess VBG Potassium Sodium Chloride Glucose Lactate FiO2 Crit Value Called To Crit Value Called By Blood Gas Notified Time Potassium Carbon Dioxide Anion Gap BUN Creatinine Est GFR ( Amer) Est GFR (Non-Af Amer) Random Glucose Calcium Magnesium Total Bilirubin AST ALT Alkaline Phosphatase NT-Pro-B Natriuret Pep Total Protein Albumin Globulin Albumin/Globulin Ratio Free T4 1.48 TSH 3rd Generation 3.30 Beta HCG, Quant < 2.39 Venous Blood Potassium Assessment & Plan - Assessment and Plan (Free Text) Assessment: This is a 27 year old female pmhx of sever asthma and non compliance admitted for acute asthma exacerbation and leukocytosis -Pt now intubated: CXR confirmed placement Plan: Neuro: -Neurochecks q4 -intubated -propofol drip Cardio: -maintain MAP>65 -monitor tachycardia Lungs: Intubated for Asthma Exacerbation- severe persistent -Pt refusing BiPAP, requesting Ativan in order to use the BIPAP -Pt subsequently intubated due to sommulence and desaturation -Monitor Vent -SoluMedrol 60 ivp q8 -Xopenex 1.25 TID w/ 0.63 q2 PRN -stat versed 10 w/ Propofol Drip -f/u AM CXR Walking Pna -R[place]pe[place] w/ Zithromax IVPB: empiric treating -f/u Myco Ig and blood cultures -CXR : lower field infiltrates, hyper inflation. pending official read Renal: -maintain euvolemia -replace electrolytes as needed Heme: -Monitor H&H Endo: -maintain euglycemia, -glucose elevated: 203 ID: -WBC is 25.2: afebrile -VBG neg lactate -Zithromax and Rocephin IVPB -f/u blood cultures and Mycobacterium Ig GI: -GI prophylaxis with protonix <Diane Dawson - Last Filed: 05/12/18 19:03> Results - Vital Signs Recent Vital Signs: Last Vital Signs Temp 99.3 F 05/12/18 18:40 Pulse 74 05/12/18 18:40 Resp 16 05/12/18 07:29 BP 133/85 05/12/18 18:00 Pulse Ox 96 05/12/18 18:40 - Labs Result Diagrams: 05/12/18 06:40 05/12/18 06:40 Labs: Laboratory Results - last 24 hr 05/11/18 05/11/18 05/11/18 19:00 19:05 19:05 WBC 25.2 H* D RBC 5.32 Hgb 15.0 Hct 46.9 MCV 88.2 D MCH 28.2 MCHC 32.0 RDW 12.7 Plt Count 338 MPV 11.5 H Neut % (Auto) 36.0 L Lymph % (Auto) 39.9 H Hand % (Auto) 5.6 Eos % (Auto) 17.9 H Baso % (Auto) 0.6 Lymph # (Auto) 10.1 H Hand # (Auto) 1.4 H Eos # (Auto) 4.5 H Baso # (Auto) 0.16 Absolute Neuts (auto) 9.06 H Neutrophils % (Manual) 30 L Lymphocytes % (Manual) 41 H Monocytes % (Manual) 6 Eosinophils % (Manual) 23 H Platelet Evaluation Normal Large Platelets Present pCO2 pO2 77 H HCO3 ABG pH ABG Total CO2 ABG O2 Saturation ABG O2 Content ABG Base Excess ABG Hemoglobin ABG Carboxyhemoglobin POC ABG HHb (Measured) ABG Methemoglobin ABG O2 Capacity ABG Potassium VBG pH 7.05 L* VBG pCO2 103.0 H* VBG HCO3 28.5 H VBG Total CO2 31.7 H VBG O2 Sat (Calc) 93.9 H VBG Base Excess -4.7 L VBG Potassium 3.6 Hgb O2 Saturation Sodium 137.0 141 Chloride 102.0 103 Glucose 208 H Lactate 1.3 FiO2 21.0 Blood Gas Comments Crit Value Called To Rn Crit Value Called By Rs Blood Gas Notified Time 1911 Potassium 3.9 Carbon Dioxide 30 Anion Gap 12 BUN 11 Creatinine 0.8 Est GFR ( Amer) > 60 Est GFR (Non-Af Amer) > 60 Random Glucose 203 H Calcium 8.8 Phosphorus Magnesium 3.7 H Total Bilirubin 0.2 AST 38 H ALT 29 Alkaline Phosphatase 66 Total Creatine Kinase CK-MB (CK-2) CK-MB (CK-2) % NT-Pro-B Natriuret Pep 107 Total Protein 7.2 Albumin 4.2 Globulin 3.1 Albumin/Globulin Ratio 1.4 Procalcitonin Free T4 TSH 3rd Generation Beta HCG, Quant Arterial Blood Potassium Venous Blood Potassium 3.6 Urine Color Urine Appearance Urine pH Ur Specific [place] Urine Protein Urine Glucose (UA) Urine Ketones Urine Blood Urine Nitrate Urine Bilirubin Urine Urobilinogen Ur Leukocyte Esterase Urine RBC Urine WBC Ur Epithelial Cells Amorphous Sediment Urine Bacteria Hyaline Casts Fine Granular Casts Coarse Granular Casts Urine Other Urine Opiates Screen Urine Methadone Screen Ur Barbiturates Screen Ur Phencyclidine Scrn Ur Amphetamines Screen U Benzodiazepines Scrn U Oth Cocaine Metabols U Cannabinoids Screen Ur L.pneumophila Ag Mycoplasma pneumon IgM 05/11/18 05/11/18 05/11/18 19:05 19:24 19:44 WBC RBC Hgb Hct MCV MCH MCHC RDW Plt Count MPV Neut % (Auto) Lymph % (Auto) Hand % (Auto) Eos % (Auto) Baso % (Auto) Lymph # (Auto) Hand # (Auto) Eos # (Auto) Baso # (Auto) Absolute Neuts (auto) Neutrophils % (Manual) Lymphocytes % (Manual) Monocytes % (Manual) Eosinophils % (Manual) Platelet Evaluation Large Platelets pCO2 pO2 HCO3 ABG pH ABG Total CO2 ABG O2 Saturation ABG O2 Content ABG Base Excess ABG Hemoglobin ABG Carboxyhemoglobin POC ABG HHb (Measured) ABG Methemoglobin ABG O2 Capacity ABG Potassium VBG pH VBG pCO2 VBG HCO3 VBG Total CO2 VBG O2 Sat (Calc) VBG Base Excess VBG Potassium Hgb O2 Saturation Sodium Chloride Glucose Lactate FiO2 Blood Gas Comments Crit Value Called To Crit Value Called By Blood Gas Notified Time Potassium Carbon Dioxide Anion Gap BUN Creatinine Est GFR ( Amer) Est GFR (Non-Af Amer) Random Glucose Calcium Phosphorus Magnesium Total Bilirubin AST ALT Alkaline Phosphatase Total Creatine Kinase CK-MB (CK-2) CK-MB (CK-2) % NT-Pro-B Natriuret Pep Total Protein Albumin Globulin Albumin/Globulin Ratio Procalcitonin Free T4 1.48 TSH 3rd Generation 3.30 Beta HCG, Quant < 2.39 Arterial Blood Potassium Venous Blood Potassium Urine Color Urine Appearance Urine pH Ur Specific [place] Urine Protein Urine Glucose (UA) Urine Ketones Urine Blood Urine Nitrate Urine Bilirubin Urine Urobilinogen Ur Leukocyte Esterase Urine RBC Urine WBC Ur Epithelial Cells Amorphous Sediment Urine Bacteria Hyaline Casts Fine Granular Casts Coarse Granular Casts Urine Other Urine Opiates Screen Urine Methadone Screen Ur Barbiturates Screen Ur Phencyclidine Scrn Ur Amphetamines Screen U Benzodiazepines Scrn U Oth Cocaine Metabols U Cannabinoids Screen Ur L.pneumophila Ag Negative Mycoplasma pneumon IgM 05/11/18 05/11/18 05/11/18 21:10 21:37 22:50 WBC RBC Hgb Hct MCV MCH MCHC RDW Plt Count MPV Neut % (Auto) Lymph % (Auto) Hand % (Auto) Eos % (Auto) Baso % (Auto) Lymph # (Auto) Hand # (Auto) Eos # (Auto) Baso # (Auto) Absolute Neuts (auto) Neutrophils % (Manual) Lymphocytes % (Manual) Monocytes % (Manual) Eosinophils % (Manual) Platelet Evaluation Large Platelets pCO2 90 H* 73 H* pO2 128.0 H 554.0 H HCO3 23.2 22.7 ABG pH 7.02 L* 7.10 L* ABG Total CO2 26.0 24.9 ABG O2 Saturation 99.8 H 100.3 H ABG O2 Content 18.7 20.2 ABG Base Excess -9.6 L -8.3 L ABG Hemoglobin 13.6 13.6 ABG Carboxyhemoglobin 2.2 H 1.5 POC ABG HHb (Measured) 0.2 -0.3 L ABG Methemoglobin 1.0 1.2 ABG O2 Capacity 18.7 20.1 ABG Potassium VBG pH VBG pCO2 VBG HCO3 VBG Total CO2 VBG O2 Sat (Calc) VBG Base Excess VBG Potassium Hgb O2 Saturation 96.6 97.6 Sodium Chloride Glucose Lactate FiO2 50.0 100.0 Blood Gas Comments Crit Value Called To Dr Jr rn Crit Value Called By Evette newby meat selector-clinical registered nurse Blood Gas Notified Time 2121 2249 Potassium Carbon Dioxide Anion Gap BUN Creatinine Est GFR ( Amer) Est GFR (Non-Af Amer) Random Glucose Calcium Phosphorus Magnesium Total Bilirubin AST ALT Alkaline Phosphatase Total Creatine Kinase CK-MB (CK-2) CK-MB (CK-2) % NT-Pro-B Natriuret Pep Total Protein Albumin Globulin Albumin/Globulin Ratio Procalcitonin Free T4 TSH 3rd Generation Beta HCG, Quant Arterial Blood Potassium Venous Blood Potassium Urine Color Urine Appearance Urine pH Ur Specific [place] Urine Protein Urine Glucose (UA) Urine Ketones Urine Blood Urine Nitrate Urine Bilirubin Urine Urobilinogen Ur Leukocyte Esterase Urine RBC Urine WBC Ur Epithelial Cells Amorphous Sediment Urine Bacteria Hyaline Casts Fine Granular Casts Coarse Granular Casts Urine Other Urine Opiates Screen Positive H Urine Methadone Screen Negative Ur Barbiturates Screen Negative Ur Phencyclidine Scrn Negative Ur Amphetamines Screen Negative U Benzodiazepines Scrn Positive H U Oth Cocaine Metabols Negative U Cannabinoids Screen Negative Ur L.pneumophila Ag Mycoplasma pneumon IgM 05/12/18 05/12/18 05/12/18 01:18 06:00 06:00 WBC RBC Hgb Hct MCV MCH MCHC RDW Plt Count MPV Neut % (Auto) Lymph % (Auto) Hand % (Auto) Eos % (Auto) Baso % (Auto) Lymph # (Auto) Hand # (Auto) Eos # (Auto) Baso # (Auto) Absolute Neuts (auto) Neutrophils % (Manual) Lymphocytes % (Manual) Monocytes % (Manual) Eosinophils % (Manual) Platelet Evaluation Large Platelets pCO2 56 H 46 H pO2 233.0 H 243.0 H HCO3 20.9 L 22.1 ABG pH 7.18 L* 7.29 L ABG Total CO2 22.6 23.5 ABG O2 Saturation 100.3 H 99.7 H ABG O2 Content 18.8 ABG Base Excess -8.0 L -4.6 L ABG Hemoglobin 13.3 ABG Carboxyhemoglobin 1.3 POC ABG HHb (Measured) 0.3 ABG Methemoglobin 0.8 ABG O2 Capacity 18.9 ABG Potassium 4.1 VBG pH VBG pCO2 VBG HCO3 VBG Total CO2 VBG O2 Sat (Calc) VBG Base Excess VBG Potassium Hgb O2 Saturation 97.6 Sodium 137.0 Chloride 106.0 Glucose 167 H Lactate 3.8 H FiO2 60.0 50.0 Blood Gas Comments Psv 5 / peep 5 Crit Value Called To Dr. jenkins Crit Value Called By Landy dove meat selector-clinical registered nurse Blood Gas Notified Time 140 Potassium Carbon Dioxide Anion Gap BUN Creatinine Est GFR ( Amer) Est GFR (Non-Af Amer) Random Glucose Calcium Phosphorus Magnesium Total Bilirubin AST ALT Alkaline Phosphatase Total Creatine Kinase CK-MB (CK-2) CK-MB (CK-2) % NT-Pro-B Natriuret Pep Total Protein Albumin Globulin Albumin/Globulin Ratio Procalcitonin Free T4 TSH 3rd Generation Beta HCG, Quant Arterial Blood Potassium 4.1 Venous Blood Potassium Urine Color Urine Appearance Urine pH Ur Specific [place] Urine Protein Urine Glucose (UA) Urine Ketones Urine Blood Urine Nitrate Urine Bilirubin Urine Urobilinogen Ur Leukocyte Esterase Urine RBC Urine WBC Ur Epithelial Cells Amorphous Sediment Urine Bacteria Hyaline Casts Fine Granular Casts Coarse Granular Casts Urine Other Urine Opiates Screen Urine Methadone Screen Ur Barbiturates Screen Ur Phencyclidine Scrn Ur Amphetamines Screen U Benzodiazepines Scrn U Oth Cocaine Metabols U Cannabinoids Screen Ur L.pneumophila Ag Mycoplasma pneumon IgM Negative 05/12/18 05/12/18 05/12/18 06:40 06:40 06:40 WBC 14.8 H D RBC 4.66 Hgb 12.8 D Hct 41.2 MCV 88.4 MCH 27.5 MCHC 31.1 RDW 12.7 Plt Count 202 MPV 11.8 H Neut % (Auto) 91.9 H Lymph % (Auto) 5.2 L Hand % (Auto) 2.8 Eos % (Auto) 0.1 L Baso % (Auto) 0.0 Lymph # (Auto) 0.8 L Hand # (Auto) 0.4 Eos # (Auto) 0.0 Baso # (Auto) 0.00 Absolute Neuts (auto) 13.55 H Neutrophils % (Manual) Lymphocytes % (Manual) Monocytes % (Manual) Eosinophils % (Manual) Platelet Evaluation Large Platelets pCO2 pO2 HCO3 ABG pH ABG Total CO2 ABG O2 Saturation ABG O2 Content ABG Base Excess ABG Hemoglobin ABG Carboxyhemoglobin POC ABG HHb (Measured) ABG Methemoglobin ABG O2 Capacity ABG Potassium VBG pH VBG pCO2 VBG HCO3 VBG Total CO2 VBG O2 Sat (Calc) VBG Base Excess VBG Potassium Hgb O2 Saturation Sodium 139 Chloride 108 H Glucose Lactate FiO2 Blood Gas Comments Crit Value Called To Crit Value Called By Blood Gas Notified Time Potassium 4.8 Carbon Dioxide 19 L Anion Gap 18 BUN 10 Creatinine 0.7 Est GFR ( Amer) > 60 Est GFR (Non-Af Amer) > 60 Random Glucose 137 H Calcium 9.1 Phosphorus 3.7 Magnesium 2.2 Total Bilirubin 0.2 AST 41 H ALT 16 Alkaline Phosphatase 57 Total Creatine Kinase 530 H CK-MB (CK-2) 10.1 H CK-MB (CK-2) % 1.9 L NT-Pro-B Natriuret Pep Total Protein 6.8 Albumin 4.0 Globulin 2.8 Albumin/Globulin Ratio 1.4 Procalcitonin 0.57 H Free T4 TSH 3rd Generation Beta HCG, Quant Arterial Blood Potassium Venous Blood Potassium Urine Color Urine Appearance Urine pH Ur Specific [place] Urine Protein Urine Glucose (UA) Urine Ketones Urine Blood Urine Nitrate Urine Bilirubin Urine Urobilinogen Ur Leukocyte Esterase Urine RBC Urine WBC Ur Epithelial Cells Amorphous Sediment Urine Bacteria Hyaline Casts Fine Granular Casts Coarse Granular Casts Urine Other Urine Opiates Screen Urine Methadone Screen Ur Barbiturates Screen Ur Phencyclidine Scrn Ur Amphetamines Screen U Benzodiazepines Scrn U Oth Cocaine Metabols U Cannabinoids Screen Ur L.pneumophila Ag Mycoplasma pneumon IgM 05/12/18 05/12/18 07:45 08:25 WBC RBC Hgb Hct MCV MCH MCHC RDW Plt Count MPV Neut % (Auto) Lymph % (Auto) Hand % (Auto) Eos % (Auto) Baso % (Auto) Lymph # (Auto) Hand # (Auto) Eos # (Auto) Baso # (Auto) Absolute Neuts (auto) Neutrophils % (Manual) Lymphocytes % (Manual) Monocytes % (Manual) Eosinophils % (Manual) Platelet Evaluation Large Platelets pCO2 pO2 40 HCO3 ABG pH ABG Total CO2 ABG O2 Saturation ABG O2 Content ABG Base Excess ABG Hemoglobin ABG Carboxyhemoglobin POC ABG HHb (Measured) ABG Methemoglobin ABG O2 Capacity ABG Potassium VBG pH 7.27 L VBG pCO2 55.0 VBG HCO3 25.3 VBG Total CO2 27.0 VBG O2 Sat (Calc) 84.1 H VBG Base Excess -2.5 L VBG Potassium 4.6 Hgb O2 Saturation Sodium 138.0 Chloride 102.0 Glucose 152 H Lactate 2.9 H FiO2 21.0 Blood Gas Comments Crit Value Called To [place] Crit Value Called By Ab Blood Gas Notified Time 839 Potassium Carbon Dioxide Anion Gap BUN Creatinine Est GFR ( Amer) Est GFR (Non-Af Amer) Random Glucose Calcium Phosphorus Magnesium Total Bilirubin AST ALT Alkaline Phosphatase Total Creatine Kinase CK-MB (CK-2) CK-MB (CK-2) % NT-Pro-B Natriuret Pep Total Protein Albumin Globulin Albumin/Globulin Ratio Procalcitonin Free T4 TSH 3rd Generation Beta HCG, Quant Arterial Blood Potassium Venous Blood Potassium 4.6 Urine Color Yellow Urine Appearance Clear Urine pH 6.0 Ur Specific [place] >= 1.030 Urine Protein Trace H Urine Glucose (UA) Negative Urine Ketones Negative Urine Blood Large H Urine Nitrate Negative Urine Bilirubin Negative Urine Urobilinogen 0.2 Ur Leukocyte Esterase Negative Urine RBC Tntc H Urine WBC 2 - 5 Ur Epithelial Cells 4 - 5 Amorphous Sediment Few Urine Bacteria Large Hyaline Casts 0 - 2 Fine Granular Casts 0 - 2 Coarse Granular Casts Trace Urine Other Fiber Urine Opiates Screen Urine Methadone Screen Ur Barbiturates Screen Ur Phencyclidine Scrn Ur Amphetamines Screen U Benzodiazepines Scrn U Oth Cocaine Metabols U Cannabinoids Screen Ur L.pneumophila Ag Mycoplasma pneumon IgM Attending/Attestation - Attestation I have personally seen and examined this patient.: Yes I have fully participated in the care of the patient.: Yes I have reviewed all pertinent clinical information: Yes Notes (Text): 05/12/18 19:02 seen and examined. Discussed with resident. A& P as above. Pt. became lethargic 30 minutes after seen and was intubated emergently via glidescope with 7.5 ET. No complications during intubation.
[2018-05-11] MEDS ORDERED: Midazolam 2 MG/2 ML VIAL ONE (21:15)
[2018-05-11] MEDS ORDERED: Midazolam 5 MG/ML ONE (21:20)
[2018-05-11 21:22] LABS: ARTERIAL BLOOD GAS HCO3 23.2 mmol/L (21-28); ARTERIAL BLOOD GAS HEMOGLOBIN 13.6 g/dL (11.7-17.4); ARTERIAL BLOOD GAS O2 CAPACITY 18.7 mL/dl (16-24); ARTERIAL BLOOD GAS O2 CONTENT 18.7 ML/dl (15-23); ARTERIAL BLOOD GAS O2 SAT 99.8 % (95-98); ARTERIAL BLOOD GAS PCO2 90 mm/Hg (35-45); ARTERIAL BLOOD GAS PH 7.02 (7.35-7.45)
[2018-05-11] MEDS ORDERED: Propofol 10 mg/ml 1,000 MG/100 ML VIAL ONE (21:28)
[2018-05-11] MEDS ORDERED: Propofol 10 mg/ml 1,000 MG/100 ML VIAL IV PRN (21:38)
[2018-05-11] MEDS ORDERED: Midazolam 2 MG/2 ML VIAL IVP ONE (21:51)
[2018-05-11 22:44] LABS: BARBITURATES, UR NEGATIVE (NEGATIVE); BENZODIAZEPINES, UR POSITIVE (NEGATIVE); OPIATES, UR POSITIVE (NEGATIVE); PHENCYCLIDINE, UR NEGATIVE (NEGATIVE)
[2018-05-11 22:55] LABS: ARTERIAL BLOOD GAS HCO3 22.7 mmol/L (21-28); ARTERIAL BLOOD GAS HEMOGLOBIN 13.6 g/dL (11.7-17.4); ARTERIAL BLOOD GAS O2 CAPACITY 20.1 mL/dl (16-24); ARTERIAL BLOOD GAS O2 CONTENT 20.2 ML/dl (15-23); ARTERIAL BLOOD GAS O2 SAT 100.3 % (95-98); ARTERIAL BLOOD GAS PCO2 73 mm/Hg (35-45); ARTERIAL BLOOD GAS TCO2 24.9 mmol.L (22-28)
[2018-05-11] MEDS ORDERED: Cisatracurium Besylate 200 MG in Sodium Chloride 0.9% 250 ML IV PRN (23:30)
[2018-05-11 23:38] VITALS: BMI 23.8
[2018-05-11] MEDS ORDERED: Fentanyl 1000mcg/100ml NS 1,000 MCG/100 ML BAG IV PRN (23:38)
[2018-05-12] MEDS ORDERED: Midazolam 100 mg/100ml in NS 100 MG/100 ML SOL IV PRN (00:10)
[2018-05-12] MEDS: Dexmedetomidine 400mcg/100mL 400 MCG/100 ML BOTTLE IV PRN ×2 (00:27→21:24)
[2018-05-12 01:40] LABS: ARTERIAL BLOOD GAS HCO3 20.9 mmol/L (21-28); ARTERIAL BLOOD GAS O2 SAT 100.3 % (95-98); ARTERIAL BLOOD GAS PCO2 56 mm/Hg (35-45); ARTERIAL BLOOD GAS PH 7.18 (7.35-7.45); ARTERIAL BLOOD GAS TCO2 22.6 mmol.L (22-28)
[2018-05-12] MEDS ORDERED: Vancomycin 1gm in NS 250ml 1 GM/250 ML BAG IVPB ONE (02:15)
[2018-05-12] MEDS: Levalbuterol 1.25 MG/3 ML Inhal Soln UD IH SCH ×2 (02:23→07:19)
[2018-05-12] MEDS: Lactated Ringer's 1,000 ML IV SCH ×2 (02:51→17:32)
[2018-05-12] MEDS ORDERED: Piperacillin/Tazobact 3.375 gm 100 ML IVPB SCH (06:00)
[2018-05-12 06:43] LABS: ARTERIAL BLOOD GAS HCO3 22.1 mmol/L (21-28); ARTERIAL BLOOD GAS HEMOGLOBIN 13.3 g/dL (11.7-17.4); ARTERIAL BLOOD GAS O2 CAPACITY 18.9 mL/dl (16-24); ARTERIAL BLOOD GAS O2 CONTENT 18.8 ML/dl (15-23); ARTERIAL BLOOD GAS O2 SAT 99.7 % (95-98); ARTERIAL BLOOD GAS PCO2 46 mm/Hg (35-45); ARTERIAL BLOOD GAS PH 7.29 (7.35-7.45); ARTERIAL BLOOD GAS TCO2 23.5 mmol.L (22-28)
[2018-05-12 07:04] LABS: EOS % 0.1 % (1.5-5.0); HEMOGLOBIN 12.8 g/dL (12.0-16.0); LYMPH # 0.8 (1.2-3.4); LYMPH % 5.2 % (22.0-35.0); MEAN CELL VOLUME 88.4 fl (80.0-105.0); MEAN CORPUSCULAR HEMOGLOBIN 27.5 pg (25.0-35.0); MEAN CORPUSCULAR HGB CONC 31.1 g/dl (31.0-37.0); MEAN PLATELET VOLUME 11.8 fl (7.0-11.0); MONO # 0.4 (0.1-0.6); MONO % 2.8 % (1.0-6.0); RBC 4.66 10^6/uL (3.5-6.1); RED CELL DISTRIBUTION WIDTH 12.7 % (11.5-14.5); WHITE BLOOD COUNT 14.8 10^3/uL (4.5-11.0)
[2018-05-12] MEDS: Budesonide 0.5 mg/2 ml Inhal Susp UD IH SCH ×2 (07:18→20:40)
[2018-05-12 08:23] LABS: ALB/GLOB RATIO 1.4 (1.1-1.8); ALT/SGPT 16 U/L (7-56); AST/SGOT 41 U/L (14-36); BLOOD UREA NITROGEN 10 mg/dL (7-21); CALCIUM 9.1 mg/dL (8.4-10.5); GFR NON-AFRICAN AMERICAN > 60
[2018-05-12 08:33] LABS: URINE BILIRUBIN NEGATIVE (NEGATIVE); URINE BLOOD LARGE (NEGATIVE); URINE GLUCOSE (UA) NEGATIVE (NEGATIVE); URINE LEUKOCYTE ESTERASE NEGATIVE Leu/uL (NEGATIVE); URINE PROTEIN TRACE mg/dL (<30 mg/dL); URINE UROBILINOGEN 0.2 E.U./dL (<1 E.U./dL)
[2018-05-12 08:39] LABS: VENOUS BLOOD GAS BASE EXCESS -2.5 mmol/L (0.0-2.0); VENOUS BLOOD GAS PO2 40 mm/Hg (30-55); VENOUS BLOOD PH 7.27 (7.32-7.43)
[2018-05-12 08:44] LABS: CK MB% 1.9 % (2.5-3.0); CK-MB 10.1 ng/mL (0.0-3.6)
--- NOTE | 2018-05-12 08:56 | CP.CCUPN ---
<Harry Vicente - Last Filed: 05/12/18 11:27> CCU Subjective - Physician Review Subjective (Free Text): Harry Vicente DO. Critical Care Progress note Patient seen and examined at bedside.She is sedated/intubated on pressure support. Afebrile with no significant overnight events. CCU Objective - Vital Signs / Intake & Output Vital Signs (Last 4 hours): Vital Signs Temp Pulse Resp BP Pulse Ox 05/12/18 07:29 16 100 05/12/18 07:20 100.2 F H 104 H 99 05/12/18 07:10 100.2 F H 106 H 100 05/12/18 07:00 100.2 F H 108 H 111/67 100 05/12/18 06:50 100.2 F H 107 H 100 05/12/18 06:40 100.2 F H 107 H 80 L 05/12/18 06:30 100.2 F H 107 H 100 05/12/18 06:20 100.2 F H 108 H 100 05/12/18 06:10 99.9 F H 111 H 100 05/12/18 06:00 99.9 F H 108 H 121/62 100 05/12/18 05:50 99.7 F H 107 H 100 05/12/18 05:40 99.7 F H 109 H 100 05/12/18 05:30 99.7 F H 103 H 100 05/12/18 05:20 99.9 F H 108 H 100 05/12/18 05:10 99.9 F H 109 H 100 05/12/18 05:00 99.9 F H 110 H 115/61 100 Intake and Output (Last 8hrs): Intake & Output 05/11/18 05/12/18 05/12/18 22:59 06:59 14:59 Intake Total 2 1049.5 Output Total 200 Balance 2 849.5 Weight 130 lb Intake: IV 2 1049.5 Antibiotics 700 Left Hand 348 Oral 0 Output: Urine 200 Urethral (Macdonald) 200 Stool 0 Emesis 0 - Physical Exam Physical Exam Limitations: Positive for: Altered Mental Status Head: Positive for: Atraumatic, Normocephalic Pupils: Positive for: PERRL Extroacular Muscles: Positive for: EOMI Conjunctiva: Positive for: Normal Mouth: Positive for: Moist Mucous Membranes, Normal Lips, Normal Tounge, Other (no pursing lip). Negative for: Drooling, Trismus Pharnyx: Negative for: ERYTHEMA, EXUDATE, TONSILS ENLARGED, Uvular Deviation, Strider, Soft Palate/Uvular Edema Nose (External): Positive for: Atraumatic. Negative for: Abrasion, Contusion, Laceration, Lesions Nose (Internal): Positive for: Normal Inspection, No Active Bleeding, Other. Negative for: Rhinorrhea, Septal Hematoma, Epistaxis Neck: Positive for: Normal Range of Motion Respiratory/Chest: Positive for: Wheezes (bilaterally, inspiratory/ expiratory), Decreased Breath Sounds, Rhonchi (bilaterally), Tachypneic. Negative for: Respiratory Distress, Accessory Muscle Use, Rales, Retracting, Tender to Palpation Cardiovascular: Positive for: Regular Rate and Rhythm, Normal S1, S2, Tachycardic, Other (no pedal edema). Negative for: Murmurs Abdomen: Negative for: Tenderness, Distention, Peritoneal Signs, Rebound, Guarding Back: Positive for: Normal Inspection Upper Extremity: Positive for: Normal Inspection. Negative for: Cyanosis, Edema Lower Extremity: Positive for: Normal Inspection. Negative for: Edema, CALF TENDERNESS, Umair's Sign Neurological: Positive for: GCS=15, CN II-XII Intact, Speech Normal Skin: Positive for: Warm, Dry, Normal Color. Negative for: Rashes Psychiatric: Positive for: Other (sedated/intubated) - Medications Active Medications: Active Medications Generic Name Dose Route Start Last Admin Trade Name Freq PRN Reason Stop Dose Admin Budesonide 0.5 mg 05/12/18 08:00 05/12/18 07:18 Pulmicort Respules IH 0.5 mg [id number] LISA Administration Azithromycin 250 mg/ Sodium 250 mls @ 167 mls/hr 05/12/18 10:00 Chloride IVPB DAILY LISA Protocol Propofol 1,000 mg in 100 mls @ 1.769 mls/hr 05/11/18 21:38 05/12/18 01:17 Diprivan IV 0 mcg/kg/min .Q24H PRN 0 mls/hr TITRATE PER MD ORDER Titration Protocol 5 MCG/KG/MIN Dexmedetomidine HCl 400 mcg in 100 mls @ 2.948 mls/hr 05/12/18 00:05 05/12/18 00:27 Precedex 400mcg/100ml IV 0.2 mcg/kg/hr .Q24H PRN 2.948 mls/hr Sedation/Withdrawal Sx Administration Protocol 0.2 MCG/KG/HR Lactated Ringer's 1,000 mls @ 100 mls/hr 05/12/18 02:15 05/12/18 02:51 Lactated Ringer's IV 100 mls/hr .Q10H LISA Administration Piperacillin Sod/Tazobactam Sod 100 mls @ 25 mls/hr 05/12/18 06:00 05/12/18 05:23 Zosyn 3.375 In Ns 100ml IVPB 05/12/18 17:59 25 mls/hr Q8 LISA Administration Protocol Levalbuterol HCl 0.63 mg 05/11/18 19:56 Xopenex IH Q2 PRN Shortness of Breath Levalbuterol HCl 0.63 mg 05/12/18 08:45 Xopenex IH Q4H LISA Lorazepam 2 mg 05/12/18 08:41 Ativan IVP Q4H PRN Agitation Protocol Methylprednisolone 60 mg 05/11/18 22:00 05/12/18 05:24 Solu-Medrol IVP 60 mg Q8 LISA Administration Morphine Sulfate 2 mg 05/12/18 08:41 Morphine IVP Q4H PRN Agitation - Patient Studies Lab Studies: Lab Studies 05/12/18 05/12/18 05/12/18 Range/Units 08:25 06:40 06:40 WBC 14.8 H D (4.5-11.0) 10^3/uL RBC 4.66 (3.5-6.1) 10^6/uL Hgb 12.8 D (12.0-16.0) g/dL Hct 41.2 (36.0-48.0) % MCV 88.4 (80.0-105.0) fl MCH 27.5 (25.0-35.0) pg MCHC 31.1 (31.0-37.0) g/dl RDW 12.7 (11.5-14.5) % Plt Count 202 (120.0-450.0) 10^3/uL MPV 11.8 H (7.0-11.0) fl Neut % (Auto) 91.9 H (50.0-68.0) % Lymph % (Auto) 5.2 L (22.0-35.0) % Desha % (Auto) 2.8 (1.0-6.0) % Eos % (Auto) 0.1 L (1.5-5.0) % Baso % (Auto) 0.0 (0.0-3.0) % Lymph # (Auto) 0.8 L (1.2-3.4) Desha # (Auto) 0.4 (0.1-0.6) Eos # (Auto) 0.0 (0.0-0.7) Baso # (Auto) 0.00 (0.0-2.0) K/mm3 Absolute Neuts (auto) 13.55 H (1.4-6.5) Neutrophils % (Manual) (50.0-70.0) % Lymphocytes % (Manual) (22.0-35.0) % Monocytes % (Manual) (1.0-6.0) % Eosinophils % (Manual) (0.0-3.0) % Platelet Evaluation (NORMAL) Large Platelets pCO2 (35-45) mm/Hg pO2 40 (30-55) mm/Hg HCO3 (21-28) mmol/L ABG pH (7.35-7.45) ABG Total CO2 (22-28) mmol.L ABG O2 Saturation (95-98) % ABG O2 Content (15-23) ML/dl ABG Base Excess (-2.0-3.0) mmol/L ABG Hemoglobin (11.7-17.4) g/dL ABG Carboxyhemoglobin (0.5-1.5) % POC ABG HHb (Measured) (0-5) % ABG Methemoglobin (0.0-3.0) % ABG O2 Capacity (16-24) mL/dl ABG Potassium (3.6-5.2) mmol/L VBG pH 7.27 L (7.32-7.43) VBG pCO2 55.0 (40-60) VBG HCO3 25.3 (21-28) mmol/l VBG Total CO2 27.0 (22-28) mmol.L VBG O2 Sat (Calc) 84.1 H (40-65) % VBG Base Excess -2.5 L (0.0-2.0) mmol/L VBG Potassium 4.6 (3.6-5.2) mmol/L Hgb O2 Saturation (95.0-98.0) % Sodium 138.0 139 (132-148) mmol/L Chloride 102.0 108 H (98-107) mmol/L Glucose 152 H (65-105) mg/dl Lactate 2.9 H (0.7-2.1) mmol/L FiO2 21.0 % Blood Gas Comments Crit Value Called To [place] Crit Value Called By Ab Blood Gas Notified Time 839 Potassium 4.8 (3.6-5.0) mmol/L Carbon Dioxide 19 L (21-33) mmol/L Anion Gap 18 (10-20) BUN 10 (7-21) mg/dL Creatinine 0.7 (0.7-1.2) mg/dl Est GFR ( Amer) > 60 Est GFR (Non-Af Amer) > 60 Random Glucose 137 H (70-110) mg/dL Calcium 9.1 (8.4-10.5) mg/dL Phosphorus 3.7 (2.5-4.5) mg/dL Magnesium 2.2 (1.7-2.2) mg/dL Total Bilirubin 0.2 (0.2-1.3) mg/dL AST 41 H (14-36) U/L ALT 16 (7-56) U/L Alkaline Phosphatase 57 (38-126) U/L Total Creatine Kinase 530 H (35-230) U/L CK-MB (CK-2) 10.1 H (0.0-3.6) ng/mL CK-MB (CK-2) % 1.9 L (2.5-3.0) % NT-Pro-B Natriuret Pep (0-450) pg/mL Total Protein 6.8 (5.8-8.3) g/dL Albumin 4.0 (3.0-4.8) g/dL Globulin 2.8 gm/dL Albumin/Globulin Ratio 1.4 (1.1-1.8) Free T4 (0.78-2.19) ng/dL TSH 3rd Generation (0.46-4.68) mIU/mL Beta HCG, Quant (0-6.15) mIU/mL Arterial Blood Potassium (3.6-5.2) mmol/L Venous Blood Potassium 4.6 (3.6-5.2) mmol/L Urine Opiates Screen (NEGATIVE) Urine Methadone Screen (NEGATIVE) Ur Barbiturates Screen (NEGATIVE) Ur Phencyclidine Scrn (NEGATIVE) Ur Amphetamines Screen (NEGATIVE) U Benzodiazepines Scrn (NEGATIVE) U Oth Cocaine Metabols (NEGATIVE) U Cannabinoids Screen (NEGATIVE) 05/12/18 05/12/18 05/11/18 Range/Units 06:00 01:18 22:50 WBC (4.5-11.0) 10^3/uL RBC (3.5-6.1) 10^6/uL Hgb (12.0-16.0) g/dL Hct (36.0-48.0) % MCV (80.0-105.0) fl MCH (25.0-35.0) pg MCHC (31.0-37.0) g/dl RDW (11.5-14.5) % Plt Count (120.0-450.0) 10^3/uL MPV (7.0-11.0) fl Neut % (Auto) (50.0-68.0) % Lymph % (Auto) (22.0-35.0) % Desha % (Auto) (1.0-6.0) % Eos % (Auto) (1.5-5.0) % Baso % (Auto) (0.0-3.0) % Lymph # (Auto) (1.2-3.4) Desha # (Auto) (0.1-0.6) Eos # (Auto) (0.0-0.7) Baso # (Auto) (0.0-2.0) K/mm3 Absolute Neuts (auto) (1.4-6.5) Neutrophils % (Manual) (50.0-70.0) % Lymphocytes % (Manual) (22.0-35.0) % Monocytes % (Manual) (1.0-6.0) % Eosinophils % (Manual) (0.0-3.0) % Platelet Evaluation (NORMAL) Large Platelets pCO2 46 H 56 H 73 H* (35-45) mm/Hg pO2 243.0 H 233.0 H 554.0 H (30-55) mm/Hg HCO3 22.1 20.9 L 22.7 (21-28) mmol/L ABG pH 7.29 L 7.18 L* 7.10 L* (7.35-7.45) ABG Total CO2 23.5 22.6 24.9 (22-28) mmol.L ABG O2 Saturation 99.7 H 100.3 H 100.3 H (95-98) % ABG O2 Content 18.8 20.2 (15-23) ML/dl ABG Base Excess -4.6 L -8.0 L -8.3 L (-2.0-3.0) mmol/L ABG Hemoglobin 13.3 13.6 (11.7-17.4) g/dL ABG Carboxyhemoglobin 1.3 1.5 (0.5-1.5) % POC ABG HHb (Measured) 0.3 -0.3 L (0-5) % ABG Methemoglobin 0.8 1.2 (0.0-3.0) % ABG O2 Capacity 18.9 20.1 (16-24) mL/dl ABG Potassium 4.1 (3.6-5.2) mmol/L VBG pH (7.32-7.43) VBG pCO2 (40-60) VBG HCO3 (21-28) mmol/l VBG Total CO2 (22-28) mmol.L VBG O2 Sat (Calc) (40-65) % VBG Base Excess (0.0-2.0) mmol/L VBG Potassium (3.6-5.2) mmol/L Hgb O2 Saturation 97.6 97.6 (95.0-98.0) % Sodium 137.0 (132-148) mmol/L Chloride 106.0 (98-107) mmol/L Glucose 167 H (65-105) mg/dl Lactate 3.8 H (0.7-2.1) mmol/L FiO2 50.0 60.0 100.0 % Blood Gas Comments Psv 5 / peep 5 Crit Value Called To Dr. 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 Blood Gas Notified Time 140 2250 Potassium (3.6-5.0) mmol/L Carbon Dioxide (21-33) mmol/L Anion Gap (10-20) BUN (7-21) mg/dL Creatinine (0.7-1.2) mg/dl Est GFR ( Amer) Est GFR (Non-Af Amer) Random Glucose (70-110) mg/dL Calcium (8.4-10.5) mg/dL Phosphorus (2.5-4.5) mg/dL Magnesium (1.7-2.2) mg/dL Total Bilirubin (0.2-1.3) mg/dL AST (14-36) U/L ALT (7-56) U/L Alkaline Phosphatase (38-126) U/L Total Creatine Kinase (35-230) U/L CK-MB (CK-2) (0.0-3.6) ng/mL CK-MB (CK-2) % (2.5-3.0) % NT-Pro-B Natriuret Pep (0-450) pg/mL Total Protein (5.8-8.3) g/dL Albumin (3.0-4.8) g/dL Globulin gm/dL Albumin/Globulin Ratio (1.1-1.8) Free T4 (0.78-2.19) ng/dL TSH 3rd Generation (0.46-4.68) mIU/mL Beta HCG, Quant (0-6.15) mIU/mL Arterial Blood Potassium 4.1 (3.6-5.2) mmol/L Venous Blood Potassium (3.6-5.2) mmol/L Urine Opiates Screen (NEGATIVE) Urine Methadone Screen (NEGATIVE) Ur Barbiturates Screen (NEGATIVE) Ur Phencyclidine Scrn (NEGATIVE) Ur Amphetamines Screen (NEGATIVE) U Benzodiazepines Scrn (NEGATIVE) U Oth Cocaine Metabols (NEGATIVE) U Cannabinoids Screen (NEGATIVE) 05/11/18 05/11/18 05/11/18 Range/Units 21:37 21:10 19:24 WBC (4.5-11.0) 10^3/uL RBC (3.5-6.1) 10^6/uL Hgb (12.0-16.0) g/dL Hct (36.0-48.0) % MCV (80.0-105.0) fl MCH (25.0-35.0) pg MCHC (31.0-37.0) g/dl RDW (11.5-14.5) % Plt Count (120.0-450.0) 10^3/uL MPV (7.0-11.0) fl Neut % (Auto) (50.0-68.0) % Lymph % (Auto) (22.0-35.0) % Desha % (Auto) (1.0-6.0) % Eos % (Auto) (1.5-5.0) % Baso % (Auto) (0.0-3.0) % Lymph # (Auto) (1.2-3.4) Desha # (Auto) (0.1-0.6) Eos # (Auto) (0.0-0.7) Baso # (Auto) (0.0-2.0) K/mm3 Absolute Neuts (auto) (1.4-6.5) Neutrophils % (Manual) (50.0-70.0) % Lymphocytes % (Manual) (22.0-35.0) % Monocytes % (Manual) (1.0-6.0) % Eosinophils % (Manual) (0.0-3.0) % Platelet Evaluation (NORMAL) Large Platelets pCO2 90 H* (35-45) mm/Hg pO2 128.0 H (30-55) mm/Hg HCO3 23.2 (21-28) mmol/L ABG pH 7.02 L* (7.35-7.45) ABG Total CO2 26.0 (22-28) mmol.L ABG O2 Saturation 99.8 H (95-98) % ABG O2 Content 18.7 (15-23) ML/dl ABG Base Excess -9.6 L (-2.0-3.0) mmol/L ABG Hemoglobin 13.6 (11.7-17.4) g/dL ABG Carboxyhemoglobin 2.2 H (0.5-1.5) % POC ABG HHb (Measured) 0.2 (0-5) % ABG Methemoglobin 1.0 (0.0-3.0) % ABG O2 Capacity 18.7 (16-24) mL/dl ABG Potassium (3.6-5.2) mmol/L VBG pH (7.32-7.43) VBG pCO2 (40-60) VBG HCO3 (21-28) mmol/l VBG Total CO2 (22-28) mmol.L VBG O2 Sat (Calc) (40-65) % VBG Base Excess (0.0-2.0) mmol/L VBG Potassium (3.6-5.2) mmol/L Hgb O2 Saturation 96.6 (95.0-98.0) % Sodium (132-148) mmol/L Chloride (98-107) mmol/L Glucose (65-105) mg/dl Lactate (0.7-2.1) mmol/L FiO2 50.0 % Blood Gas Comments Crit Value Called To Dr Crit Value Called By Rs Blood Gas Notified Time 2121 Potassium (3.6-5.0) mmol/L Carbon Dioxide (21-33) mmol/L Anion Gap (10-20) BUN (7-21) mg/dL Creatinine (0.7-1.2) mg/dl Est GFR ( Amer) Est GFR (Non-Af Amer) Random Glucose (70-110) mg/dL Calcium (8.4-10.5) mg/dL Phosphorus (2.5-4.5) mg/dL Magnesium (1.7-2.2) mg/dL Total Bilirubin (0.2-1.3) mg/dL AST (14-36) U/L ALT (7-56) U/L Alkaline Phosphatase (38-126) U/L Total Creatine Kinase (35-230) U/L CK-MB (CK-2) (0.0-3.6) ng/mL CK-MB (CK-2) % (2.5-3.0) % NT-Pro-B Natriuret Pep (0-450) pg/mL Total Protein (5.8-8.3) g/dL Albumin (3.0-4.8) g/dL Globulin gm/dL Albumin/Globulin Ratio (1.1-1.8) Free T4 (0.78-2.19) ng/dL TSH 3rd Generation (0.46-4.68) mIU/mL Beta HCG, Quant < 2.39 (0-6.15) mIU/mL Arterial Blood Potassium (3.6-5.2) mmol/L Venous Blood Potassium (3.6-5.2) mmol/L Urine Opiates Screen Positive H (NEGATIVE) Urine Methadone Screen Negative (NEGATIVE) Ur Barbiturates Screen Negative (NEGATIVE) Ur Phencyclidine Scrn Negative (NEGATIVE) Ur Amphetamines Screen Negative (NEGATIVE) U Benzodiazepines Scrn Positive H (NEGATIVE) U Oth Cocaine Metabols Negative (NEGATIVE) U Cannabinoids Screen Negative (NEGATIVE) 05/11/18 05/11/18 05/11/18 Range/Units 19:05 19:05 19:05 WBC 25.2 H* D (4.5-11.0) 10^3/uL RBC 5.32 (3.5-6.1) 10^6/uL Hgb 15.0 (12.0-16.0) g/dL Hct 46.9 (36.0-48.0) % MCV 88.2 D (80.0-105.0) fl MCH 28.2 (25.0-35.0) pg MCHC 32.0 (31.0-37.0) g/dl RDW 12.7 (11.5-14.5) % Plt Count 338 (120.0-450.0) 10^3/uL MPV 11.5 H (7.0-11.0) fl Neut % (Auto) 36.0 L (50.0-68.0) % Lymph % (Auto) 39.9 H (22.0-35.0) % Desha % (Auto) 5.6 (1.0-6.0) % Eos % (Auto) 17.9 H (1.5-5.0) % Baso % (Auto) 0.6 (0.0-3.0) % Lymph # (Auto) 10.1 H (1.2-3.4) Desha # (Auto) 1.4 H (0.1-0.6) Eos # (Auto) 4.5 H (0.0-0.7) Baso # (Auto) 0.16 (0.0-2.0) K/mm3 Absolute Neuts (auto) 9.06 H (1.4-6.5) Neutrophils % (Manual) 30 L (50.0-70.0) % Lymphocytes % (Manual) 41 H (22.0-35.0) % Monocytes % (Manual) 6 (1.0-6.0) % Eosinophils % (Manual) 23 H (0.0-3.0) % Platelet Evaluation Normal (NORMAL) Large Platelets Present pCO2 (35-45) mm/Hg pO2 (30-55) mm/Hg HCO3 (21-28) mmol/L ABG pH (7.35-7.45) ABG Total CO2 (22-28) mmol.L ABG O2 Saturation (95-98) % ABG O2 Content (15-23) ML/dl ABG Base Excess (-2.0-3.0) mmol/L ABG Hemoglobin (11.7-17.4) g/dL ABG Carboxyhemoglobin (0.5-1.5) % POC ABG HHb (Measured) (0-5) % ABG Methemoglobin (0.0-3.0) % ABG O2 Capacity (16-24) mL/dl ABG Potassium (3.6-5.2) mmol/L VBG pH (7.32-7.43) VBG pCO2 (40-60) VBG HCO3 (21-28) mmol/l VBG Total CO2 (22-28) mmol.L VBG O2 Sat (Calc) (40-65) % VBG Base Excess (0.0-2.0) mmol/L VBG Potassium (3.6-5.2) mmol/L Hgb O2 Saturation (95.0-98.0) % Sodium 141 (132-148) mmol/L Chloride 103 (98-107) mmol/L Glucose (65-105) mg/dl Lactate (0.7-2.1) mmol/L FiO2 % Blood Gas Comments Crit Value Called To Crit Value Called By Blood Gas Notified Time Potassium 3.9 (3.6-5.0) mmol/L Carbon Dioxide 30 (21-33) mmol/L Anion Gap 12 (10-20) BUN 11 (7-21) mg/dL Creatinine 0.8 (0.7-1.2) mg/dl Est GFR ( Amer) > 60 Est GFR (Non-Af Amer) > 60 Random Glucose 203 H (70-110) mg/dL Calcium 8.8 (8.4-10.5) mg/dL Phosphorus (2.5-4.5) mg/dL Magnesium 3.7 H (1.7-2.2) mg/dL Total Bilirubin 0.2 (0.2-1.3) mg/dL AST 38 H (14-36) U/L ALT 29 (7-56) U/L Alkaline Phosphatase 66 (38-126) U/L Total Creatine Kinase (35-230) U/L CK-MB (CK-2) (0.0-3.6) ng/mL CK-MB (CK-2) % (2.5-3.0) % NT-Pro-B Natriuret Pep 107 (0-450) pg/mL Total Protein 7.2 (5.8-8.3) g/dL Albumin 4.2 (3.0-4.8) g/dL Globulin 3.1 gm/dL Albumin/Globulin Ratio 1.4 (1.1-1.8) Free T4 1.48 (0.78-2.19) ng/dL TSH 3rd Generation 3.30 (0.46-4.68) mIU/mL Beta HCG, Quant (0-6.15) mIU/mL Arterial Blood Potassium (3.6-5.2) mmol/L Venous Blood Potassium (3.6-5.2) mmol/L Urine Opiates Screen (NEGATIVE) Urine Methadone Screen (NEGATIVE) Ur Barbiturates Screen (NEGATIVE) Ur Phencyclidine Scrn (NEGATIVE) Ur Amphetamines Screen (NEGATIVE) U Benzodiazepines Scrn (NEGATIVE) U Oth Cocaine Metabols (NEGATIVE) U Cannabinoids Screen (NEGATIVE) 05/11/18 Range/Units 19:00 WBC (4.5-11.0) 10^3/uL RBC (3.5-6.1) 10^6/uL Hgb (12.0-16.0) g/dL Hct (36.0-48.0) % MCV (80.0-105.0) fl MCH (25.0-35.0) pg MCHC (31.0-37.0) g/dl RDW (11.5-14.5) % Plt Count (120.0-450.0) 10^3/uL MPV (7.0-11.0) fl Neut % (Auto) (50.0-68.0) % Lymph % (Auto) (22.0-35.0) % Desha % (Auto) (1.0-6.0) % Eos % (Auto) (1.5-5.0) % Baso % (Auto) (0.0-3.0) % Lymph # (Auto) (1.2-3.4) Desha # (Auto) (0.1-0.6) Eos # (Auto) (0.0-0.7) Baso # (Auto) (0.0-2.0) K/mm3 Absolute Neuts (auto) (1.4-6.5) Neutrophils % (Manual) (50.0-70.0) % Lymphocytes % (Manual) (22.0-35.0) % Monocytes % (Manual) (1.0-6.0) % Eosinophils % (Manual) (0.0-3.0) % Platelet Evaluation (NORMAL) Large Platelets pCO2 (35-45) mm/Hg pO2 77 H (30-55) mm/Hg HCO3 (21-28) mmol/L ABG pH (7.35-7.45) ABG Total CO2 (22-28) mmol.L ABG O2 Saturation (95-98) % ABG O2 Content (15-23) ML/dl ABG Base Excess (-2.0-3.0) mmol/L ABG Hemoglobin (11.7-17.4) g/dL ABG Carboxyhemoglobin (0.5-1.5) % POC ABG HHb (Measured) (0-5) % ABG Methemoglobin (0.0-3.0) % ABG O2 Capacity (16-24) mL/dl ABG Potassium (3.6-5.2) mmol/L VBG pH 7.05 L* (7.32-7.43) VBG pCO2 103.0 H* (40-60) VBG HCO3 28.5 H (21-28) mmol/l VBG Total CO2 31.7 H (22-28) mmol.L VBG O2 Sat (Calc) 93.9 H (40-65) % VBG Base Excess -4.7 L (0.0-2.0) mmol/L VBG Potassium 3.6 (3.6-5.2) mmol/L Hgb O2 Saturation (95.0-98.0) % Sodium 137.0 (132-148) mmol/L Chloride 102.0 (98-107) mmol/L Glucose 208 H (65-105) mg/dl Lactate 1.3 (0.7-2.1) mmol/L FiO2 21.0 % Blood Gas Comments Crit Value Called To Rn Crit Value Called By Rs Blood Gas Notified Time 1911 Potassium (3.6-5.0) mmol/L Carbon Dioxide (21-33) mmol/L Anion Gap (10-20) BUN (7-21) mg/dL Creatinine (0.7-1.2) mg/dl Est GFR ( Amer) Est GFR (Non-Af Amer) Random Glucose (70-110) mg/dL Calcium (8.4-10.5) mg/dL Phosphorus (2.5-4.5) mg/dL Magnesium (1.7-2.2) mg/dL Total Bilirubin (0.2-1.3) mg/dL AST (14-36) U/L ALT (7-56) U/L Alkaline Phosphatase (38-126) U/L Total Creatine Kinase (35-230) U/L CK-MB (CK-2) (0.0-3.6) ng/mL CK-MB (CK-2) % (2.5-3.0) % NT-Pro-B Natriuret Pep (0-450) pg/mL Total Protein (5.8-8.3) g/dL Albumin (3.0-4.8) g/dL Globulin gm/dL Albumin/Globulin Ratio (1.1-1.8) Free T4 (0.78-2.19) ng/dL TSH 3rd Generation (0.46-4.68) mIU/mL Beta HCG, Quant (0-6.15) mIU/mL Arterial Blood Potassium (3.6-5.2) mmol/L Venous Blood Potassium 3.6 (3.6-5.2) mmol/L Urine Opiates Screen (NEGATIVE) Urine Methadone Screen (NEGATIVE) Ur Barbiturates Screen (NEGATIVE) Ur Phencyclidine Scrn (NEGATIVE) Ur Amphetamines Screen (NEGATIVE) U Benzodiazepines Scrn (NEGATIVE) U Oth Cocaine Metabols (NEGATIVE) U Cannabinoids Screen (NEGATIVE) Laboratory Results - last 24 hr 05/11/18 05/11/18 05/11/18 19:00 19:05 19:05 WBC 25.2 H* D RBC 5.32 Hgb 15.0 Hct 46.9 MCV 88.2 D MCH 28.2 MCHC 32.0 RDW 12.7 Plt Count 338 MPV 11.5 H Neut % (Auto) 36.0 L Lymph % (Auto) 39.9 H Desha % (Auto) 5.6 Eos % (Auto) 17.9 H Baso % (Auto) 0.6 Lymph # (Auto) 10.1 H Desha # (Auto) 1.4 H Eos # (Auto) 4.5 H Baso # (Auto) 0.16 Absolute Neuts (auto) 9.06 H Neutrophils % (Manual) 30 L Lymphocytes % (Manual) 41 H Monocytes % (Manual) 6 Eosinophils % (Manual) 23 H Platelet Evaluation Normal Large Platelets Present pCO2 pO2 77 H HCO3 ABG pH ABG Total CO2 ABG O2 Saturation ABG O2 Content ABG Base Excess ABG Hemoglobin ABG Carboxyhemoglobin POC ABG HHb (Measured) ABG Methemoglobin ABG O2 Capacity ABG Potassium VBG pH 7.05 L* VBG pCO2 103.0 H* VBG HCO3 28.5 H VBG Total CO2 31.7 H VBG O2 Sat (Calc) 93.9 H VBG Base Excess -4.7 L VBG Potassium 3.6 Hgb O2 Saturation Sodium 137.0 141 Chloride 102.0 103 Glucose 208 H Lactate 1.3 FiO2 21.0 Blood Gas Comments Crit Value Called To Rn Crit Value Called By Rs Blood Gas Notified Time 1911 Potassium 3.9 Carbon Dioxide 30 Anion Gap 12 BUN 11 Creatinine 0.8 Est GFR ( Amer) > 60 Est GFR (Non-Af Amer) > 60 Random Glucose 203 H Calcium 8.8 Phosphorus Magnesium 3.7 H Total Bilirubin 0.2 AST 38 H ALT 29 Alkaline Phosphatase 66 Total Creatine Kinase CK-MB (CK-2) CK-MB (CK-2) % NT-Pro-B Natriuret Pep 107 Total Protein 7.2 Albumin 4.2 Globulin 3.1 Albumin/Globulin Ratio 1.4 Free T4 TSH 3rd Generation Beta HCG, Quant Arterial Blood Potassium Venous Blood Potassium 3.6 Urine Opiates Screen Urine Methadone Screen Ur Barbiturates Screen Ur Phencyclidine Scrn Ur Amphetamines Screen U Benzodiazepines Scrn U Oth Cocaine Metabols U Cannabinoids Screen 05/11/18 05/11/18 05/11/18 19:05 19:24 21:10 WBC RBC Hgb Hct MCV MCH MCHC RDW Plt Count MPV Neut % (Auto) Lymph % (Auto) Desha % (Auto) Eos % (Auto) Baso % (Auto) Lymph # (Auto) Desha # (Auto) Eos # (Auto) Baso # (Auto) Absolute Neuts (auto) Neutrophils % (Manual) Lymphocytes % (Manual) Monocytes % (Manual) Eosinophils % (Manual) Platelet Evaluation Large Platelets pCO2 90 H* pO2 128.0 H HCO3 23.2 ABG pH 7.02 L* ABG Total CO2 26.0 ABG O2 Saturation 99.8 H ABG O2 Content 18.7 ABG Base Excess -9.6 L ABG Hemoglobin 13.6 ABG Carboxyhemoglobin 2.2 H POC ABG HHb (Measured) 0.2 ABG Methemoglobin 1.0 ABG O2 Capacity 18.7 ABG Potassium VBG pH VBG pCO2 VBG HCO3 VBG Total CO2 VBG O2 Sat (Calc) VBG Base Excess VBG Potassium Hgb O2 Saturation 96.6 Sodium Chloride Glucose Lactate FiO2 50.0 Blood Gas Comments Crit Value Called To Dr Crit Value Called By Rs Blood Gas Notified Time 2121 Potassium Carbon Dioxide Anion Gap BUN Creatinine Est GFR ( Amer) Est GFR (Non-Af Amer) Random Glucose Calcium Phosphorus Magnesium Total Bilirubin AST ALT Alkaline Phosphatase Total Creatine Kinase CK-MB (CK-2) CK-MB (CK-2) % NT-Pro-B Natriuret Pep Total Protein Albumin Globulin Albumin/Globulin Ratio Free T4 1.48 TSH 3rd Generation 3.30 Beta HCG, Quant < 2.39 Arterial Blood Potassium Venous Blood Potassium Urine Opiates Screen Urine Methadone Screen Ur Barbiturates Screen Ur Phencyclidine Scrn Ur Amphetamines Screen U Benzodiazepines Scrn U Oth Cocaine Metabols U Cannabinoids Screen 05/11/18 05/11/18 05/12/18 21:37 22:50 01:18 WBC RBC Hgb Hct MCV MCH MCHC RDW Plt Count MPV Neut % (Auto) Lymph % (Auto) Desha % (Auto) Eos % (Auto) Baso % (Auto) Lymph # (Auto) Desha # (Auto) Eos # (Auto) Baso # (Auto) Absolute Neuts (auto) Neutrophils % (Manual) Lymphocytes % (Manual) Monocytes % (Manual) Eosinophils % (Manual) Platelet Evaluation Large Platelets pCO2 73 H* 56 H pO2 554.0 H 233.0 H HCO3 22.7 20.9 L ABG pH 7.10 L* 7.18 L* ABG Total CO2 24.9 22.6 ABG O2 Saturation 100.3 H 100.3 H ABG O2 Content 20.2 ABG Base Excess -8.3 L -8.0 L ABG Hemoglobin 13.6 ABG Carboxyhemoglobin 1.5 POC ABG HHb (Measured) -0.3 L ABG Methemoglobin 1.2 ABG O2 Capacity 20.1 ABG Potassium 4.1 VBG pH VBG pCO2 VBG HCO3 VBG Total CO2 VBG O2 Sat (Calc) VBG Base Excess VBG Potassium Hgb O2 Saturation 97.6 Sodium 137.0 Chloride 106.0 Glucose 167 H Lactate 3.8 H FiO2 100.0 60.0 Blood Gas Comments Psv 5 / peep 5 Crit Value Called To valeriy Norris Dr. Crit Value Called By Landy 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 Landy dove [employer] Blood Gas Notified Time 2250 140 Potassium Carbon Dioxide Anion Gap BUN Creatinine Est GFR ( Amer) Est GFR (Non-Af Amer) Random Glucose Calcium Phosphorus Magnesium Total Bilirubin AST ALT Alkaline Phosphatase Total Creatine Kinase CK-MB (CK-2) CK-MB (CK-2) % NT-Pro-B Natriuret Pep Total Protein Albumin Globulin Albumin/Globulin Ratio Free T4 TSH 3rd Generation Beta HCG, Quant Arterial Blood Potassium 4.1 Venous Blood Potassium Urine Opiates Screen Positive H Urine Methadone Screen Negative Ur Barbiturates Screen Negative Ur Phencyclidine Scrn Negative Ur Amphetamines Screen Negative U Benzodiazepines Scrn Positive H U Oth Cocaine Metabols Negative U Cannabinoids Screen Negative 05/12/18 05/12/18 05/12/18 06:00 06:40 06:40 WBC 14.8 H D RBC 4.66 Hgb 12.8 D Hct 41.2 MCV 88.4 MCH 27.5 MCHC 31.1 RDW 12.7 Plt Count 202 MPV 11.8 H Neut % (Auto) 91.9 H Lymph % (Auto) 5.2 L Desha % (Auto) 2.8 Eos % (Auto) 0.1 L Baso % (Auto) 0.0 Lymph # (Auto) 0.8 L Desha # (Auto) 0.4 Eos # (Auto) 0.0 Baso # (Auto) 0.00 Absolute Neuts (auto) 13.55 H Neutrophils % (Manual) Lymphocytes % (Manual) Monocytes % (Manual) Eosinophils % (Manual) Platelet Evaluation Large Platelets pCO2 46 H pO2 243.0 H HCO3 22.1 ABG pH 7.29 L ABG Total CO2 23.5 ABG O2 Saturation 99.7 H ABG O2 Content 18.8 ABG Base Excess -4.6 L ABG Hemoglobin 13.3 ABG Carboxyhemoglobin 1.3 POC ABG HHb (Measured) 0.3 ABG Methemoglobin 0.8 ABG O2 Capacity 18.9 ABG Potassium VBG pH VBG pCO2 VBG HCO3 VBG Total CO2 VBG O2 Sat (Calc) VBG Base Excess VBG Potassium Hgb O2 Saturation 97.6 Sodium 139 Chloride 108 H Glucose Lactate FiO2 50.0 Blood Gas Comments Crit Value Called To Crit Value Called By Blood Gas Notified Time Potassium 4.8 Carbon Dioxide 19 L Anion Gap 18 BUN 10 Creatinine 0.7 Est GFR ( Amer) > 60 Est GFR (Non-Af Amer) > 60 Random Glucose 137 H Calcium 9.1 Phosphorus 3.7 Magnesium 2.2 Total Bilirubin 0.2 AST 41 H ALT 16 Alkaline Phosphatase 57 Total Creatine Kinase 530 H CK-MB (CK-2) 10.1 H CK-MB (CK-2) % 1.9 L NT-Pro-B Natriuret Pep Total Protein 6.8 Albumin 4.0 Globulin 2.8 Albumin/Globulin Ratio 1.4 Free T4 TSH 3rd Generation Beta HCG, Quant Arterial Blood Potassium Venous Blood Potassium Urine Opiates Screen Urine Methadone Screen Ur Barbiturates Screen Ur Phencyclidine Scrn Ur Amphetamines Screen U Benzodiazepines Scrn U Oth Cocaine Metabols U Cannabinoids Screen 05/12/18 08:25 WBC RBC Hgb Hct MCV MCH MCHC RDW Plt Count MPV Neut % (Auto) Lymph % (Auto) Desha % (Auto) Eos % (Auto) Baso % (Auto) Lymph # (Auto) Desha # (Auto) Eos # (Auto) Baso # (Auto) Absolute Neuts (auto) Neutrophils % (Manual) Lymphocytes % (Manual) Monocytes % (Manual) Eosinophils % (Manual) Platelet Evaluation Large Platelets pCO2 pO2 40 HCO3 ABG pH ABG Total CO2 ABG O2 Saturation ABG O2 Content ABG Base Excess ABG Hemoglobin ABG Carboxyhemoglobin POC ABG HHb (Measured) ABG Methemoglobin ABG O2 Capacity ABG Potassium VBG pH 7.27 L VBG pCO2 55.0 VBG HCO3 25.3 VBG Total CO2 27.0 VBG O2 Sat (Calc) 84.1 H VBG Base Excess -2.5 L VBG Potassium 4.6 Hgb O2 Saturation Sodium 138.0 Chloride 102.0 Glucose 152 H Lactate 2.9 H FiO2 21.0 Blood Gas Comments Crit Value Called To [place] Crit Value Called By Ab Blood Gas Notified Time 839 Potassium Carbon Dioxide Anion Gap BUN Creatinine Est GFR ( Amer) Est GFR (Non-Af Amer) Random Glucose Calcium Phosphorus Magnesium Total Bilirubin AST ALT Alkaline Phosphatase Total Creatine Kinase CK-MB (CK-2) CK-MB (CK-2) % NT-Pro-B Natriuret Pep Total Protein Albumin Globulin Albumin/Globulin Ratio Free T4 TSH 3rd Generation Beta HCG, Quant Arterial Blood Potassium Venous Blood Potassium 4.6 Urine Opiates Screen Urine Methadone Screen Ur Barbiturates Screen Ur Phencyclidine Scrn Ur Amphetamines Screen U Benzodiazepines Scrn U Oth Cocaine Metabols U Cannabinoids Screen EKG/Cardiology Studies: Cardiology / EKG Studies 05/11/18 18:59 ELECTROCARDIOGRAM Stat Comment: Reason For Exam: sob Review of Systems - Review of Systems Systems not reviewed;Unavailable: Altered Mental Status Critical Care Progress Note - Ventilator Checklist Head of Bed 30 Degrees: Yes Daily Sedation Vacation: Yes Daily Assessment of Readiness to Wean: Yes Daily Spontaneous Breathing Trial: Yes PUD Prophalyxis: Yes DVT Prophylaxis: Yes Oral Care with Chlorhexidine Gluconate {CHG}: Yes - Vent Settings FIO2:: 40 PEEP:: 5 - Prophylaxis GI Prophylaxis GI: PPI - Prophylaxis DVT Prophylaxis DVT: Heparin SQ Assessment/Plan - Assessment and Plan (Free Text) Assessment: 27 y/o female admitted to ICU for acute asthma exacerbation s/p intubation in the setting of hypoxic respiratory failure Plan: Neuro: -sedated on precedex -d/c versed, propofol -continue ativan, morphine prn -maintain normothermia Cardio: -EKG: sinus tachycardia @133 -maintain MAP>65 Pulm: -acute asthma exacerbation with medication non-compliance -hypoxic respiratory failure s/p intubation -CXR: NAD -continue zosyn, zithromax as per ID -continue soluMedrol 60mg q8h -continue xopenex lisa and prn -continue pulmicort q12 -ABG 7.29/46/243 -on PS/CPAP PEEP 5/40% GI: -started tube feeding Renal: -elevated CPK -continue LR@ 100ml/hr -replete lytes as needed -I/O -UA negative -UDS positive for opiates, benzo -maintain euvolemia ID: -leukocytosis improving. Afebrile -f/u cx blood, urine, sputum -f/u legionella ag, mycoplasma IgM, procal -lactate elevated -ID following Heme -H&H stable -continue monitoring Prophylaxis: GI ppx Protonix DVT SCD, Heparin sq Continue ICU management Full code Case reviewed and plan discussed with attending physician Dr Black <Pranay Black - Last Filed: 05/12/18 12:05> CCU Objective - Vital Signs / Intake & Output Intake and Output (Last 8hrs): Intake & Output 05/11/18 05/12/18 05/12/18 22:59 06:59 14:59 Intake Total 2 1049.5 Output Total 200 Balance 2 849.5 Weight 130 lb Intake: IV 2 1049.5 Antibiotics 700 Left Hand 348 Oral 0 Output: Urine 200 Urethral (Macdonald) 200 Stool 0 Emesis 0 - Medications Active Medications: Active Medications Generic Name Dose Route Start Last Admin Trade Name Césarq PRN Reason Stop Dose Admin Budesonide 0.5 mg 05/12/18 08:00 05/12/18 07:18 Pulmicort Respules IH 0.5 mg [id number] LISA Administration Heparin Sodium (Porcine) 5,000 units 05/12/18 14:00 Heparin SC Q8 LISA Protocol Azithromycin 250 mg/ Sodium 250 mls @ 167 mls/hr 05/12/18 10:00 05/12/18 09:39 Chloride IVPB 167 mls/hr DAILY LISA Administration Protocol Dexmedetomidine HCl 400 mcg in 100 mls @ 2.948 mls/hr 05/12/18 00:05 05/12/18 00:27 Precedex 400mcg/100ml IV 0.2 mcg/kg/hr .Q24H PRN 2.948 mls/hr Sedation/Withdrawal Sx Administration Protocol 0.2 MCG/KG/HR Lactated Ringer's 1,000 mls @ 100 mls/hr 05/12/18 02:15 05/12/18 02:51 Lactated Ringer's IV 100 mls/hr .Q10H LISA Administration Piperacillin Sod/Tazobactam Sod 100 mls @ 25 mls/hr 05/12/18 06:00 05/12/18 05:23 Zosyn 3.375 In Ns 100ml IVPB 05/12/18 17:59 25 mls/hr Q8 LISA Administration Protocol Levalbuterol HCl 0.63 mg 05/11/18 19:56 Xopenex IH Q2 PRN Shortness of Breath Levalbuterol HCl 0.63 mg 05/12/18 08:45 05/12/18 11:04 Xopenex IH 0.63 mg Q4H LISA Administration Lorazepam 2 mg 05/12/18 08:41 05/12/18 11:26 Ativan IVP 2 mg Q4H PRN Administration Agitation Protocol Methylprednisolone 60 mg 05/11/18 22:00 05/12/18 05:24 Solu-Medrol IVP 60 mg Q8 LISA Administration Morphine Sulfate 2 mg 05/12/18 08:41 Morphine IVP Q4H PRN Agitation Pantoprazole Sodium 40 mg 05/12/18 11:15 05/12/18 11:35 Protonix Inj IVP 40 mg DAILY LISA Administration - Patient Studies Lab Studies: Lab Studies 05/12/18 05/12/18 05/12/18 Range/Units 08:25 07:45 06:40 WBC (4.5-11.0) 10^3/uL RBC (3.5-6.1) 10^6/uL Hgb (12.0-16.0) g/dL Hct (36.0-48.0) % MCV (80.0-105.0) fl MCH (25.0-35.0) pg MCHC (31.0-37.0) g/dl RDW (11.5-14.5) % Plt Count (120.0-450.0) 10^3/uL MPV (7.0-11.0) fl Neut % (Auto) (50.0-68.0) % Lymph % (Auto) (22.0-35.0) % Desha % (Auto) (1.0-6.0) % Eos % (Auto) (1.5-5.0) % Baso % (Auto) (0.0-3.0) % Lymph # (Auto) (1.2-3.4) Desha # (Auto) (0.1-0.6) Eos # (Auto) (0.0-0.7) Baso # (Auto) (0.0-2.0) K/mm3 Absolute Neuts (auto) (1.4-6.5) Neutrophils % (Manual) (50.0-70.0) % Lymphocytes % (Manual) (22.0-35.0) % Monocytes % (Manual) (1.0-6.0) % Eosinophils % (Manual) (0.0-3.0) % Platelet Evaluation (NORMAL) Large Platelets pCO2 (35-45) mm/Hg pO2 40 (30-55) mm/Hg HCO3 (21-28) mmol/L ABG pH (7.35-7.45) ABG Total CO2 (22-28) mmol.L ABG O2 Saturation (95-98) % ABG O2 Content (15-23) ML/dl ABG Base Excess (-2.0-3.0) mmol/L ABG Hemoglobin (11.7-17.4) g/dL ABG Carboxyhemoglobin (0.5-1.5) % POC ABG HHb (Measured) (0-5) % ABG Methemoglobin (0.0-3.0) % ABG O2 Capacity (16-24) mL/dl ABG Potassium (3.6-5.2) mmol/L VBG pH 7.27 L (7.32-7.43) VBG pCO2 55.0 (40-60) VBG HCO3 25.3 (21-28) mmol/l VBG Total CO2 27.0 (22-28) mmol.L VBG O2 Sat (Calc) 84.1 H (40-65) % VBG Base Excess -2.5 L (0.0-2.0) mmol/L VBG Potassium 4.6 (3.6-5.2) mmol/L Hgb O2 Saturation (95.0-98.0) % Sodium 138.0 139 (132-148) mmol/L Chloride 102.0 108 H (98-107) mmol/L Glucose 152 H (65-105) mg/dl Lactate 2.9 H (0.7-2.1) mmol/L FiO2 21.0 % Blood Gas Comments Crit Value Called To [place] Crit Value Called By Ab Blood Gas Notified Time 839 Potassium 4.8 (3.6-5.0) mmol/L Carbon Dioxide 19 L (21-33) mmol/L Anion Gap 18 (10-20) BUN 10 (7-21) mg/dL Creatinine 0.7 (0.7-1.2) mg/dl Est GFR ( Amer) > 60 Est GFR (Non-Af Amer) > 60 Random Glucose 137 H (70-110) mg/dL Calcium 9.1 (8.4-10.5) mg/dL Phosphorus 3.7 (2.5-4.5) mg/dL Magnesium 2.2 (1.7-2.2) mg/dL Total Bilirubin 0.2 (0.2-1.3) mg/dL AST 41 H (14-36) U/L ALT 16 (7-56) U/L Alkaline Phosphatase 57 (38-126) U/L Total Creatine Kinase 530 H (35-230) U/L CK-MB (CK-2) 10.1 H (0.0-3.6) ng/mL CK-MB (CK-2) % 1.9 L (2.5-3.0) % NT-Pro-B Natriuret Pep (0-450) pg/mL Total Protein 6.8 (5.8-8.3) g/dL Albumin 4.0 (3.0-4.8) g/dL Globulin 2.8 gm/dL Albumin/Globulin Ratio 1.4 (1.1-1.8) Free T4 (0.78-2.19) ng/dL TSH 3rd Generation (0.46-4.68) mIU/mL Beta HCG, Quant (0-6.15) mIU/mL Arterial Blood Potassium (3.6-5.2) mmol/L Venous Blood Potassium 4.6 (3.6-5.2) mmol/L Urine Color Yellow (YELLOW) Urine Appearance Clear (CLEAR) Urine pH 6.0 (4.7-8.0) Ur Specific [place] >= 1.030 (1.005-1.035) Urine Protein Trace H (<30 mg/dL) mg/dL Urine Glucose (UA) Negative (NEGATIVE) mg/dL Urine Ketones Negative (NEGATIVE) mg/dL Urine Blood Large H (NEGATIVE) Urine Nitrate Negative (NEGATIVE) Urine Bilirubin Negative (NEGATIVE) Urine Urobilinogen 0.2 (<1 E.U./dL) E.U./dL Ur Leukocyte Esterase Negative (NEGATIVE) [place]/uL Urine RBC Tntc H (0-2) /hpf Urine WBC 2 - 5 (0-6) /hpf Ur Epithelial Cells 4 - 5 (0-5) /hpf Amorphous Sediment Few (NONE) /hpf Urine Bacteria Large (NONE) /hpf Hyaline Casts 0 - 2 (NONE) /hpf Fine Granular Casts 0 - 2 (NONE) /hpf Coarse Granular Casts Trace (NONE) /hpf Urine Other Fiber /hpf Urine Opiates Screen (NEGATIVE) Urine Methadone Screen (NEGATIVE) Ur Barbiturates Screen (NEGATIVE) Ur Phencyclidine Scrn (NEGATIVE) Ur Amphetamines Screen (NEGATIVE) U Benzodiazepines Scrn (NEGATIVE) U Oth Cocaine Metabols (NEGATIVE) U Cannabinoids Screen (NEGATIVE) 05/12/18 05/12/18 05/12/18 Range/Units 06:40 06:00 01:18 WBC 14.8 H D (4.5-11.0) 10^3/uL RBC 4.66 (3.5-6.1) 10^6/uL Hgb 12.8 D (12.0-16.0) g/dL Hct 41.2 (36.0-48.0) % MCV 88.4 (80.0-105.0) fl MCH 27.5 (25.0-35.0) pg MCHC 31.1 (31.0-37.0) g/dl RDW 12.7 (11.5-14.5) % Plt Count 202 (120.0-450.0) 10^3/uL MPV 11.8 H (7.0-11.0) fl Neut % (Auto) 91.9 H (50.0-68.0) % Lymph % (Auto) 5.2 L (22.0-35.0) % Desha % (Auto) 2.8 (1.0-6.0) % Eos % (Auto) 0.1 L (1.5-5.0) % Baso % (Auto) 0.0 (0.0-3.0) % Lymph # (Auto) 0.8 L (1.2-3.4) Desha # (Auto) 0.4 (0.1-0.6) Eos # (Auto) 0.0 (0.0-0.7) Baso # (Auto) 0.00 (0.0-2.0) K/mm3 Absolute Neuts (auto) 13.55 H (1.4-6.5) Neutrophils % (Manual) (50.0-70.0) % Lymphocytes % (Manual) (22.0-35.0) % Monocytes % (Manual) (1.0-6.0) % Eosinophils % (Manual) (0.0-3.0) % Platelet Evaluation (NORMAL) Large Platelets pCO2 46 H 56 H (35-45) mm/Hg pO2 243.0 H 233.0 H (30-55) mm/Hg HCO3 22.1 20.9 L (21-28) mmol/L ABG pH 7.29 L 7.18 L* (7.35-7.45) ABG Total CO2 23.5 22.6 (22-28) mmol.L ABG O2 Saturation 99.7 H 100.3 H (95-98) % ABG O2 Content 18.8 (15-23) ML/dl ABG Base Excess -4.6 L -8.0 L (-2.0-3.0) mmol/L ABG Hemoglobin 13.3 (11.7-17.4) g/dL ABG Carboxyhemoglobin 1.3 (0.5-1.5) % POC ABG HHb (Measured) 0.3 (0-5) % ABG Methemoglobin 0.8 (0.0-3.0) % ABG O2 Capacity 18.9 (16-24) mL/dl ABG Potassium 4.1 (3.6-5.2) mmol/L VBG pH (7.32-7.43) VBG pCO2 (40-60) VBG HCO3 (21-28) mmol/l VBG Total CO2 (22-28) mmol.L VBG O2 Sat (Calc) (40-65) % VBG Base Excess (0.0-2.0) mmol/L VBG Potassium (3.6-5.2) mmol/L Hgb O2 Saturation 97.6 (95.0-98.0) % Sodium 137.0 (132-148) mmol/L Chloride 106.0 (98-107) mmol/L Glucose 167 H (65-105) mg/dl Lactate 3.8 H (0.7-2.1) mmol/L FiO2 50.0 60.0 % Blood Gas Comments Psv 5 / peep 5 Crit Value Called To Dr. 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 [employer] Blood Gas Notified Time 140 Potassium (3.6-5.0) mmol/L Carbon Dioxide (21-33) mmol/L Anion Gap (10-20) BUN (7-21) mg/dL Creatinine (0.7-1.2) mg/dl Est GFR ( Amer) Est GFR (Non-Af Amer) Random Glucose (70-110) mg/dL Calcium (8.4-10.5) mg/dL Phosphorus (2.5-4.5) mg/dL Magnesium (1.7-2.2) mg/dL Total Bilirubin (0.2-1.3) mg/dL AST (14-36) U/L ALT (7-56) U/L Alkaline Phosphatase (38-126) U/L Total Creatine Kinase (35-230) U/L CK-MB (CK-2) (0.0-3.6) ng/mL CK-MB (CK-2) % (2.5-3.0) % NT-Pro-B Natriuret Pep (0-450) pg/mL Total Protein (5.8-8.3) g/dL Albumin (3.0-4.8) g/dL Globulin gm/dL Albumin/Globulin Ratio (1.1-1.8) Free T4 (0.78-2.19) ng/dL TSH 3rd Generation (0.46-4.68) mIU/mL Beta HCG, Quant (0-6.15) mIU/mL Arterial Blood Potassium 4.1 (3.6-5.2) mmol/L Venous Blood Potassium (3.6-5.2) mmol/L Urine Color (YELLOW) Urine Appearance (CLEAR) Urine pH (4.7-8.0) Ur Specific [place] (1.005-1.035) Urine Protein (<30 mg/dL) mg/dL Urine Glucose (UA) (NEGATIVE) mg/dL Urine Ketones (NEGATIVE) mg/dL Urine Blood (NEGATIVE) Urine Nitrate (NEGATIVE) Urine Bilirubin (NEGATIVE) Urine Urobilinogen (<1 E.U./dL) E.U./dL Ur Leukocyte Esterase (NEGATIVE) [place]/uL Urine RBC (0-2) /hpf Urine WBC (0-6) /hpf Ur Epithelial Cells (0-5) /hpf Amorphous Sediment (NONE) /hpf Urine Bacteria (NONE) /hpf Hyaline Casts (NONE) /hpf Fine Granular Casts (NONE) /hpf Coarse Granular Casts (NONE) /hpf Urine Other /hpf Urine Opiates Screen (NEGATIVE) Urine Methadone Screen (NEGATIVE) Ur Barbiturates Screen (NEGATIVE) Ur Phencyclidine Scrn (NEGATIVE) Ur Amphetamines Screen (NEGATIVE) U Benzodiazepines Scrn (NEGATIVE) U Oth Cocaine Metabols (NEGATIVE) U Cannabinoids Screen (NEGATIVE) 05/11/18 05/11/18 05/11/18 Range/Units 22:50 21:37 21:10 WBC (4.5-11.0) 10^3/uL RBC (3.5-6.1) 10^6/uL Hgb (12.0-16.0) g/dL Hct (36.0-48.0) % MCV (80.0-105.0) fl MCH (25.0-35.0) pg MCHC (31.0-37.0) g/dl RDW (11.5-14.5) % Plt Count (120.0-450.0) 10^3/uL MPV (7.0-11.0) fl Neut % (Auto) (50.0-68.0) % Lymph % (Auto) (22.0-35.0) % Desha % (Auto) (1.0-6.0) % Eos % (Auto) (1.5-5.0) % Baso % (Auto) (0.0-3.0) % Lymph # (Auto) (1.2-3.4) Desha # (Auto) (0.1-0.6) Eos # (Auto) (0.0-0.7) Baso # (Auto) (0.0-2.0) K/mm3 Absolute Neuts (auto) (1.4-6.5) Neutrophils % (Manual) (50.0-70.0) % Lymphocytes % (Manual) (22.0-35.0) % Monocytes % (Manual) (1.0-6.0) % Eosinophils % (Manual) (0.0-3.0) % Platelet Evaluation (NORMAL) Large Platelets pCO2 73 H* 90 H* (35-45) mm/Hg pO2 554.0 H 128.0 H (30-55) mm/Hg HCO3 22.7 23.2 (21-28) mmol/L ABG pH 7.10 L* 7.02 L* (7.35-7.45) ABG Total CO2 24.9 26.0 (22-28) mmol.L ABG O2 Saturation 100.3 H 99.8 H (95-98) % ABG O2 Content 20.2 18.7 (15-23) ML/dl ABG Base Excess -8.3 L -9.6 L (-2.0-3.0) mmol/L ABG Hemoglobin 13.6 13.6 (11.7-17.4) g/dL ABG Carboxyhemoglobin 1.5 2.2 H (0.5-1.5) % POC ABG HHb (Measured) -0.3 L 0.2 (0-5) % ABG Methemoglobin 1.2 1.0 (0.0-3.0) % ABG O2 Capacity 20.1 18.7 (16-24) mL/dl ABG Potassium (3.6-5.2) mmol/L VBG pH (7.32-7.43) VBG pCO2 (40-60) VBG HCO3 (21-28) mmol/l VBG Total CO2 (22-28) mmol.L VBG O2 Sat (Calc) (40-65) % VBG Base Excess (0.0-2.0) mmol/L VBG Potassium (3.6-5.2) mmol/L Hgb O2 Saturation 97.6 96.6 (95.0-98.0) % Sodium (132-148) mmol/L Chloride (98-107) mmol/L Glucose (65-105) mg/dl Lactate (0.7-2.1) mmol/L FiO2 100.0 50.0 % Blood Gas Comments Crit Value Called To valeriy Norris Dr Crit Value Called By Landy 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 [employer] Rs Blood Gas Notified Time 2249 2121 Potassium (3.6-5.0) mmol/L Carbon Dioxide (21-33) mmol/L Anion Gap (10-20) BUN (7-21) mg/dL Creatinine (0.7-1.2) mg/dl Est GFR ( Amer) Est GFR (Non-Af Amer) Random Glucose (70-110) mg/dL Calcium (8.4-10.5) mg/dL Phosphorus (2.5-4.5) mg/dL Magnesium (1.7-2.2) mg/dL Total Bilirubin (0.2-1.3) mg/dL AST (14-36) U/L ALT (7-56) U/L Alkaline Phosphatase (38-126) U/L Total Creatine Kinase (35-230) U/L CK-MB (CK-2) (0.0-3.6) ng/mL CK-MB (CK-2) % (2.5-3.0) % NT-Pro-B Natriuret Pep (0-450) pg/mL Total Protein (5.8-8.3) g/dL Albumin (3.0-4.8) g/dL Globulin gm/dL Albumin/Globulin Ratio (1.1-1.8) Free T4 (0.78-2.19) ng/dL TSH 3rd Generation (0.46-4.68) mIU/mL Beta HCG, Quant (0-6.15) mIU/mL Arterial Blood Potassium (3.6-5.2) mmol/L Venous Blood Potassium (3.6-5.2) mmol/L Urine Color (YELLOW) Urine Appearance (CLEAR) Urine pH (4.7-8.0) Ur Specific [place] (1.005-1.035) Urine Protein (<30 mg/dL) mg/dL Urine Glucose (UA) (NEGATIVE) mg/dL Urine Ketones (NEGATIVE) mg/dL Urine Blood (NEGATIVE) Urine Nitrate (NEGATIVE) Urine Bilirubin (NEGATIVE) Urine Urobilinogen (<1 E.U./dL) E.U./dL Ur Leukocyte Esterase (NEGATIVE) [place]/uL Urine RBC (0-2) /hpf Urine WBC (0-6) /hpf Ur Epithelial Cells (0-5) /hpf Amorphous Sediment (NONE) /hpf Urine Bacteria (NONE) /hpf Hyaline Casts (NONE) /hpf Fine Granular Casts (NONE) /hpf Coarse Granular Casts (NONE) /hpf Urine Other /hpf Urine Opiates Screen Positive H (NEGATIVE) Urine Methadone Screen Negative (NEGATIVE) Ur Barbiturates Screen Negative (NEGATIVE) Ur Phencyclidine Scrn Negative (NEGATIVE) Ur Amphetamines Screen Negative (NEGATIVE) U Benzodiazepines Scrn Positive H (NEGATIVE) U Oth Cocaine Metabols Negative (NEGATIVE) U Cannabinoids Screen Negative (NEGATIVE) 05/11/18 05/11/18 05/11/18 Range/Units 19:24 19:05 19:05 WBC 25.2 H* D (4.5-11.0) 10^3/uL RBC 5.32 (3.5-6.1) 10^6/uL Hgb 15.0 (12.0-16.0) g/dL Hct 46.9 (36.0-48.0) % MCV 88.2 D (80.0-105.0) fl MCH 28.2 (25.0-35.0) pg MCHC 32.0 (31.0-37.0) g/dl RDW 12.7 (11.5-14.5) % Plt Count 338 (120.0-450.0) 10^3/uL MPV 11.5 H (7.0-11.0) fl Neut % (Auto) 36.0 L (50.0-68.0) % Lymph % (Auto) 39.9 H (22.0-35.0) % Desha % (Auto) 5.6 (1.0-6.0) % Eos % (Auto) 17.9 H (1.5-5.0) % Baso % (Auto) 0.6 (0.0-3.0) % Lymph # (Auto) 10.1 H (1.2-3.4) Desha # (Auto) 1.4 H (0.1-0.6) Eos # (Auto) 4.5 H (0.0-0.7) Baso # (Auto) 0.16 (0.0-2.0) K/mm3 Absolute Neuts (auto) 9.06 H (1.4-6.5) Neutrophils % (Manual) 30 L (50.0-70.0) % Lymphocytes % (Manual) 41 H (22.0-35.0) % Monocytes % (Manual) 6 (1.0-6.0) % Eosinophils % (Manual) 23 H (0.0-3.0) % Platelet Evaluation Normal (NORMAL) Large Platelets Present pCO2 (35-45) mm/Hg pO2 (30-55) mm/Hg HCO3 (21-28) mmol/L ABG pH (7.35-7.45) ABG Total CO2 (22-28) mmol.L ABG O2 Saturation (95-98) % ABG O2 Content (15-23) ML/dl ABG Base Excess (-2.0-3.0) mmol/L ABG Hemoglobin (11.7-17.4) g/dL ABG Carboxyhemoglobin (0.5-1.5) % POC ABG HHb (Measured) (0-5) % ABG Methemoglobin (0.0-3.0) % ABG O2 Capacity (16-24) mL/dl ABG Potassium (3.6-5.2) mmol/L VBG pH (7.32-7.43) VBG pCO2 (40-60) VBG HCO3 (21-28) mmol/l VBG Total CO2 (22-28) mmol.L VBG O2 Sat (Calc) (40-65) % VBG Base Excess (0.0-2.0) mmol/L VBG Potassium (3.6-5.2) mmol/L Hgb O2 Saturation (95.0-98.0) % Sodium (132-148) mmol/L Chloride (98-107) mmol/L Glucose (65-105) mg/dl Lactate (0.7-2.1) mmol/L FiO2 % Blood Gas Comments Crit Value Called To Crit Value Called By Blood Gas Notified Time Potassium (3.6-5.0) mmol/L Carbon Dioxide (21-33) mmol/L Anion Gap (10-20) BUN (7-21) mg/dL Creatinine (0.7-1.2) mg/dl Est GFR ( Amer) Est GFR (Non-Af Amer) Random Glucose (70-110) mg/dL Calcium (8.4-10.5) mg/dL Phosphorus (2.5-4.5) mg/dL Magnesium (1.7-2.2) mg/dL Total Bilirubin (0.2-1.3) mg/dL AST (14-36) U/L ALT (7-56) U/L Alkaline Phosphatase (38-126) U/L Total Creatine Kinase (35-230) U/L CK-MB (CK-2) (0.0-3.6) ng/mL CK-MB (CK-2) % (2.5-3.0) % NT-Pro-B Natriuret Pep (0-450) pg/mL Total Protein (5.8-8.3) g/dL Albumin (3.0-4.8) g/dL Globulin gm/dL Albumin/Globulin Ratio (1.1-1.8) Free T4 1.48 (0.78-2.19) ng/dL TSH 3rd Generation 3.30 (0.46-4.68) mIU/mL Beta HCG, Quant < 2.39 (0-6.15) mIU/mL Arterial Blood Potassium (3.6-5.2) mmol/L Venous Blood Potassium (3.6-5.2) mmol/L Urine Color (YELLOW) Urine Appearance (CLEAR) Urine pH (4.7-8.0) Ur Specific [place] (1.005-1.035) Urine Protein (<30 mg/dL) mg/dL Urine Glucose (UA) (NEGATIVE) mg/dL Urine Ketones (NEGATIVE) mg/dL Urine Blood (NEGATIVE) Urine Nitrate (NEGATIVE) Urine Bilirubin (NEGATIVE) Urine Urobilinogen (<1 E.U./dL) E.U./dL Ur Leukocyte Esterase (NEGATIVE) Sulma/uL Urine RBC (0-2) /hpf Urine WBC (0-6) /hpf Ur Epithelial Cells (0-5) /hpf Amorphous Sediment (NONE) /hpf Urine Bacteria (NONE) /hpf Hyaline Casts (NONE) /hpf Fine Granular Casts (NONE) /hpf Coarse Granular Casts (NONE) /hpf Urine Other /hpf Urine Opiates Screen (NEGATIVE) Urine Methadone Screen (NEGATIVE) Ur Barbiturates Screen (NEGATIVE) Ur Phencyclidine Scrn (NEGATIVE) Ur Amphetamines Screen (NEGATIVE) U Benzodiazepines Scrn (NEGATIVE) U Oth Cocaine Metabols (NEGATIVE) U Cannabinoids Screen (NEGATIVE) 05/11/18 05/11/18 Range/Units 19:05 19:00 WBC (4.5-11.0) 10^3/uL RBC (3.5-6.1) 10^6/uL Hgb (12.0-16.0) g/dL Hct (36.0-48.0) % MCV (80.0-105.0) fl MCH (25.0-35.0) pg MCHC (31.0-37.0) g/dl RDW (11.5-14.5) % Plt Count (120.0-450.0) 10^3/uL MPV (7.0-11.0) fl Neut % (Auto) (50.0-68.0) % Lymph % (Auto) (22.0-35.0) % Desha % (Auto) (1.0-6.0) % Eos % (Auto) (1.5-5.0) % Baso % (Auto) (0.0-3.0) % Lymph # (Auto) (1.2-3.4) Desha # (Auto) (0.1-0.6) Eos # (Auto) (0.0-0.7) Baso # (Auto) (0.0-2.0) K/mm3 Absolute Neuts (auto) (1.4-6.5) Neutrophils % (Manual) (50.0-70.0) % Lymphocytes % (Manual) (22.0-35.0) % Monocytes % (Manual) (1.0-6.0) % Eosinophils % (Manual) (0.0-3.0) % Platelet Evaluation (NORMAL) Large Platelets pCO2 (35-45) mm/Hg pO2 77 H (30-55) mm/Hg HCO3 (21-28) mmol/L ABG pH (7.35-7.45) ABG Total CO2 (22-28) mmol.L ABG O2 Saturation (95-98) % ABG O2 Content (15-23) ML/dl ABG Base Excess (-2.0-3.0) mmol/L ABG Hemoglobin (11.7-17.4) g/dL ABG Carboxyhemoglobin (0.5-1.5) % POC ABG HHb (Measured) (0-5) % ABG Methemoglobin (0.0-3.0) % ABG O2 Capacity (16-24) mL/dl ABG Potassium (3.6-5.2) mmol/L VBG pH 7.05 L* (7.32-7.43) VBG pCO2 103.0 H* (40-60) VBG HCO3 28.5 H (21-28) mmol/l VBG Total CO2 31.7 H (22-28) mmol.L VBG O2 Sat (Calc) 93.9 H (40-65) % VBG Base Excess -4.7 L (0.0-2.0) mmol/L VBG Potassium 3.6 (3.6-5.2) mmol/L Hgb O2 Saturation (95.0-98.0) % Sodium 141 137.0 (132-148) mmol/L Chloride 103 102.0 (98-107) mmol/L Glucose 208 H (65-105) mg/dl Lactate 1.3 (0.7-2.1) mmol/L FiO2 21.0 % Blood Gas Comments Crit Value Called To Rn Crit Value Called By Rs Blood Gas Notified Time 1911 Potassium 3.9 (3.6-5.0) mmol/L Carbon Dioxide 30 (21-33) mmol/L Anion Gap 12 (10-20) BUN 11 (7-21) mg/dL Creatinine 0.8 (0.7-1.2) mg/dl Est GFR ( Amer) > 60 Est GFR (Non-Af Amer) > 60 Random Glucose 203 H (70-110) mg/dL Calcium 8.8 (8.4-10.5) mg/dL Phosphorus (2.5-4.5) mg/dL Magnesium 3.7 H (1.7-2.2) mg/dL Total Bilirubin 0.2 (0.2-1.3) mg/dL AST 38 H (14-36) U/L ALT 29 (7-56) U/L Alkaline Phosphatase 66 (38-126) U/L Total Creatine Kinase (35-230) U/L CK-MB (CK-2) (0.0-3.6) ng/mL CK-MB (CK-2) % (2.5-3.0) % NT-Pro-B Natriuret Pep 107 (0-450) pg/mL Total Protein 7.2 (5.8-8.3) g/dL Albumin 4.2 (3.0-4.8) g/dL Globulin 3.1 gm/dL Albumin/Globulin Ratio 1.4 (1.1-1.8) Free T4 (0.78-2.19) ng/dL TSH 3rd Generation (0.46-4.68) mIU/mL Beta HCG, Quant (0-6.15) mIU/mL Arterial Blood Potassium (3.6-5.2) mmol/L Venous Blood Potassium 3.6 (3.6-5.2) mmol/L Urine Color (YELLOW) Urine Appearance (CLEAR) Urine pH (4.7-8.0) Ur Specific [place] (1.005-1.035) Urine Protein (<30 mg/dL) mg/dL Urine Glucose (UA) (NEGATIVE) mg/dL Urine Ketones (NEGATIVE) mg/dL Urine Blood (NEGATIVE) Urine Nitrate (NEGATIVE) Urine Bilirubin (NEGATIVE) Urine Urobilinogen (<1 E.U./dL) E.U./dL Ur Leukocyte Esterase (NEGATIVE) [place]/uL Urine RBC (0-2) /hpf Urine WBC (0-6) /hpf Ur Epithelial Cells (0-5) /hpf Amorphous Sediment (NONE) /hpf Urine Bacteria (NONE) /hpf Hyaline Casts (NONE) /hpf Fine Granular Casts (NONE) /hpf Coarse Granular Casts (NONE) /hpf Urine Other /hpf Urine Opiates Screen (NEGATIVE) Urine Methadone Screen (NEGATIVE) Ur Barbiturates Screen (NEGATIVE) Ur Phencyclidine Scrn (NEGATIVE) Ur Amphetamines Screen (NEGATIVE) U Benzodiazepines Scrn (NEGATIVE) U Oth Cocaine Metabols (NEGATIVE) U Cannabinoids Screen (NEGATIVE) Laboratory Results - last 24 hr 05/11/18 05/11/18 05/11/18 19:00 19:05 19:05 WBC 25.2 H* D RBC 5.32 Hgb 15.0 Hct 46.9 MCV 88.2 D MCH 28.2 MCHC 32.0 RDW 12.7 Plt Count 338 MPV 11.5 H Neut % (Auto) 36.0 L Lymph % (Auto) 39.9 H Desha % (Auto) 5.6 Eos % (Auto) 17.9 H Baso % (Auto) 0.6 Lymph # (Auto) 10.1 H Desha # (Auto) 1.4 H Eos # (Auto) 4.5 H Baso # (Auto) 0.16 Absolute Neuts (auto) 9.06 H Neutrophils % (Manual) 30 L Lymphocytes % (Manual) 41 H Monocytes % (Manual) 6 Eosinophils % (Manual) 23 H Platelet Evaluation Normal Large Platelets Present pCO2 pO2 77 H HCO3 ABG pH ABG Total CO2 ABG O2 Saturation ABG O2 Content ABG Base Excess ABG Hemoglobin ABG Carboxyhemoglobin POC ABG HHb (Measured) ABG Methemoglobin ABG O2 Capacity ABG Potassium VBG pH 7.05 L* VBG pCO2 103.0 H* VBG HCO3 28.5 H VBG Total CO2 31.7 H VBG O2 Sat (Calc) 93.9 H VBG Base Excess -4.7 L VBG Potassium 3.6 Hgb O2 Saturation Sodium 137.0 141 Chloride 102.0 103 Glucose 208 H Lactate 1.3 FiO2 21.0 Blood Gas Comments Crit Value Called To Rn Crit Value Called By Rs Blood Gas Notified Time 1911 Potassium 3.9 Carbon Dioxide 30 Anion Gap 12 BUN 11 Creatinine 0.8 Est GFR ( Amer) > 60 Est GFR (Non-Af Amer) > 60 Random Glucose 203 H Calcium 8.8 Phosphorus Magnesium 3.7 H Total Bilirubin 0.2 AST 38 H ALT 29 Alkaline Phosphatase 66 Total Creatine Kinase CK-MB (CK-2) CK-MB (CK-2) % NT-Pro-B Natriuret Pep 107 Total Protein 7.2 Albumin 4.2 Globulin 3.1 Albumin/Globulin Ratio 1.4 Free T4 TSH 3rd Generation Beta HCG, Quant Arterial Blood Potassium Venous Blood Potassium 3.6 Urine Color Urine Appearance Urine pH Ur Specific [place] Urine Protein Urine Glucose (UA) Urine Ketones Urine Blood Urine Nitrate Urine Bilirubin Urine Urobilinogen Ur Leukocyte Esterase Urine RBC Urine WBC Ur Epithelial Cells Amorphous Sediment Urine Bacteria Hyaline Casts Fine Granular Casts Coarse Granular Casts Urine Other Urine Opiates Screen Urine Methadone Screen Ur Barbiturates Screen Ur Phencyclidine Scrn Ur Amphetamines Screen U Benzodiazepines Scrn U Oth Cocaine Metabols U Cannabinoids Screen 05/11/18 05/11/18 05/11/18 19:05 19:24 21:10 WBC RBC Hgb Hct MCV MCH MCHC RDW Plt Count MPV Neut % (Auto) Lymph % (Auto) Desha % (Auto) Eos % (Auto) Baso % (Auto) Lymph # (Auto) Desha # (Auto) Eos # (Auto) Baso # (Auto) Absolute Neuts (auto) Neutrophils % (Manual) Lymphocytes % (Manual) Monocytes % (Manual) Eosinophils % (Manual) Platelet Evaluation Large Platelets pCO2 90 H* pO2 128.0 H HCO3 23.2 ABG pH 7.02 L* ABG Total CO2 26.0 ABG O2 Saturation 99.8 H ABG O2 Content 18.7 ABG Base Excess -9.6 L ABG Hemoglobin 13.6 ABG Carboxyhemoglobin 2.2 H POC ABG HHb (Measured) 0.2 ABG Methemoglobin 1.0 ABG O2 Capacity 18.7 ABG Potassium VBG pH VBG pCO2 VBG HCO3 VBG Total CO2 VBG O2 Sat (Calc) VBG Base Excess VBG Potassium Hgb O2 Saturation 96.6 Sodium Chloride Glucose Lactate FiO2 50.0 Blood Gas Comments Crit Value Called To Dr Crit Value Called By Rs Blood Gas Notified Time 2121 Potassium Carbon Dioxide Anion Gap BUN Creatinine Est GFR ( Amer) Est GFR (Non-Af Amer) Random Glucose Calcium Phosphorus Magnesium Total Bilirubin AST ALT Alkaline Phosphatase Total Creatine Kinase CK-MB (CK-2) CK-MB (CK-2) % NT-Pro-B Natriuret Pep Total Protein Albumin Globulin Albumin/Globulin Ratio Free T4 1.48 TSH 3rd Generation 3.30 Beta HCG, Quant < 2.39 Arterial Blood Potassium Venous Blood Potassium Urine Color Urine Appearance Urine pH Ur Specific [place] Urine Protein Urine Glucose (UA) Urine Ketones Urine Blood Urine Nitrate Urine Bilirubin Urine Urobilinogen Ur Leukocyte Esterase Urine RBC Urine WBC Ur Epithelial Cells Amorphous Sediment Urine Bacteria Hyaline Casts Fine Granular Casts Coarse Granular Casts Urine Other Urine Opiates Screen Urine Methadone Screen Ur Barbiturates Screen Ur Phencyclidine Scrn Ur Amphetamines Screen U Benzodiazepines Scrn U Oth Cocaine Metabols U Cannabinoids Screen 05/11/18 05/11/18 05/12/18 21:37 22:50 01:18 WBC RBC Hgb Hct MCV MCH MCHC RDW Plt Count MPV Neut % (Auto) Lymph % (Auto) Desha % (Auto) Eos % (Auto) Baso % (Auto) Lymph # (Auto) Desha # (Auto) Eos # (Auto) Baso # (Auto) Absolute Neuts (auto) Neutrophils % (Manual) Lymphocytes % (Manual) Monocytes % (Manual) Eosinophils % (Manual) Platelet Evaluation Large Platelets pCO2 73 H* 56 H pO2 554.0 H 233.0 H HCO3 22.7 20.9 L ABG pH 7.10 L* 7.18 L* ABG Total CO2 24.9 22.6 ABG O2 Saturation 100.3 H 100.3 H ABG O2 Content 20.2 ABG Base Excess -8.3 L -8.0 L ABG Hemoglobin 13.6 ABG Carboxyhemoglobin 1.5 POC ABG HHb (Measured) -0.3 L ABG Methemoglobin 1.2 ABG O2 Capacity 20.1 ABG Potassium 4.1 VBG pH VBG pCO2 VBG HCO3 VBG Total CO2 VBG O2 Sat (Calc) VBG Base Excess VBG Potassium Hgb O2 Saturation 97.6 Sodium 137.0 Chloride 106.0 Glucose 167 H Lactate 3.8 H FiO2 100.0 60.0 Blood Gas Comments Psv 5 / peep 5 Crit Value Called To valeriy Norris Dr. 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 [employer] Blood Gas Notified Time 2250 140 Potassium Carbon Dioxide Anion Gap BUN Creatinine Est GFR ( Amer) Est GFR (Non-Af Amer) Random Glucose Calcium Phosphorus Magnesium Total Bilirubin AST ALT Alkaline Phosphatase Total Creatine Kinase CK-MB (CK-2) CK-MB (CK-2) % NT-Pro-B Natriuret Pep Total Protein Albumin Globulin Albumin/Globulin Ratio Free T4 TSH 3rd Generation Beta HCG, Quant Arterial Blood Potassium 4.1 Venous Blood Potassium Urine Color Urine Appearance Urine pH Ur Specific [place] Urine Protein Urine Glucose (UA) Urine Ketones Urine Blood Urine Nitrate Urine Bilirubin Urine Urobilinogen Ur Leukocyte Esterase Urine RBC Urine WBC Ur Epithelial Cells Amorphous Sediment Urine Bacteria Hyaline Casts Fine Granular Casts Coarse Granular Casts Urine Other Urine Opiates Screen Positive H Urine Methadone Screen Negative Ur Barbiturates Screen Negative Ur Phencyclidine Scrn Negative Ur Amphetamines Screen Negative U Benzodiazepines Scrn Positive H U Oth Cocaine Metabols Negative U Cannabinoids Screen Negative 05/12/18 05/12/18 05/12/18 06:00 06:40 06:40 WBC 14.8 H D RBC 4.66 Hgb 12.8 D Hct 41.2 MCV 88.4 MCH 27.5 MCHC 31.1 RDW 12.7 Plt Count 202 MPV 11.8 H Neut % (Auto) 91.9 H Lymph % (Auto) 5.2 L Desha % (Auto) 2.8 Eos % (Auto) 0.1 L Baso % (Auto) 0.0 Lymph # (Auto) 0.8 L Desha # (Auto) 0.4 Eos # (Auto) 0.0 Baso # (Auto) 0.00 Absolute Neuts (auto) 13.55 H Neutrophils % (Manual) Lymphocytes % (Manual) Monocytes % (Manual) Eosinophils % (Manual) Platelet Evaluation Large Platelets pCO2 46 H pO2 243.0 H HCO3 22.1 ABG pH 7.29 L ABG Total CO2 23.5 ABG O2 Saturation 99.7 H ABG O2 Content 18.8 ABG Base Excess -4.6 L ABG Hemoglobin 13.3 ABG Carboxyhemoglobin 1.3 POC ABG HHb (Measured) 0.3 ABG Methemoglobin 0.8 ABG O2 Capacity 18.9 ABG Potassium VBG pH VBG pCO2 VBG HCO3 VBG Total CO2 VBG O2 Sat (Calc) VBG Base Excess VBG Potassium Hgb O2 Saturation 97.6 Sodium 139 Chloride 108 H Glucose Lactate FiO2 50.0 Blood Gas Comments Crit Value Called To Crit Value Called By Blood Gas Notified Time Potassium 4.8 Carbon Dioxide 19 L Anion Gap 18 BUN 10 Creatinine 0.7 Est GFR ( Amer) > 60 Est GFR (Non-Af Amer) > 60 Random Glucose 137 H Calcium 9.1 Phosphorus 3.7 Magnesium 2.2 Total Bilirubin 0.2 AST 41 H ALT 16 Alkaline Phosphatase 57 Total Creatine Kinase 530 H CK-MB (CK-2) 10.1 H CK-MB (CK-2) % 1.9 L NT-Pro-B Natriuret Pep Total Protein 6.8 Albumin 4.0 Globulin 2.8 Albumin/Globulin Ratio 1.4 Free T4 TSH 3rd Generation Beta HCG, Quant Arterial Blood Potassium Venous Blood Potassium Urine Color Urine Appearance Urine pH Ur Specific [place] Urine Protein Urine Glucose (UA) Urine Ketones Urine Blood Urine Nitrate Urine Bilirubin Urine Urobilinogen Ur Leukocyte Esterase Urine RBC Urine WBC Ur Epithelial Cells Amorphous Sediment Urine Bacteria Hyaline Casts Fine Granular Casts Coarse Granular Casts Urine Other Urine Opiates Screen Urine Methadone Screen Ur Barbiturates Screen Ur Phencyclidine Scrn Ur Amphetamines Screen U Benzodiazepines Scrn U Oth Cocaine Metabols U Cannabinoids Screen 05/12/18 05/12/18 07:45 08:25 WBC RBC Hgb Hct MCV MCH MCHC RDW Plt Count MPV Neut % (Auto) Lymph % (Auto) Desha % (Auto) Eos % (Auto) Baso % (Auto) Lymph # (Auto) Desha # (Auto) Eos # (Auto) Baso # (Auto) Absolute Neuts (auto) Neutrophils % (Manual) Lymphocytes % (Manual) Monocytes % (Manual) Eosinophils % (Manual) Platelet Evaluation Large Platelets pCO2 pO2 40 HCO3 ABG pH ABG Total CO2 ABG O2 Saturation ABG O2 Content ABG Base Excess ABG Hemoglobin ABG Carboxyhemoglobin POC ABG HHb (Measured) ABG Methemoglobin ABG O2 Capacity ABG Potassium VBG pH 7.27 L VBG pCO2 55.0 VBG HCO3 25.3 VBG Total CO2 27.0 VBG O2 Sat (Calc) 84.1 H VBG Base Excess -2.5 L VBG Potassium 4.6 Hgb O2 Saturation Sodium 138.0 Chloride 102.0 Glucose 152 H Lactate 2.9 H FiO2 21.0 Blood Gas Comments Crit Value Called To [place] Crit Value Called By Ab Blood Gas Notified Time 839 Potassium Carbon Dioxide Anion Gap BUN Creatinine Est GFR ( Amer) Est GFR (Non-Af Amer) Random Glucose Calcium Phosphorus Magnesium Total Bilirubin AST ALT Alkaline Phosphatase Total Creatine Kinase CK-MB (CK-2) CK-MB (CK-2) % NT-Pro-B Natriuret Pep Total Protein Albumin Globulin Albumin/Globulin Ratio Free T4 TSH 3rd Generation Beta HCG, Quant Arterial Blood Potassium Venous Blood Potassium 4.6 Urine Color Yellow Urine Appearance Clear Urine pH 6.0 Ur Specific [place] >= 1.030 Urine Protein Trace H Urine Glucose (UA) Negative Urine Ketones Negative Urine Blood Large H Urine Nitrate Negative Urine Bilirubin Negative Urine Urobilinogen 0.2 Ur Leukocyte Esterase Negative Urine RBC Tntc H Urine WBC 2 - 5 Ur Epithelial Cells 4 - 5 Amorphous Sediment Few Urine Bacteria Large Hyaline Casts 0 - 2 Fine Granular Casts 0 - 2 Coarse Granular Casts Trace Urine Other Fiber Urine Opiates Screen Urine Methadone Screen Ur Barbiturates Screen Ur Phencyclidine Scrn Ur Amphetamines Screen U Benzodiazepines Scrn U Oth Cocaine Metabols U Cannabinoids Screen Radiology Impressions: Radiology Impressions Chest X-Ray 05/11/18 18:59 IMPRESSION: No active disease. Mild peribronchial thickening Chest X-Ray 05/11/18 21:26 IMPRESSION: Peribronchial thickening. The endotracheal tube is in satisfactory position Chest X-Ray 05/11/18 23:29 IMPRESSION: Nasogastric tube in satisfactory position Chest X-Ray 05/12/18 06:00 IMPRESSION: No active disease. EKG/Cardiology Studies: Cardiology / EKG Studies 05/11/18 18:59 ELECTROCARDIOGRAM Stat Comment: Reason For Exam: sob Attending/Attestation - Attestation I have personally seen and examined this patient.: Yes I have fully participated in the care of the patient.: Yes I have reviewed all pertinent clinical information: Yes Notes (Text): 05/12/18 12:02 The patient was seen and examined at the bedside. Patient care was discussed with resident Medical records, lab studies, and imaging were reviewed and management issues were discussed and formulated. Agree with above treatment plans as outlined in 's note with addition of the following: Acute Respiratory Failure \ Hypoxemia \ Asthma \ ro PNA \ Rhabdomyolisis \ Polysubstance abuse -hemodynamic monitoring to maintain MAP>65 -mechanical ventilation and o2 supplementation to maintain Spo2 >90 Pao2>60 -monitor for TV 6ml\kg IBW and plateau pressure <30 -Abg and CXR reviewed -continue nebs , steroids and pulmonary toilet -continue broad spectrum Abx and and f\u cultures -ID team eval -f\u Bun\Cr and U\o; f\u CPK; continue IVF with LR -start tube feeds diet ; aspiration precautions -U tox positive for benzo and opiate -continue ativan and morphine PRN and monitor for withdrawal -DVT \ PUD prophylaxis CCM time 35min
--- NOTE | 2018-05-12 09:04 | RAD ---
Date of service: 05/11/2018 HISTORY: wheezing/asthma, hypoxic COMPARISON: 03/01/2018 TECHNIQUE: 1 view obtained. FINDINGS: LUNGS: Mild peribronchial thickening PLEURA: No significant pleural effusion identified, no pneumothorax apparent. CARDIOVASCULAR: No aortic atherosclerotic calcification present. Normal cardiac size. No pulmonary vascular congestion. OSSEOUS STRUCTURES: No significant abnormalities. VISUALIZED UPPER ABDOMEN: Normal. OTHER FINDINGS: None. IMPRESSION: No active disease. Mild peribronchial thickening
--- NOTE | 2018-05-12 09:05 | RAD ---
Date of service: 05/11/2018 HISTORY: intubated, assess ETT COMPARISON: No prior. TECHNIQUE: 1 view obtained. FINDINGS: LUNGS: Peribronchial thickening. The endotracheal tube is in satisfactory position PLEURA: No significant pleural effusion identified, no pneumothorax apparent. CARDIOVASCULAR: No aortic atherosclerotic calcification present. Normal cardiac size. No pulmonary vascular congestion. OSSEOUS STRUCTURES: No significant abnormalities. VISUALIZED UPPER ABDOMEN: Normal. OTHER FINDINGS: None. IMPRESSION: Peribronchial thickening. The endotracheal tube is in satisfactory position
[2018-05-12 09:08] LABS: URINE APPEARANCE CLEAR (CLEAR); URINE COLOR YELLOW (YELLOW)
--- NOTE | 2018-05-12 09:10 | RAD ---
Date of service: 05/11/2018 HISTORY: f/u abnormal ventilation r/o PNA COMPARISON: No prior. TECHNIQUE: 1 view obtained. FINDINGS: LUNGS: No active pulmonary disease. PLEURA: No significant pleural effusion identified, no pneumothorax apparent. CARDIOVASCULAR: No aortic atherosclerotic calcification present. Normal cardiac size. No pulmonary vascular congestion. OSSEOUS STRUCTURES: No significant abnormalities. VISUALIZED UPPER ABDOMEN: Nasogastric tube in satisfactory position OTHER FINDINGS: None. IMPRESSION: Nasogastric tube in satisfactory position
[2018-05-12 09:11] LABS: URINE RBC TNTC /hpf (0-2)
[2018-05-12 09:12] LABS: URINE AMORPHOUS SEDIMENT FEW /hpf; URINE BACTERIA LARGE /hpf; URINE COARSE GRANULAR CAST TRACE /hpf; URINE FINE GRANULAR CAST 0 - 2 /hpf; URINE HYALINE CAST 0 - 2 /hpf
--- NOTE | 2018-05-12 09:25 | CARD ---
APPROVED REPORT Date of service: 05/11/2018 EKG Measurement Heart [id number] <Conclusion> Sinus tachycardia Baseline artifact precludes proper assessment Abnormal ECG
--- NOTE | 2018-05-12 09:36 | RAD ---
Date of service: 05/12/2018 HISTORY: intubated COMPARISON: No prior. TECHNIQUE: 1 view obtained. FINDINGS: LUNGS: No active pulmonary disease. Endotracheal tube and nasogastric tube in satisfactory position PLEURA: No significant pleural effusion identified, no pneumothorax apparent. CARDIOVASCULAR: No aortic atherosclerotic calcification present. Normal cardiac size. No pulmonary vascular congestion. OSSEOUS STRUCTURES: No significant abnormalities. VISUALIZED UPPER ABDOMEN: Normal. OTHER FINDINGS: None. IMPRESSION: No active disease.
[2018-05-12] MEDS ORDERED: Azithromycin 250 MG in Sodium Chloride 0.9% 250 ML IVPB SCH (10:00)
[2018-05-12] MEDS ORDERED: cefTRIAXone 2 GM IN NS 2 GM/100 ML BAG IVPB SCH (10:00)
[2018-05-12] MEDS: Levalbuterol 0.63 MG/3 ML Inhal Soln UD IH SCH ×3 (11:04→20:40)
--- NOTE | 2018-05-12 12:34 | CP.PCM.PN ---
<Gregory Wu - Last Filed: 05/12/18 12:30> Subjective - Date & Time of Evaluation Date of Evaluation: 05/12/18 Time of Evaluation: 08:00 - Subjective Subjective: Gregory Wu, PGY1 Medicine Progress Note for Dr. Posey Patient was seen at bedside this morning. She is intubated. Vent settings: PS 40% FiO2 with PEEP 5. Tmax 100.2 overnight. Patient is intubated and pereira is draining. ROS unable to be obtained because patient is intubated. Patient is also sedated. Objective - Vital Signs/Intake and Output Vital Signs (last 24 hours): Temp Pulse Resp BP Pulse Ox 100.2 F H 104 H 16 111/67 100 05/12/18 07:20 05/12/18 07:20 05/12/18 07:29 05/12/18 07:00 05/12/18 07:29 Intake and Output: 05/12/18 05/12/18 06:59 18:59 Intake Total 1051.5 Output Total 200 Balance 851.5 - Medications Medications: Current Medications Budesonide (Pulmicort Respules) 0.5 mg IH [id number] [facility] Last Admin: 05/12/18 07:18 Dose: 0.5 mg Heparin Sodium (Porcine) (Heparin) 5,000 units SC Q8 [facility]; Protocol Azithromycin 250 mg/ Sodium (Chloride) 250 mls @ 167 mls/hr IVPB DAILY [facility]; Protocol Last Admin: 05/12/18 09:39 Dose: 167 mls/hr Dexmedetomidine HCl (Precedex 400mcg/100ml) 400 mcg in 100 mls @ 2.948 mls/hr IV .Q24H PRN; Protocol PRN Reason: Sedation/Withdrawal Sx Last Admin: 05/12/18 00:27 Dose: 0.2 mcg/kg/hr, 2.948 mls/hr Lactated Ringer's (Lactated Ringer's) 1,000 mls @ 100 mls/hr IV .Q10H [facility] Last Admin: 05/12/18 02:51 Dose: 100 mls/hr Piperacillin Sod/Tazobactam Sod (Zosyn 3.375 In Ns 100ml) 100 mls @ 25 mls/hr IVPB Q8 [facility]; Protocol Stop: 05/12/18 17:59 Last Admin: 05/12/18 05:23 Dose: 25 mls/hr Levalbuterol HCl (Xopenex) 0.63 mg IH Q2 PRN PRN Reason: Shortness of Breath Levalbuterol HCl (Xopenex) 0.63 mg IH Q4H [facility] Last Admin: 05/12/18 11:04 Dose: 0.63 mg Lorazepam (Ativan) 2 mg IVP Q4H PRN; Protocol PRN Reason: Agitation Last Admin: 05/12/18 11:26 Dose: 2 mg Methylprednisolone (Solu-Medrol) 60 mg IVP Q8 [facility] Last Admin: 05/12/18 05:24 Dose: 60 mg Morphine Sulfate (Morphine) 2 mg IVP Q4H PRN PRN Reason: Agitation Pantoprazole Sodium (Protonix Inj) 40 mg IVP DAILY [facility] Last Admin: 05/12/18 11:35 Dose: 40 mg - Labs Labs: 05/12/18 06:40 05/12/18 06:40 - Head Exam Additional comments: Patient intubated. Non-verbal, sedated. - Eye Exam Eye Exam: EOMI, Normal appearance, PERRL - Neck Exam Neck Exam: Normal Inspection - Respiratory Exam Respiratory Exam: Clear to Ausculation Bilateral. absent: Accessory Muscle Use, Chest Wall Tenderness, Rales, Rhonchi, Wheezes - Cardiovascular Exam Cardiovascular Exam: RRR, +S1, +S2 - GI/Abdominal Exam GI & Abdominal Exam: Soft, Normal Bowel Sounds. absent: Guarding, Rigid, Tenderness, Rebound - Extremities Exam Extremities Exam: Full ROM, Normal Capillary Refill, Normal Inspection. absent: Joint Swelling, Pedal Edema - Neurological Exam Neurological Exam: absent: Alert, Awake, Oriented x3 - Skin Skin Exam: Dry, Intact, Normal Color, Warm Assessment and Plan - Assessment and Plan (Free Text) Assessment: Patient is a 27 y/o F with PMHx severe persistent asthma, former tobacco use, heroin use, anxiety who presented for asthma exacerbation. She was intubated for acute respiratory acidosis and hypercapnic respiratory failure. Patient is in the ICU for monitoring. Plan: Acute respiratory acidosis with Hypercapnic Respiratory Failure 2/2 Acute Asthma Exacerbation vs Opiate Use - intubated on mechanical ventilation - will d/w ICU about possible extubation given improving ABG - c/w solumedrol 60mg IVP q8 - c/w xopenex and budesonide - c/w zithromax and zosyn for antibx - currently on precedex and versed for sedation; consider tapering down before possible extubation - Utox +opiate, +benzo - c/w ativan 2mg IVP q4 prn - CXR: no acute disease - Maintain SaO2 > 92% - Monitor in ICU, recs appreciated - ID on consult (Dr. Campos) - NPO - c/w IVF - f/u ua, ucx, and sputum cx Leukocytosis 2/2 Steroid administration - given high dose steroids - downtrending - eosinophils elevated on admission - low grade fever, Tmax 100.2 - maintain normothermia ppx: ptx hep sc Dispo: Continue to monitor patient in the ICU. Case was discussed and reviewed with Attending Physician, Dr. Posey. <Raiza Posey - Last Filed: 05/13/18 11:39> Objective - Vital Signs/Intake and Output Vital Signs (last 24 hours): Temp Pulse Resp BP Pulse Ox 98.4 F 83 16 128/81 94 L 05/13/18 10:40 05/13/18 10:40 05/12/18 07:29 05/13/18 10:00 05/13/18 10:40 Intake and Output: 05/13/18 05/13/18 06:59 18:59 Intake Total 2259 14 Output Total 400 Balance 1859 14 - Medications Medications: Current Medications Budesonide (Pulmicort Respules) 0.5 mg IH [id number] [facility] Last Admin: 05/13/18 07:41 Dose: 0.5 mg Heparin Sodium (Porcine) (Heparin) 5,000 units SC Q8 [facility]; Protocol Last Admin: 05/13/18 05:12 Dose: 5,000 units Dexmedetomidine HCl (Precedex 400mcg/100ml) 400 mcg in 100 mls @ 2.948 mls/hr IV .Q24H PRN; Protocol PRN Reason: Sedation/Withdrawal Sx Last Titration: 05/13/18 09:19 Dose: 0.3 mcg/kg/hr, 4.423 mls/hr Lactated Ringer's (Lactated Ringer's) 1,000 mls @ 100 mls/hr IV .Q10H [facility] Last Admin: 05/13/18 09:21 Dose: 100 mls/hr Propofol (Diprivan) 1,000 mg in 100 mls @ 1.769 mls/hr IV .Q24H PRN; Protocol PRN Reason: TITRATE PER MD ORDER Last Titration: 05/13/18 10:40 Dose: 10 mcg/kg/min, 3.538 mls/hr Cefepime HCl (Maxipime 1gm) 1 gm in 100 mls @ 100 mls/hr IVPB Q8 [facility]; Protocol Last Admin: 05/13/18 05:12 Dose: 100 mls/hr Vancomycin HCl (Vancomycin 1gm) 1 gm in 250 mls @ 167 mls/hr IVPB Q12H [facility]; Protocol Last Admin: 05/13/18 03:58 Dose: 167 mls/hr Levalbuterol HCl (Xopenex) 0.63 mg IH Q2 PRN PRN Reason: Shortness of Breath Levalbuterol HCl (Xopenex) 0.63 mg IH Q4H [facility] Last Admin: 05/13/18 11:26 Dose: 0.63 mg Lorazepam (Ativan) 2 mg IVP Q4H PRN; Protocol PRN Reason: Agitation Last Admin: 05/12/18 21:07 Dose: 2 mg Methylprednisolone (Solu-Medrol) 60 mg IVP Q8 [facility] Last Admin: 05/13/18 05:13 Dose: 60 mg Morphine Sulfate (Morphine) 2 mg IVP Q4H PRN PRN Reason: Agitation Last Admin: 05/12/18 16:12 Dose: 2 mg Pantoprazole Sodium (Protonix Inj) 40 mg IVP DAILY [facility] Last Admin: 05/13/18 09:22 Dose: 40 mg - Labs Labs: 05/13/18 05:00 05/13/18 05:00 Attending/Attestation - Attestation I have personally seen and examined this patient.: Yes I have fully participated in the care of the patient.: Yes I have reviewed all pertinent clinical information, including history, physical exam and plan: Yes Notes (Text): 05/13/18 11:37 Medical record note made by the resident after discussion with my direction and input after the patient was personally seen and examined by me. I have reviewed the chart and agree that the record accurately reflects by personal performance of the history, physical exam, data review, and medical decision-making, in the course for the patient. I have also personally directed the plan of care. 27 y old F with PMH of severe persistent asthma, former tobacco use, heroin use, anxiety who presented for asthma exacerbation. She was intubated in ER for acute hypercapnic respiratory acidosis .Patient respiratory acidosis is improving. Patient is on Neb/ IV Steroid for acute asthma exacerbation and IV antibiotics for Possible Pneumonia. We will follow up cultures and Procalcitonin level. Agitation is better controlled. Case was discussed with ICU attending.
[2018-05-12] MEDS ORDERED: cefTRIAXone 1 gm 1 GM/100 ML BAG IVPB SCH (12:45)
--- NOTE | 2018-05-12 12:47 | CP.PCM.CON ---
<Jaswant Ham - Last Filed: 05/12/18 12:37> History of Present Illness - History of Present Illness History of Present Illness: Jaswant Ham D.O. PGY-3, Internal Medicine Resident, Infectious Disease Consultation Note 27-year-old female with a past medical history of asthma who presented for acute chest tightness. Infectious disease consultation was requested for sepsis. Patient was seen and examined at bedside. Patient is currently intubated and sedated and history is mostly obtained from the chart. Patient came in for complaints of chest tightness yesterday afternoon. Patient had a dry cough for approximately 1 month and began to feel worse and worse. Her asthma symptoms were difficult to control. Patient on inhalers without much relief as well as n ebulizers. Patient's episode was similar to previous ones. 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 Patient has been intubated before for her asthma approximately 4 years ago. Patient has a history of tobacco abuse as well as heroin use. Denies any recent use. Review of Systems - Review of Systems Systems not reviewed;Unavailable: Intubated Past Patient History - Infectious Disease Hx of Infectious Diseases: None - Tetanus Immunizations Tetanus Immunization: Unknown - Past Social History Smoking Status: Former Smoker - CARDIAC Hx Cardiac Disorders: No - PULMONARY Hx Asthma: Yes (has home nebulizer machine) Hx Bronchitis: Yes Hx Pneumonia: Yes - NEUROLOGICAL Hx Neurological Disorder: No - HEENT Hx HEENT Problems: No - RENAL Hx Chronic Kidney Disease: No - ENDOCRINE/METABOLIC Hx Endocrine Disorders: No - HEMATOLOGICAL/ONCOLOGICAL Hx Blood Disorders: No - INTEGUMENTARY Hx Dermatological Problems: No - MUSCULOSKELETAL/RHEUMATOLOGICAL Hx Falls: No - GASTROINTESTINAL Hx Gastrointestinal Disorders: No - GENITOURINARY/GYNECOLOGICAL Hx Genitourinary Disorders: No - PSYCHIATRIC Hx Anxiety: Yes Hx Substance Use: No - SURGICAL HISTORY Hx Cardiac Catheterization: No Hx Coronary Stent: No - ANESTHESIA Hx Anesthesia: No Meds Allergies/Adverse Reactions: Allergies Allergy/AdvReac Type Severity Reaction Status Date / Time No Known Allergies Allergy Verified 05/11/18 18:55 - Medications Medications: Current Medications Budesonide (Pulmicort Respules) 0.5 mg IH [id number] [facility] Last Admin: 05/12/18 07:18 Dose: 0.5 mg Heparin Sodium (Porcine) (Heparin) 5,000 units SC Q8 [facility]; Protocol Azithromycin 250 mg/ Sodium (Chloride) 250 mls @ 167 mls/hr IVPB DAILY [facility]; Protocol Last Admin: 05/12/18 09:39 Dose: 167 mls/hr Dexmedetomidine HCl (Precedex 400mcg/100ml) 400 mcg in 100 mls @ 2.948 mls/hr IV .Q24H PRN; Protocol PRN Reason: Sedation/Withdrawal Sx Last Admin: 05/12/18 00:27 Dose: 0.2 mcg/kg/hr, 2.948 mls/hr Lactated Ringer's (Lactated Ringer's) 1,000 mls @ 100 mls/hr IV .Q10H [facility] Last Admin: 05/12/18 02:51 Dose: 100 mls/hr Piperacillin Sod/Tazobactam Sod (Zosyn 3.375 In Ns 100ml) 100 mls @ 25 mls/hr IVPB Q8 [facility]; Protocol Stop: 05/12/18 17:59 Last Admin: 05/12/18 05:23 Dose: 25 mls/hr Levalbuterol HCl (Xopenex) 0.63 mg IH Q2 PRN PRN Reason: Shortness of Breath Levalbuterol HCl (Xopenex) 0.63 mg IH Q4H [facility] Last Admin: 05/12/18 11:04 Dose: 0.63 mg Lorazepam (Ativan) 2 mg IVP Q4H PRN; Protocol PRN Reason: Agitation Last Admin: 05/12/18 11:26 Dose: 2 mg Methylprednisolone (Solu-Medrol) 60 mg IVP Q8 [facility] Last Admin: 05/12/18 05:24 Dose: 60 mg Morphine Sulfate (Morphine) 2 mg IVP Q4H PRN PRN Reason: Agitation Pantoprazole Sodium (Protonix Inj) 40 mg IVP DAILY [facility] Last Admin: 05/12/18 11:35 Dose: 40 mg Physical Exam - Constitutional Appears: Non-toxic, No Acute Distress - Head Exam Head Exam: ATRAUMATIC, NORMOCEPHALIC - Eye Exam Eye Exam: EOMI. absent: Scleral icterus - ENT Exam ENT Exam: Mucous Membranes Moist Additional comments: intubated - Neck Exam Neck exam: Positive for: Normal Inspection - Respiratory Exam Respiratory Exam: Rhonchi, Wheezes. absent: Rales - Cardiovascular Exam Cardiovascular Exam: +S1, +S2. absent: Gallop, Rubs - GI/Abdominal Exam GI & Abdominal Exam: Normal Bowel Sounds, Soft. absent: Tenderness - Extremities Exam Extremities exam: Negative for: calf tenderness, pedal edema - Neurological Exam Additional comments: intubated and sedated - Skin Skin Exam: Dry, Warm Results - Vital Signs Recent Vital Signs: Last Vital Signs Temp 100.2 F H 05/12/18 07:20 Pulse 104 H 05/12/18 07:20 Resp 16 05/12/18 07:29 BP 111/67 05/12/18 07:00 Pulse Ox 100 05/12/18 07:29 - Labs Result Diagrams: 05/12/18 06:40 05/12/18 06:40 Labs: Laboratory Results - last 24 hr 05/11/18 05/11/18 05/11/18 19:00 19:05 19:05 WBC 25.2 H* D RBC 5.32 Hgb 15.0 Hct 46.9 MCV 88.2 D MCH 28.2 MCHC 32.0 RDW 12.7 Plt Count 338 MPV 11.5 H Neut % (Auto) 36.0 L Lymph % (Auto) 39.9 H [place] % (Auto) 5.6 Eos % (Auto) 17.9 H Baso % (Auto) 0.6 Lymph # (Auto) 10.1 H [place] # (Auto) 1.4 H Eos # (Auto) 4.5 H Baso # (Auto) 0.16 Absolute Neuts (auto) 9.06 H Neutrophils % (Manual) 30 L Lymphocytes % (Manual) 41 H Monocytes % (Manual) 6 Eosinophils % (Manual) 23 H Platelet Evaluation Normal Large Platelets Present pCO2 pO2 77 H HCO3 ABG pH ABG Total CO2 ABG O2 Saturation ABG O2 Content ABG Base Excess ABG Hemoglobin ABG Carboxyhemoglobin POC ABG HHb (Measured) ABG Methemoglobin ABG O2 Capacity ABG Potassium VBG pH 7.05 L* VBG pCO2 103.0 H* VBG HCO3 28.5 H VBG Total CO2 31.7 H VBG O2 Sat (Calc) 93.9 H VBG Base Excess -4.7 L VBG Potassium 3.6 Hgb O2 Saturation Sodium 137.0 141 Chloride 102.0 103 Glucose 208 H Lactate 1.3 FiO2 21.0 Blood Gas Comments Crit Value Called To Rn Crit Value Called By Rs Blood Gas Notified Time 1911 Potassium 3.9 Carbon Dioxide 30 Anion Gap 12 BUN 11 Creatinine 0.8 Est GFR ( Amer) > 60 Est GFR (Non-Af Amer) > 60 Random Glucose 203 H Calcium 8.8 Phosphorus Magnesium 3.7 H Total Bilirubin 0.2 AST 38 H ALT 29 Alkaline Phosphatase 66 Total Creatine Kinase CK-MB (CK-2) CK-MB (CK-2) % NT-Pro-B Natriuret Pep 107 Total Protein 7.2 Albumin 4.2 Globulin 3.1 Albumin/Globulin Ratio 1.4 Free T4 TSH 3rd Generation Beta HCG, Quant Arterial Blood Potassium Venous Blood Potassium 3.6 Urine Color Urine Appearance Urine pH Ur Specific [place] Urine Protein Urine Glucose (UA) Urine Ketones Urine Blood Urine Nitrate Urine Bilirubin Urine Urobilinogen Ur Leukocyte Esterase Urine RBC Urine WBC Ur Epithelial Cells Amorphous Sediment Urine Bacteria Hyaline Casts Fine Granular Casts Coarse Granular Casts Urine Other Urine Opiates Screen Urine Methadone Screen Ur Barbiturates Screen Ur Phencyclidine Scrn Ur Amphetamines Screen U Benzodiazepines Scrn U Oth Cocaine Metabols U Cannabinoids Screen 05/11/18 05/11/18 05/11/18 19:05 19:24 21:10 WBC RBC Hgb Hct MCV MCH MCHC RDW Plt Count MPV Neut % (Auto) Lymph % (Auto) [place] % (Auto) Eos % (Auto) Baso % (Auto) Lymph # (Auto) [place] # (Auto) Eos # (Auto) Baso # (Auto) Absolute Neuts (auto) Neutrophils % (Manual) Lymphocytes % (Manual) Monocytes % (Manual) Eosinophils % (Manual) Platelet Evaluation Large Platelets pCO2 90 H* pO2 128.0 H HCO3 23.2 ABG pH 7.02 L* ABG Total CO2 26.0 ABG O2 Saturation 99.8 H ABG O2 Content 18.7 ABG Base Excess -9.6 L ABG Hemoglobin 13.6 ABG Carboxyhemoglobin 2.2 H POC ABG HHb (Measured) 0.2 ABG Methemoglobin 1.0 ABG O2 Capacity 18.7 ABG Potassium VBG pH VBG pCO2 VBG HCO3 VBG Total CO2 VBG O2 Sat (Calc) VBG Base Excess VBG Potassium Hgb O2 Saturation 96.6 Sodium Chloride Glucose Lactate FiO2 50.0 Blood Gas Comments Crit Value Called To Crit Value Called By Rs Blood Gas Notified Time 2121 Potassium Carbon Dioxide Anion Gap BUN Creatinine Est GFR ( Amer) Est GFR (Non-Af Amer) Random Glucose Calcium Phosphorus Magnesium Total Bilirubin AST ALT Alkaline Phosphatase Total Creatine Kinase CK-MB (CK-2) CK-MB (CK-2) % NT-Pro-B Natriuret Pep Total Protein Albumin Globulin Albumin/Globulin Ratio Free T4 1.48 TSH 3rd Generation 3.30 Beta HCG, Quant < 2.39 Arterial Blood Potassium Venous Blood Potassium Urine Color Urine Appearance Urine pH Ur Specific [place] Urine Protein Urine Glucose (UA) Urine Ketones Urine Blood Urine Nitrate Urine Bilirubin Urine Urobilinogen Ur Leukocyte Esterase Urine RBC Urine WBC Ur Epithelial Cells Amorphous Sediment Urine Bacteria Hyaline Casts Fine Granular Casts Coarse Granular Casts Urine Other Urine Opiates Screen Urine Methadone Screen Ur Barbiturates Screen Ur Phencyclidine Scrn Ur Amphetamines Screen U Benzodiazepines Scrn U Oth Cocaine Metabols U Cannabinoids Screen 05/11/18 05/11/18 05/12/18 21:37 22:50 01:18 WBC RBC Hgb Hct MCV MCH MCHC RDW Plt Count MPV Neut % (Auto) Lymph % (Auto) [place] % (Auto) Eos % (Auto) Baso % (Auto) Lymph # (Auto) [place] # (Auto) Eos # (Auto) Baso # (Auto) Absolute Neuts (auto) Neutrophils % (Manual) Lymphocytes % (Manual) Monocytes % (Manual) Eosinophils % (Manual) Platelet Evaluation Large Platelets pCO2 73 H* 56 H pO2 554.0 H 233.0 H HCO3 22.7 20.9 L ABG pH 7.10 L* 7.18 L* ABG Total CO2 24.9 22.6 ABG O2 Saturation 100.3 H 100.3 H ABG O2 Content 20.2 ABG Base Excess -8.3 L -8.0 L ABG Hemoglobin 13.6 ABG Carboxyhemoglobin 1.5 POC ABG HHb (Measured) -0.3 L ABG Methemoglobin 1.2 ABG O2 Capacity 20.1 ABG Potassium 4.1 VBG pH VBG pCO2 VBG HCO3 VBG Total CO2 VBG O2 Sat (Calc) VBG Base Excess VBG Potassium Hgb O2 Saturation 97.6 Sodium 137.0 Chloride 106.0 Glucose 167 H Lactate 3.8 H FiO2 100.0 60.0 Blood Gas Comments Psv 5 / peep 5 Crit Value Called To valeriy Norris Dr. Crit Value Called By Landy newby sanitation inspector-aeroplane pilot Landy dove sanitation inspector-aeroplane pilot Blood Gas Notified Time 2250 140 Potassium Carbon Dioxide Anion Gap BUN Creatinine Est GFR ( Amer) Est GFR (Non-Af Amer) Random Glucose Calcium Phosphorus Magnesium Total Bilirubin AST ALT Alkaline Phosphatase Total Creatine Kinase CK-MB (CK-2) CK-MB (CK-2) % NT-Pro-B Natriuret Pep Total Protein Albumin Globulin Albumin/Globulin Ratio Free T4 TSH 3rd Generation Beta HCG, Quant Arterial Blood Potassium 4.1 Venous Blood Potassium Urine Color Urine Appearance Urine pH Ur Specific [place] Urine Protein Urine Glucose (UA) Urine Ketones Urine Blood Urine Nitrate Urine Bilirubin Urine Urobilinogen Ur Leukocyte Esterase Urine RBC Urine WBC Ur Epithelial Cells Amorphous Sediment Urine Bacteria Hyaline Casts Fine Granular Casts Coarse Granular Casts Urine Other Urine Opiates Screen Positive H Urine Methadone Screen Negative Ur Barbiturates Screen Negative Ur Phencyclidine Scrn Negative Ur Amphetamines Screen Negative U Benzodiazepines Scrn Positive H U Oth Cocaine Metabols Negative U Cannabinoids Screen Negative 05/12/18 05/12/18 05/12/18 06:00 06:40 06:40 WBC 14.8 H D RBC 4.66 Hgb 12.8 D Hct 41.2 MCV 88.4 MCH 27.5 MCHC 31.1 RDW 12.7 Plt Count 202 MPV 11.8 H Neut % (Auto) 91.9 H Lymph % (Auto) 5.2 L [place] % (Auto) 2.8 Eos % (Auto) 0.1 L Baso % (Auto) 0.0 Lymph # (Auto) 0.8 L [place] # (Auto) 0.4 Eos # (Auto) 0.0 Baso # (Auto) 0.00 Absolute Neuts (auto) 13.55 H Neutrophils % (Manual) Lymphocytes % (Manual) Monocytes % (Manual) Eosinophils % (Manual) Platelet Evaluation Large Platelets pCO2 46 H pO2 243.0 H HCO3 22.1 ABG pH 7.29 L ABG Total CO2 23.5 ABG O2 Saturation 99.7 H ABG O2 Content 18.8 ABG Base Excess -4.6 L ABG Hemoglobin 13.3 ABG Carboxyhemoglobin 1.3 POC ABG HHb (Measured) 0.3 ABG Methemoglobin 0.8 ABG O2 Capacity 18.9 ABG Potassium VBG pH VBG pCO2 VBG HCO3 VBG Total CO2 VBG O2 Sat (Calc) VBG Base Excess VBG Potassium Hgb O2 Saturation 97.6 Sodium 139 Chloride 108 H Glucose Lactate FiO2 50.0 Blood Gas Comments Crit Value Called To Crit Value Called By Blood Gas Notified Time Potassium 4.8 Carbon Dioxide 19 L Anion Gap 18 BUN 10 Creatinine 0.7 Est GFR ( Amer) > 60 Est GFR (Non-Af Amer) > 60 Random Glucose 137 H Calcium 9.1 Phosphorus 3.7 Magnesium 2.2 Total Bilirubin 0.2 AST 41 H ALT 16 Alkaline Phosphatase 57 Total Creatine Kinase 530 H CK-MB (CK-2) 10.1 H CK-MB (CK-2) % 1.9 L NT-Pro-B Natriuret Pep Total Protein 6.8 Albumin 4.0 Globulin 2.8 Albumin/Globulin Ratio 1.4 Free T4 TSH 3rd Generation Beta HCG, Quant Arterial Blood Potassium Venous Blood Potassium Urine Color Urine Appearance Urine pH Ur Specific [place] Urine Protein Urine Glucose (UA) Urine Ketones Urine Blood Urine Nitrate Urine Bilirubin Urine Urobilinogen Ur Leukocyte Esterase Urine RBC Urine WBC Ur Epithelial Cells Amorphous Sediment Urine Bacteria Hyaline Casts Fine Granular Casts Coarse Granular Casts Urine Other Urine Opiates Screen Urine Methadone Screen Ur Barbiturates Screen Ur Phencyclidine Scrn Ur Amphetamines Screen U Benzodiazepines Scrn U Oth Cocaine Metabols U Cannabinoids Screen 05/12/18 05/12/18 07:45 08:25 WBC RBC Hgb Hct MCV MCH MCHC RDW Plt Count MPV Neut % (Auto) Lymph % (Auto) [place] % (Auto) Eos % (Auto) Baso % (Auto) Lymph # (Auto) [place] # (Auto) Eos # (Auto) Baso # (Auto) Absolute Neuts (auto) Neutrophils % (Manual) Lymphocytes % (Manual) Monocytes % (Manual) Eosinophils % (Manual) Platelet Evaluation Large Platelets pCO2 pO2 40 HCO3 ABG pH ABG Total CO2 ABG O2 Saturation ABG O2 Content ABG Base Excess ABG Hemoglobin ABG Carboxyhemoglobin POC ABG HHb (Measured) ABG Methemoglobin ABG O2 Capacity ABG Potassium VBG pH 7.27 L VBG pCO2 55.0 VBG HCO3 25.3 VBG Total CO2 27.0 VBG O2 Sat (Calc) 84.1 H VBG Base Excess -2.5 L VBG Potassium 4.6 Hgb O2 Saturation Sodium 138.0 Chloride 102.0 Glucose 152 H Lactate 2.9 H FiO2 21.0 Blood Gas Comments Crit Value Called To Crane Crit Value Called By Ab Blood Gas Notified Time 839 Potassium Carbon Dioxide Anion Gap BUN Creatinine Est GFR ( Amer) Est GFR (Non-Af Amer) Random Glucose Calcium Phosphorus Magnesium Total Bilirubin AST ALT Alkaline Phosphatase Total Creatine Kinase CK-MB (CK-2) CK-MB (CK-2) % NT-Pro-B Natriuret Pep Total Protein Albumin Globulin Albumin/Globulin Ratio Free T4 TSH 3rd Generation Beta HCG, Quant Arterial Blood Potassium Venous Blood Potassium 4.6 Urine Color Yellow Urine Appearance Clear Urine pH 6.0 Ur Specific [place] >= 1.030 Urine Protein Trace H Urine Glucose (UA) Negative Urine Ketones Negative Urine Blood Large H Urine Nitrate Negative Urine Bilirubin Negative Urine Urobilinogen 0.2 Ur Leukocyte Esterase Negative Urine RBC Tntc H Urine WBC 2 - 5 Ur Epithelial Cells 4 - 5 Amorphous Sediment Few Urine Bacteria Large Hyaline Casts 0 - 2 Fine Granular Casts 0 - 2 Coarse Granular Casts Trace Urine Other Fiber Urine Opiates Screen Urine Methadone Screen Ur Barbiturates Screen Ur Phencyclidine Scrn Ur Amphetamines Screen U Benzodiazepines Scrn U Oth Cocaine Metabols U Cannabinoids Screen Assessment & Plan - Assessment and Plan (Free Text) Assessment: 27-year-old female with a past medical history of asthma who presented for acute chest tightness. Infectious disease consultation was requested for sepsis. Plan: Sepsis with SIRS 3/4 tachycardia, tachypnea, leukocytosis, possible community-ac quired pneumonia Uncontrolled asthma Blood culture drawn Sputum culture pending Urine culture pending MRSA screen pending Legionella and mycoplasma antigen pending Pro-calcitonin pending Chest x-ray read as no active disease, upon review there is some possibility of disease along the lower lobes We will order a CT of the chest to evaluate for any underlying infiltrates On high-dose steroids which contribute to her leukocytosis Continue nebulizer use Started on ceftriaxone and azithromycin We will follow with you Patient was seen and examined and case to be discussed with attending physician Thank you for the pleasure participating in the care of this interesting patient - Date & Time Date: 05/12/18 Time: 07:05 <August Garcia - Last Filed: 05/12/18 16:35> Meds - Medications Medications: Current Medications Budesonide (Pulmicort Respules) 0.5 mg IH [id number] [facility] Last Admin: 05/12/18 07:18 Dose: 0.5 mg Heparin Sodium (Porcine) (Heparin) 5,000 units SC Q8 [facility]; Protocol Last Admin: 05/12/18 14:09 Dose: 5,000 units Dexmedetomidine HCl (Precedex 400mcg/100ml) 400 mcg in 100 mls @ 2.948 mls/hr IV .Q24H PRN; Protocol PRN Reason: Sedation/Withdrawal Sx Last Admin: 05/12/18 00:27 Dose: 0.2 mcg/kg/hr, 2.948 mls/hr Lactated Ringer's (Lactated Ringer's) 1,000 mls @ 100 mls/hr IV .Q10H [facility] Last Admin: 05/12/18 02:51 Dose: 100 mls/hr Propofol (Diprivan) 1,000 mg in 100 mls @ 1.769 mls/hr IV .Q24H PRN; Protocol PRN Reason: TITRATE PER MD ORDER Levalbuterol HCl (Xopenex) 0.63 mg IH Q2 PRN PRN Reason: Shortness of Breath Levalbuterol HCl (Xopenex) 0.63 mg IH Q4H [facility] Last Admin: 05/12/18 15:12 Dose: 0.63 mg Lorazepam (Ativan) 2 mg IVP Q4H PRN; Protocol PRN Reason: Agitation Last Admin: 05/12/18 14:09 Dose: 2 mg Methylprednisolone (Solu-Medrol) 60 mg IVP Q8 [facility] Last Admin: 05/12/18 14:08 Dose: 60 mg Morphine Sulfate (Morphine) 2 mg IVP Q4H PRN PRN Reason: Agitation Last Admin: 05/12/18 16:12 Dose: 2 mg Pantoprazole Sodium (Protonix Inj) 40 mg IVP DAILY [facility] Last Admin: 05/12/18 11:35 Dose: 40 mg Results - Vital Signs Recent Vital Signs: Last Vital Signs Temp 100.2 F H 05/12/18 07:20 Pulse 104 H 05/12/18 07:20 Resp 16 05/12/18 07:29 BP 111/67 05/12/18 07:00 Pulse Ox 100 05/12/18 07:29 - Labs Result Diagrams: 05/12/18 06:40 05/12/18 06:40 Labs: Laboratory Results - last 24 hr 05/11/18 05/11/18 05/11/18 19:00 19:05 19:05 WBC 25.2 H* D RBC 5.32 Hgb 15.0 Hct 46.9 MCV 88.2 D MCH 28.2 MCHC 32.0 RDW 12.7 Plt Count 338 MPV 11.5 H Neut % (Auto) 36.0 L Lymph % (Auto) 39.9 H [place] % (Auto) 5.6 Eos % (Auto) 17.9 H Baso % (Auto) 0.6 Lymph # (Auto) 10.1 H [place] # (Auto) 1.4 H Eos # (Auto) 4.5 H Baso # (Auto) 0.16 Absolute Neuts (auto) 9.06 H Neutrophils % (Manual) 30 L Lymphocytes % (Manual) 41 H Monocytes % (Manual) 6 Eosinophils % (Manual) 23 H Platelet Evaluation Normal Large Platelets Present pCO2 pO2 77 H HCO3 ABG pH ABG Total CO2 ABG O2 Saturation ABG O2 Content ABG Base Excess ABG Hemoglobin ABG Carboxyhemoglobin POC ABG HHb (Measured) ABG Methemoglobin ABG O2 Capacity ABG Potassium VBG pH 7.05 L* VBG pCO2 103.0 H* VBG HCO3 28.5 H VBG Total CO2 31.7 H VBG O2 Sat (Calc) 93.9 H VBG Base Excess -4.7 L VBG Potassium 3.6 Hgb O2 Saturation Sodium 137.0 141 Chloride 102.0 103 Glucose 208 H Lactate 1.3 FiO2 21.0 Blood Gas Comments Crit Value Called To Rn Crit Value Called By Rs Blood Gas Notified Time 1911 Potassium 3.9 Carbon Dioxide 30 Anion Gap 12 BUN 11 Creatinine 0.8 Est GFR ( Amer) > 60 Est GFR (Non-Af Amer) > 60 Random Glucose 203 H Calcium 8.8 Phosphorus Magnesium 3.7 H Total Bilirubin 0.2 AST 38 H ALT 29 Alkaline Phosphatase 66 Total Creatine Kinase CK-MB (CK-2) CK-MB (CK-2) % NT-Pro-B Natriuret Pep 107 Total Protein 7.2 Albumin 4.2 Globulin 3.1 Albumin/Globulin Ratio 1.4 Procalcitonin Free T4 TSH 3rd Generation Beta HCG, Quant Arterial Blood Potassium Venous Blood Potassium 3.6 Urine Color Urine Appearance Urine pH Ur Specific [place] Urine Protein Urine Glucose (UA) Urine Ketones Urine Blood Urine Nitrate Urine Bilirubin Urine Urobilinogen Ur Leukocyte Esterase Urine RBC Urine WBC Ur Epithelial Cells Amorphous Sediment Urine Bacteria Hyaline Casts Fine Granular Casts Coarse Granular Casts Urine Other Urine Opiates Screen Urine Methadone Screen Ur Barbiturates Screen Ur Phencyclidine Scrn Ur Amphetamines Screen U Benzodiazepines Scrn U Oth Cocaine Metabols U Cannabinoids Screen Ur L.pneumophila Ag Mycoplasma pneumon IgM 05/11/18 05/11/18 05/11/18 19:05 19:24 19:44 WBC RBC Hgb Hct MCV MCH MCHC RDW Plt Count MPV Neut % (Auto) Lymph % (Auto) [place] % (Auto) Eos % (Auto) Baso % (Auto) Lymph # (Auto) [place] # (Auto) Eos # (Auto) Baso # (Auto) Absolute Neuts (auto) Neutrophils % (Manual) Lymphocytes % (Manual) Monocytes % (Manual) Eosinophils % (Manual) Platelet Evaluation Large Platelets pCO2 pO2 HCO3 ABG pH ABG Total CO2 ABG O2 Saturation ABG O2 Content ABG Base Excess ABG Hemoglobin ABG Carboxyhemoglobin POC ABG HHb (Measured) ABG Methemoglobin ABG O2 Capacity ABG Potassium VBG pH VBG pCO2 VBG HCO3 VBG Total CO2 VBG O2 Sat (Calc) VBG Base Excess VBG Potassium Hgb O2 Saturation Sodium Chloride Glucose Lactate FiO2 Blood Gas Comments Crit Value Called To Crit Value Called By Blood Gas Notified Time Potassium Carbon Dioxide Anion Gap BUN Creatinine Est GFR ( Amer) Est GFR (Non-Af Amer) Random Glucose Calcium Phosphorus Magnesium Total Bilirubin AST ALT Alkaline Phosphatase Total Creatine Kinase CK-MB (CK-2) CK-MB (CK-2) % NT-Pro-B Natriuret Pep Total Protein Albumin Globulin Albumin/Globulin Ratio Procalcitonin Free T4 1.48 TSH 3rd Generation 3.30 Beta HCG, Quant < 2.39 Arterial Blood Potassium Venous Blood Potassium Urine Color Urine Appearance Urine pH Ur Specific [place] Urine Protein Urine Glucose (UA) Urine Ketones Urine Blood Urine Nitrate Urine Bilirubin Urine Urobilinogen Ur Leukocyte Esterase Urine RBC Urine WBC Ur Epithelial Cells Amorphous Sediment Urine Bacteria Hyaline Casts Fine Granular Casts Coarse Granular Casts Urine Other Urine Opiates Screen Urine Methadone Screen Ur Barbiturates Screen Ur Phencyclidine Scrn Ur Amphetamines Screen U Benzodiazepines Scrn U Oth Cocaine Metabols U Cannabinoids Screen Ur L.pneumophila Ag Negative Mycoplasma pneumon IgM 05/11/18 05/11/18 05/11/18 21:10 21:37 22:50 WBC RBC Hgb Hct MCV MCH MCHC RDW Plt Count MPV Neut % (Auto) Lymph % (Auto) [place] % (Auto) Eos % (Auto) Baso % (Auto) Lymph # (Auto) [place] # (Auto) Eos # (Auto) Baso # (Auto) Absolute Neuts (auto) Neutrophils % (Manual) Lymphocytes % (Manual) Monocytes % (Manual) Eosinophils % (Manual) Platelet Evaluation Large Platelets pCO2 90 H* 73 H* pO2 128.0 H 554.0 H HCO3 23.2 22.7 ABG pH 7.02 L* 7.10 L* ABG Total CO2 26.0 24.9 ABG O2 Saturation 99.8 H 100.3 H ABG O2 Content 18.7 20.2 ABG Base Excess -9.6 L -8.3 L ABG Hemoglobin 13.6 13.6 ABG Carboxyhemoglobin 2.2 H 1.5 POC ABG HHb (Measured) 0.2 -0.3 L ABG Methemoglobin 1.0 1.2 ABG O2 Capacity 18.7 20.1 ABG Potassium VBG pH VBG pCO2 VBG HCO3 VBG Total CO2 VBG O2 Sat (Calc) VBG Base Excess VBG Potassium Hgb O2 Saturation 96.6 97.6 Sodium Chloride Glucose Lactate FiO2 50.0 100.0 Blood Gas Comments Crit Value Called To Dr Jr rn Crit Value Called By Evette newby sanitation inspector-aeroplane pilot Blood Gas Notified Time 2121 2249 Potassium Carbon Dioxide Anion Gap BUN Creatinine Est GFR ( Amer) Est GFR (Non-Af Amer) Random Glucose Calcium Phosphorus Magnesium Total Bilirubin AST ALT Alkaline Phosphatase Total Creatine Kinase CK-MB (CK-2) CK-MB (CK-2) % NT-Pro-B Natriuret Pep Total Protein Albumin Globulin Albumin/Globulin Ratio Procalcitonin Free T4 TSH 3rd Generation Beta HCG, Quant Arterial Blood Potassium Venous Blood Potassium Urine Color Urine Appearance Urine pH Ur Specific [place] Urine Protein Urine Glucose (UA) Urine Ketones Urine Blood Urine Nitrate Urine Bilirubin Urine Urobilinogen Ur Leukocyte Esterase Urine RBC Urine WBC Ur Epithelial Cells Amorphous Sediment Urine Bacteria Hyaline Casts Fine Granular Casts Coarse Granular Casts Urine Other Urine Opiates Screen Positive H Urine Methadone Screen Negative Ur Barbiturates Screen Negative Ur Phencyclidine Scrn Negative Ur Amphetamines Screen Negative U Benzodiazepines Scrn Positive H U Oth Cocaine Metabols Negative U Cannabinoids Screen Negative Ur L.pneumophila Ag Mycoplasma pneumon IgM 05/12/18 05/12/18 05/12/18 01:18 06:00 06:00 WBC RBC Hgb Hct MCV MCH MCHC RDW Plt Count MPV Neut % (Auto) Lymph % (Auto) [place] % (Auto) Eos % (Auto) Baso % (Auto) Lymph # (Auto) [place] # (Auto) Eos # (Auto) Baso # (Auto) Absolute Neuts (auto) Neutrophils % (Manual) Lymphocytes % (Manual) Monocytes % (Manual) Eosinophils % (Manual) Platelet Evaluation Large Platelets pCO2 56 H 46 H pO2 233.0 H 243.0 H HCO3 20.9 L 22.1 ABG pH 7.18 L* 7.29 L ABG Total CO2 22.6 23.5 ABG O2 Saturation 100.3 H 99.7 H ABG O2 Content 18.8 ABG Base Excess -8.0 L -4.6 L ABG Hemoglobin 13.3 ABG Carboxyhemoglobin 1.3 POC ABG HHb (Measured) 0.3 ABG Methemoglobin 0.8 ABG O2 Capacity 18.9 ABG Potassium 4.1 VBG pH VBG pCO2 VBG HCO3 VBG Total CO2 VBG O2 Sat (Calc) VBG Base Excess VBG Potassium Hgb O2 Saturation 97.6 Sodium 137.0 Chloride 106.0 Glucose 167 H Lactate 3.8 H FiO2 60.0 50.0 Blood Gas Comments Psv 5 / peep 5 Crit Value Called To Dr. 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 Blood Gas Notified Time 140 Potassium Carbon Dioxide Anion Gap BUN Creatinine Est GFR ( Amer) Est GFR (Non-Af Amer) Random Glucose Calcium Phosphorus Magnesium Total Bilirubin AST ALT Alkaline Phosphatase Total Creatine Kinase CK-MB (CK-2) CK-MB (CK-2) % NT-Pro-B Natriuret Pep Total Protein Albumin Globulin Albumin/Globulin Ratio Procalcitonin Free T4 TSH 3rd Generation Beta HCG, Quant Arterial Blood Potassium 4.1 Venous Blood Potassium Urine Color Urine Appearance Urine pH Ur Specific [place] Urine Protein Urine Glucose (UA) Urine Ketones Urine Blood Urine Nitrate Urine Bilirubin Urine Urobilinogen Ur Leukocyte Esterase Urine RBC Urine WBC Ur Epithelial Cells Amorphous Sediment Urine Bacteria Hyaline Casts Fine Granular Casts Coarse Granular Casts Urine Other Urine Opiates Screen Urine Methadone Screen Ur Barbiturates Screen Ur Phencyclidine Scrn Ur Amphetamines Screen U Benzodiazepines Scrn U Oth Cocaine Metabols U Cannabinoids Screen Ur L.pneumophila Ag Mycoplasma pneumon IgM Negative 05/12/18 05/12/18 05/12/18 06:40 06:40 06:40 WBC 14.8 H D RBC 4.66 Hgb 12.8 D Hct 41.2 MCV 88.4 MCH 27.5 MCHC 31.1 RDW 12.7 Plt Count 202 MPV 11.8 H Neut % (Auto) 91.9 H Lymph % (Auto) 5.2 L [place] % (Auto) 2.8 Eos % (Auto) 0.1 L Baso % (Auto) 0.0 Lymph # (Auto) 0.8 L [place] # (Auto) 0.4 Eos # (Auto) 0.0 Baso # (Auto) 0.00 Absolute Neuts (auto) 13.55 H Neutrophils % (Manual) Lymphocytes % (Manual) Monocytes % (Manual) Eosinophils % (Manual) Platelet Evaluation Large Platelets pCO2 pO2 HCO3 ABG pH ABG Total CO2 ABG O2 Saturation ABG O2 Content ABG Base Excess ABG Hemoglobin ABG Carboxyhemoglobin POC ABG HHb (Measured) ABG Methemoglobin ABG O2 Capacity ABG Potassium VBG pH VBG pCO2 VBG HCO3 VBG Total CO2 VBG O2 Sat (Calc) VBG Base Excess VBG Potassium Hgb O2 Saturation Sodium 139 Chloride 108 H Glucose Lactate FiO2 Blood Gas Comments Crit Value Called To Crit Value Called By Blood Gas Notified Time Potassium 4.8 Carbon Dioxide 19 L Anion Gap 18 BUN 10 Creatinine 0.7 Est GFR ( Amer) > 60 Est GFR (Non-Af Amer) > 60 Random Glucose 137 H Calcium 9.1 Phosphorus 3.7 Magnesium 2.2 Total Bilirubin 0.2 AST 41 H ALT 16 Alkaline Phosphatase 57 Total Creatine Kinase 530 H CK-MB (CK-2) 10.1 H CK-MB (CK-2) % 1.9 L NT-Pro-B Natriuret Pep Total Protein 6.8 Albumin 4.0 Globulin 2.8 Albumin/Globulin Ratio 1.4 Procalcitonin 0.57 H Free T4 TSH 3rd Generation Beta HCG, Quant Arterial Blood Potassium Venous Blood Potassium Urine Color Urine Appearance Urine pH Ur Specific [place] Urine Protein Urine Glucose (UA) Urine Ketones Urine Blood Urine Nitrate Urine Bilirubin Urine Urobilinogen Ur Leukocyte Esterase Urine RBC Urine WBC Ur Epithelial Cells Amorphous Sediment Urine Bacteria Hyaline Casts Fine Granular Casts Coarse Granular Casts Urine Other Urine Opiates Screen Urine Methadone Screen Ur Barbiturates Screen Ur Phencyclidine Scrn Ur Amphetamines Screen U Benzodiazepines Scrn U Oth Cocaine Metabols U Cannabinoids Screen Ur L.pneumophila Ag Mycoplasma pneumon IgM 05/12/18 05/12/18 07:45 08:25 WBC RBC Hgb Hct MCV MCH MCHC RDW Plt Count MPV Neut % (Auto) Lymph % (Auto) [place] % (Auto) Eos % (Auto) Baso % (Auto) Lymph # (Auto) [place] # (Auto) Eos # (Auto) Baso # (Auto) Absolute Neuts (auto) Neutrophils % (Manual) Lymphocytes % (Manual) Monocytes % (Manual) Eosinophils % (Manual) Platelet Evaluation Large Platelets pCO2 pO2 40 HCO3 ABG pH ABG Total CO2 ABG O2 Saturation ABG O2 Content ABG Base Excess ABG Hemoglobin ABG Carboxyhemoglobin POC ABG HHb (Measured) ABG Methemoglobin ABG O2 Capacity ABG Potassium VBG pH 7.27 L VBG pCO2 55.0 VBG HCO3 25.3 VBG Total CO2 27.0 VBG O2 Sat (Calc) 84.1 H VBG Base Excess -2.5 L VBG Potassium 4.6 Hgb O2 Saturation Sodium 138.0 Chloride 102.0 Glucose 152 H Lactate 2.9 H FiO2 21.0 Blood Gas Comments Crit Value Called To Crane Crit Value Called By Ab Blood Gas Notified Time 839 Potassium Carbon Dioxide Anion Gap BUN Creatinine Est GFR ( Amer) Est GFR (Non-Af Amer) Random Glucose Calcium Phosphorus Magnesium Total Bilirubin AST ALT Alkaline Phosphatase Total Creatine Kinase CK-MB (CK-2) CK-MB (CK-2) % NT-Pro-B Natriuret Pep Total Protein Albumin Globulin Albumin/Globulin Ratio Procalcitonin Free T4 TSH 3rd Generation Beta HCG, Quant Arterial Blood Potassium Venous Blood Potassium 4.6 Urine Color Yellow Urine Appearance Clear Urine pH 6.0 Ur Specific [place] >= 1.030 Urine Protein Trace H Urine Glucose (UA) Negative Urine Ketones Negative Urine Blood Large H Urine Nitrate Negative Urine Bilirubin Negative Urine Urobilinogen 0.2 Ur Leukocyte Esterase Negative Urine RBC Tntc H Urine WBC 2 - 5 Ur Epithelial Cells 4 - 5 Amorphous Sediment Few Urine Bacteria Large Hyaline Casts 0 - 2 Fine Granular Casts 0 - 2 Coarse Granular Casts Trace Urine Other Fiber Urine Opiates Screen Urine Methadone Screen Ur Barbiturates Screen Ur Phencyclidine Scrn Ur Amphetamines Screen U Benzodiazepines Scrn U Oth Cocaine Metabols U Cannabinoids Screen Ur L.pneumophila Ag Mycoplasma pneumon IgM Attending/Attestation - Attestation I have personally seen and examined this patient.: Yes I have fully participated in the care of the patient.: Yes I have reviewed all pertinent clinical information: Yes
--- NOTE | 2018-05-12 15:42 | RAD ---
HISTORY: NG tube position COMPARISON: No prior. TECHNIQUE: Chest, one view. FINDINGS: Numerous external wires and leads obscure evaluation of the underlying parenchyma. Nasogastric tube extends beyond hemidiaphragm towards expected location of the stomach, distal tip excluded from view. Distal tip of endotracheal tube somewhat obscured by overlying nasogastric tube. LUNGS: No focal consolidation. PLEURA: No significant pleural effusion identified. No definite pneumothorax . CARDIOVASCULAR: The cardiomediastinal silhouette appears within normal limits of size. No significant atherosclerotic calcification present. OSSEOUS STRUCTURES: Left 9th and 10th rib fracture chronic appearing healed fracture deformities. VISUALIZED UPPER ABDOMEN: Unremarkable. OTHER FINDINGS: None. IMPRESSION: Nasogastric tube extends beyond hemidiaphragm towards expected location of the stomach, distal tip excluded from view. Distal tip of endotracheal tube somewhat obscured by overlying nasogastric tube.
[2018-05-12] MEDS ORDERED: Propofol 10 mg/ml 1,000 MG/100 ML VIAL ONE (16:04)
[2018-05-12] MEDS: Morphine 2 mg/ml ISec IVP PRN (16:12)
[2018-05-12] MEDS: Propofol 10 mg/ml 1,000 MG/100 ML VIAL IV PRN (16:56)
[2018-05-12] MEDS: Vancomycin 1gm in NS 250ml 1 GM/250 ML BAG IVPB SCH (18:09)
[2018-05-12] MEDS: Cefepime 1gm in NS 100ml 1 GM/100 ML BAG IVPB SCH (21:04)
[2018-05-13] MEDS: Propofol 10 mg/ml 1,000 MG/100 ML VIAL IV PRN ×3 (00:50→21:42)
[2018-05-13] MEDS: Levalbuterol 0.63 MG/3 ML Inhal Soln UD IH SCH ×7 (00:50→23:24)
[2018-05-13] MEDS: Dexmedetomidine 400mcg/100mL 400 MCG/100 ML BOTTLE IV PRN ×3 (00:51→15:27)
[2018-05-13] MEDS: Vancomycin 1gm in NS 250ml 1 GM/250 ML BAG IVPB SCH ×2 (03:58→16:43)
[2018-05-13] MEDS: Cefepime 1gm in NS 100ml 1 GM/100 ML BAG IVPB SCH ×3 (05:12→21:37)
[2018-05-13 05:51] LABS: ALB/GLOB RATIO 1.3 (1.1-1.8); ALBUMIN 3.5 g/dL (3.0-4.8); ALT/SGPT 27 U/L (7-56); AST/SGOT 28 U/L (14-36); BLOOD UREA NITROGEN 15 mg/dL (7-21); CALCIUM 9.3 mg/dL (8.4-10.5); GFR NON-AFRICAN AMERICAN > 60; HEMOGLOBIN 13.9 g/dL (12.0-16.0); LYMPH # 1.4 (1.2-3.4); LYMPH % 7.6 % (22.0-35.0); MEAN CELL VOLUME 85.9 fl (80.0-105.0); MEAN CORPUSCULAR HEMOGLOBIN 27.6 pg (25.0-35.0); MEAN CORPUSCULAR HGB CONC 32.2 g/dl (31.0-37.0); MONO # 0.8 (0.1-0.6); MONO % 4.2 % (1.0-6.0); RBC 5.03 10^6/uL (3.5-6.1); RED CELL DISTRIBUTION WIDTH 12.6 % (11.5-14.5); WHITE BLOOD COUNT 18.4 10^3/uL (4.5-11.0)
[2018-05-13] MEDS: Budesonide 0.5 mg/2 ml Inhal Susp UD IH SCH ×2 (07:41→20:00)
--- NOTE | 2018-05-13 08:34 | RAD ---
HISTORY: intubated, episodic brochospasm COMPARISON: Chest x-ray performed 05/12/18 TECHNIQUE: Chest, one view. FINDINGS: Orogastric tube extends expected location of the stomach. Endotracheal tube terminates approximately 4.6 cm above the jagjit. LUNGS: Mild atelectasis or infiltrates. Please note that chest x-ray has limited sensitivity for the detection of pulmonary masses. PLEURA: No significant pleural effusion identified. No definite pneumothorax . CARDIOVASCULAR: The cardiomediastinal silhouette appears within normal limits of size. No significant atherosclerotic calcification present. OSSEOUS STRUCTURES: No acute osseous abnormality identified. VISUALIZED UPPER ABDOMEN: Unremarkable. OTHER FINDINGS: None. IMPRESSION: Orogastric tube. Endotracheal tube. Mild atelectasis or infiltrates.
--- NOTE | 2018-05-13 09:00 | CP.PCM.PN ---
<Lilo Mora - Last Filed: 05/13/18 09:10> Subjective - Date & Time of Evaluation Date of Evaluation: 05/13/18 Time of Evaluation: 08:56 - Subjective Subjective: Lilo Mora, PGY-1, Internal Medicine Progress Note for Dr. Posey Patient seen and evaluated at bedside. Patient had no acute overnight events. Patient is intubated currently and on CPAP. Vent settings today were PEEP of 5 and O2% of 40%. Patient is comfortable at bedside and awake. Objective - Vital Signs/Intake and Output Vital Signs (last 24 hours): Temp Pulse Resp BP Pulse Ox 98.6 F 60 16 134/83 93 L 05/13/18 07:20 05/13/18 07:31 05/12/18 07:29 05/13/18 07:00 05/13/18 07:20 Intake and Output: 05/13/18 05/13/18 06:59 18:59 Intake Total 2259 0 Output Total 400 Balance 1859 0 - Medications Medications: Current Medications Budesonide (Pulmicort Respules) 0.5 mg IH [id number] [facility] Last Admin: 05/13/18 07:41 Dose: 0.5 mg Heparin Sodium (Porcine) (Heparin) 5,000 units SC Q8 [facility]; Protocol Last Admin: 05/13/18 05:12 Dose: 5,000 units Dexmedetomidine HCl (Precedex 400mcg/100ml) 400 mcg in 100 mls @ 2.948 mls/hr IV .Q24H PRN; Protocol PRN Reason: Sedation/Withdrawal Sx Last Titration: 05/13/18 07:20 Dose: 0.5 mcg/kg/hr, 7.371 mls/hr Lactated Ringer's (Lactated Ringer's) 1,000 mls @ 100 mls/hr IV .Q10H [facility] Last Admin: 05/12/18 17:32 Dose: 100 mls/hr Propofol (Diprivan) 1,000 mg in 100 mls @ 1.769 mls/hr IV .Q24H PRN; Protocol PRN Reason: TITRATE PER MD ORDER Last Titration: 05/13/18 06:21 Dose: 2 mcg/kg/min, 0.708 mls/hr Cefepime HCl (Maxipime 1gm) 1 gm in 100 mls @ 100 mls/hr IVPB Q8 [facility]; Protocol Last Admin: 05/13/18 05:12 Dose: 100 mls/hr Vancomycin HCl (Vancomycin 1gm) 1 gm in 250 mls @ 167 mls/hr IVPB Q12H [facility]; Protocol Last Admin: 05/13/18 03:58 Dose: 167 mls/hr Levalbuterol HCl (Xopenex) 0.63 mg IH Q2 PRN PRN Reason: Shortness of Breath Levalbuterol HCl (Xopenex) 0.63 mg IH Q4H [facility] Last Admin: 05/13/18 07:41 Dose: 0.63 mg Lorazepam (Ativan) 2 mg IVP Q4H PRN; Protocol PRN Reason: Agitation Last Admin: 05/12/18 21:07 Dose: 2 mg Methylprednisolone (Solu-Medrol) 60 mg IVP Q8 [facility] Last Admin: 05/13/18 05:13 Dose: 60 mg Morphine Sulfate (Morphine) 2 mg IVP Q4H PRN PRN Reason: Agitation Last Admin: 05/12/18 16:12 Dose: 2 mg Pantoprazole Sodium (Protonix Inj) 40 mg IVP DAILY [facility] Last Admin: 05/12/18 11:35 Dose: 40 mg - Labs Labs: 05/13/18 05:00 05/13/18 05:00 - Constitutional Appears: Well, Non-toxic, No Acute Distress - Head Exam Head Exam: ATRAUMATIC, NORMAL INSPECTION, NORMOCEPHALIC - Eye Exam Eye Exam: PERRL. absent: Scleral icterus - ENT Exam ENT Exam: Mucous Membranes Moist - Respiratory Exam Respiratory Exam: Wheezes, NORMAL BREATHING PATTERN. absent: Rales, Rhonchi - Cardiovascular Exam Cardiovascular Exam: Bradycardia, REGULAR RHYTHM, +S1, +S2 - GI/Abdominal Exam GI & Abdominal Exam: Soft, Normal Bowel Sounds. absent: Tenderness - Extremities Exam Additional comments: unable to evaluate - Neurological Exam Neurological Exam: Awake. absent: Alert - Skin Skin Exam: Dry, Intact, Normal Color Assessment and Plan - Assessment and Plan (Free Text) Assessment: 27 year old female with past medical history of severe asthma, tobacco, and heroin use presents with severe asthma exacerbation requiring intubation due to acute respiratory acidosis and hypercapneic respiratory failure. Plan: Acute respiratory failure 2/2 to hypercapneic respiratory acidsosi 2/2 to acute asthma exacerbation vs. opiate use -Utox: positive for opiates and benzodiazepines -CXR: mild atelectasis or infiltrates -BCx negative for 24 hours -Will obtain repeat ABG today to evaluate for CO2 retention prior to possible extubation today -Continue with solumedrol, xopenex, and budesonide -Continue with vancomycin and cefepime for antibiotic coverage -Currently on precedex. Continue to taper. -Continue with ativan 2 mg Q4PRN -Maintain SaO2>90% -ID, Dr. Campos, on consult Leukocytosis -Likely 2/2 to high dose steroids -Patient does not satisfy SIRS criteria at this time. Doubt infection Opiate and benzodiazepine abuse -Continue ativan 2 mg Q4PRN -Once extubated, will provide education regarding opiate and benzodiazepine abuse DVT prophylaxis: heparin 5000 U Q8 GI prophylaxis: protonix 40 mg daily Patient plan discussed with Dr. Posey. <Raiza Posey - Last Filed: 05/13/18 11:30> Objective - Vital Signs/Intake and Output Vital Signs (last 24 hours): Temp Pulse Resp BP Pulse Ox 98.4 F 83 16 128/81 94 L 05/13/18 10:40 05/13/18 10:40 05/12/18 07:29 05/13/18 10:00 05/13/18 10:40 Intake and Output: 05/13/18 05/13/18 06:59 18:59 Intake Total 2259 14 Output Total 400 Balance 1859 14 - Medications Medications: Current Medications Budesonide (Pulmicort Respules) 0.5 mg IH [id number] [facility] Last Admin: 05/13/18 07:41 Dose: 0.5 mg Heparin Sodium (Porcine) (Heparin) 5,000 units SC Q8 [facility]; Protocol Last Admin: 05/13/18 05:12 Dose: 5,000 units Dexmedetomidine HCl (Precedex 400mcg/100ml) 400 mcg in 100 mls @ 2.948 mls/hr IV .Q24H PRN; Protocol PRN Reason: Sedation/Withdrawal Sx Last Titration: 05/13/18 09:19 Dose: 0.3 mcg/kg/hr, 4.423 mls/hr Lactated Ringer's (Lactated Ringer's) 1,000 mls @ 100 mls/hr IV .Q10H [facility] Last Admin: 05/13/18 09:21 Dose: 100 mls/hr Propofol (Diprivan) 1,000 mg in 100 mls @ 1.769 mls/hr IV .Q24H PRN; Protocol PRN Reason: TITRATE PER MD ORDER Last Titration: 05/13/18 10:40 Dose: 10 mcg/kg/min, 3.538 mls/hr Cefepime HCl (Maxipime 1gm) 1 gm in 100 mls @ 100 mls/hr IVPB Q8 [facility]; Protocol Last Admin: 05/13/18 05:12 Dose: 100 mls/hr Vancomycin HCl (Vancomycin 1gm) 1 gm in 250 mls @ 167 mls/hr IVPB Q12H [facility]; Protocol Last Admin: 05/13/18 03:58 Dose: 167 mls/hr Levalbuterol HCl (Xopenex) 0.63 mg IH Q2 PRN PRN Reason: Shortness of Breath Levalbuterol HCl (Xopenex) 0.63 mg IH Q4H [facility] Last Admin: 05/13/18 07:41 Dose: 0.63 mg Lorazepam (Ativan) 2 mg IVP Q4H PRN; Protocol PRN Reason: Agitation Last Admin: 05/12/18 21:07 Dose: 2 mg Methylprednisolone (Solu-Medrol) 60 mg IVP Q8 [facility] Last Admin: 05/13/18 05:13 Dose: 60 mg Morphine Sulfate (Morphine) 2 mg IVP Q4H PRN PRN Reason: Agitation Last Admin: 05/12/18 16:12 Dose: 2 mg Pantoprazole Sodium (Protonix Inj) 40 mg IVP DAILY [facility] Last Admin: 05/13/18 09:22 Dose: 40 mg - Labs Labs: 05/13/18 05:00 05/13/18 05:00 Attending/Attestation - Attestation I have personally seen and examined this patient.: Yes I have fully participated in the care of the patient.: Yes I have reviewed all pertinent clinical information, including history, physical exam and plan: Yes Notes (Text): 05/13/18 11:23 Patient was seen and examined with medical residents. 27 y old F with PMH of severe persistent asthma, former tobacco use, heroin use, anxiety who presented for asthma exacerbation. She was intubated in ER for acute hypercapnic respiratory acidosis .Patient respiratory acidosis is improving. Patient is on Neb/Steroid and antibiotics. Cultures are negative.Leukocytosis is improving.ICU is following. Case was discussed with ICU attending. 05/13/18 11:25
[2018-05-13] MEDS: Lactated Ringer's 1,000 ML IV SCH ×2 (09:21→21:44)
--- NOTE | 2018-05-13 10:40 | PN ---
DATE: 05/13/2018 LEASE PICKER NOTE SUBJECTIVE: The patient is sedated on the ventilator with FiO2 of 40%. Hemodynamically stable. The patient is being treated aggressively and will be followed closely with Pulmonary to support her respiratory effort and status. PHYSICAL EXAMINATION VITAL SIGNS: Temperature is 98.6, pulse is 60, respirations are 20, and BP is 134/83. SKIN: Warm and dry. HEENT: Head is atraumatic and normocephalic. Eyes; reactive to light. Ear, nose and throat seem to be within normal limits. NECK: Supple. No JVD. No thyroid enlargement. No lymph nodes. HEART: Regular rate and rhythm. Normal S1 and S2. LUNGS: Reveal mild wheezing on the left. Good breath sounds on the right. Occasional rhonchi. ABDOMEN: Soft. Decreased bowel sounds. GENITALIA: Deferred. RECTAL: Deferred. MUSCULOSKELETAL: No joint deformities. EXTREMITIES: Reveal trace lower extremity edema. NEUROLOGICALLY: The patient is sedated on ventilator. LABORATORY DATA: White count is 18.4, hemoglobin 13.9, hematocrit 34.2 with platelets of 217,000. Arterial blood gas this morning is pending. Venous gas reveals a pH of 7.27, pCO2 of 55 and pO2 of 84. Sodium is 141, potassium is 4.6, chloride 107, CO2 of 29 with a BUN of 15, creatinine of 0.7 and glucose of 148. Chest x-ray reveals no obvious infiltrate. IMPRESSION: This patient has respiratory failure and is on ventilator support. Has a history of severe persistent asthma, is a former smoker and the patient is heroin abuser with a history of anxiety. She did present with acute exacerbation of her asthma and it seems with increased white count there may be a component of pneumonitis. PLAN: We will continue with ventilator support and decrease the FiO2 as tolerated. The patient is getting Solu-Medrol, Xopenex and Pulmicort. She is on Zithromax and Zosyn as well as Precedex. The patient is also on Solu-Medrol IV. We will continue to treat aggressively along with the other consultants and the primary care doctor. Maverick Barakat MD [facility] # [id number]
--- NOTE | 2018-05-13 11:33 | CP.PCM.PN ---
Subjective - Date & Time of Evaluation Date of Evaluation: 05/13/18 Time of Evaluation: 09:30 - Subjective Subjective: Patient is still on the ventilator, not in distress but sedated, no fevers. Objective - Vital Signs/Intake and Output Vital Signs (last 24 hours): Temp Pulse Resp BP Pulse Ox 98.4 F 59 L 16 126/93 H 92 L 05/13/18 04:30 05/13/18 04:30 05/12/18 07:29 05/13/18 04:00 05/13/18 04:30 Intake and Output: 05/13/18 05/13/18 06:59 18:59 Intake Total 2259 Output Total 400 Balance 1859 - Medications Medications: Current Medications Budesonide (Pulmicort Respules) 0.5 mg IH [id number] [facility] Last Admin: 05/12/18 20:40 Dose: 0.5 mg Heparin Sodium (Porcine) (Heparin) 5,000 units SC Q8 [facility]; Protocol Last Admin: 05/13/18 05:12 Dose: 5,000 units Dexmedetomidine HCl (Precedex 400mcg/100ml) 400 mcg in 100 mls @ 2.948 mls/hr IV .Q24H PRN; Protocol PRN Reason: Sedation/Withdrawal Sx Last Titration: 05/13/18 06:20 Dose: 0.8 mcg/kg/hr, 11.793 mls/hr Lactated Ringer's (Lactated Ringer's) 1,000 mls @ 100 mls/hr IV .Q10H [facility] Last Admin: 05/12/18 17:32 Dose: 100 mls/hr Propofol (Diprivan) 1,000 mg in 100 mls @ 1.769 mls/hr IV .Q24H PRN; Protocol PRN Reason: TITRATE PER MD ORDER Last Titration: 05/13/18 06:21 Dose: 2 mcg/kg/min, 0.708 mls/hr Cefepime HCl (Maxipime 1gm) 1 gm in 100 mls @ 100 mls/hr IVPB Q8 [facility]; Protocol Last Admin: 05/13/18 05:12 Dose: 100 mls/hr Vancomycin HCl (Vancomycin 1gm) 1 gm in 250 mls @ 167 mls/hr IVPB Q12H [facility]; Protocol Last Admin: 05/13/18 03:58 Dose: 167 mls/hr Levalbuterol HCl (Xopenex) 0.63 mg IH Q2 PRN PRN Reason: Shortness of Breath Levalbuterol HCl (Xopenex) 0.63 mg IH Q4H [facility] Last Admin: 05/13/18 04:40 Dose: 0.63 mg Lorazepam (Ativan) 2 mg IVP Q4H PRN; Protocol PRN Reason: Agitation Last Admin: 05/12/18 21:07 Dose: 2 mg Methylprednisolone (Solu-Medrol) 60 mg IVP Q8 [facility] Last Admin: 05/13/18 05:13 Dose: 60 mg Morphine Sulfate (Morphine) 2 mg IVP Q4H PRN PRN Reason: Agitation Last Admin: 05/12/18 16:12 Dose: 2 mg Pantoprazole Sodium (Protonix Inj) 40 mg IVP DAILY [facility] Last Admin: 05/12/18 11:35 Dose: 40 mg - Labs Labs: 05/13/18 05:00 05/13/18 05:00 - Constitutional Appears: Chronically Ill, Other (intubated, sedated) - Head Exam Head Exam: NORMAL INSPECTION - ENT Exam Additional comments: ET tube in place - Respiratory Exam Respiratory Exam: Decreased Breath Sounds. absent: Rales, Wheezes - Cardiovascular Exam Cardiovascular Exam: +S1, +S2 - GI/Abdominal Exam GI & Abdominal Exam: Soft. absent: Tenderness Assessment and Plan - Assessment and Plan (Free Text) Plan: Assessment SIRS with VDRF due to acute severe asthma exacerbation, with possible community- acquired pneumonia Plan on Vancomycin and Cefepime and will add Doxycycline and will follow up urine Legionella Ag, cultures, PCT will continue to monitor clinically
[2018-05-13 12:09] LABS: ARTERIAL BLOOD GAS HCO3 25.4 mmol/L (21-28); ARTERIAL BLOOD GAS HEMOGLOBIN 13.1 g/dL (11.7-17.4); ARTERIAL BLOOD GAS O2 CAPACITY 18.1 mL/dl (16-24); ARTERIAL BLOOD GAS O2 CONTENT 17.9 ML/dl (15-23); ARTERIAL BLOOD GAS O2 SAT 99.1 % (95-98); ARTERIAL BLOOD GAS PCO2 43 mm/Hg (35-45); ARTERIAL BLOOD GAS PH 7.38 (7.35-7.45); ARTERIAL BLOOD GAS TCO2 26.7 mmol.L (22-28)
--- NOTE | 2018-05-13 17:25 | RAD ---
HISTORY: NGT placement COMPARISON: Multiple priors, most recent performed earlier the same day. TECHNIQUE: Chest, one view. FINDINGS: Endotracheal tube terminates approximately 3.7 cm above the jagjit. Nasogastric tube extends beyond the hemidiaphragm towards expected location of the stomach, distal tip excluded from view. LUNGS: No focal consolidation. Please note that chest x-ray has limited sensitivity for the detection of pulmonary masses. PLEURA: No significant pleural effusion identified. No definite pneumothorax . CARDIOVASCULAR: The cardiomediastinal silhouette appears within normal limits of size. No significant atherosclerotic calcification present. OSSEOUS STRUCTURES: No acute osseous abnormality identified. VISUALIZED UPPER ABDOMEN: Unremarkable. OTHER FINDINGS: None. IMPRESSION: Endotracheal tube terminates approximately 3.7 cm above the jagjit. Nasogastric tube extends beyond the hemidiaphragm towards expected location of the stomach, distal tip excluded from view.
[2018-05-14] MEDS: Morphine 2 mg/ml ISec IVP PRN ×4 (01:36→21:17)
[2018-05-14] MEDS: Dexmedetomidine 400mcg/100mL 400 MCG/100 ML BOTTLE IV PRN ×2 (03:13→14:44)
[2018-05-14] MEDS: Propofol 10 mg/ml 1,000 MG/100 ML VIAL IV PRN ×4 (03:32→21:21)
[2018-05-14] MEDS: Levalbuterol 0.63 MG/3 ML Inhal Soln UD IH SCH ×6 (04:34→23:21)
[2018-05-14] MEDS: Cefepime 1gm in NS 100ml 1 GM/100 ML BAG IVPB SCH ×3 (05:39→21:15)
[2018-05-14] MEDS: Vancomycin 1gm in NS 250ml 1 GM/250 ML BAG IVPB SCH ×2 (05:40→17:41)
[2018-05-14] MEDS: Lactated Ringer's 1,000 ML IV SCH ×2 (05:42→14:17)
[2018-05-14 05:43] LABS: ARTERIAL BLOOD GAS HCO3 26.4 mmol/L (21-28); ARTERIAL BLOOD GAS HEMOGLOBIN 12.3 g/dL (11.7-17.4); ARTERIAL BLOOD GAS O2 CAPACITY 17.1 mL/dl (16-24); ARTERIAL BLOOD GAS O2 CONTENT 17.1 ML/dl (15-23); ARTERIAL BLOOD GAS O2 SAT 99.8 % (95-98); ARTERIAL BLOOD GAS PCO2 38 mm/Hg (35-45); ARTERIAL BLOOD GAS PH 7.45 (7.35-7.45); ARTERIAL BLOOD GAS TCO2 27.6 mmol.L (22-28); HEMOGLOBIN 12.6 g/dL (12.0-16.0); LYMPH # 0.7 (1.2-3.4); LYMPH % 5.6 % (22.0-35.0); MEAN CELL VOLUME 86.5 fl (80.0-105.0); MEAN CORPUSCULAR HGB CONC 31.3 g/dl (31.0-37.0); MEAN PLATELET VOLUME 11.8 fl (7.0-11.0); MONO # 0.6 (0.1-0.6); MONO % 4.5 % (1.0-6.0); RBC 4.66 10^6/uL (3.5-6.1); RED CELL DISTRIBUTION WIDTH 13.1 % (11.5-14.5); WHITE BLOOD COUNT 13.2 10^3/uL (4.5-11.0)
[2018-05-14 06:05] LABS: ALB/GLOB RATIO 1.4 (1.1-1.8); ALBUMIN 3.3 g/dL (3.0-4.8); ALT/SGPT 26 U/L (7-56); AST/SGOT 27 U/L (14-36); BLOOD UREA NITROGEN 22 mg/dL (7-21); CALCIUM 8.5 mg/dL (8.4-10.5); GFR NON-AFRICAN AMERICAN > 60
[2018-05-14] MEDS ORDERED: Midazolam 100 mg/100ml in NS 100 MG/100 ML SOL IV PRN (06:25)
[2018-05-14] MEDS: Budesonide 0.5 mg/2 ml Inhal Susp UD IH SCH ×2 (07:28→20:00)
--- NOTE | 2018-05-14 10:02 | PN ---
DATE: 05/14/2018 DIRECTOR SUMMER SESSIONS NOTE SUBJECTIVE: The patient is sedated on the ventilator and at this time he is on propofol as well as Versed for sedation. She had episodes of bradycardia with Precedex and that has been discontinued. We will monitor her heart rate closely. The patient blood pressure is stable. Note that she is over breathing the vent, respiratory rate is 25-27 on the ventilator with the ventilator respiratory rate set at 15. She is making good tidal volumes. PHYSICAL EXAMINATION: VITAL SIGNS: Her temperature is 99.5, pulse is 91, BP is 142/98 and the patient's respiratory rate is 25. HEENT: Head is atraumatic and normocephalic. Eyes is reactive to light. Ears, nose and throat seem to be within normal limits. NECK: Supple. No JVD. No thyroid enlargement. No lymph nodes. HEART: Regular rate and rhythm. Normal S1 and S2. LUNGS: Reveals mild wheezing on the left side. No significant rhonchi. ABDOMEN: Soft. Positive bowel sounds. GENITALIA: Deferred. RECTAL: Deferred. MUSCULOSKELETAL: No joint deformities. EXTREMITIES: Reveals no significant edema. NEUROLOGIC: The patient is sedated on the ventilator. LABORATORY DATA: As far as her laboratories are concerned, her white count is 13.2, hemoglobin is 12.6, hematocrit 40.3 with platelets of 218,000. Arterial blood gas reveals pH of 7.45, PCO2 of 38 and PO2 of 136. Sodium is 143, potassium 4.2, chloride 108, CO2 of 29, BUN 22 with creatinine is 0.7 and glucose of 126. Note that her chest x-ray reveals no focal consolidations, but endotracheal tube terminates approximately 3.7 cm above the jagjit. This notes that this will be corrected and Respiratory has been notified and ET tube will be adjusted. IMPRESSION: As far as my impression, the patient has respiratory failure and is on ventilator support, has history of severe persistent asthma and significant anxiety. She is a former smoker and the patient has history of heroin abuse. There may be a component of heroin initiated pneumonitis. The patient has initially presented with exacerbation of her asthma. PLAN: We will continue with ventilator support and aggressive pulmonary toilet. The patient's Precedex has been discontinued and her heart rate has improved. We will continue with propofol and versed for sedation and we will followup her arterial blood gas and chest x-ray closely. She is on Solu-Medrol, Xopenex, Pulmicort, Zithromax and Zosyn. We will continue to treat aggressively along with the another consultants and the primary care doctor. Maverick Barakat MD
--- NOTE | 2018-05-14 10:23 | CP.PCM.PN ---
Subjective - Date & Time of Evaluation Date of Evaluation: 05/14/18 Time of Evaluation: 08:50 - Subjective Subjective: Continues to be on the ventilator, sedated, not in distress, no fevers. Objective - Vital Signs/Intake and Output Vital Signs (last 24 hours): Temp Pulse Resp BP Pulse Ox 98.4 F 83 16 128/81 94 L 05/13/18 10:40 05/13/18 10:40 05/12/18 07:29 05/13/18 10:00 05/13/18 10:40 Intake and Output: 05/13/18 05/13/18 06:59 18:59 Intake Total 2259 14 Output Total 400 Balance 1859 14 - Medications Medications: Current Medications Budesonide (Pulmicort Respules) 0.5 mg IH [id number] [facility] Last Admin: 05/13/18 07:41 Dose: 0.5 mg Heparin Sodium (Porcine) (Heparin) 5,000 units SC Q8 [facility]; Protocol Last Admin: 05/13/18 05:12 Dose: 5,000 units Dexmedetomidine HCl (Precedex 400mcg/100ml) 400 mcg in 100 mls @ 2.948 mls/hr IV .Q24H PRN; Protocol PRN Reason: Sedation/Withdrawal Sx Last Titration: 05/13/18 09:19 Dose: 0.3 mcg/kg/hr, 4.423 mls/hr Lactated Ringer's (Lactated Ringer's) 1,000 mls @ 100 mls/hr IV .Q10H [facility] Last Admin: 05/13/18 09:21 Dose: 100 mls/hr Propofol (Diprivan) 1,000 mg in 100 mls @ 1.769 mls/hr IV .Q24H PRN; Protocol PRN Reason: TITRATE PER MD ORDER Last Titration: 05/13/18 10:40 Dose: 10 mcg/kg/min, 3.538 mls/hr Cefepime HCl (Maxipime 1gm) 1 gm in 100 mls @ 100 mls/hr IVPB Q8 [facility]; Protocol Last Admin: 05/13/18 05:12 Dose: 100 mls/hr Vancomycin HCl (Vancomycin 1gm) 1 gm in 250 mls @ 167 mls/hr IVPB Q12H [facility]; Protocol Last Admin: 05/13/18 03:58 Dose: 167 mls/hr Levalbuterol HCl (Xopenex) 0.63 mg IH Q2 PRN PRN Reason: Shortness of Breath Levalbuterol HCl (Xopenex) 0.63 mg IH Q4H [facility] Last Admin: 05/13/18 11:26 Dose: 0.63 mg Lorazepam (Ativan) 2 mg IVP Q4H PRN; Protocol PRN Reason: Agitation Last Admin: 05/12/18 21:07 Dose: 2 mg Methylprednisolone (Solu-Medrol) 60 mg IVP Q8 [facility] Last Admin: 05/13/18 05:13 Dose: 60 mg Morphine Sulfate (Morphine) 2 mg IVP Q4H PRN PRN Reason: Agitation Last Admin: 05/12/18 16:12 Dose: 2 mg Pantoprazole Sodium (Protonix Inj) 40 mg IVP DAILY [facility] Last Admin: 05/13/18 09:22 Dose: 40 mg - Labs Labs: 05/13/18 05:00 05/13/18 05:00 - Constitutional Appears: Chronically Ill, Other (intubated, sedated) - Head Exam Head Exam: NORMAL INSPECTION - ENT Exam Additional comments: ET tube in place - Respiratory Exam Respiratory Exam: Decreased Breath Sounds - Cardiovascular Exam Cardiovascular Exam: +S1, +S2 - GI/Abdominal Exam GI & Abdominal Exam: Soft. absent: Tenderness Assessment and Plan - Assessment and Plan (Free Text) Plan: Assessment SIRS with VDRF due to acute severe asthma exacerbation, with possible community- acquired pneumonia, growing gram positive cocci in sputum cx Plan on Vancomycin and Cefepime and Doxycycline day 3 and follow up final sputum cx results; urine Legionella Ag is negative will continue to monitor clinically
--- NOTE | 2018-05-14 10:55 | CP.PCM.PN ---
<Lilo Mora - Last Filed: 05/14/18 10:50> Subjective - Date & Time of Evaluation Date of Evaluation: 05/14/18 Time of Evaluation: 10:50 - Subjective Subjective: Lilo Mora, PGY-1, Internal Medicine Progress Note for Dr. Martin Patient seen and evaluated at bedside. Patient had no acute overnight events. Patient is intubated currently and on CPAP. Vent settings today were PEEP of 5 and O2% of 40%. Patient is comfortable at bedside and awake. Objective - Vital Signs/Intake and Output Vital Signs (last 24 hours): Temp Pulse Resp BP Pulse Ox 99.5 F 50 L 16 142/98 H 96 05/13/18 22:00 05/14/18 08:00 05/12/18 07:29 05/13/18 18:00 05/13/18 18:30 Intake and Output: 05/14/18 05/14/18 06:59 18:59 Intake Total 400 100 Balance 400 100 - Medications Medications: Current Medications Budesonide (Pulmicort Respules) 0.5 mg IH [id number] [facility] Last Admin: 05/14/18 07:28 Dose: 0.5 mg Heparin Sodium (Porcine) (Heparin) 5,000 units SC Q8 [facility]; Protocol Last Admin: 05/14/18 05:40 Dose: 5,000 units Dexmedetomidine HCl (Precedex 400mcg/100ml) 400 mcg in 100 mls @ 2.948 mls/hr IV .Q24H PRN; Protocol PRN Reason: Sedation/Withdrawal Sx Last Titration: 05/14/18 06:49 Dose: Infused Lactated Ringer's (Lactated Ringer's) 1,000 mls @ 100 mls/hr IV .Q10H [facility] Last Admin: 05/14/18 05:42 Dose: 100 mls/hr Propofol (Diprivan) 1,000 mg in 100 mls @ 1.769 mls/hr IV .Q24H PRN; Protocol PRN Reason: TITRATE PER MD ORDER Last Admin: 05/14/18 10:48 Dose: 50 mcg/kg/min, 17.69 mls/hr Cefepime HCl (Maxipime 1gm) 1 gm in 100 mls @ 100 mls/hr IVPB Q8 [facility]; Protocol Last Admin: 05/14/18 05:39 Dose: 100 mls/hr Vancomycin HCl (Vancomycin 1gm) 1 gm in 250 mls @ 167 mls/hr IVPB Q12H [facility]; Protocol Last Admin: 05/14/18 05:40 Dose: 167 mls/hr Midazolam 100 mg/100ml in NS (Midazolam 100 Mg/100ml In Ns) 100 mg in 100 mls @ 1 mls/hr IV .Q24H PRN; Protocol PRN Reason: Agitation Doxycycline Hyclate 100 mg/ (Sodium Chloride) 100 mls @ 100 mls/hr IVPB Q12 [facility]; Protocol Levalbuterol HCl (Xopenex) 0.63 mg IH Q2 PRN PRN Reason: Shortness of Breath Levalbuterol HCl (Xopenex) 0.63 mg IH [id number] [facility] Last Admin: 05/14/18 07:27 Dose: 0.63 mg Lorazepam (Ativan) 2 mg IVP Q4H PRN; Protocol PRN Reason: Agitation Last Admin: 05/14/18 04:00 Dose: 2 mg Methylprednisolone (Solu-Medrol) 40 mg IVP Q8 [facility] Morphine Sulfate (Morphine) 2 mg IVP Q4H PRN PRN Reason: Agitation Last Admin: 05/14/18 05:39 Dose: 2 mg Pantoprazole Sodium (Protonix Inj) 40 mg IVP DAILY [facility] Last Admin: 05/14/18 10:42 Dose: 40 mg - Labs Labs: 05/14/18 05:00 05/14/18 05:00 - Constitutional Appears: Well, Non-toxic, No Acute Distress - Head Exam Head Exam: ATRAUMATIC, NORMAL INSPECTION, NORMOCEPHALIC - Eye Exam Eye Exam: PERRL. absent: Scleral icterus - ENT Exam ENT Exam: Mucous Membranes Moist - Respiratory Exam Respiratory Exam: Wheezes, NORMAL BREATHING PATTERN. absent: Rales, Rhonchi - Cardiovascular Exam Cardiovascular Exam: Bradycardia, REGULAR RHYTHM, +S1, +S2 - GI/Abdominal Exam GI & Abdominal Exam: Soft, Normal Bowel Sounds. absent: Tenderness - Extremities Exam Additional comments: unable to evaluate - Neurological Exam Neurological Exam: Awake. absent: Alert - Skin Skin Exam: Dry, Intact, Normal Color Assessment and Plan - Assessment and Plan (Free Text) Assessment: 27 year old female with past medical history of severe asthma, tobacco, and heroin use presents with severe asthma exacerbation requiring intubation due to acute respiratory acidosis and hypercapneic respiratory failure. Plan: Acute respiratory failure 2/2 to hypercapneic respiratory acidsosi 2/2 to acute asthma exacerbation vs. opiate use -Utox: positive for opiates and benzodiazepines -CXR: mild atelectasis or infiltrates -BCx negative for 48 hours -Tracheal aspirate culture: S. Aureus -ABG: pH: 7.45, pO2: 136, pCO2: 38 -Continue with xopenex, and budesonide. Will reduce solumedrol to 40 mg Q8 -Continue with vancomycin and cefepime for antibiotic coverage. Started on doxycycline as per ID. -Currently on precedex. Continue to taper. -Continue with ativan 2 mg Q4PRN -Maintain SaO2>90% -ID, Dr. Campos, on consult Leukocytosis -Likely 2/2 to high dose steroids. Trending down -Will reduced solumedrol to 40 mg Q8. -Patient does not satisfy SIRS criteria at this time. Doubt infection Opiate and benzodiazepine abuse -Continue ativan 2 mg Q4PRN -Once extubated, will provide education regarding opiate and benzodiazepine abuse DVT prophylaxis: heparin 5000 U Q8 GI prophylaxis: protonix 40 mg daily Patient plan discussed with Dr. Martin. <Aristeo Martin - Last Filed: 05/14/18 12:08> Objective - Vital Signs/Intake and Output Vital Signs (last 24 hours): Temp Pulse Resp BP Pulse Ox 99.5 F 50 L 16 142/98 H 96 05/13/18 22:00 05/14/18 08:00 05/12/18 07:29 05/13/18 18:00 05/13/18 18:30 Intake and Output: 05/14/18 05/14/18 06:59 18:59 Intake Total 400 100 Balance 400 100 - Medications Medications: Current Medications Budesonide (Pulmicort Respules) 0.5 mg IH [id number] [facility] Last Admin: 05/14/18 07:28 Dose: 0.5 mg Heparin Sodium (Porcine) (Heparin) 5,000 units SC Q8 [facility]; Protocol Last Admin: 05/14/18 05:40 Dose: 5,000 units Dexmedetomidine HCl (Precedex 400mcg/100ml) 400 mcg in 100 mls @ 2.948 mls/hr IV .Q24H PRN; Protocol PRN Reason: Sedation/Withdrawal Sx Last Titration: 05/14/18 06:49 Dose: Infused Lactated Ringer's (Lactated Ringer's) 1,000 mls @ 100 mls/hr IV .Q10H [facility] Last Admin: 05/14/18 05:42 Dose: 100 mls/hr Propofol (Diprivan) 1,000 mg in 100 mls @ 1.769 mls/hr IV .Q24H PRN; Protocol PRN Reason: TITRATE PER MD ORDER Last Admin: 05/14/18 10:48 Dose: 50 mcg/kg/min, 17.69 mls/hr Cefepime HCl (Maxipime 1gm) 1 gm in 100 mls @ 100 mls/hr IVPB Q8 [facility]; Protocol Last Admin: 05/14/18 05:39 Dose: 100 mls/hr Vancomycin HCl (Vancomycin 1gm) 1 gm in 250 mls @ 167 mls/hr IVPB Q12H [facility]; Protocol Last Admin: 05/14/18 05:40 Dose: 167 mls/hr Midazolam 100 mg/100ml in NS (Midazolam 100 Mg/100ml In Ns) 100 mg in 100 mls @ 1 mls/hr IV .Q24H PRN; Protocol PRN Reason: Agitation Doxycycline Hyclate 100 mg/ (Sodium Chloride) 100 mls @ 100 mls/hr IVPB Q12 [facility]; Protocol Levalbuterol HCl (Xopenex) 0.63 mg IH Q2 PRN PRN Reason: Shortness of Breath Levalbuterol HCl (Xopenex) 0.63 mg IH [id number] [facility] Last Admin: 05/14/18 07:27 Dose: 0.63 mg Lorazepam (Ativan) 2 mg IVP Q4H PRN; Protocol PRN Reason: Agitation Last Admin: 05/14/18 04:00 Dose: 2 mg Methylprednisolone (Solu-Medrol) 40 mg IVP Q8 [facility] Morphine Sulfate (Morphine) 2 mg IVP Q4H PRN PRN Reason: Agitation Last Admin: 05/14/18 05:39 Dose: 2 mg Pantoprazole Sodium (Protonix Inj) 40 mg IVP DAILY [facility] Last Admin: 05/14/18 10:42 Dose: 40 mg - Labs Labs: 05/14/18 05:00 05/14/18 05:00 Attending/Attestation - Attestation I have personally seen and examined this patient.: Yes I have fully participated in the care of the patient.: Yes I have reviewed all pertinent clinical information, including history, physical exam and plan: Yes Notes (Text): 05/14/18 12:04 27 year old female with past medical history of asthma, tobacco use, anxiety and substance (heroin) abuse who presented with asthma exacerbation. She was intubated for acute hypercapneic respiratory acidosis which is improved. She is on iv steroids which we will begin to taper iv steroids. Leukocytosis is improving. CT chest is pending. Tracheal aspirate culture was positive for Staph Aureus. Continue with antibiotics as per ID. UTox was positive for opiates and benzodiazepines. Aristeo Martin MD Hospitalist.
[2018-05-15] MEDS: Morphine 2 mg/ml ISec IVP PRN ×2 (02:00→06:16)
[2018-05-15] MEDS: Levalbuterol 0.63 MG/3 ML Inhal Soln UD IH SCH ×6 (04:30→23:02)
[2018-05-15] MEDS: Vancomycin 1gm in NS 250ml 1 GM/250 ML BAG IVPB SCH ×2 (06:11→17:51)
[2018-05-15] MEDS: Cefepime 1gm in NS 100ml 1 GM/100 ML BAG IVPB SCH ×3 (06:12→21:59)
[2018-05-15] MEDS: Propofol 10 mg/ml 1,000 MG/100 ML VIAL IV PRN (06:13)
[2018-05-15] MEDS: Lactated Ringer's 1,000 ML IV SCH ×2 (06:14→06:15)
[2018-05-15 07:39] LABS: ALB/GLOB RATIO 1.3 (1.1-1.8); ALBUMIN 3.2 g/dL (3.0-4.8); ALT/SGPT 46 U/L (7-56); AST/SGOT 44 U/L (14-36); BLOOD UREA NITROGEN 16 mg/dL (7-21); CALCIUM 8.4 mg/dL (8.4-10.5); GFR NON-AFRICAN AMERICAN > 60
[2018-05-15] MEDS: Budesonide 0.5 mg/2 ml Inhal Susp UD IH SCH ×2 (07:52→19:52)
--- NOTE | 2018-05-15 09:25 | CP.CCUPN ---
<Gregory Wu - Last Filed: 05/15/18 12:45> CCU Subjective - Physician Review Subjective (Free Text): Gregory Wu, PGY1 ICU Progress Note for Dr. Curry Patient was seen and examined at bedside this morning. She was extubated prior to interview. Patient is AAOx3. She has some hoarseness of the voice. Patient is uncooperative at this time during interview. She is yelling "I want to AMA." Patient also pulled out her IV after interview. Pereira is in place and draining. CCU Objective - Vital Signs / Intake & Output Intake and Output (Last 8hrs): Intake & Output 05/14/18 05/15/18 05/15/18 22:59 06:59 14:59 Intake Total 2014 100 Output Total 550 Balance 1465 100 Intake: IV 1925 100 Left Forearm 1750 Tube Feeding 90 Output: Urine 550 Urethral (Pereira) 550 - Physical Exam Head: Positive for: Atraumatic, Normocephalic Pupils: Positive for: PERRL Extroacular Muscles: Positive for: EOMI Conjunctiva: Positive for: Normal Mouth: Positive for: Moist Mucous Membranes, Normal Lips, Normal Tounge. Negative for: Drooling, Trismus Pharnyx: Negative for: ERYTHEMA, EXUDATE, TONSILS ENLARGED, Uvular Deviation, Strider, Soft Palate/Uvular Edema Nose (External): Positive for: Atraumatic. Negative for: Abrasion, Contusion, Laceration, Lesions Nose (Internal): Positive for: Normal Inspection, No Active Bleeding. Negative for: Rhinorrhea, Septal Hematoma, Epistaxis Neck: Positive for: Normal Range of Motion Respiratory/Chest: Negative for: Respiratory Distress, Accessory Muscle Use, Wheezes, Rales, Retracting, Rhonchi, Tender to Palpation Cardiovascular: Positive for: Regular Rate and Rhythm, Normal S1, S2. Negative for: Murmurs Abdomen: Positive for: Normal Bowel Sounds. Negative for: Tenderness, Distention, Peritoneal Signs, Rebound, Guarding Back: Positive for: Normal Inspection Upper Extremity: Positive for: Normal Inspection. Negative for: Cyanosis, Edema Lower Extremity: Positive for: Normal Inspection. Negative for: Edema, CALF TENDERNESS, Umair's Sign Neurological: Positive for: GCS=15, CN II-XII Intact, Speech Normal Skin: Positive for: Warm, Dry, Normal Color. Negative for: Rashes Psychiatric: Positive for: Alert, Oriented x 3 - Medications Active Medications: Active Medications Generic Name Dose Route Start Last Admin Trade Name Freq PRN Reason Stop Dose Admin Budesonide 0.5 mg 05/12/18 08:00 05/15/18 07:52 Pulmicort Respules IH 0.5 mg [id number] CURTIS Administration Heparin Sodium (Porcine) 5,000 units 05/12/18 14:00 05/15/18 06:07 Heparin SC 5,000 units Q8 CURTIS Administration Protocol Dexmedetomidine HCl 400 mcg in 100 mls @ 2.948 mls/hr 05/12/18 00:05 05/14/18 17:47 Precedex 400mcg/100ml IV 0.1 mcg/kg/hr .Q24H PRN 1.474 mls/hr Sedation/Withdrawal Sx Titration Protocol 0.2 MCG/KG/HR Lactated Ringer's 1,000 mls @ 100 mls/hr 05/12/18 02:15 05/15/18 06:15 Lactated Ringer's IV 100 mls/hr .Q10H CURTIS Administration Propofol 1,000 mg in 100 mls @ 1.769 mls/hr 05/12/18 15:59 05/15/18 06:13 Diprivan IV 50 mcg/kg/min .Q24H PRN 17.69 mls/hr TITRATE PER MD ORDER Administration Protocol 5 MCG/KG/MIN Cefepime HCl 1 gm in 100 mls @ 100 mls/hr 05/12/18 22:00 05/15/18 06:12 Maxipime 1gm IVPB 100 mls/hr Q8 CURTIS Administration Protocol Vancomycin HCl 1 gm in 250 mls @ 167 mls/hr 05/12/18 16:45 05/15/18 06:11 Vancomycin 1gm IVPB 167 mls/hr Q12H CURTIS Administration Protocol Midazolam 100 mg/100ml in NS 100 mg in 100 mls @ 1 mls/hr 05/14/18 06:25 Midazolam 100 Mg/100ml In Ns IV .Q24H PRN Agitation Protocol 1 MG/HR Doxycycline Hyclate 100 mg/ 100 mls @ 100 mls/hr 05/14/18 22:00 05/14/18 21:15 Sodium Chloride IVPB 100 mls/hr Q12 CURTIS Administration Protocol Levalbuterol HCl 0.63 mg 05/11/18 19:56 Xopenex IH Q2 PRN Shortness of Breath Levalbuterol HCl 0.63 mg 05/14/18 02:52 05/15/18 07:52 Xopenex IH 0.63 mg [id number] CURTIS Administration Lorazepam 2 mg 05/12/18 08:41 05/15/18 03:25 Ativan IVP 2 mg Q4H PRN Administration Agitation Protocol Methylprednisolone 30 mg 05/15/18 08:11 Solu-Medrol IVP Q8 CURTIS Morphine Sulfate 2 mg 05/12/18 08:41 05/15/18 06:16 Morphine IVP 2 mg Q4H PRN Administration Agitation Ondansetron HCl 4 mg 05/14/18 20:45 05/14/18 21:17 Zofran Inj IVP 4 mg Q6H PRN Administration Nausea/Vomiting Pantoprazole Sodium 40 mg 05/12/18 11:15 05/14/18 10:42 Protonix Inj IVP 40 mg DAILY CURTIS Administration - Patient Studies Lab Studies: Microbiology Studies 05/11/18 19:20 Blood Culture - Preliminary Blood-Venous NO GROWTH AFTER 3 DAYS 05/11/18 19:05 Blood Culture - Preliminary Blood-Venous NO GROWTH AFTER 3 DAYS 05/12/18 07:45 Gram Stain - Final Trachasp Sputum Culture - Final Staphylococcus Aureus Lab Studies 05/15/18 05/15/18 05/14/18 Range/Units 07:00 05:39 23:44 Sodium 140 (132-148) mmol/L Potassium 4.2 (3.6-5.0) mmol/L Chloride 108 H (98-107) mmol/L Carbon Dioxide 25 (21-33) mmol/L Anion Gap 12 (10-20) BUN 16 (7-21) mg/dL Creatinine 0.5 L (0.7-1.2) mg/dl Est GFR ( Amer) > 60 Est GFR (Non-Af Amer) > 60 POC Glucose (mg/dL) 106 118 H (65-110) mg/dL Random Glucose 99 (70-110) mg/dL Calcium 8.4 (8.4-10.5) mg/dL Phosphorus 3.3 (2.5-4.5) mg/dL Magnesium 2.4 H (1.7-2.2) mg/dL Total Bilirubin 0.2 (0.2-1.3) mg/dL AST 44 H D (14-36) U/L ALT 46 (7-56) U/L Alkaline Phosphatase 43 (38-126) U/L Total Protein 5.6 L (5.8-8.3) g/dL Albumin 3.2 (3.0-4.8) g/dL Globulin 2.4 gm/dL Albumin/Globulin Ratio 1.3 (1.1-1.8) 05/14/18 05/14/18 Range/Units 18:00 11:16 Sodium (132-148) mmol/L Potassium (3.6-5.0) mmol/L Chloride (98-107) mmol/L Carbon Dioxide (21-33) mmol/L Anion Gap (10-20) BUN (7-21) mg/dL Creatinine (0.7-1.2) mg/dl Est GFR ( Amer) Est GFR (Non-Af Amer) POC Glucose (mg/dL) 121 H 107 (65-110) mg/dL Random Glucose (70-110) mg/dL Calcium (8.4-10.5) mg/dL Phosphorus (2.5-4.5) mg/dL Magnesium (1.7-2.2) mg/dL Total Bilirubin (0.2-1.3) mg/dL AST (14-36) U/L ALT (7-56) U/L Alkaline Phosphatase (38-126) U/L Total Protein (5.8-8.3) g/dL Albumin (3.0-4.8) g/dL Globulin gm/dL Albumin/Globulin Ratio (1.1-1.8) Laboratory Results - last 24 hr 05/14/18 05/14/18 05/14/18 11:16 18:00 23:44 Sodium Potassium Chloride Carbon Dioxide Anion Gap BUN Creatinine Est GFR ( Amer) Est GFR (Non-Af Amer) POC Glucose (mg/dL) 107 121 H 118 H Random Glucose Calcium Phosphorus Magnesium Total Bilirubin AST ALT Alkaline Phosphatase Total Protein Albumin Globulin Albumin/Globulin Ratio 05/15/18 05/15/18 05:39 07:00 Sodium 140 Potassium 4.2 Chloride 108 H Carbon Dioxide 25 Anion Gap 12 BUN 16 Creatinine 0.5 L Est GFR ( Amer) > 60 Est GFR (Non-Af Amer) > 60 POC Glucose (mg/dL) 106 Random Glucose 99 Calcium 8.4 Phosphorus 3.3 Magnesium 2.4 H Total Bilirubin 0.2 AST 44 H D ALT 46 Alkaline Phosphatase 43 Total Protein 5.6 L Albumin 3.2 Globulin 2.4 Albumin/Globulin Ratio 1.3 Review of Systems - Review of Systems All systems: reviewed and no additional remarkable complaints except (as per HPI) Critical Care Progress Note - Extremities/Vascular Does the Patient have a Central Venous Catheter?: No Does the Patient need a Central Venous Catheter?: No Does the Patient have a Pereira Catheter?: Yes Does the Patient need a Pereira Catheter?: Yes Catheter Insertion Criteria: Need for accurate measurement of output in critically ill patient - Restraints Justification for Restraints: High risk for removing IV access - Prophylaxis GI Prophylaxis GI: PPI - Prophylaxis DVT Prophylaxis DVT: Heparin SQ Assessment/Plan - Assessment and Plan (Free Text) Assessment: Patient is a 27 y/o F with PMHx severe persistent asthma, anxiety, former heroin abuse, polysubstance abuse who presented for acute asthma exacerbation, chest tightness, and dyspnea. Patient admitted for acute respiratory failure and hypoxemia. Patient was intubated and monitored in the ICU. Plan: Neuro: - Maintain normothermia - AAOX3; s/p extubation - Psych on consult for drug overdose, depression, and medication non-compliance. Follow up recs. - At this time, patient cannot sign out AMA given that it is unsafe for the patient. Patient uncooperative and pulling out IV, 1:1 precautions, Geodon administered, and wrist restraints placed. - currently on precedex Cardio: - Bradycardic overnight: HR 56-57 - resolved. HR now 80s. - Maintain MAP > 65 - normotensive Pulm: - Acute Respiratory Failure 2/2 Asthma Exacerbation vs Opiate Intoxication/Withdrawal - s/p extubation today - Maintain SaO2 > 92% - c/w antibiotics as per ID recs - c/w xopenex q4h schd and q2 prn - c/w pulmicort - c/w solumedrol 30mg IVP q8; taper - Initial ABG: severe respiratory acidosis; most recent abg is greatly improved: 7.45/38/136 with bicarb 26 (on 40% FiO2) - ativan 2 IVP q4 prn for withdrawal signs and symptoms - Utox +benzo and +opiates GI: - ptx 40 IV daily - d/c tube feeds - resume diet Renal: - pereira in place - Ins/out: 2300/500: net +1750 - No active issues at this time ID: - Treatment for CAP - Leukocytosis 2/2 CAP vs Steroid induced - downtrending - c/w cefepime, vancomycin, and dozycycline to complete antibiotic course as per ID recs - sputum cx: +staph aureus - MRSA negative - Blood Cx neg x2 (prelim) after 3 days - UCx negative - Legionella and mycoplasma pneumonia negative - ID on consult. Recs appreciated. Heme: - Hgb stable at this time - continue to monitor DVT ppx: hep sc GI ppx: ptx Dispo: Extubated successfully today. Continue to monitor in the ICU at this time. Case was discussed and reviewed with Attending Physician, Dr. Curry. <Lazarus Curry - Last Filed: 05/15/18 13:49> CCU Objective - Vital Signs / Intake & Output Intake and Output (Last 8hrs): Intake & Output 05/14/18 05/15/18 05/15/18 22:59 06:59 14:59 Intake Total 2014 100 80 Output Total 550 Balance 1465 100 80 Intake: IV 1925 100 80 Left Forearm 1750 Tube Feeding 90 Output: Urine 550 Urethral (Pereira) 550 - Medications Active Medications: Active Medications Generic Name Dose Route Start Last Admin Trade Name Freq PRN Reason Stop Dose Admin Budesonide 0.5 mg 05/12/18 08:00 05/15/18 07:52 Pulmicort Respules IH 0.5 mg [id number] CURTIS Administration Heparin Sodium (Porcine) 5,000 units 05/12/18 14:00 05/15/18 06:07 Heparin SC 5,000 units Q8 CURTIS Administration Protocol Dexmedetomidine HCl 400 mcg in 100 mls @ 2.948 mls/hr 05/12/18 00:05 05/14/18 17:47 Precedex 400mcg/100ml IV 0.1 mcg/kg/hr .Q24H PRN 1.474 mls/hr Sedation/Withdrawal Sx Titration Protocol 0.2 MCG/KG/HR Lactated Ringer's 1,000 mls @ 100 mls/hr 05/12/18 02:15 05/15/18 06:15 Lactated Ringer's IV 100 mls/hr .Q10H CURTIS Administration Propofol 1,000 mg in 100 mls @ 1.769 mls/hr 05/12/18 15:59 05/15/18 09:21 Diprivan IV 0 mcg/kg/min .Q24H PRN 0 mls/hr TITRATE PER MD ORDER Titration Protocol 5 MCG/KG/MIN Cefepime HCl 1 gm in 100 mls @ 100 mls/hr 05/12/18 22:00 05/15/18 06:12 Maxipime 1gm IVPB 100 mls/hr Q8 CURTIS Administration Protocol Vancomycin HCl 1 gm in 250 mls @ 167 mls/hr 05/12/18 16:45 05/15/18 06:11 Vancomycin 1gm IVPB 167 mls/hr Q12H CURTIS Administration Protocol Midazolam 100 mg/100ml in NS 100 mg in 100 mls @ 1 mls/hr 05/14/18 06:25 Midazolam 100 Mg/100ml In Ns IV .Q24H PRN Agitation Protocol 1 MG/HR Doxycycline Hyclate 100 mg/ 100 mls @ 100 mls/hr 05/14/18 22:00 05/15/18 09:32 Sodium Chloride IVPB 100 mls/hr Q12 CURTIS Administration Protocol Levalbuterol HCl 0.63 mg 05/11/18 19:56 Xopenex IH Q2 PRN Shortness of Breath Levalbuterol HCl 0.63 mg 05/14/18 02:52 05/15/18 13:40 Xopenex IH Not Given [id number] CURTIS Lorazepam 2 mg 05/12/18 08:41 05/15/18 03:25 Ativan IVP 2 mg Q4H PRN Administration Agitation Protocol Methylprednisolone 30 mg 05/15/18 08:11 Solu-Medrol IVP Q8 CURTIS Morphine Sulfate 2 mg 05/12/18 08:41 05/15/18 06:16 Morphine IVP 2 mg Q4H PRN Administration Agitation Ondansetron HCl 4 mg 05/14/18 20:45 05/14/18 21:17 Zofran Inj IVP 4 mg Q6H PRN Administration Nausea/Vomiting Pantoprazole Sodium 40 mg 05/12/18 11:15 05/15/18 09:28 Protonix Inj IVP 40 mg DAILY CURTIS Administration - Patient Studies Lab Studies: Microbiology Studies 05/11/18 19:20 Blood Culture - Preliminary Blood-Venous NO GROWTH AFTER 3 DAYS 05/11/18 19:05 Blood Culture - Preliminary Blood-Venous NO GROWTH AFTER 3 DAYS 05/12/18 07:45 Gram Stain - Final Trachasp Sputum Culture - Final Staphylococcus Aureus Lab Studies 05/15/18 05/15/18 05/14/18 Range/Units 07:00 05:39 23:44 Sodium 140 (132-148) mmol/L Potassium 4.2 (3.6-5.0) mmol/L Chloride 108 H (98-107) mmol/L Carbon Dioxide 25 (21-33) mmol/L Anion Gap 12 (10-20) BUN 16 (7-21) mg/dL Creatinine 0.5 L (0.7-1.2) mg/dl Est GFR ( Amer) > 60 Est GFR (Non-Af Amer) > 60 POC Glucose (mg/dL) 106 118 H (65-110) mg/dL Random Glucose 99 (70-110) mg/dL Calcium 8.4 (8.4-10.5) mg/dL Phosphorus 3.3 (2.5-4.5) mg/dL Magnesium 2.4 H (1.7-2.2) mg/dL Total Bilirubin 0.2 (0.2-1.3) mg/dL AST 44 H D (14-36) U/L ALT 46 (7-56) U/L Alkaline Phosphatase 43 (38-126) U/L Total Protein 5.6 L (5.8-8.3) g/dL Albumin 3.2 (3.0-4.8) g/dL Globulin 2.4 gm/dL Albumin/Globulin Ratio 1.3 (1.1-1.8) 05/14/18 Range/Units 18:00 Sodium (132-148) mmol/L Potassium (3.6-5.0) mmol/L Chloride (98-107) mmol/L Carbon Dioxide (21-33) mmol/L Anion Gap (10-20) BUN (7-21) mg/dL Creatinine (0.7-1.2) mg/dl Est GFR ( Amer) Est GFR (Non-Af Amer) POC Glucose (mg/dL) 121 H (65-110) mg/dL Random Glucose (70-110) mg/dL Calcium (8.4-10.5) mg/dL Phosphorus (2.5-4.5) mg/dL Magnesium (1.7-2.2) mg/dL Total Bilirubin (0.2-1.3) mg/dL AST (14-36) U/L ALT (7-56) U/L Alkaline Phosphatase (38-126) U/L Total Protein (5.8-8.3) g/dL Albumin (3.0-4.8) g/dL Globulin gm/dL Albumin/Globulin Ratio (1.1-1.8) Laboratory Results - last 24 hr 05/14/18 05/14/18 05/15/18 18:00 23:44 05:39 Sodium Potassium Chloride Carbon Dioxide Anion Gap BUN Creatinine Est GFR ( Amer) Est GFR (Non-Af Amer) POC Glucose (mg/dL) 121 H 118 H 106 Random Glucose Calcium Phosphorus Magnesium Total Bilirubin AST ALT Alkaline Phosphatase Total Protein Albumin Globulin Albumin/Globulin Ratio 05/15/18 07:00 Sodium 140 Potassium 4.2 Chloride 108 H Carbon Dioxide 25 Anion Gap 12 BUN 16 Creatinine 0.5 L Est GFR ( Amer) > 60 Est GFR (Non-Af Amer) > 60 POC Glucose (mg/dL) Random Glucose 99 Calcium 8.4 Phosphorus 3.3 Magnesium 2.4 H Total Bilirubin 0.2 AST 44 H D ALT 46 Alkaline Phosphatase 43 Total Protein 5.6 L Albumin 3.2 Globulin 2.4 Albumin/Globulin Ratio 1.3 Attending/Attestation - Attestation I have personally seen and examined this patient.: Yes I have fully participated in the care of the patient.: Yes I have reviewed all pertinent clinical information: Yes Notes (Text): 05/15/18 13:[address] Curry note
--- NOTE | 2018-05-15 10:07 | PN ---
DATE: 05/15/2018 SUBJECTIVE: The patient is seen and examined at bedside. She is comfortable. She is nonverbal, communicating. She is following commands. She has a very strong hand spring assembler. She is able to lift her head more than 10 cm above the pillow. She is on pressure support trial 5/5. She is pulling more than 600 mL of tidal volume. Rapid shallow breathing index definitely less than 50. Oxygen saturation 98% on 40% FiO2. PHYSICAL EXAMINATION VITAL SIGNS: Blood pressure 135/83, heart rate 90 and respiratory 19. HEENT: Head and neck atraumatic. The patient is intubated. LUNGS: Clear to auscultation bilaterally. No wheezing. No crackles, good air entry. HEART: Regular rate and rhythm, S1 and S2 normal. ABDOMEN: Soft, nontender and nondistended. MUSCULOSKELETAL: No C/C/E. NEURO: The patient moves all extremities spontaneously. SKIN: Moist. PSYCH: The patient is alert, awake and appears to be oriented x3. LABORATORY DATA: WBC 13.2 down from 18.4, hemoglobin 12.6 and platelet count 218. Sodium 140, potassium 4.2, chloride 108, carbon dioxide 25, BUN 16, creatinine 0.5, glucose 99, AST 44, ALT 46 and total bilirubin 0.2. MEDICATIONS: Pulmicort,m Precedex, doxycycline, heparin subcutaneously, lactated Ringer at 100 mL/hour, Xopenex p.r.n. and every 4 hours, Ativan p.r.n., cefepime, Solu-Medrol 30 mg IV every 8 hours, morphine p.r.n., Zofran p.r.n., Protonix 40 mg daily and vancomycin. ASSESSMENT: This 27-year-old lady who presented to ICU for now resolved status asthmaticus. She has tolerated pressure support trial very well and will be extubated to nasal cannula. She is not wheezing. She has very good air entry. She is able to take a deep breath on command. She is following commands very well. She has a good muscle strength in both hands and able to lift her head more than 10 cm off of below. She is alert, awake, with good cough and gag reflex. We we will continue with steroid taper and bronchodilators. We will complete course of antibiotics as per ID. We will continue target euvolemia, euglycemia, normothermia and oxygen saturation more than 90%. We will continue with deep venous thrombosis and gastrointestinal prophylaxis. ccm time 40 min Lazarus Curry MD MTDSade
--- NOTE | 2018-05-15 11:23 | CP.PCM.PN ---
<Antoni Rivera - Last Filed: 05/15/18 11:20> Subjective - Date & Time of Evaluation Date of Evaluation: 05/15/18 Time of Evaluation: 08:00 - Subjective Subjective: Antoni Rivera PGY-1 Progress Note for Hospitalist Service Patient seen and evaluated at bedside this morning. No acute events reported overnight. Patient is intubated currently and on pressure support. Vent settings today were PEEP of 5 and O2% of 40%. Patient is awake and alert and responds to questions by nodding. Objective - Vital Signs/Intake and Output Vital Signs (last 24 hours): Temp Pulse Resp BP Pulse Ox 99.9 F H 56 L 22 128/79 100 05/14/18 17:00 05/14/18 20:00 05/14/18 14:00 05/14/18 17:00 05/14/18 17:00 Intake and Output: 05/15/18 05/15/18 06:59 18:59 Intake Total 175 80 Balance 175 80 - Medications Medications: Current Medications Budesonide (Pulmicort Respules) 0.5 mg IH [id number] CURTIS Last Admin: 05/15/18 07:52 Dose: 0.5 mg Heparin Sodium (Porcine) (Heparin) 5,000 units SC Q8 CURTIS; Protocol Last Admin: 05/15/18 06:07 Dose: 5,000 units Dexmedetomidine HCl (Precedex 400mcg/100ml) 400 mcg in 100 mls @ 2.948 mls/hr IV .Q24H PRN; Protocol PRN Reason: Sedation/Withdrawal Sx Last Titration: 05/14/18 17:47 Dose: 0.1 mcg/kg/hr, 1.474 mls/hr Lactated Ringer's (Lactated Ringer's) 1,000 mls @ 100 mls/hr IV .Q10H CURTIS Last Admin: 05/15/18 06:15 Dose: 100 mls/hr Propofol (Diprivan) 1,000 mg in 100 mls @ 1.769 mls/hr IV .Q24H PRN; Protocol PRN Reason: TITRATE PER MD ORDER Last Titration: 05/15/18 09:21 Dose: 0 mcg/kg/min, 0 mls/hr Cefepime HCl (Maxipime 1gm) 1 gm in 100 mls @ 100 mls/hr IVPB Q8 CURTIS; Protocol Last Admin: 05/15/18 06:12 Dose: 100 mls/hr Vancomycin HCl (Vancomycin 1gm) 1 gm in 250 mls @ 167 mls/hr IVPB Q12H CURTIS; Protocol Last Admin: 05/15/18 06:11 Dose: 167 mls/hr Midazolam 100 mg/100ml in NS (Midazolam 100 Mg/100ml In Ns) 100 mg in 100 mls @ 1 mls/hr IV .Q24H PRN; Protocol PRN Reason: Agitation Doxycycline Hyclate 100 mg/ (Sodium Chloride) 100 mls @ 100 mls/hr IVPB Q12 CURTIS; Protocol Last Admin: 05/15/18 09:32 Dose: 100 mls/hr Levalbuterol HCl (Xopenex) 0.63 mg IH Q2 PRN PRN Reason: Shortness of Breath Levalbuterol HCl (Xopenex) 0.63 mg IH [id number] CURTIS Last Admin: 05/15/18 07:52 Dose: 0.63 mg Lorazepam (Ativan) 2 mg IVP Q4H PRN; Protocol PRN Reason: Agitation Last Admin: 05/15/18 03:25 Dose: 2 mg Methylprednisolone (Solu-Medrol) 30 mg IVP Q8 CURTIS Morphine Sulfate (Morphine) 2 mg IVP Q4H PRN PRN Reason: Agitation Last Admin: 05/15/18 06:16 Dose: 2 mg Ondansetron HCl (Zofran Inj) 4 mg IVP Q6H PRN PRN Reason: Nausea/Vomiting Last Admin: 05/14/18 21:17 Dose: 4 mg Pantoprazole Sodium (Protonix Inj) 40 mg IVP DAILY [facility] Last Admin: 05/15/18 09:28 Dose: 40 mg - Labs Labs: 05/14/18 05:00 05/15/18 07:00 - Additional Findings Additional findings: - Constitutional Appears: Well, Non-toxic, No Acute Distress - Head Exam Head Exam: ATRAUMATIC, NORMAL INSPECTION, NORMOCEPHALIC - Eye Exam Eye Exam: PERRL. absent: Scleral icterus - ENT Exam ENT Exam: Mucous Membranes Moist, intubated currently - Respiratory Exam Respiratory Exam: Wheezes bilaterally, NORMAL BREATHING PATTERN. absent: Rales, Rhonchi - Cardiovascular Exam Cardiovascular Exam: Bradycardia, REGULAR RHYTHM, +S1, +S2 - GI/Abdominal Exam GI & Abdominal Exam: Soft, Normal Bowel Sounds. absent: Tenderness - Extremities Exam no pedal edema - Neurological Exam Neurological Exam: Awake. absent: Alert - Skin Skin Exam: Dry, Intact, Normal Color Assessment and Plan - Assessment and Plan (Free Text) Assessment: 27 year old female with past medical history of severe asthma, tobacco, and heroin use presents with severe asthma exacerbation requiring intubation due to acute respiratory acidosis and hypercapneic respiratory failure. Plan: Acute respiratory failure 2/2 to hypercapneic respiratory acidosis 2/2 to acute asthma exacerbation vs. opiate use -Utox: positive for opiates and benzodiazepines -CXR: mild atelectasis or infiltrates -BCx negative for 72 hours -Tracheal aspirate culture: S. Aureus pansensitive except to PCN -05/14 ABG improved: pH: 7.45, pO2: 136, pCO2: 38 -Continue with xopenex, and budesonide. Reduce solumedrol to 30 mg Q8 -Continue with vancomycin and cefepime and doxycycline as per ID. -Currently on precedex. Continue to taper. -F/u CT chest without contrast -Continue with ativan 2 mg Q4PRN -Maintain SaO2 > 90% -ID, Dr. Campos, on consult. Further recs regarding tapering of ABx appreciated - Likely extubation today, monitor respiratory function Leukocytosis -Likely 2/2 to high dose steroids -Reduce solumedrol to 30 mg Q8. -Continue to monitor Opiate and benzodiazepine abuse -Continue ativan 2 mg Q4PRN -Once extubated, will provide education regarding opiate and benzodiazepine abuse DVT prophylaxis: Heparin 5000 U Q8 GI prophylaxis: Protonix 40 mg daily Patient seen, case reviewed and plan approved by Dr. Martin. Antoni Rivera, PGY-1 <Aristeo Martin - Last Filed: 05/15/18 12:04> Objective - Vital Signs/Intake and Output Vital Signs (last 24 hours): Temp Pulse Resp BP Pulse Ox 99.9 F H 56 L 22 128/79 100 05/14/18 17:00 05/14/18 20:00 05/14/18 14:00 05/14/18 17:00 05/14/18 17:00 Intake and Output: 05/15/18 05/15/18 06:59 18:59 Intake Total 175 80 Balance 175 80 - Medications Medications: Current Medications Budesonide (Pulmicort Respules) 0.5 mg IH [id number] CURTIS Last Admin: 05/15/18 07:52 Dose: 0.5 mg Heparin Sodium (Porcine) (Heparin) 5,000 units SC Q8 CURTIS; Protocol Last Admin: 05/15/18 06:07 Dose: 5,000 units Dexmedetomidine HCl (Precedex 400mcg/100ml) 400 mcg in 100 mls @ 2.948 mls/hr IV .Q24H PRN; Protocol PRN Reason: Sedation/Withdrawal Sx Last Titration: 05/14/18 17:47 Dose: 0.1 mcg/kg/hr, 1.474 mls/hr Lactated Ringer's (Lactated Ringer's) 1,000 mls @ 100 mls/hr IV .Q10H CURTIS Last Admin: 05/15/18 06:15 Dose: 100 mls/hr Propofol (Diprivan) 1,000 mg in 100 mls @ 1.769 mls/hr IV .Q24H PRN; Protocol PRN Reason: TITRATE PER MD ORDER Last Titration: 05/15/18 09:21 Dose: 0 mcg/kg/min, 0 mls/hr Cefepime HCl (Maxipime 1gm) 1 gm in 100 mls @ 100 mls/hr IVPB Q8 CURTIS; Protocol Last Admin: 05/15/18 06:12 Dose: 100 mls/hr Vancomycin HCl (Vancomycin 1gm) 1 gm in 250 mls @ 167 mls/hr IVPB Q12H CURTIS; Protocol Last Admin: 05/15/18 06:11 Dose: 167 mls/hr Midazolam 100 mg/100ml in NS (Midazolam 100 Mg/100ml In Ns) 100 mg in 100 mls @ 1 mls/hr IV .Q24H PRN; Protocol PRN Reason: Agitation Doxycycline Hyclate 100 mg/ (Sodium Chloride) 100 mls @ 100 mls/hr IVPB Q12 CURTIS; Protocol Last Admin: 05/15/18 09:32 Dose: 100 mls/hr Levalbuterol HCl (Xopenex) 0.63 mg IH Q2 PRN PRN Reason: Shortness of Breath Levalbuterol HCl (Xopenex) 0.63 mg IH [id number] [facility] Last Admin: 05/15/18 07:52 Dose: 0.63 mg Lorazepam (Ativan) 2 mg IVP Q4H PRN; Protocol PRN Reason: Agitation Last Admin: 05/15/18 03:25 Dose: 2 mg Methylprednisolone (Solu-Medrol) 30 mg IVP Q8 CURTIS Morphine Sulfate (Morphine) 2 mg IVP Q4H PRN PRN Reason: Agitation Last Admin: 05/15/18 06:16 Dose: 2 mg Ondansetron HCl (Zofran Inj) 4 mg IVP Q6H PRN PRN Reason: Nausea/Vomiting Last Admin: 05/14/18 21:17 Dose: 4 mg Pantoprazole Sodium (Protonix Inj) 40 mg IVP DAILY [facility] Last Admin: 05/15/18 09:28 Dose: 40 mg - Labs Labs: 05/14/18 05:00 05/15/18 07:00 Attending/Attestation - Attestation I have personally seen and examined this patient.: Yes I have fully participated in the care of the patient.: Yes I have reviewed all pertinent clinical information, including history, physical exam and plan: Yes Notes (Text): 05/15/18 12:01 27 year old female with past medical history of asthma, tobacco use, anxiety and substance (heroin) abuse who presented with asthma exacerbation. She was intubated for acute hypercapneic respiratory acidosis which is improved. Plan for possible extubation today. She is on iv steroids, pulmicort and xopenex. Will continue with steroids taper. Leukocytosis was improving although CBC is pending today. CT chest is still pending. Tracheal aspirate culture was positive for Staph Aureus. Continue with ant ibiotics as per ID. Will discuss with ID regarding possible de-escalation of antibiotics. UTox was positive for opiates and benzodiazepines. Aristeo Martin MD Hospitalist.
[2018-05-15 13:51] VITALS: O2SAT 98
[2018-05-15] MEDS: MethylPREDNISolone 40 mg Vial IVP SCH ×2 (14:16→21:57)
--- NOTE | 2018-05-16 01:47 | PN ---
DATE: 05/15/2018 SUBJECTIVE: The patient is in bed, in no acute distress, was seen earlier today in room 129, bed 2. PHYSICAL EXAMINATION VITAL SIGNS: Temperature is 98, T-max is 100 yesterday, blood pressure is 150/60, respiratory rate of 18, heart rate of 80. HEENT: Unremarkable. NECK: Supple. LUNGS: Decreased breath sounds. HEART: Normal S1 and S2. ABDOMEN: Soft. LABORATORY DATA: Reveals a white count is down to 13,000, hemoglobin of 12. BUN of 16, creatinine of 0.5, procalcitonin 0.57. Urinalysis is noted. Serology is reviewed. Urine Legionella is negative. is negative. The patient has sensitive to staph and trach cultures. REVIEW OF ORDERS: Reveals the patient to be on doxycycline and cefepime, Solu-Medrol and vancomycin. The nares MRSA screen is negative. The blood cultures are negative. ASSESSMENT AND PLAN: This is a 27-year-old female, who was admitted with systemic inflammatory response syndrome and insulin-dependent respiratory failure, acute severe asthma exacerbation possibly community-acquired pneumonia, sensitive Staphylococcus aureus and we will discontinue the vancomycin and also blood cultures negative and Methicillin-resistant Staphylococcus aureus screen is negative. We will follow with you. August Garcia MD
[2018-05-16] MEDS: Levalbuterol 0.63 MG/3 ML Inhal Soln UD IH SCH ×5 (03:16→19:50)
[2018-05-16] MEDS: Cefepime 1gm in NS 100ml 1 GM/100 ML BAG IVPB SCH (05:32)
[2018-05-16] MEDS: MethylPREDNISolone 40 mg Vial IVP SCH ×3 (05:33→22:11)
[2018-05-16] MEDS: Budesonide 0.5 mg/2 ml Inhal Susp UD IH SCH ×2 (07:01→19:50)
--- NOTE | 2018-05-16 07:04 | CP.CCUPN ---
<Gregory Wu - Last Filed: 05/16/18 10:57> CCU Subjective - Physician Review Subjective (Free Text): Gregory Wu, PGY1 ICU Progress Note for Dr. Junior Patient was seen and examined at bedside this morning. She is AAOx3. No adverse overnight events. Yesterday, patient was noted to have green urine in the pereira catheter. Pereira has been removed. Vital signs stable. She denies cp, sob, headache, n/v/d, fever, chills, urinary frequency/urgency/dysuria. A full 12 point ROS was conducted and unremarkable except as stated above. CCU Objective - Vital Signs / Intake & Output Vital Signs (Last 4 hours): Vital Signs Pulse 05/16/18 04:00 55 L Intake and Output (Last 8hrs): Intake & Output 05/15/18 05/16/18 05/16/18 22:59 06:59 14:59 Intake Total 620 300 Output Total 300 Balance 620 0 Weight 70.76 kg Intake: IV 500 Right Antecubital 500 Oral 120 300 Output: Urine 300 Urine, Voided 300 Stool 0 Other: # Voids Urethral (Pereira) 1,200 Urine, Voided 1 # Bowel Movements 0 - Physical Exam Head: Positive for: Atraumatic, Normocephalic Pupils: Positive for: PERRL Extroacular Muscles: Positive for: EOMI Conjunctiva: Positive for: Normal Mouth: Positive for: Moist Mucous Membranes, Normal Lips. Negative for: Drooling, Trismus Pharnyx: Negative for: ERYTHEMA, EXUDATE, TONSILS ENLARGED, Uvular Deviation, Strider, Soft Palate/Uvular Edema Nose (External): Positive for: Atraumatic. Negative for: Abrasion, Contusion, Laceration, Lesions Nose (Internal): Positive for: Normal Inspection, No Active Bleeding. Negative for: Rhinorrhea, Septal Hematoma, Epistaxis Neck: Positive for: Normal Range of Motion Respiratory/Chest: Negative for: Respiratory Distress, Accessory Muscle Use, Wheezes, Rales, Retracting, Rhonchi, Tender to Palpation Cardiovascular: Positive for: Regular Rate and Rhythm, Normal S1, S2. Negative for: Murmurs Abdomen: Positive for: Normal Bowel Sounds. Negative for: Tenderness, Distention, Peritoneal Signs, Rebound, Guarding Back: Positive for: Normal Inspection Upper Extremity: Positive for: Normal Inspection. Negative for: Cyanosis, Edema Lower Extremity: Positive for: Normal Inspection. Negative for: Edema, CALF TENDERNESS, Umair's Sign Neurological: Positive for: GCS=15, CN II-XII Intact, Speech Normal Skin: Positive for: Warm, Dry, Normal Color. Negative for: Rashes Psychiatric: Positive for: Alert, Oriented x 3, Normal Insight, Normal Concentration - Medications Active Medications: Active Medications Generic Name Dose Route Start Last Admin Trade Name Freq PRN Reason Stop Dose Admin Budesonide 0.5 mg 05/12/18 08:00 05/16/18 07:01 Pulmicort Respules IH 0.5 mg [id number] CURTIS Administration Heparin Sodium (Porcine) 5,000 units 05/12/18 14:00 05/16/18 05:33 Heparin SC 5,000 units Q8 CURTIS Administration Protocol Dexmedetomidine HCl 400 mcg in 100 mls @ 2.948 mls/hr 05/12/18 00:05 05/14/18 17:47 Precedex 400mcg/100ml IV 0.1 mcg/kg/hr .Q24H PRN 1.474 mls/hr Sedation/Withdrawal Sx Titration Protocol 0.2 MCG/KG/HR Lactated Ringer's 1,000 mls @ 100 mls/hr 05/12/18 02:15 05/15/18 06:15 Lactated Ringer's IV 100 mls/hr .Q10H CURTIS Administration Propofol 1,000 mg in 100 mls @ 1.769 mls/hr 05/12/18 15:59 05/15/18 09:21 Diprivan IV 0 mcg/kg/min .Q24H PRN 0 mls/hr TITRATE PER MD ORDER Titration Protocol 5 MCG/KG/MIN Cefepime HCl 1 gm in 100 mls @ 100 mls/hr 05/12/18 22:00 05/16/18 05:32 Maxipime 1gm IVPB 100 mls/hr Q8 CURTIS Administration Protocol Midazolam 100 mg/100ml in NS 100 mg in 100 mls @ 1 mls/hr 05/14/18 06:25 Midazolam 100 Mg/100ml In Ns IV .Q24H PRN Agitation Protocol 1 MG/HR Doxycycline Hyclate 100 mg/ 100 mls @ 100 mls/hr 05/14/18 22:00 05/15/18 21:56 Sodium Chloride IVPB 100 mls/hr Q12 CURTIS Administration Protocol Levalbuterol HCl 0.63 mg 05/11/18 19:56 Xopenex IH Q2 PRN Shortness of Breath Levalbuterol HCl 0.63 mg 05/14/18 02:52 05/16/18 07:01 Xopenex IH 0.63 mg [id number] CURTIS Administration Lorazepam 2 mg 05/12/18 08:41 05/15/18 03:25 Ativan IVP 2 mg Q4H PRN Administration Agitation Protocol Methylprednisolone 30 mg 05/15/18 08:11 05/16/18 05:33 Solu-Medrol IVP 30 mg Q8 CURTIS Administration Morphine Sulfate 2 mg 05/12/18 08:41 05/15/18 06:16 Morphine IVP 2 mg Q4H PRN Administration Agitation Ondansetron HCl 4 mg 05/14/18 20:45 05/14/18 21:17 Zofran Inj IVP 4 mg Q6H PRN Administration Nausea/Vomiting Pantoprazole Sodium 40 mg 05/16/18 07:30 Protonix Ec Tab PO ACB CURTIS - Patient Studies Lab Studies: Microbiology Studies 05/11/18 19:20 Blood Culture - Preliminary Blood-Venous NO GROWTH AFTER 4 DAYS 05/11/18 19:05 Blood Culture - Preliminary Blood-Venous NO GROWTH AFTER 4 DAYS 05/14/18 18:30 Gram Stain - Final Trachasp Lab Studies 05/15/18 Range/Units 07:00 Sodium 140 (132-148) mmol/L Potassium 4.2 (3.6-5.0) mmol/L Chloride 108 H (98-107) mmol/L Carbon Dioxide 25 (21-33) mmol/L Anion Gap 12 (10-20) BUN 16 (7-21) mg/dL Creatinine 0.5 L (0.7-1.2) mg/dl Est GFR ( Amer) > 60 Est GFR (Non-Af Amer) > 60 Random Glucose 99 (70-110) mg/dL Calcium 8.4 (8.4-10.5) mg/dL Phosphorus 3.3 (2.5-4.5) mg/dL Magnesium 2.4 H (1.7-2.2) mg/dL Total Bilirubin 0.2 (0.2-1.3) mg/dL AST 44 H D (14-36) U/L ALT 46 (7-56) U/L Alkaline Phosphatase 43 (38-126) U/L Total Protein 5.6 L (5.8-8.3) g/dL Albumin 3.2 (3.0-4.8) g/dL Globulin 2.4 gm/dL Albumin/Globulin Ratio 1.3 (1.1-1.8) Laboratory Results - last 24 hr 05/15/18 07:00 Sodium 140 Potassium 4.2 Chloride 108 H Carbon Dioxide 25 Anion Gap 12 BUN 16 Creatinine 0.5 L Est GFR ( Amer) > 60 Est GFR (Non-Af Amer) > 60 Random Glucose 99 Calcium 8.4 Phosphorus 3.3 Magnesium 2.4 H Total Bilirubin 0.2 AST 44 H D ALT 46 Alkaline Phosphatase 43 Total Protein 5.6 L Albumin 3.2 Globulin 2.4 Albumin/Globulin Ratio 1.3 Review of Systems - Review of Systems All systems: reviewed and no additional remarkable complaints except (as per HPI.) Critical Care Progress Note - Nutrition Nutrition: Nutrition Category Date Time Status Regular Diet [DIET] Diets 05/15/18 Breakfast Ordered Assessment/Plan - Assessment and Plan (Free Text) Assessment: Patient is a 27 y/o F with PMHx severe persistent asthma, anxiety, former heroin abuse, polysubstance abuse who presented for acute asthma exacerbation, chest tightness, and dyspnea. Patient admitted for acute respiratory failure and hypoxemia. She had severe respiratory acidosis on ABG. Patient was intubated and monitored in the ICU. She was extubated successfully on 05/15. Patient will be transferred to med/surg. Plan: Neuro: - Maintain normothermia - AAOX3 - Psych on consult Cardio: - Maintain MAP > 65 - normotensive - No active issues at this time Pulm: - Acute Respiratory Failure 2/2 Asthma Exacerbation vs Opiate Intoxication/Withdrawal - s/p extubation on 05/15 - Maintain SaO2 > 92% - c/w xopenex q4h schd and q2 prn, pulmicort - c/w solumedrol 30mg IVP q12; continue to taper - Initial ABG showed severe respiratory acidosis; most recent abg improved: 7.45/38/136 with bicarb 26 - Utox +benzo and +opiates GI: - PTX 40 PO daily - Regular diet : - Green urine yesterday; likely 2/2 propofol infusion syndrome - Ins/out: 1000/300; net +700 ID: - Treatment for CAP - Leukocytosis 2/2 Steroids - resolved - c/w cefepime and doxycycline antibiotics as per ID recommendations - repeat sputum cx: negative - sputum cx: +staph aureus - MRSA negative - Blood Cx neg x2 (prelim) after 4 days - UCx negative x2 - Legionella and mycoplasma pneumonia negative - ID on consult. Recs appreciated. Heme: - Hgb stable at this time - No active issues DVT ppx: hep sc GI ppx: ptx Dispo: Transfer patient to med/surg. Case was discussed and reviewed with Attending Physician, Dr. Chidi Junior. <Chidi Junior - Last Filed: 05/16/18 18:08> CCU Objective - Vital Signs / Intake & Output Intake and Output (Last 8hrs): Intake & Output 05/16/18 05/16/18 05/16/18 06:59 14:59 22:59 Intake Total 300 Output Total 300 Balance 0 Weight 70.76 kg Intake: Oral 300 Output: Urine 300 Urine, Voided 300 Stool 0 Other: # Voids Urine, Voided 1 - Medications Active Medications: Active Medications Generic Name Dose Route Start Last Admin Trade Name Freq PRN Reason Stop Dose Admin Azithromycin 250 mg 05/16/18 11:15 05/16/18 14:52 Zithromax PO 05/21/18 11:16 250 mg DAILY CURTIS Administration Protocol Budesonide 0.5 mg 05/12/18 08:00 05/16/18 07:01 Pulmicort Respules IH 0.5 mg [id number] CURTIS Administration Clonazepam 0.125 mg 05/16/18 09:00 Klonopin Wafers PO Q8 PRN Anxiety Protocol Heparin Sodium (Porcine) 5,000 units 05/12/18 14:00 05/16/18 14:55 Heparin SC Not Given Q8 CURTIS Protocol Levalbuterol HCl 0.63 mg 05/11/18 19:56 Xopenex IH Q2 PRN Shortness of Breath Levalbuterol HCl 0.63 mg 05/14/18 02:52 05/16/18 11:18 Xopenex IH 0.63 mg [id number] CURTIS Administration Lorazepam 2 mg 05/12/18 08:41 05/15/18 03:25 Ativan IVP 2 mg Q4H PRN Administration Agitation Protocol Methylprednisolone 30 mg 05/16/18 10:00 05/16/18 11:00 Solu-Medrol IVP 30 mg Q12 CURTIS Administration Ondansetron HCl 4 mg 05/14/18 20:45 05/14/18 21:17 Zofran Inj IVP 4 mg Q6H PRN Administration Nausea/Vomiting Pantoprazole Sodium 40 mg 05/16/18 07:30 05/16/18 08:59 Protonix Ec Tab PO Not Given ACB CURTIS - Patient Studies Lab Studies: Microbiology Studies 05/14/18 18:30 Gram Stain - Final Trachasp Sputum Culture - Preliminary NORMAL ORAL JACQUI 05/14/18 18:30 Urine Culture - Final Urine,Pereira No Growth (<1,000 CFU/ML) 05/11/18 19:20 Blood Culture - Preliminary Blood-Venous NO GROWTH AFTER 4 DAYS 05/11/18 19:05 Blood Culture - Preliminary Blood-Venous NO GROWTH AFTER 4 DAYS Lab Studies 05/16/18 05/16/18 Range/Units 06:55 06:55 WBC 8.6 D (4.5-11.0) 10^3/uL RBC 4.63 (3.5-6.1) 10^6/uL Hgb 12.4 (12.0-16.0) g/dL Hct 39.7 (36.0-48.0) % MCV 85.7 (80.0-105.0) fl MCH 26.8 (25.0-35.0) pg MCHC 31.2 (31.0-37.0) g/dl RDW 12.8 (11.5-14.5) % Plt Count 210 (120.0-450.0) 10^3/uL MPV 11.1 H (7.0-11.0) fl Neut % (Auto) 79.7 H (50.0-68.0) % Lymph % (Auto) 12.2 L (22.0-35.0) % Hubbard % (Auto) 8.1 H (1.0-6.0) % Eos % (Auto) 0.0 L (1.5-5.0) % Baso % (Auto) 0.0 (0.0-3.0) % Lymph # (Auto) 1.1 L (1.2-3.4) Hubbard # (Auto) 0.7 H (0.1-0.6) Eos # (Auto) 0.0 (0.0-0.7) Baso # (Auto) 0.00 (0.0-2.0) K/mm3 Absolute Neuts (auto) 6.87 H (1.4-6.5) Sodium 138 (132-148) mmol/L Potassium 4.2 (3.6-5.0) mmol/L Chloride 105 (98-107) mmol/L Carbon Dioxide 28 (21-33) mmol/L Anion Gap 9 L (10-20) BUN 15 (7-21) mg/dL Creatinine 0.5 L (0.7-1.2) mg/dl Est GFR ( Amer) > 60 Est GFR (Non-Af Amer) > 60 Random Glucose 107 (70-110) mg/dL Calcium 8.2 L (8.4-10.5) mg/dL Total Bilirubin 0.4 (0.2-1.3) mg/dL AST 33 (14-36) U/L ALT 52 (7-56) U/L Alkaline Phosphatase 41 (38-126) U/L Total Protein 5.3 L (5.8-8.3) g/dL Albumin 3.0 (3.0-4.8) g/dL Globulin 2.3 gm/dL Albumin/Globulin Ratio 1.3 (1.1-1.8) Laboratory Results - last 24 hr 05/16/18 05/16/18 06:55 06:55 WBC 8.6 D RBC 4.63 Hgb 12.4 Hct 39.7 MCV 85.7 MCH 26.8 MCHC 31.2 RDW 12.8 Plt Count 210 MPV 11.1 H Neut % (Auto) 79.7 H Lymph % (Auto) 12.2 L Hubbard % (Auto) 8.1 H Eos % (Auto) 0.0 L Baso % (Auto) 0.0 Lymph # (Auto) 1.1 L Hubbard # (Auto) 0.7 H Eos # (Auto) 0.0 Baso # (Auto) 0.00 Absolute Neuts (auto) 6.87 H Sodium 138 Potassium 4.2 Chloride 105 Carbon Dioxide 28 Anion Gap 9 L BUN 15 Creatinine 0.5 L Est GFR ( Amer) > 60 Est GFR (Non-Af Amer) > 60 Random Glucose 107 Calcium 8.2 L Total Bilirubin 0.4 AST 33 ALT 52 Alkaline Phosphatase 41 Total Protein 5.3 L Albumin 3.0 Globulin 2.3 Albumin/Globulin Ratio 1.3 Radiology Impressions: Radiology Impressions Chest CT 05/12/18 12:41 IMPRESSION: 1. Confluent airspace disease with sharp lateral margin in the left lower likely represents subsegmental atelectasis however superimposed pneumonia cannot be excluded. Follow-up to resolution is advised. 2. Lobe small bilateral pleural effusions. Critical Care Progress Note - Nutrition Nutrition: Nutrition Category Date Time Status Regular Diet [DIET] Diets 05/15/18 Breakfast Ordered Addendum Addendum: 05/16/18 18:08 MICU Attending Addendum: Patient seen and examined with housestaff, case discussed on rounds. I agree with resident note above with the following additions/exceptions: 27F with severe persistent asthma, anxiety, former heroin abuse, polysubstance abuse who presented for acute asthma exacerbation possibly related to rug abuse. Patient was intubated and extubated successfully on 05/15. Stable at this point for transfer to med surg f.u psych recs for 1:1 and ability to make her own decisions monitor urine output as it was green yesterday possible propfol induced, not showing signs of metabolic acidosos today hepSQ for dvt ppx ppi for gi ppx Rest of care as per resident note above Chidi Junior MD Attending Pulmonary Critical Care Sleep Medicine
[2018-05-16 07:16] LABS: HEMOGLOBIN 12.4 g/dL (12.0-16.0); LYMPH # 1.1 (1.2-3.4); LYMPH % 12.2 % (22.0-35.0); MEAN CELL VOLUME 85.7 fl (80.0-105.0); MEAN CORPUSCULAR HEMOGLOBIN 26.8 pg (25.0-35.0); MEAN CORPUSCULAR HGB CONC 31.2 g/dl (31.0-37.0); MEAN PLATELET VOLUME 11.1 fl (7.0-11.0); MONO # 0.7 (0.1-0.6); MONO % 8.1 % (1.0-6.0); RBC 4.63 10^6/uL (3.5-6.1); RED CELL DISTRIBUTION WIDTH 12.8 % (11.5-14.5); WHITE BLOOD COUNT 8.6 10^3/uL (4.5-11.0)
[2018-05-16 07:43] LABS: ALB/GLOB RATIO 1.3 (1.1-1.8); ALT/SGPT 52 U/L (7-56); AST/SGOT 33 U/L (14-36); BLOOD UREA NITROGEN 15 mg/dL (7-21); CALCIUM 8.2 mg/dL (8.4-10.5); GFR NON-AFRICAN AMERICAN > 60
[2018-05-16] MEDS: Pantoprazole 40 mg EC Tab PO SCH ×2 (08:51→08:59)
[2018-05-16] MEDS ORDERED: clonazePAM 0.125 mg Disinteg Tab PO PRN (09:00)
--- NOTE | 2018-05-16 09:19 | CP.PCM.PN ---
<Antoni Rivera - Last Filed: 05/16/18 15:10> Subjective - Date & Time of Evaluation Date of Evaluation: 05/16/18 Time of Evaluation: 07:00 - Subjective Subjective: Antoni Rivera PGY-1 Progress Note for Hospitalist Service Patient seen and evaluated at bedside this morning. No acute events reported overnight. Patient extubated yesterday without incident. Patient had episode of confusion post-extubation, and psych was consulted. Patient is awake and alert and responds to questions appropriately. Reports sore throat but denies chest pain, palpitations, shortness of breath at this time. Objective - Vital Signs/Intake and Output Vital Signs (last 24 hours): Temp Pulse Resp BP Pulse Ox 98.1 F 55 L 31 H 152/86 H 98 05/15/18 17:00 05/16/18 04:00 05/15/18 18:03 05/15/18 16:00 05/15/18 18:10 Intake and Output: 05/16/18 05/16/18 06:59 18:59 Intake Total 300 Output Total 300 Balance 0 - Medications Medications: Current Medications Budesonide (Pulmicort Respules) 0.5 mg IH [id number] [facility] Last Admin: 05/16/18 07:01 Dose: 0.5 mg Clonazepam (Klonopin Wafers) 0.125 mg PO Q8 PRN; Protocol PRN Reason: Anxiety Heparin Sodium (Porcine) (Heparin) 5,000 units SC Q8 [facility]; Protocol Last Admin: 05/16/18 05:33 Dose: 5,000 units Dexmedetomidine HCl (Precedex 400mcg/100ml) 400 mcg in 100 mls @ 2.948 mls/hr IV .Q24H PRN; Protocol PRN Reason: Sedation/Withdrawal Sx Last Titration: 05/14/18 17:47 Dose: 0.1 mcg/kg/hr, 1.474 mls/hr Lactated Ringer's (Lactated Ringer's) 1,000 mls @ 100 mls/hr IV .Q10H [facility] Last Admin: 05/15/18 06:15 Dose: 100 mls/hr Cefepime HCl (Maxipime 1gm) 1 gm in 100 mls @ 100 mls/hr IVPB Q8 [facility]; Protocol Last Admin: 05/16/18 05:32 Dose: 100 mls/hr Doxycycline Hyclate 100 mg/ (Sodium Chloride) 100 mls @ 100 mls/hr IVPB Q12 [facility]; Protocol Last Admin: 05/15/18 21:56 Dose: 100 mls/hr Levalbuterol HCl (Xopenex) 0.63 mg IH Q2 PRN PRN Reason: Shortness of Breath Levalbuterol HCl (Xopenex) 0.63 mg IH [id number] [facility] Last Admin: 05/16/18 07:01 Dose: 0.63 mg Lorazepam (Ativan) 2 mg IVP Q4H PRN; Protocol PRN Reason: Agitation Last Admin: 05/15/18 03:25 Dose: 2 mg Methylprednisolone (Solu-Medrol) 30 mg IVP Q12 [facility] Ondansetron HCl (Zofran Inj) 4 mg IVP Q6H PRN PRN Reason: Nausea/Vomiting Last Admin: 05/14/18 21:17 Dose: 4 mg Pantoprazole Sodium (Protonix Ec Tab) 40 mg PO ACB [facility] Last Admin: 05/16/18 08:59 Dose: Not Given - Labs Labs: 05/16/18 06:55 05/16/18 06:55 - Additional Findings Additional findings: - Constitutional Appears: Well, Non-toxic, No Acute Distress - Head Exam Head Exam: ATRAUMATIC, NORMAL INSPECTION, NORMOCEPHALIC - Eye Exam Eye Exam: PERRL. absent: Scleral icterus - ENT Exam ENT Exam: Mucous Membranes Moist, intubated currently - Respiratory Exam Respiratory Exam: Wheezes bilaterally, NORMAL BREATHING PATTERN. absent: Rales, Rhonchi - Cardiovascular Exam Cardiovascular Exam: Bradycardia, REGULAR RHYTHM, +S1, +S2 - GI/Abdominal Exam GI & Abdominal Exam: Soft, Normal Bowel Sounds. absent: Tenderness - Extremities Exam no pedal edema - Neurological Exam Neurological Exam: Awake. absent: Alert - Skin Skin Exam: Dry, Intact, Normal Color Assessment and Plan - Assessment and Plan (Free Text) Assessment: 27 year old female with past medical history of severe asthma, tobacco, and heroin use presents with severe asthma exacerbation requiring intubation due to acute respiratory acidosis and hypercapneic respiratory failure. Extubated yesterday. Plan: Hypercapneic respiratory failure- resolved -2/2 acute asthma exacerbation vs. opiate use -Utox: positive for opiates and benzodiazepines -CXR: mild atelectasis or infiltrates -BCx negative for 4 days -Tracheal aspirate culture: S. Aureus pansensitive except to PCN -Continue with xopenex, and budesonide. Reduce solumedrol to 30 mg Q12 -Vancomycin and cefepime and doxycycline discontinued, PO azithromycin began. -F/u CT chest without contrast -Continue with ativan 2 mg Q4PRN -Maintain SaO2 > 90%, on 3 L NC -ID, Dr. Campos, on consult. Further recs regarding tapering of ABx appreciated -Continue to monitor respiratory function - Cessation counseling Leukocytosis -Likely 2/2 to high dose steroids -Reduce solumedrol to 30 mg Q12. -Continue to monitor Opiate and benzodiazepine abuse -Continue ativan 2 mg Q4PRN -Provided education regarding opiate and benzodiazepine abuse Psych -Dr Badillo on consult -start Klonopin -further recs appreciated DVT prophylaxis: Heparin 5000 U Q8 GI prophylaxis: Protonix 40 mg daily Dispo: Transfer to med/surg Patient seen, case reviewed and plan approved by Dr. Martin. Antoni Rivera, PGY-1 <Aristeo Martin - Last Filed: 05/16/18 17:26> Objective - Vital Signs/Intake and Output Vital Signs (last 24 hours): Temp Pulse Resp BP Pulse Ox 98.1 F 62 31 H 152/86 H 98 05/15/18 17:00 05/16/18 08:00 05/15/18 18:03 05/15/18 16:00 05/15/18 18:10 Intake and Output: 05/16/18 05/16/18 06:59 18:59 Intake Total 300 Output Total 300 Balance 0 - Medications Medications: Current Medications Azithromycin (Zithromax) 250 mg PO DAILY [facility]; Protocol Stop: 05/21/18 11:16 Last Admin: 05/16/18 14:52 Dose: 250 mg Budesonide (Pulmicort Respules) 0.5 mg IH [id number] [facility] Last Admin: 05/16/18 07:01 Dose: 0.5 mg Clonazepam (Klonopin Wafers) 0.125 mg PO Q8 PRN; Protocol PRN Reason: Anxiety Heparin Sodium (Porcine) (Heparin) 5,000 units SC Q8 [facility]; Protocol Last Admin: 05/16/18 14:55 Dose: Not Given Levalbuterol HCl (Xopenex) 0.63 mg IH Q2 PRN PRN Reason: Shortness of Breath Levalbuterol HCl (Xopenex) 0.63 mg IH [id number] [facility] Last Admin: 05/16/18 11:18 Dose: 0.63 mg Lorazepam (Ativan) 2 mg IVP Q4H PRN; Protocol PRN Reason: Agitation Last Admin: 05/15/18 03:25 Dose: 2 mg Methylprednisolone (Solu-Medrol) 30 mg IVP Q12 [facility] Last Admin: 05/16/18 11:00 Dose: 30 mg Ondansetron HCl (Zofran Inj) 4 mg IVP Q6H PRN PRN Reason: Nausea/Vomiting Last Admin: 05/14/18 21:17 Dose: 4 mg Pantoprazole Sodium (Protonix Ec Tab) 40 mg PO ACB [facility] Last Admin: 05/16/18 08:59 Dose: Not Given - Labs Labs: 05/16/18 06:55 05/16/18 06:55 Attending/Attestation - Attestation I have personally seen and examined this patient.: Yes I have fully participated in the care of the patient.: Yes I have reviewed all pertinent clinical information, including history, physical exam and plan: Yes Notes (Text): 05/16/18 17:21 27 year old female with past medical history of asthma, tobacco use, anxiety and substance (heroin) abuse who presented with asthma exacerbation. She was intubated for acute hypercapneic respiratory acidosis which is improved. She was extubated yesterday. Continue with tapering iv steroids, pulmicort and xopenex. Tracheal aspirate culture was positive for Staph Aureus. CT chest done today showing confluent airspace disease with sharp lateral margin in the left lower lobe likely representing subsegmental atelectasis however superimposed pneumonia cannot be excluded; small bilateral pleural effusions. Leukocytosis has improved. Cased discussed with ID and antibiotics can be switc hed to po. UTox was positive for opiates and benzodiazepines. Patient is anxious to go home earlier this morning but was explained she is awaiting for psychiatry evaluation. Agreeable to wait. Aristeo Martin MD Hospitalist.
--- NOTE | 2018-05-16 15:58 | CT ---
Date of service: 05/16/2018 PROCEDURE: CT Chest without contrast HISTORY: SIRS 3/4, ?CAP, uncontrolled asthmatic COMPARISON: Plain radiograph from 05/13/2018. TECHNIQUE: Contiguous axial images were obtained through the chest without intravenous contrast enhancement. Sagittal and coronal reconstructions were performed. Radiation dose: Total exam DLP = 247.7 mGy-cm. This CT exam was performed using one or more of the following dose reduction techniques: Automated exposure control, adjustment of the mA and/or kV according to patient size, and/or use of iterative reconstruction technique. FINDINGS: LUNGS: The lungs are well inflated. There is confluent airspace disease with sharp lateral margin left lower lobe. There is patchy ground-glass attenuation in the right upper and middle lobes, nonspecific. There is subsegmental atelectasis in the right lower lobe. There are no endobronchial lesions. MEDIASTINUM: Unremarkable thoracic aorta. No aneurysm. Normal sized heart. Main pulmonary artery unremarkable. No vascular congestion. No lymphadenopathy. No aortic atherosclerotic calcification. PLEURA: Small bilateral pleural effusions. No pneumothorax. BONES: No fracture. No destructive lesion. Within normal limits for the patient's age with UPPER ABDOMEN: Grossly unremarkable. OTHER FINDINGS: None. IMPRESSION: 1. Confluent airspace disease with sharp lateral margin in the left lower likely represents subsegmental atelectasis however superimposed pneumonia cannot be excluded. Follow-up to resolution is advised. 2. Lobe small bilateral pleural effusions.
--- NOTE | 2018-05-16 16:34 | PN ---
DATE: 05/16/2018 SUBJECTIVE: The patient is in bed, in no acute distress, nontoxic. No fevers. PHYSICAL EXAMINATION: VITAL SIGNS: Temperature 98, blood pressure 150/80, respiratory rate 18. HEENT: Unremarkable. NECK: Supple. LUNGS: Decreased breath sounds. HEART: Normal S1, S2. ABDOMEN: Soft. LABORATORY DATA: Reveals a white count of 8.6, hemoglobin of 12. Chemistries are noted and urinalysis is noted. Serology is negative. The patient had an HIV test which was negative in the past. Microbiology reveals staph aureus. Blood cultures and urine cultures were negative. Dr. note is reviewed from today. No assessment is available. . progress note is reviewed from today. Dr. Martin's note from yesterday is also reviewed. The patient had a chest x-ray on 05/13/2018. No focal consolidation. ASSESSMENT AND PLAN: A 27-year-old female who was admitted with systemic inflammatory response syndrome and respiratory failure, was intubated with acute severe asthma, possibly community-acquired pneumonia. The patient did go sensitive to staph and currently she is extubated. She is comfortable. She has no fevers. White count is normal. The patient is on intravenous doxycycline, we will discontinue that and also cefepime, we will also discontinue that. Reviewed QTc which is 422 and complete a short course of Zithromax p.o. August Garcia MD
--- NOTE | 2018-05-16 20:17 | CON ---
DATE: 05/16/2018 HISTORY OF PRESENT ILLNESS: The patient is a 27-year-old singe female with a psychiatric history of anxiety, [id number] depression. No prior psychiatric admissions. No current psychiatric outpatient. History or history of suicide attempts. Prior opiate dependence in remission reported for 2 years. Who was admitted to ICU after she presented to the ER complaining of shortness of breath and chest tightness. Shortly after presentation, the patient desaturated and required intubation in the ED. Upon extubation, the patient was agitated, required Geodon p.r.n. and yelling and disoriented and demanding AMA. Psychiatry was called for patient's depression, possible overdose on opiates and benzodiazapines. I met with the patient at bedside, she is familiar to me from my consultation with her in 02/2018. Currently, the patient does report having history of depression, however, denies any current severe depressive symptoms and she feels like she is stable in that regard. She does report that she is very anxious and she has daily panic attacks and this has been distressing her. She denies that presentation was due to drug use. She does not remember a lot of what happened in the ER, however, she denies any current drug use. UDS is positive for opiates and benzodiazapines and prior UDS is positive in this regard as well. She denies any hallucinations, delusions were not elicited. Thought process is logical, goal directed and consistent with repeated questioning. Her insight and judgment are fair and the patient appears to be a lot calmer than prior notes when compared to the descriptions in prior notes. Labs and vitals were reviewed. PSYCHIATRIC HISTORY: The patient denies any psychiatric hospitalizations, suicide attempts or current outpatient psychiatric treatment. MEDICATION TRIALS: She recalls are Klonopin. SOCIAL HISTORY: She was born and raised in [place]. She is single. She lives with her father, a 2-year-old son who is currently in her father's care. The patient also visits with her mother frequently. She used to have a history of opiate dependency and used to use Viibryd daily, however, she stopped 2 years ago. She denies any recent drug use. She denies any issues with alcohol. ASSESSMENT: Anxiety disorder. Panic disorder, rule out generalized anxiety disorder. Depression by history although the patient reports that it is noncontributory at this time per the patient. RECOMMENDATIONS: At this time, I will start Klonopin at very low dose p.r.n. for the patient's anxiety. I also educated the patient about the benefits of starting a statin medication to help her fend panic episodes and anxiety and possibly recurring depression and the patient appears to be thinking about it, although she is not willing to start with any trials right now. I reviewed the dosing of Klonopin and indicated that it is a very low dose to help with anxiety due to her history of respiratory decompensations. The patient was recommended to follow up on an outpatient basis with a psychiatrist to address her history of depression and current anxiety. Regarding her possible drug use she denies, however, it is possible she is being secretive about her use. Psychiatry will continue to follow up and monitor her and determine indications for any further medication interventions. Alfred Badillo MD
[2018-05-17] MEDS: Levalbuterol 0.63 MG/3 ML Inhal Soln UD IH SCH ×3 (00:35→11:44)
[2018-05-17] MEDS: Budesonide 0.5 mg/2 ml Inhal Susp UD IH SCH (07:42)
[2018-05-17] MEDS ORDERED: MethylPREDNISolone 40 mg Vial IVP SCH (08:37)
[2018-05-17 08:52] VITALS: BP 139/92; PULSE 61; RESP 18; TEMP 98.5
[2018-05-17] MEDS: Pantoprazole 40 mg EC Tab PO SCH (09:21)
--- NOTE | 2018-05-17 12:31 | CP.PCM.DIS ---
<Jose RaulAntoni key - Last Filed: 05/17/18 13:50> Provider - Provider Date of Admission: 05/11/18 20:36 Attending physician: Aristeo Martin MD Primary care physician: Dr. Temple Consults: 05/11/18 19:27 Physician Consult Stat Comment: Asthma, hypoxic, terbulatine, acidodic Consulting Provider: Diane Dawson Consulting Physician: Diane Dawson Reason for Consult: Asthma, hypoxic, terbulatine, acidodic 05/12/18 07:05 Infectious Disease Consult Routine Comment: Consulting Provider: Grupo Campos Consulting Physician: Grupo Campos Reason for Consult: ?CAP, ? sepsis 05/15/18 09:41 Psychiatry Consult Routine Comment: Consulting Provider: Becka oCreas Consulting Physician: Becka Croeas Reason for Consult: major depressive episode, drug overdose Time Spent in preparation of Discharge (in minutes): 40 Hospital Course - Lab Results Lab Results: Micro Results 05/14/18 18:30 Trachasp Gram Stain - Final 05/14/18 18:30 Trachasp Sputum Culture - Final NORMAL ORAL JACQUI 05/11/18 19:20 Blood-Venous Blood Culture - Final NO GROWTH AFTER 5 DAYS 05/11/18 19:20 Blood-Venous Gram Stain - Final TEST NOT PERFORMED 05/11/18 19:05 Blood-Venous Blood Culture - Final NO GROWTH AFTER 5 DAYS 05/11/18 19:05 Blood-Venous Gram Stain - Final TEST NOT PERFORMED 05/14/18 18:30 Urine,Macdonald Urine Culture - Final No Growth (<1,000 CFU/ML) 05/12/18 07:45 Trachasp Gram Stain - Final 05/12/18 07:45 Trachasp Sputum Culture - Final Staphylococcus Aureus 05/11/18 22:00 Naris MRSA Culture (Admit) - Final MRSA NOT DETECTED 05/12/18 07:45 Urine,Macdonald Urine Culture - Final No Growth (<1,000 CFU/ML) Most Recent Lab Values WBC 8.6 10^3/uL (4.5-11.0) D 05/16/18 06:55 RBC 4.63 10^6/uL (3.5-6.1) 05/16/18 06:55 Hgb 12.4 g/dL (12.0-16.0) 05/16/18 06:55 Hct 39.7 % (36.0-48.0) 05/16/18 06:55 MCV 85.7 fl (80.0-105.0) 05/16/18 06:55 MCH 26.8 pg (25.0-35.0) 05/16/18 06:55 MCHC 31.2 g/dl (31.0-37.0) 05/16/18 06:55 RDW 12.8 % (11.5-14.5) 05/16/18 06:55 Plt Count 210 10^3/uL (120.0-450.0) 05/16/18 06:55 MPV 11.1 fl (7.0-11.0) H 05/16/18 06:55 Neut % (Auto) 79.7 % (50.0-68.0) H 05/16/18 06:55 Lymph % (Auto) 12.2 % (22.0-35.0) L 05/16/18 06:55 [place] % (Auto) 8.1 % (1.0-6.0) H 05/16/18 06:55 Eos % (Auto) 0.0 % (1.5-5.0) L 05/16/18 06:55 Baso % (Auto) 0.0 % (0.0-3.0) 05/16/18 06:55 Lymph # (Auto) 1.1 (1.2-3.4) L 05/16/18 06:55 [place] # (Auto) 0.7 (0.1-0.6) H 05/16/18 06:55 Eos # (Auto) 0.0 (0.0-0.7) 05/16/18 06:55 Baso # (Auto) 0.00 K/mm3 (0.0-2.0) 05/16/18 06:55 Absolute Neuts (auto) 6.87 (1.4-6.5) H 05/16/18 06:55 Neutrophils % (Manual) 30 % (50.0-70.0) L 05/11/18 19:05 Lymphocytes % (Manual) 41 % (22.0-35.0) H 05/11/18 19:05 Monocytes % (Manual) 6 % (1.0-6.0) 05/11/18 19:05 Eosinophils % (Manual) 23 % (0.0-3.0) H 05/11/18 19:05 Platelet Evaluation Normal (NORMAL) 05/11/18 19:05 Large Platelets Present 05/11/18 19:05 pCO2 38 mm/Hg (35-45) 05/14/18 05:00 pO2 136.0 mm/Hg (80-100) H 05/14/18 05:00 HCO3 26.4 mmol/L (21-28) 05/14/18 05:00 ABG pH 7.45 (7.35-7.45) 05/14/18 05:00 ABG Total CO2 27.6 mmol.L (22-28) 05/14/18 05:00 ABG O2 Saturation 99.8 % (95-98) H 05/14/18 05:00 ABG O2 Content 17.1 ML/dl (15-23) 05/14/18 05:00 ABG Base Excess 2.4 mmol/L (-2.0-3.0) 05/14/18 05:00 ABG Hemoglobin 12.3 g/dL (11.7-17.4) 05/14/18 05:00 ABG Carboxyhemoglobin 1.5 % (0.5-1.5) 05/14/18 05:00 POC ABG HHb (Measured) 0.2 % (0-5) 05/14/18 05:00 ABG Methemoglobin 0.9 % (0.0-3.0) 05/14/18 05:00 ABG O2 Capacity 17.1 mL/dl (16-24) 05/14/18 05:00 ABG Potassium 4.1 mmol/L (3.6-5.2) 05/12/18 01:18 VBG pH 7.27 (7.32-7.43) L 05/12/18 08:25 VBG pCO2 55.0 (40-60) 05/12/18 08:25 VBG HCO3 25.3 mmol/l (21-28) 05/12/18 08:25 VBG Total CO2 27.0 mmol.L (22-28) 05/12/18 08:25 VBG O2 Sat (Calc) 84.1 % (40-65) H 05/12/18 08:25 VBG Base Excess -2.5 mmol/L (0.0-2.0) L 05/12/18 08:25 VBG Potassium 4.6 mmol/L (3.6-5.2) 05/12/18 08:25 Hgb O2 Saturation 97.5 % (95.0-98.0) 05/14/18 05:00 Sodium 138.0 mmol/L (132-148) 05/12/18 08:25 Chloride 102.0 mmol/L (98-107) 05/12/18 08:25 Glucose 152 mg/dl (65-105) H 05/12/18 08:25 Lactate 2.9 mmol/L (0.7-2.1) H 05/12/18 08:25 FiO2 40.0 % 05/14/18 05:00 Blood Gas Comments Psv 5 / peep 5 05/12/18 01:18 Crit Value Called To Sayda 05/12/18 08:25 Crit Value Called By 05/12/18 08:25 Blood Gas Notified Time 839 05/12/18 08:25 Sodium 138 mmol/L (132-148) 05/16/18 06:55 Potassium 4.2 mmol/L (3.6-5.0) 05/16/18 06:55 Chloride 105 mmol/L (98-107) 05/16/18 06:55 Carbon Dioxide 28 mmol/L (21-33) 05/16/18 06:55 Anion Gap 9 (10-20) L 05/16/18 06:55 BUN 15 mg/dL (7-21) 05/16/18 06:55 Creatinine 0.5 mg/dl (0.7-1.2) L 05/16/18 06:55 Est GFR ( Amer) > 60 05/16/18 06:55 Est GFR (Non-Af Amer) > 60 05/16/18 06:55 POC Glucose (mg/dL) 106 mg/dL (65-110) 05/15/18 05:39 Random Glucose 107 mg/dL (70-110) 05/16/18 06:55 Calcium 8.2 mg/dL (8.4-10.5) L 05/16/18 06:55 Phosphorus 3.3 mg/dL (2.5-4.5) 05/15/18 07:00 Magnesium 2.4 mg/dL (1.7-2.2) H 05/15/18 07:00 Total Bilirubin 0.4 mg/dL (0.2-1.3) 05/16/18 06:55 AST 33 U/L (14-36) 05/16/18 06:55 ALT 52 U/L (7-56) 05/16/18 06:55 Alkaline Phosphatase 41 U/L (38-126) 05/16/18 06:55 Total Creatine Kinase 163 U/L (35-230) 05/14/18 05:00 CK-MB (CK-2) 10.1 ng/mL (0.0-3.6) H 05/12/18 06:40 CK-MB (CK-2) % 1.9 % (2.5-3.0) L 05/12/18 06:40 NT-Pro-B Natriuret Pep 107 pg/mL (0-450) 05/11/18 19:05 Total Protein 5.3 g/dL (5.8-8.3) L 05/16/18 06:55 Albumin 3.0 g/dL (3.0-4.8) 05/16/18 06:55 Globulin 2.3 gm/dL 05/16/18 06:55 Albumin/Globulin Ratio 1.3 (1.1-1.8) 05/16/18 06:55 Procalcitonin 0.57 NG/ML (0.19-0.49) H 05/12/18 06:40 Free T4 1.48 ng/dL (0.78-2.19) 05/11/18 19:05 TSH 3rd Generation 3.30 mIU/mL (0.46-4.68) 05/11/18 19:05 Beta HCG, Quant < 2.39 mIU/mL (0-6.15) 05/11/18 19:24 Arterial Blood Potassium 4.1 mmol/L (3.6-5.2) 05/12/18 01:18 Venous Blood Potassium 4.6 mmol/L (3.6-5.2) 05/12/18 08:25 Urine Color Yellow (YELLOW) 05/12/18 07:45 Urine Appearance Clear (CLEAR) 05/12/18 07:45 Urine pH 6.0 (4.7-8.0) 05/12/18 07:45 Ur Specific Mora >= 1.030 (1.005-1.035) 05/12/18 07:45 Urine Protein Trace mg/dL (<30 mg/dL) H 05/12/18 07:45 Urine Glucose (UA) Negative mg/dL (NEGATIVE) 05/12/18 07:45 Urine Ketones Negative mg/dL (NEGATIVE) 05/12/18 07:45 Urine Blood Large (NEGATIVE) H 05/12/18 07:45 Urine Nitrate Negative (NEGATIVE) 05/12/18 07:45 Urine Bilirubin Negative (NEGATIVE) 05/12/18 07:45 Urine Urobilinogen 0.2 E.U./dL (<1 E.U./dL) 05/12/18 07:45 Ur Leukocyte Esterase Negative Sulma/uL (NEGATIVE) 05/12/18 07:45 Urine RBC Tntc /hpf (0-2) H 05/12/18 07:45 Urine WBC 2 - 5 /hpf (0-6) 05/12/18 07:45 Ur Epithelial Cells 4 - 5 /hpf (0-5) 05/12/18 07:45 Amorphous Sediment Few /hpf (NONE) 05/12/18 07:45 Urine Bacteria Large /hpf (NONE) 05/12/18 07:45 Hyaline Casts 0 - 2 /hpf (NONE) 05/12/18 07:45 Fine Granular Casts 0 - 2 /hpf (NONE) 05/12/18 07:45 Coarse Granular Casts Trace /hpf (NONE) 05/12/18 07:45 Urine Other Fiber /hpf 05/12/18 07:45 Urine Opiates Screen Positive (NEGATIVE) H 05/11/18 21:37 Urine Methadone Screen Negative (NEGATIVE) 05/11/18 21:37 Ur Barbiturates Screen Negative (NEGATIVE) 05/11/18 21:37 Ur Phencyclidine Scrn Negative (NEGATIVE) 05/11/18 21:37 Ur Amphetamines Screen Negative (NEGATIVE) 05/11/18 21:37 U Benzodiazepines Scrn Positive (NEGATIVE) H 05/11/18 21:37 U Oth Cocaine Metabols Negative (NEGATIVE) 05/11/18 21:37 U Cannabinoids Screen Negative (NEGATIVE) 05/11/18 21:37 Ur L.pneumophila Ag Negative (NEGATIVE) 05/11/18 19:44 Mycoplasma pneumon IgM Negative (NEGATIVE) 05/12/18 06:00 - Hospital Course Hospital Course: Antoni Rivera, PGY-1 Discharge Summary for Hospitalist Service 27 year old female with past medical history of asthma, tobacco use, anxiety and substance (heroin) abuse who presented with leukocytosis and asthma exacerbation. Patient was found to be in respiratory distress and was subsequently intubated for acute hypercapneic respiratory acidosis. Patient was put on sedation initially, which was then removed as respiratory status improved. She was subsequently extubated and had episode of agitation. 1:1 was ordered psychiatry was consulted and Geodone was given. IV steroids were started along with pulmicort and xopenex. Tracheal aspirate culture was positive for Staph Aureus pansensitive except to Penicillin. Infectious Disease was consulted - Dr. Campos. CT chest was subsequently ordered which showed confluent airspace disease with sharp lateral margin in the left lower lobe likely representing subsegmental atelectasis however superimposed pneumonia cannot be excluded; small bilateral pleural effusions. Leukocytosis has improved on Cefepime and Doxycycline. Case was then discussed with ID and antibiotic was changed to PO Azithromycin. Steroids were tapered and converted to PO prednisone on discharge. Psychiatry was consulted and recommended Klonopin for agitation while hospitalized but no need to take as outpatient. UTox was positive for opiates and benzodiazepines. Cessation was discussed with patient at length. On day of discharge, hospitalization course was discussed with patient at length. Cessation and medication compliance was discussed at length. Patient was sent with Ventolin, Xopenex, Vy Downey and Prednisone 8 day taper. Patient seen, case reviewed and plan approved by Dr. Martin. Discharge Exam - Additional Findings Additional findings: - Constitutional Appears: Well, Non-toxic, No Acute Distress - Head Exam Head Exam: ATRAUMATIC, NORMAL INSPECTION, NORMOCEPHALIC - Eye Exam Eye Exam: PERRL. absent: Scleral icterus - ENT Exam ENT Exam: Mucous Membranes Moist, intubated currently - Respiratory Exam Respiratory Exam: Wheezes bilaterally, NORMAL BREATHING PATTERN. absent: Rales, Rhonchi - Cardiovascular Exam Cardiovascular Exam: Bradycardia, REGULAR RHYTHM, +S1, +S2 - GI/Abdominal Exam GI & Abdominal Exam: Soft, Normal Bowel Sounds. absent: Tenderness - Extremities Exam no pedal edema - Neurological Exam Neurological Exam: Awake. absent: Alert - Skin Skin Exam: Dry, Intact, Normal Color Discharge Plan - Discharge Medications Prescriptions: Albuterol HFA [Ventolin HFA 90 mcg/actuation (8 g)] 2 puff IH [id number] PRN #1 inh PRN Reason: Shortness Of Breath Levalbuterol [Xopenex] 0.63 mg IH Q2 PRN 14 Days neb PRN Reason: Shortness Of Breath Mometasone/Formoterol [Dulera 200 Mcg/5 Mcg Inhaler] 2 puff IH BID #1 inh Montelukast Sodium [Singulair] 10 mg PO DAILY #15 tablet predniSONE [predniSONE Tab] See Taper PO DAILY 8 Days tab - Follow Up Plan Condition: GUARDED Disposition: HOME/ ROUTINE Instructions: Smoking: Not Just Harmful to Your Lungs and Heart, Asthma, Adult (DC), Quitting Smoking, Community-Acquired Pneumonia, Adult (DC) Additional Instructions: Please continue your steroid taper for 8 days. We have added an albuterol inhaler to your Singulair and Dulera. Please take all medications as prescribed. They have been provided for you at bedside. Please follow up with Dr. Badillo the psychiatrist in her office. Please follow up with a primary doctor per your insurance. If not, you have an appointment scheduled for clinic at [facility] on , 05/25 at 1:30 pm. Please bring your ID and insurance ca rd. Please avoid all alcohol and illicit drug use. It can worsen your ability to breathe normally. Should symptoms return or worsen, please visit nearest emergency department. Referrals: Alfred Badillo MD [Staff Provider] - <Aristeo Martin - Last Filed: 05/17/18 14:45> Provider - Provider Date of Admission: 05/11/18 20:36 Attending physician: Aristeo Martin MD Consults: 05/11/18 19:27 Physician Consult Stat Comment: Asthma, hypoxic, terbulatine, acidodic Consulting Provider: Diane Dawson Consulting Physician: Diane Dawson Reason for Consult: Asthma, hypoxic, terbulatine, acidodic 05/12/18 07:05 Infectious Disease Consult Routine Comment: Consulting Provider: Grupo Campos Consulting Physician: Grupo Campos Reason for Consult: ?CAP, ? sepsis 05/15/18 09:41 Psychiatry Consult Routine Comment: Consulting Provider: Becka Coreas Consulting Physician: Becka Coreas Reason for Consult: major depressive episode, drug overdose Hospital Course - Lab Results Lab Results: Micro Results 05/14/18 18:30 Trachasp Gram Stain - Final 05/14/18 18:30 Trachasp Sputum Culture - Final NORMAL ORAL JACQUI 05/11/18 19:20 Blood-Venous Blood Culture - Final NO GROWTH AFTER 5 DAYS 05/11/18 19:20 Blood-Venous Gram Stain - Final TEST NOT PERFORMED 05/11/18 19:05 Blood-Venous Blood Culture - Final NO GROWTH AFTER 5 DAYS 05/11/18 19:05 Blood-Venous Gram Stain - Final TEST NOT PERFORMED 05/14/18 18:30 Urine,Macdonald Urine Culture - Final No Growth (<1,000 CFU/ML) 05/12/18 07:45 Trachasp Gram Stain - Final 05/12/18 07:45 Trachasp Sputum Culture - Final Staphylococcus Aureus 05/11/18 22:00 Naris MRSA Culture (Admit) - Final MRSA NOT DETECTED 05/12/18 07:45 Urine,Macdonald Urine Culture - Final No Growth (<1,000 CFU/ML) Most Recent Lab Values WBC 8.6 10^3/uL (4.5-11.0) D 05/16/18 06:55 RBC 4.63 10^6/uL (3.5-6.1) 05/16/18 06:55 Hgb 12.4 g/dL (12.0-16.0) 05/16/18 06:55 Hct 39.7 % (36.0-48.0) 05/16/18 06:55 MCV 85.7 fl (80.0-105.0) 05/16/18 06:55 MCH 26.8 pg (25.0-35.0) 05/16/18 06:55 MCHC 31.2 g/dl (31.0-37.0) 05/16/18 06:55 RDW 12.8 % (11.5-14.5) 05/16/18 06:55 Plt Count 210 10^3/uL (120.0-450.0) 05/16/18 06:55 MPV 11.1 fl (7.0-11.0) H 05/16/18 06:55 Neut % (Auto) 79.7 % (50.0-68.0) H 05/16/18 06:55 Lymph % (Auto) 12.2 % (22.0-35.0) L 05/16/18 06:55 [place] % (Auto) 8.1 % (1.0-6.0) H 05/16/18 06:55 Eos % (Auto) 0.0 % (1.5-5.0) L 05/16/18 06:55 Baso % (Auto) 0.0 % (0.0-3.0) 05/16/18 06:55 Lymph # (Auto) 1.1 (1.2-3.4) L 05/16/18 06:55 [place] # (Auto) 0.7 (0.1-0.6) H 05/16/18 06:55 Eos # (Auto) 0.0 (0.0-0.7) 05/16/18 06:55 Baso # (Auto) 0.00 K/mm3 (0.0-2.0) 05/16/18 06:55 Absolute Neuts (auto) 6.87 (1.4-6.5) H 05/16/18 06:55 Neutrophils % (Manual) 30 % (50.0-70.0) L 05/11/18 19:05 Lymphocytes % (Manual) 41 % (22.0-35.0) H 05/11/18 19:05 Monocytes % (Manual) 6 % (1.0-6.0) 05/11/18 19:05 Eosinophils % (Manual) 23 % (0.0-3.0) H 05/11/18 19:05 Platelet Evaluation Normal (NORMAL) 05/11/18 19:05 Large Platelets Present 05/11/18 19:05 pCO2 38 mm/Hg (35-45) 05/14/18 05:00 pO2 136.0 mm/Hg (80-100) H 05/14/18 05:00 HCO3 26.4 mmol/L (21-28) 05/14/18 05:00 ABG pH 7.45 (7.35-7.45) 05/14/18 05:00 ABG Total CO2 27.6 mmol.L (22-28) 05/14/18 05:00 ABG O2 Saturation 99.8 % (95-98) H 05/14/18 05:00 ABG O2 Content 17.1 ML/dl (15-23) 05/14/18 05:00 ABG Base Excess 2.4 mmol/L (-2.0-3.0) 05/14/18 05:00 ABG Hemoglobin 12.3 g/dL (11.7-17.4) 05/14/18 05:00 ABG Carboxyhemoglobin 1.5 % (0.5-1.5) 05/14/18 05:00 POC ABG HHb (Measured) 0.2 % (0-5) 05/14/18 05:00 ABG Methemoglobin 0.9 % (0.0-3.0) 05/14/18 05:00 ABG O2 Capacity 17.1 mL/dl (16-24) 05/14/18 05:00 ABG Potassium 4.1 mmol/L (3.6-5.2) 05/12/18 01:18 VBG pH 7.27 (7.32-7.43) L 05/12/18 08:25 VBG pCO2 55.0 (40-60) 05/12/18 08:25 VBG HCO3 25.3 mmol/l (21-28) 05/12/18 08:25 VBG Total CO2 27.0 mmol.L (22-28) 05/12/18 08:25 VBG O2 Sat (Calc) 84.1 % (40-65) H 05/12/18 08:25 VBG Base Excess -2.5 mmol/L (0.0-2.0) L 05/12/18 08:25 VBG Potassium 4.6 mmol/L (3.6-5.2) 05/12/18 08:25 Hgb O2 Saturation 97.5 % (95.0-98.0) 05/14/18 05:00 Sodium 138.0 mmol/L (132-148) 05/12/18 08:25 Chloride 102.0 mmol/L (98-107) 05/12/18 08:25 Glucose 152 mg/dl (65-105) H 05/12/18 08:25 Lactate 2.9 mmol/L (0.7-2.1) H 05/12/18 08:25 FiO2 40.0 % 05/14/18 05:00 Blood Gas Comments Psv 5 / peep 5 05/12/18 01:18 Crit Value Called To Sayda 05/12/18 08:25 Crit Value Called By 05/12/18 08:25 Blood Gas Notified Time 839 05/12/18 08:25 Sodium 138 mmol/L (132-148) 05/16/18 06:55 Potassium 4.2 mmol/L (3.6-5.0) 05/16/18 06:55 Chloride 105 mmol/L (98-107) 05/16/18 06:55 Carbon Dioxide 28 mmol/L (21-33) 05/16/18 06:55 Anion Gap 9 (10-20) L 05/16/18 06:55 BUN 15 mg/dL (7-21) 05/16/18 06:55 Creatinine 0.5 mg/dl (0.7-1.2) L 05/16/18 06:55 Est GFR ( Amer) > 60 05/16/18 06:55 Est GFR (Non-Af Amer) > 60 05/16/18 06:55 POC Glucose (mg/dL) 106 mg/dL (65-110) 05/15/18 05:39 Random Glucose 107 mg/dL (70-110) 05/16/18 06:55 Calcium 8.2 mg/dL (8.4-10.5) L 05/16/18 06:55 Phosphorus 3.3 mg/dL (2.5-4.5) 05/15/18 07:00 Magnesium 2.4 mg/dL (1.7-2.2) H 05/15/18 07:00 Total Bilirubin 0.4 mg/dL (0.2-1.3) 05/16/18 06:55 AST 33 U/L (14-36) 05/16/18 06:55 ALT 52 U/L (7-56) 05/16/18 06:55 Alkaline Phosphatase 41 U/L (38-126) 05/16/18 06:55 Total Creatine Kinase 163 U/L (35-230) 05/14/18 05:00 CK-MB (CK-2) 10.1 ng/mL (0.0-3.6) H 05/12/18 06:40 CK-MB (CK-2) % 1.9 % (2.5-3.0) L 05/12/18 06:40 NT-Pro-B Natriuret Pep 107 pg/mL (0-450) 05/11/18 19:05 Total Protein 5.3 g/dL (5.8-8.3) L 05/16/18 06:55 Albumin 3.0 g/dL (3.0-4.8) 05/16/18 06:55 Globulin 2.3 gm/dL 05/16/18 06:55 Albumin/Globulin Ratio 1.3 (1.1-1.8) 05/16/18 06:55 Procalcitonin 0.57 NG/ML (0.19-0.49) H 05/12/18 06:40 Free T4 1.48 ng/dL (0.78-2.19) 05/11/18 19:05 TSH 3rd Generation 3.30 mIU/mL (0.46-4.68) 05/11/18 19:05 Beta HCG, Quant < 2.39 mIU/mL (0-6.15) 05/11/18 19:24 Arterial Blood Potassium 4.1 mmol/L (3.6-5.2) 05/12/18 01:18 Venous Blood Potassium 4.6 mmol/L (3.6-5.2) 05/12/18 08:25 Urine Color Yellow (YELLOW) 05/12/18 07:45 Urine Appearance Clear (CLEAR) 05/12/18 07:45 Urine pH 6.0 (4.7-8.0) 05/12/18 07:45 Ur Specific Mora >= 1.030 (1.005-1.035) 05/12/18 07:45 Urine Protein Trace mg/dL (<30 mg/dL) H 05/12/18 07:45 Urine Glucose (UA) Negative mg/dL (NEGATIVE) 05/12/18 07:45 Urine Ketones Negative mg/dL (NEGATIVE) 05/12/18 07:45 Urine Blood Large (NEGATIVE) H 05/12/18 07:45 Urine Nitrate Negative (NEGATIVE) 05/12/18 07:45 Urine Bilirubin Negative (NEGATIVE) 05/12/18 07:45 Urine Urobilinogen 0.2 E.U./dL (<1 E.U./dL) 05/12/18 07:45 Ur Leukocyte Esterase Negative Sulma/uL (NEGATIVE) 05/12/18 07:45 Urine RBC Tntc /hpf (0-2) H 05/12/18 07:45 Urine WBC 2 - 5 /hpf (0-6) 05/12/18 07:45 Ur Epithelial Cells 4 - 5 /hpf (0-5) 05/12/18 07:45 Amorphous Sediment Few /hpf (NONE) 05/12/18 07:45 Urine Bacteria Large /hpf (NONE) 05/12/18 07:45 Hyaline Casts 0 - 2 /hpf (NONE) 05/12/18 07:45 Fine Granular Casts 0 - 2 /hpf (NONE) 05/12/18 07:45 Coarse Granular Casts Trace /hpf (NONE) 05/12/18 07:45 Urine Other Fiber /hpf 05/12/18 07:45 Urine Opiates Screen Positive (NEGATIVE) H 05/11/18 21:37 Urine Methadone Screen Negative (NEGATIVE) 05/11/18 21:37 Ur Barbiturates Screen Negative (NEGATIVE) 05/11/18 21:37 Ur Phencyclidine Scrn Negative (NEGATIVE) 05/11/18 21:37 Ur Amphetamines Screen Negative (NEGATIVE) 05/11/18 21:37 U Benzodiazepines Scrn Positive (NEGATIVE) H 05/11/18 21:37 U Oth Cocaine Metabols Negative (NEGATIVE) 05/11/18 21:37 U Cannabinoids Screen Negative (NEGATIVE) 05/11/18 21:37 Ur L.pneumophila Ag Negative (NEGATIVE) 05/11/18 19:44 Mycoplasma pneumon IgM Negative (NEGATIVE) 05/12/18 06:00 Attending/Attestation - Attestation I have personally seen and examined this patient.: Yes I have fully participated in the care of the patient.: Yes I have reviewed all pertinent clinical information, including history, physical exam and plan: Yes Notes (Text): 05/17/18 14:42 27 year old female with past medical history of asthma, tobacco use, anxiety and substance (heroin) abuse who presented with asthma exacerbation. She was intubated for acute hypercapneic respiratory acidosis which is improved. She was later extubated. She was on tapering iv steroids, pulmicort and xopenex. Tracheal aspirate culture was positive for Staph Aureus. CT chest done today showing confluent airspace disease with sharp lateral margin in the left lower lobe likely representing subsegmental atelectasis however superimposed pneumonia cannot be excluded; small bilateral pleural effusions. She initially had leukocytosis which has improved. She was on iv antibiotics now switched to po. She was seen by psychiatry for evaluation of anxiety and substance abuse. Patient is discharge home to follow up with pmd. Discharged on tapering po steroids. Follow up with psychiatrist. Counselled on risks of substance abuse. Counselled on smoking abstinence. Counselled on medication and outpatient follow up compliance. Aristeo Martin MD Hospitalist.
--- NOTE | 2018-05-17 14:50 | PN ---
DATE: 05/17/2018 SUBJECTIVE: The patient is in bed in no acute distress, nontoxic. PHYSICAL EXAMINATION: VITAL SIGNS: Temperature is 98, blood pressure is 130/90, respiratory rate 18. HEENT: Unremarkable. NECK: Supple. LUNGS: Decreased breath sounds. HEART: Normal S1 and S2. ABDOMEN: Soft. LABORATORY DATA: Examination reveals white count is 8.6 and there is staph in the trach cultures. MEDICATIONS: The patient is on p.o. Zithromax. . ASSESSMENT AND PLAN: This is a 27-year-old admitted with systemic inflammatory response syndrome, respiratory failure, intubated with acute severe asthma, possibly community-acquired pneumonia, sensitive Staphylococcus, and currently on oral Zithromax. The patient has had adequate antibiotic therapy. August Garcia MD
--- NOTE | 2018-05-17 15:50 | CP.PCM.PCO ---
Physician Communication Note - Physician Communication Note Physician Communication Note: pt was d/c today
== END 2018-05-17 13:34 | disposition home or self-care (01) | DRG 882 ==
LOC: ED 18:50 → ERH 20:36 → CCU 21:53 → 3RSO 05-16 15:36 → 3RNO 05-16 23:11
PROVIDERS: ADMIT Internal Medicine; ATTEND Internal Medicine
PROC: 5A1935Z Respiratory Ventilation, Less than 24 Consecutive Hours (ICD-10-PCS; principal; 2018-05-11)
PROC: 0BH17EZ Insertion of Endotracheal Airway into Trachea, Via Natural or Artificial Opening (ICD-10-PCS; 2018-05-11)
DX: J96.01 Acute respiratory failure with hypoxia (principal); J18.9 Pneumonia, unspecified organism; Z99.11 Dependence on respirator [ventilator] status; J45.51 Severe persistent asthma with (acute) exacerbation; E87.2 Acidosis; J90 Pleural effusion, not elsewhere classified; J98.11 Atelectasis; F11.10 Opioid abuse, uncomplicated; F13.10 Sedative, hypnotic or anxiolytic abuse, uncomplicated; J96.02 Acute respiratory failure with hypercapnia; F41.0 Panic disorder [episodic paroxysmal anxiety]; Z87.891 Personal history of nicotine dependence; Z91.19 Patient's noncompliance with other medical treatment and regimen

== ENCOUNTER 2018-06-18 00:10 | Observation (INO) | payer MEDICAID ==
[2018-06-18 00:10] VITALS: BMI 23.8
--- NOTE | 2018-06-18 00:15 | ED PDOC ---
Arrival/HPI - General Historian: Patient - History of Present Illness Narrative History of Present Illness (Text): 06/18/18 00:15 Patient is a 28 yo female with asthma, anxiety, and polysubstance use (tobacco, heroin) who presents with shortness of breath. Patient reports that her asthma symptoms got acutely worse yesterday. Tonight she got up to go to the bathroom and upon returning to her bed, she could not catch her breath and she felt her heart racing. She has been using her rescue inhaler multiple times a day. She says that her symptoms are worse at night, and SOB and cough have been waking her up. She says that she has been consistently taking all of her maintenance medications/inhalers. She admits to still smoking tobacco "every once in awhile" for anxiety. She says she has tried to quit multiple times in the past without success. Patient was most recently intubated during her last hospitalization here last month. Time/Duration: 24 hours Symptom Onset: Gradual Symptom Course: Worsening <Kasia Carbajal - Last Filed: 06/18/18 01:47> <Pranay Means DO - Last Filed: 06/18/18 05:58> - General Chief Complaint: Shortness Of Breath Time Seen by Provider: 06/18/18 00:15 Past Medical History - Provider Review Nursing Documentation Reviewed: Yes - Infectious Disease Hx of Infectious Diseases: None - Tetanus Immunization Tetanus Immunization: Unknown - Cardiac Hx Cardiac Disorders: No - Pulmonary Hx Asthma: Yes (has home nebulizer machine) Hx Bronchitis: Yes Hx Pneumonia: Yes - Neurological Hx Neurological Disorder: No - HEENT Hx HEENT Disorder: No - Renal Hx Renal Disorder: No - Endocrine/Metabolic Hx Endocrine Disorders: No - Hematological/Oncological Hx Blood Disorders: No - Integumentary Hx Dermatological Disorder: No - Musculoskeletal/Rheumatological Hx Falls: No - Gastrointestinal Hx Gastrointestinal Disorders: No - Genitourinary/Gynecological Hx Genitourinary Disorders: No - Psychiatric Hx Anxiety: Yes Hx Substance Use: No - Past Surgical History Past Surgical History: No Previous - Surgical History Hx Cardiac Catheterization: No Hx Coronary Stent: No - Anesthesia Hx Anesthesia: No - Suicidal Assessment Feels Threatened In Home Enviroment: No <Kasia Carbajal - Last Filed: 06/18/18 01:47> Family/Social History - Physician Review Nursing Documentation Reviewed: Yes Family/Social History: Unknown Family HX Smoking Status: Former Smoker Hx Alcohol Use: No Hx Substance Use: No Hx Substance Use Treatment: No <Kasia Carbajal - Last Filed: 06/18/18 01:47> Allergies/Home Meds <Kasia Carbajal - Last Filed: 06/18/18 01:47> <Pranay Means DO - Last Filed: 06/18/18 05:58> Allergies/Adverse Reactions: Allergies No Known Allergies Allergy (Verified 06/18/18 00:14) Review of Systems - Review of Systems Constitutional: absent: Fevers, Night Sweats Respiratory: SOB, Cough, Wheezing. absent: Sputum Cardiovascular: Palpitations. absent: Chest Pain Gastrointestinal: absent: Abdominal Pain, Constipation, Diarrhea, Nausea, Vomiting Genitourinary Female: absent: Dysuria, Hematuria Musculoskeletal: absent: Myalgias Skin: absent: Rash, Pruritis Neurological: absent: Headache, Dizziness Endocrine: absent: Diaphoresis Hemo/Lymphatic: absent: Adenopathy Psychiatric: Anxiety <Kasia Carbajal - Last Filed: 06/18/18 01:47> Physical Exam Vital Signs Reviewed: Yes Temperature: Afebrile Blood Pressure: Normal Pulse: Tachycardic Respiratory Rate: Normal Appearance: Positive for: Uncomfortable Pain Distress: Mild Mental Status: Positive for: Alert and Oriented X 3 - Systems Exam Head: Present: Atraumatic, Normocephalic Pupils: Present: PERRL Extroacular Muscles: Present: EOMI Conjunctiva: Present: Normal Mouth: Present: Moist Mucous Membranes Nose (Internal): Present: Normal Inspection Neck: Present: Normal Range of Motion Respiratory/Chest: Present: Accessory Muscle Use, Wheezes, Retracting Cardiovascular: Present: Normal S1, S2, Tachycardic Abdomen: No: Tenderness, Distention Neurological: Present: GCS=15, CN II-XII Intact, Speech Normal Skin: Present: Warm, Dry Lymphatic: No: Cervical Adenopathy Psychiatric: Present: Alert, Oriented x 3, Normal Insight, Normal Concentration <Kasia Carbajal - Last Filed: 06/18/18 01:47> Vital Signs Temp Pulse Resp BP Pulse Ox 06/18/18 00:30 98.4 F 106 H 18 128/78 96 06/18/18 00:20 22 95 <Clary JACKSONPranay - Last Filed: 06/18/18 05:58> Medical Decision Making ED Course and Treatment: 06/18/18 01:47 Re-evaluated patient. Still significant wheezing on lung exam. spO2 down to 88% on RA, 92% on 2 L. Re-evaluation Time: 01:25 Reassessment Condition: Re-examined, Improving,but remains with symptoms - Lab Interpretations I have reviewed the lab results: Yes Interpretation: Abnormal lab values (elevated WBC) - RAD Interpretation Narrative RAD Interpretations (Text): 06/18/18 01:40 CXR- unremarkable, no acute abnormalities Radiology Orders: CXR Hair Boiler: ED Physician - EKG Interpretation EKG Interpretation (Text): 06/18/18 00:28 sinus tachycardia Interpreted by ED Physician: Yes Type: 12 lead EKG - Medication Orders Current Medication Orders: 06/18/18 00:28 Duoneb x3 IH Solumedrol 125 mg IVP Magnesium sulfate 2g IV <Kasia Carbajal - Last Filed: 06/18/18 01:47> - Lab Interpretations Lab Results: Total Bilirubin 0.4 mg/dL (0.2-1.3) 06/18/18 00:20 AST 39 U/L (14-36) H 06/18/18 00:20 ALT 19 U/L (7-56) 06/18/18 00:20 Alkaline Phosphatase 67 U/L (38-126) 06/18/18 00:20 Total Protein 7.5 g/dL (5.8-8.3) 06/18/18 00:20 Albumin 4.4 g/dL (3.0-4.8) 06/18/18 00:20 Globulin 3.1 gm/dL 06/18/18 00:20 Albumin/Globulin Ratio 1.4 (1.1-1.8) 06/18/18 00:20 - RAD Interpretation Radiology Orders: 06/18/18 00:21 CXR [CHEST PORTABLE] [RAD] Stat - Medication Orders Current Medication Orders: Levalbuterol HCl (Xopenex) 0.63 mg IH Q2 PRN PRN Reason: Shortness of Breath Montelukast Sodium (Singulair) 10 mg PO HS CURTIS Non-Formulary Medication (Mometasone/Formoterol [Dulera 200 Mcg/5 Mcg Inhaler]) 2 puff IH BID CURTIS Discontinued Medications Albuterol/Ipratropium (Duoneb 3 Mg/0.5 Mg (3 Ml) Ud) 3 ml IH Q15M CURTIS Stop: 06/18/18 01:01 Last Admin: 06/18/18 01:19 Dose: Not Given Non-Admin Reason: canceled Magnesium Sulfate (Magnesium Sulfate 2 Gm/50 Ml Water) 2 gm in 50 mls @ 50 mls/hr IVPB ONCE ONE Stop: 06/18/18 01:19 Last Admin: 06/18/18 00:30 Dose: 50 mls/hr eMAR Start Stop Document 06/18/18 00:30 AD (Rec: 06/18/18 01:18 AD [facility] [id number]) Intravenous Solution Start Date 06/18/18 Start Time 00:30 Methylprednisolone (Solu-Medrol) 125 mg IVP STAT STA Stop: 06/18/18 00:21 Last Admin: 06/18/18 00:30 Dose: 125 mg IVP Administration Document 06/18/18 00:30 AD (Rec: 06/18/18 01:19 AD [facility] [id number]) Charges for Administration # of IVP Administrations 1 <Pranay Means DO - Last Filed: 06/18/18 05:58> - PA / SASH REPAIRER / Resident Statement ELENITA has reviewed & agrees with the documentation as recorded. ELENITA has examined the patient and agrees with the treatment plan. <Pranay Means DO - Last Filed: 06/18/18 05:58> Disposition/Present on Arrival - Present on Arrival Any Indicators Present on Arrival: No History of DVT/PE: No History of Uncontrolled Diabetes: No Urinary Catheter: No History Surgical Site Infection Following: None - Disposition Have Diagnosis and Disposition been Completed?: Yes Disposition Time: 01:49 Patient Plan: Admission <Kasia Carbajal - Last Filed: 06/18/18 01:47> - Disposition Disposition Time: 01:30 <Pranay Means DO - Last Filed: 06/18/18 05:58> - Disposition Diagnosis: Asthma exacerbation, Leukocytosis Disposition: HOSPITALIZED Condition: STABLE
[2018-06-18] MEDS ORDERED: Magnesium Sulfate 2 gm/50 ml 2 GM/50 ML BAG IVPB ONE (00:20)
[2018-06-18] MEDS ORDERED: Albuterol-Ipratrop 3 mg / 0.5 (3 ml) UD ONE (00:29)
[2018-06-18] MEDS: Albuterol-Ipratrop 3 mg / 0.5 (3 ml) UD IH SCH ×2 (00:30→01:19)
[2018-06-18 00:49] LABS: ALB/GLOB RATIO 1.4 (1.1-1.8); ALBUMIN 4.4 g/dL (3.0-4.8); ALT/SGPT 19 U/L (7-56); AST/SGOT 39 U/L (14-36); BLOOD UREA NITROGEN 15 mg/dL (7-21); CALCIUM 8.9 mg/dL (8.4-10.5); GFR NON-AFRICAN AMERICAN > 60
[2018-06-18 00:59] LABS: BASO # 0.17 K/mm3 (0.0-2.0); BASO % 1.2 % (0.0-3.0); EOS # 1.4 (0.0-0.7); EOS % 10.4 % (1.5-5.0); HEMOGLOBIN 15.2 g/dL (12.0-16.0); LYMPH # 5.8 (1.2-3.4); LYMPH % 41.9 % (22.0-35.0); MEAN CELL VOLUME 86.9 fl (80.0-105.0); MEAN CORPUSCULAR HGB CONC 32.2 g/dl (31.0-37.0); MEAN PLATELET VOLUME 11.1 fl (7.0-11.0); MONO # 0.7 (0.1-0.6); MONO % 4.8 % (1.0-6.0); RBC 5.43 10^6/uL (3.5-6.1); WHITE BLOOD COUNT 13.8 10^3/uL (4.5-11.0)
--- NOTE | 2018-06-18 02:03 | CP.PCM.HP ---
<BryceGregory - Last Filed: 06/18/18 02:29> History of Present Illness - History of Present Illness History of Present Illness: Gregory Wu, PGY1 H&P for Dr. Dmuont cc: "shortness of breath" Patient is a 28 y/o female with PMHx severe persistent asthma, anxiety, medication non-compliance and polysubstance use (tobacco, heroin) who presents to the ED with shortness of breath. Patient is well known to [facility] for frequent asthma exacerbations. She was previously admitted on 05/17/18 for asthma exac erbation in which she was intubated for hypercapnic respiratory failure. She says that she has been compliant with meds since discharge, even finishing her prednisone taper. During this admission, she said she was trying to go to the bathroom and upon returning to bed she was short of breath and felt her heart racing. She uses her rescue inhaler multiple times a day, symptoms worse at night, and she has associated cough. She still smokes tobacco "once in a while" because of her anxiety. She denies sick contacts, recent travel, fever, chills, n/v/d, bowel/bladder changes. She says she recently followed up at [facility] and with Infusion Rn, Dr. Oleary. A full 12 point ROS was conducted and unremarkable except as stated above. PMD: Dr. Temple ([facility]) Pulm: Dr. Oleary Pharmacy: [facility] pharmacy PMHx: severe persistent asthma, anxiety, and polysubstance use (tobacco, heroin) SHx: denies All: NKDA Meds: see MAR SocialHx: occasional smoker (difficulty with quitting), denies drinking and recent drug use. 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 FHx: HTN in father. Present on Admission - Present on Admission Any Indicators Present on Admission: No Review of Systems - Review of Systems All systems: reviewed and no additional remarkable complaints except (as per HPI) Past Patient History - Infectious Disease Hx of Infectious Diseases: None - Tetanus Immunizations Tetanus Immunization: Unknown - Past Social History Smoking Status: Former Smoker - CARDIAC Hx Cardiac Disorders: No - PULMONARY Hx Asthma: Yes (has home nebulizer machine) Hx Bronchitis: Yes Hx Pneumonia: Yes - NEUROLOGICAL Hx Neurological Disorder: No - HEENT Hx HEENT Problems: No - RENAL Hx Chronic Kidney Disease: No - ENDOCRINE/METABOLIC Hx Endocrine Disorders: No - HEMATOLOGICAL/ONCOLOGICAL Hx Blood Disorders: No - INTEGUMENTARY Hx Dermatological Problems: No - MUSCULOSKELETAL/RHEUMATOLOGICAL Hx Falls: No - GASTROINTESTINAL Hx Gastrointestinal Disorders: No - GENITOURINARY/GYNECOLOGICAL Hx Genitourinary Disorders: No - PSYCHIATRIC Hx Anxiety: Yes Hx Substance Use: No - SURGICAL HISTORY Hx Cardiac Catheterization: No Hx Coronary Stent: No - ANESTHESIA Hx Anesthesia: No Meds Allergies/Adverse Reactions: Allergies Allergy/AdvReac Type Severity Reaction Status Date / Time No Known Allergies Allergy Verified 06/18/18 00:14 Physical Exam - Constitutional Appears: Non-toxic, No Acute Distress - Head Exam Head Exam: ATRAUMATIC, NORMAL INSPECTION, NORMOCEPHALIC - Eye Exam Eye Exam: EOMI, Normal appearance, PERRL Pupil Exam: NORMAL ACCOMODATION - ENT Exam ENT Exam: Mucous Membranes Moist - Respiratory Exam Respiratory Exam: Wheezes (Mild expiratory wheezes bilaterally ), NORMAL BREATHING PATTERN. absent: Accessory Muscle Use, Rales, Rhonchi, Respiratory Distress, Stridor - Cardiovascular Exam Cardiovascular Exam: Tachycardia, +S1, +S2 - GI/Abdominal Exam GI & Abdominal Exam: Normal Bowel Sounds, Soft. absent: Firm, Guarding, Rebound, Rigid, Tenderness - Extremities Exam Extremities exam: Positive for: normal capillary refill, normal inspection, pedal pulses present - Back Exam Back exam: NORMAL INSPECTION - Neurological Exam Neurological exam: Alert, CN II-XII Intact, Oriented x3 - Psychiatric Exam Psychiatric exam: Normal Affect, Normal Mood - Skin Skin Exam: Dry, Intact, Normal Color, Warm Results - Vital Signs Recent Vital Signs: Last Vital Signs Temp Pulse 106 H 06/18/18 00:30 Resp 18 06/18/18 00:30 BP 128/78 06/18/18 00:30 Pulse Ox 96 06/18/18 00:30 - Labs Result Diagrams: 06/18/18 00:20 06/18/18 00:20 Labs: Laboratory Results - last 24 hr 06/18/18 06/18/18 00:20 00:20 WBC 13.8 H D RBC 5.43 Hgb 15.2 D Hct 47.2 MCV 86.9 MCH 28.0 MCHC 32.2 RDW 13.0 Plt Count 319 MPV 11.1 H Neut % (Auto) 41.7 L Lymph % (Auto) 41.9 H Ward % (Auto) 4.8 Eos % (Auto) 10.4 H Baso % (Auto) 1.2 Lymph # (Auto) 5.8 H Ward # (Auto) 0.7 H Eos # (Auto) 1.4 H Baso # (Auto) 0.17 Absolute Neuts (auto) 5.77 Sodium 141 Potassium 4.3 Chloride 102 Carbon Dioxide 29 Anion Gap 15 BUN 15 Creatinine 0.7 Est GFR ( Amer) > 60 Est GFR (Non-Af Amer) > 60 Random Glucose 88 Calcium 8.9 Total Bilirubin 0.4 AST 39 H ALT 19 Alkaline Phosphatase 67 Total Protein 7.5 Albumin 4.4 Globulin 3.1 Albumin/Globulin Ratio 1.4 Assessment & Plan - Assessment and Plan (Free Text) Assessment: Patient is a 28 y/o female with PMHx severe persistent asthma, anxiety, medication non-compliance and polysubstance use (tobacco, heroin) who presents to the ED with shortness of breath. Patient admitted for asthma exacerbation. Plan: Asthma Exacerbation in the Setting of Severe Persistent Asthma - resume home med Xopenex q2 prn - resume home med Singulair PO HS - resume home med Dulera BID - ABG to assess respiratory status - nasal cannula prn - Mild Leukocytosis 2/2 steroid administration in ED, monitor labs - Eosinophils elevated, suggestive of asthma - CXR: no consolidation or infiltrate. - EKG: Sinus tachy at [address] or T wave changes. Polysubstance Abuse - Urine drug screen - Educated on smoking cessation ppx: - scd Diet: Regular Dispo: Will admit patient for observation on med/surg. Asthma exacerbation improving in ED, will continue to monitor. Case was discussed and reviewed with Attending Physician, Dr. Dumont. <Sunshine Dumont - Last Filed: 06/18/18 02:56> Results - Vital Signs Recent Vital Signs: Last Vital Signs Temp Pulse 106 H 06/18/18 00:30 Resp 18 06/18/18 00:30 BP 128/78 06/18/18 00:30 Pulse Ox 96 06/18/18 00:30 - Labs Result Diagrams: 06/18/18 00:20 06/18/18 00:20 Labs: Laboratory Results - last 24 hr 06/18/18 06/18/18 00:20 00:20 WBC 13.8 H D RBC 5.43 Hgb 15.2 D Hct 47.2 MCV 86.9 MCH 28.0 MCHC 32.2 RDW 13.0 Plt Count 319 MPV 11.1 H Neut % (Auto) 41.7 L Lymph % (Auto) 41.9 H Ward % (Auto) 4.8 Eos % (Auto) 10.4 H Baso % (Auto) 1.2 Lymph # (Auto) 5.8 H Ward # (Auto) 0.7 H Eos # (Auto) 1.4 H Baso # (Auto) 0.17 Absolute Neuts (auto) 5.77 Sodium 141 Potassium 4.3 Chloride 102 Carbon Dioxide 29 Anion Gap 15 BUN 15 Creatinine 0.7 Est GFR ( Amer) > 60 Est GFR (Non-Af Amer) > 60 Random Glucose 88 Calcium 8.9 Total Bilirubin 0.4 AST 39 H ALT 19 Alkaline Phosphatase 67 Total Protein 7.5 Albumin 4.4 Globulin 3.1 Albumin/Globulin Ratio 1.4 Attending/Attestation - Attestation I have personally seen and examined this patient.: Yes I have fully participated in the care of the patient.: Yes I have reviewed all pertinent clinical information: Yes
[2018-06-18] MEDS ORDERED: Levalbuterol 0.63 MG/3 ML Inhal Soln UD IH PRN ×2 (02:23→07:40)
[2018-06-18] MEDS ORDERED: Albuterol HFA 90 mcg/actuation (8 g) IH PRN (02:23)
[2018-06-18 03:36] LABS: BARBITURATES, UR NEGATIVE (NEGATIVE); BENZODIAZEPINES, UR NEGATIVE (NEGATIVE); OPIATES, UR POSITIVE (NEGATIVE); PHENCYCLIDINE, UR NEGATIVE (NEGATIVE)
--- NOTE | 2018-06-18 08:33 | RAD ---
Date of service: 06/18/2018 HISTORY: sob COMPARISON: 05/13/2018. FINDINGS: LUNGS: The lungs are well inflated and clear. PLEURA: No pleural effusions or pneumothorax. CARDIOVASCULAR: The heart is normal in size. No aortic atherosclerotic calcifications present. OSSEOUS STRUCTURES: Within normal limits for the patient's age. VISUALIZED UPPER ABDOMEN: Normal. OTHER FINDINGS: None. IMPRESSION: No active pulmonary disease.
[2018-06-18] MEDS ORDERED: FORMOTEROL IH SCH (10:00)
[2018-06-18] MEDS ORDERED: MOMETASONE IH SCH (10:00)
[2018-06-18] MEDS: MethylPREDNISolone 40 mg Vial IVP SCH ×2 (10:43→21:40)
[2018-06-18] MEDS: Enoxaparin 40 mg Syringe SC SCH (10:44)
[2018-06-18] MEDS: Arformoterol 15 mcg/2 ml Inh Sol IH SCH ×2 (11:38→20:27)
[2018-06-18] MEDS: Budesonide 0.5 mg/2 ml Inhal Susp UD IH SCH ×2 (11:38→20:27)
[2018-06-18 22:47] VITALS: RESP 18
[2018-06-19] MEDS ORDERED: Pantoprazole 40 mg EC Tab PO SCH (06:00)
--- NOTE | 2018-06-19 07:18 | CARD ---
APPROVED REPORT Date of service: 06/18/2018 EKG Measurement Heart [id number] <Conclusion> Sinus tachycardia with short CT with fusion complexes Nonspecific ST and T wave abnormality Abnormal ECG
[2018-06-19] MEDS: Arformoterol 15 mcg/2 ml Inh Sol IH SCH (08:07)
[2018-06-19] MEDS: Budesonide 0.5 mg/2 ml Inhal Susp UD IH SCH (08:07)
[2018-06-19] MEDS: Enoxaparin 40 mg Syringe SC SCH ×2 (10:15→10:17)
[2018-06-19] MEDS: MethylPREDNISolone 40 mg Vial IVP SCH (10:15)
[2018-06-19 14:26] VITALS: BP 114/80; PULSE 97; TEMP 98.3; O2SAT 93
--- NOTE | 2018-06-19 15:17 | CP.PCM.DIS ---
<Lilo Mora - Last Filed: 06/19/18 14:59> Provider - Provider Date of Admission: 06/18/18 01:50 Attending physician: Aristeo Martin MD Time Spent in preparation of Discharge (in minutes): 60 Hospital Course - Lab Results Lab Results: Most Recent Lab Values WBC 13.8 10^3/uL (4.5-11.0) H D 06/18/18 00:20 RBC 5.43 10^6/uL (3.5-6.1) 06/18/18 00:20 Hgb 15.2 g/dL (12.0-16.0) D 06/18/18 00:20 Hct 47.2 % (36.0-48.0) 06/18/18 00:20 MCV 86.9 fl (80.0-105.0) 06/18/18 00:20 MCH 28.0 pg (25.0-35.0) 06/18/18 00:20 MCHC 32.2 g/dl (31.0-37.0) 06/18/18 00:20 RDW 13.0 % (11.5-14.5) 06/18/18 00:20 Plt Count 319 10^3/uL (120.0-450.0) 06/18/18 00:20 MPV 11.1 fl (7.0-11.0) H 06/18/18 00:20 Neut % (Auto) 41.7 % (50.0-68.0) L 06/18/18 00:20 Lymph % (Auto) 41.9 % (22.0-35.0) H 06/18/18 00:20 Overton % (Auto) 4.8 % (1.0-6.0) 06/18/18 00:20 Eos % (Auto) 10.4 % (1.5-5.0) H 06/18/18 00:20 Baso % (Auto) 1.2 % (0.0-3.0) 06/18/18 00:20 Lymph # (Auto) 5.8 (1.2-3.4) H 06/18/18 00:20 Overton # (Auto) 0.7 (0.1-0.6) H 06/18/18 00:20 Eos # (Auto) 1.4 (0.0-0.7) H 06/18/18 00:20 Baso # (Auto) 0.17 K/mm3 (0.0-2.0) 06/18/18 00:20 Absolute Neuts (auto) 5.77 (1.4-6.5) 06/18/18 00:20 Sodium 141 mmol/L (132-148) 06/18/18 00:20 Potassium 4.3 mmol/L (3.6-5.0) 06/18/18 00:20 Chloride 102 mmol/L (98-107) 06/18/18 00:20 Carbon Dioxide 29 mmol/L (21-33) 06/18/18 00:20 Anion Gap 15 (10-20) 06/18/18 00:20 BUN 15 mg/dL (7-21) 06/18/18 00:20 Creatinine 0.7 mg/dl (0.7-1.2) 06/18/18 00:20 Est GFR ( Amer) > 60 06/18/18 00:20 Est GFR (Non-Af Amer) > 60 06/18/18 00:20 Random Glucose 88 mg/dL (70-110) 06/18/18 00:20 Calcium 8.9 mg/dL (8.4-10.5) 06/18/18 00:20 Total Bilirubin 0.4 mg/dL (0.2-1.3) 06/18/18 00:20 AST 39 U/L (14-36) H 06/18/18 00:20 ALT 19 U/L (7-56) 06/18/18 00:20 Alkaline Phosphatase 67 U/L (38-126) 06/18/18 00:20 Total Protein 7.5 g/dL (5.8-8.3) 06/18/18 00:20 Albumin 4.4 g/dL (3.0-4.8) 06/18/18 00:20 Globulin 3.1 gm/dL 06/18/18 00:20 Albumin/Globulin Ratio 1.4 (1.1-1.8) 06/18/18 00:20 Urine Opiates Screen Positive (NEGATIVE) H 06/18/18 02:25 Urine Methadone Screen Negative (NEGATIVE) 06/18/18 02:25 Ur Barbiturates Screen Negative (NEGATIVE) 06/18/18 02:25 Ur Phencyclidine Scrn Negative (NEGATIVE) 06/18/18 02:25 Ur Amphetamines Screen Negative (NEGATIVE) 06/18/18 02:25 U Benzodiazepines Scrn Negative (NEGATIVE) 06/18/18 02:25 U Oth Cocaine Metabols Negative (NEGATIVE) 06/18/18 02:25 U Cannabinoids Screen Negative (NEGATIVE) 06/18/18 02:25 - Hospital Course Hospital Course: Lilo Mora, PGY-1, Internal Medicine Discharge Summary for Dr. Posey 28 year old female with past medical history of asthma, anxiety, medication noncompliance, and polysubstance abuse (tobacco, heroin) presented with shortness of breath. She is well known to [facility] and has had frequent asthma exacerbations. She was previously admitted on 05/17/18 for acute asthma exac erbation where she was intubated for hypercapneic respiratory failure. She says that she had been compliant with medications since discharge and had even taken her prednisone taper. During this admission, she was short of breath upon walking to the bathroom and back. Patient uses her rescue inhaler multiple times a day with symptoms worse at night, and she has an associated cough. However, patient later reported that her symptoms are not as frequent as previously stated. Patient follows up with [facility] and currently takes dulera, singulair, and ventolin. Upon admission, chest X ray showed no acute infiltrate. EKG was sinus tachycardia with HR: 118. Patient was given solumedrol 125 mg IV in the emergency department and started on home xopenex, singulair, dulera. Patient had mild leukocytosis on admission likely 2/2 to steroids administered to patient prior to labs drawn. Patient was subsequently started on solumedrol 40 mg IV Q12, xopenex, pulmicort, brovana, and singulair. Patient had significant expiratory wheezes on exam on admission and wheezes significantly improved today with medication. She reported that she needed a refill of home ventolin. In add ition, she was given prednisone taper on discharge. Patient was found to be stable and ready for discharge. Patient was told to follow up with Dr. Temple on Tuesday June 26, 2018 at 1 PM. Patient will be referred to carbon coater machine operator subsequently. Patient was told to take all medications as prescribed. Patient was told to return to the emergency department if she had any new or concerning symptoms. This is a brief summary of the events that transpired during this hospital stay. For more information, please refer to hospital documentation. Discharge Diagnoses Asthma Exacerbation Opiate abuse - Date & Time of H&P Date of H&P: 06/18/18 Time of H&P: 01:58 Discharge Exam - Head Exam Head Exam: ATRAUMATIC, NORMAL INSPECTION, NORMOCEPHALIC - Eye Exam Eye Exam: EOMI, PERRL - Neck Exam Neck exam: Full Rom - Respiratory Exam Respiratory Exam: Clear to PA & Lateral, Wheezes (mild), NORMAL BREATHING PATTERN. absent: Rales, Rhonchi - Cardiovascular Exam Cardiovascular Exam: REGULAR RHYTHM, RRR, +S1, +S2. absent: Clicks, Gallop, Rubs - GI/Abdominal Exam GI & Abdominal Exam: Normal Bowel Sounds, Soft. absent: Distended, Firm, Guarding, Tenderness - Extremities Exam Extremities exam: full ROM - Neurological Exam Neurological exam: Alert, CN II-XII Intact, Oriented x3 - Psychiatric Exam Psychiatric exam: Normal Affect, Normal Mood - Skin Skin Exam: Dry, Intact Discharge Plan - Discharge Medications Prescriptions: Albuterol HFA [Ventolin HFA 90 mcg/actuation (8 g)] 2 puff IH [id number] PRN #1 inh PRN Reason: Shortness Of Breath Pantoprazole [Protonix EC Tab] 40 mg PO 0600 16 Days #16 ect Prednisone See Taper PO DAILY #45 tab - Follow Up Plan Condition: STABLE Disposition: HOME/ ROUTINE Instructions: Asthma in Adults, Quitting Smoking Additional Instructions: Please follow up with your primary care physician on June 26, 2017 at 1 PM Please have primary care physician refer you to carbon coater machine operator for further evaluation and treatment of asthma Please take all home medications as prescribed. Please take prednisone 40 mg daily for 3 days, prednisone 20 mg daily for the next 3 days, prednisone 10 mg daily for the next 3 days, prednisone 5 mg daily for the next 3 days Please return to the emergency department if you have any new or concerning symptoms. Referrals: Melanie Temple MD [Medical Doctor] - <Raiza Posey - Last Filed: 06/19/18 17:22> Provider - Provider Date of Admission: 06/18/18 01:50 Attending physician: Aristeo Martin [facility] Course - Lab Results Lab Results: Most Recent Lab Values WBC 13.8 10^3/uL (4.5-11.0) H D 06/18/18 00:20 RBC 5.43 10^6/uL (3.5-6.1) 06/18/18 00:20 Hgb 15.2 g/dL (12.0-16.0) D 06/18/18 00:20 Hct 47.2 % (36.0-48.0) 06/18/18 00:20 MCV 86.9 fl (80.0-105.0) 06/18/18 00:20 MCH 28.0 pg (25.0-35.0) 06/18/18 00:20 MCHC 32.2 g/dl (31.0-37.0) 06/18/18 00:20 RDW 13.0 % (11.5-14.5) 06/18/18 00:20 Plt Count 319 10^3/uL (120.0-450.0) 06/18/18 00:20 MPV 11.1 fl (7.0-11.0) H 06/18/18 00:20 Neut % (Auto) 41.7 % (50.0-68.0) L 06/18/18 00:20 Lymph % (Auto) 41.9 % (22.0-35.0) H 06/18/18 00:20 Overton % (Auto) 4.8 % (1.0-6.0) 06/18/18 00:20 Eos % (Auto) 10.4 % (1.5-5.0) H 06/18/18 00:20 Baso % (Auto) 1.2 % (0.0-3.0) 06/18/18 00:20 Lymph # (Auto) 5.8 (1.2-3.4) H 06/18/18 00:20 Overton # (Auto) 0.7 (0.1-0.6) H 06/18/18 00:20 Eos # (Auto) 1.4 (0.0-0.7) H 06/18/18 00:20 Baso # (Auto) 0.17 K/mm3 (0.0-2.0) 06/18/18 00:20 Absolute Neuts (auto) 5.77 (1.4-6.5) 06/18/18 00:20 Sodium 141 mmol/L (132-148) 06/18/18 00:20 Potassium 4.3 mmol/L (3.6-5.0) 06/18/18 00:20 Chloride 102 mmol/L (98-107) 06/18/18 00:20 Carbon Dioxide 29 mmol/L (21-33) 06/18/18 00:20 Anion Gap 15 (10-20) 06/18/18 00:20 BUN 15 mg/dL (7-21) 06/18/18 00:20 Creatinine 0.7 mg/dl (0.7-1.2) 06/18/18 00:20 Est GFR ( Amer) > 60 06/18/18 00:20 Est GFR (Non-Af Amer) > 60 06/18/18 00:20 Random Glucose 88 mg/dL (70-110) 06/18/18 00:20 Calcium 8.9 mg/dL (8.4-10.5) 06/18/18 00:20 Total Bilirubin 0.4 mg/dL (0.2-1.3) 06/18/18 00:20 AST 39 U/L (14-36) H 06/18/18 00:20 ALT 19 U/L (7-56) 06/18/18 00:20 Alkaline Phosphatase 67 U/L (38-126) 06/18/18 00:20 Total Protein 7.5 g/dL (5.8-8.3) 06/18/18 00:20 Albumin 4.4 g/dL (3.0-4.8) 06/18/18 00:20 Globulin 3.1 gm/dL 06/18/18 00:20 Albumin/Globulin Ratio 1.4 (1.1-1.8) 06/18/18 00:20 Urine Opiates Screen Positive (NEGATIVE) H 06/18/18 02:25 Urine Methadone Screen Negative (NEGATIVE) 06/18/18 02:25 Ur Barbiturates Screen Negative (NEGATIVE) 06/18/18 02:25 Ur Phencyclidine Scrn Negative (NEGATIVE) 06/18/18 02:25 Ur Amphetamines Screen Negative (NEGATIVE) 06/18/18 02:25 U Benzodiazepines Scrn Negative (NEGATIVE) 06/18/18 02:25 U Oth Cocaine Metabols Negative (NEGATIVE) 06/18/18 02:25 U Cannabinoids Screen Negative (NEGATIVE) 06/18/18 02:25 Attending/Attestation - Attestation I have personally seen and examined this patient.: Yes I have fully participated in the care of the patient.: Yes I have reviewed all pertinent clinical information, including history, physical exam and plan: Yes Notes (Text): 06/19/18 17:14 Patient was seen and examined with medical genetics director. 28 year old female with past medical history of asthma, anxiety, medication noncompliance, and polysubstance abuse was admitted with acute asthma exacerbation.She has responded well to Neb/steroid. Her cough and dyspnea is improved. Patient is on room air and is feeling better.She is ambulatory. Patient will be discharged home on tapering dose of Prednisone in addition to her home albuterol inhaler, Dulera and singular. The issue of compliance with medication and drug abuse was discussed in detail. Management plan was discussed in detail with patient. Education was provided. 06/19/18 17:21
== END 2018-06-19 17:11 | disposition home or self-care (01) ==
LOC: ED 00:10 → ERH 01:50 → 5RNO 04:17
PROVIDERS: ADMIT Internal Medicine; ATTEND Internal Medicine
DX: J45.51 Severe persistent asthma with (acute) exacerbation (principal); F11.10 Opioid abuse, uncomplicated; F17.200 Nicotine dependence, unspecified, uncomplicated; F41.9 Anxiety disorder, unspecified; D72.829 Elevated white blood cell count, unspecified; Z91.14 Patient's other noncompliance with medication regimen; Z87.01 Personal history of pneumonia (recurrent); Z82.49 Family history of ischemic heart disease and other diseases of the circulatory system
CPT/HCPCS: 71045; 80053; 80324; 80345; 80346; 80349; 80353; 80358; 80361; 81025; 83992; 85025; 93005; 94640; 96374; 99285; G0378; J2920; J2930